=== PATIENT | male | born 1930 | race Caucasian/White ===

== ENCOUNTER → 2017-05-11 | Day surgery (SDC) | payer MEDICARE, OTHER ==
[~2017-05-11] MED LIST: AMLO2.5T PO; AZAT50TA PO; CHOL20002 PO; ESOM40CA PO; FISH1CAP PO; FLEC50TA PO; HYDR12.58 PO; HYDROmorphone 2 MG/ML VIAL IV PRN; INSU100I13 SQ; IV RINGERS,LACTATED 1000ML 1,000 ML IV SCH; LIDOCAINE 1% 1 ML SYRINGE. ID PRN; LIDOCAINE 2% PF Vial for OR 5 ML VIAL. ONE; LISI-334 PO; MORPHINE SULFATE 2 MG/ML DISP.SYRIN. IV PRN; PROCHLORPERAZINE 10 MG/2 ML VIAL. IV PRN; PROPOFOL 40 ML IV ONE; PYRI60TA PO; SIMV20TA3 PO; WARF5TAB7 PO; fentaNYL PF VIAL 100 MCG/2 ML VIAL IV PRN
[2017-05-11 14:45] VITALS: BP 170/56
--- NOTE | 2017-05-12 12:46 | PATHOLOGY ---
PATHOLOGY REPORT * * * * * * * * FINAL DIAGNOSIS: A. Squamous mucosa "distal esophagus rule out Medina's rule out esophagitis": - Acute esophageal ulcer with necrotic acute inflammatory exudate. - There is no evidence of goblet cell metaplasia, dysplasia or malignancy. B. Colonic mucosa "sigmoid polyp", biopsy: - Tubular adenoma. - There is no evidence of high-grade dysplasia or malignancy. ([facility]; d/t: 05/12/2017) COMMENT: A. GMS stain for fungus will be done and an additional report will follow. REPORT ELECTRONICALLY SIGNED BY: Rashid Salas M.D. DATE/TIME: 05/12/2017 12:45 * * * * * * * * GROSS PATHOLOGY: A. Received in formalin labeled "Van Mckeon, distal esophagus," are three segments of roca soft tissue measuring from 0.1 up to 0.3 cm in maximum dimension. The specimen is submitted entirely in cassette A1. B. Received in formalin labeled "sigmoid polyp" is a segment of roca soft tissue measuring 0.4 cm in maximum dimension. The specimen is submitted entirely in cassette B1. ([facility]; 05/11/17) INITIAL CPT CODE(S): A; 59810, 30224 B; 33925 Professional services performed [place] [facility] [place] [address] Technical services performed by [facility] at [address] [place] [address], [facility] [address] [address]. SPECIMEN(S) RECEIVED: A.Distal esophagus, r/o Medina's, r/o esophagitis B.Sigmoid polyp CLINICAL HISTORY: Anemia, screening PATIENT: VAN MCKEON /AGE: 10 1930 (Age: 86) PATIENT #: [id number] ALT CASE #: SPECIMEN COLLECTION DATE: 05/11/2017 SPECIMEN RECEIVED DATE: 05/11/2017 [facility] - [address] [place] [address] - PHONE: [phone] * * * END OF REPORT * * *
== END | disposition home or self-care (01) ==
LOC: ENDOS 12:15
PROVIDERS: ATTEND Internal Medicine Gastroenterology
DX: D50.9 Iron deficiency anemia, unspecified (principal); D12.5 Benign neoplasm of sigmoid colon; K57.30 Diverticulosis of large intestine without perforation or abscess without bleeding; K64.0 First degree hemorrhoids; K29.50 Unspecified chronic gastritis without bleeding; K21.0 Gastro-esophageal reflux disease with esophagitis; I10 Essential (primary) hypertension; E11.9 Type 2 diabetes mellitus without complications; Z86.39 Personal history of other endocrine, nutritional and metabolic disease
CPT/HCPCS: 43239; 45385; 88305; 88312; J2704

== ENCOUNTER → 2017-10-17 | Outpatient (CLI) | payer MEDICARE, OTHER ==
[2017-05-11 14:45] VITALS: BP 170/56
[~2017-10-17] MED LIST changes: -HYDROmorphone 2 MG/ML VIAL IV PRN; -IV RINGERS,LACTATED 1000ML 1,000 ML IV SCH; -LIDOCAINE 1% 1 ML SYRINGE. ID PRN; -LIDOCAINE 2% PF Vial for OR 5 ML VIAL. ONE; -MORPHINE SULFATE 2 MG/ML DISP.SYRIN. IV PRN; -PROCHLORPERAZINE 10 MG/2 ML VIAL. IV PRN; -PROPOFOL 40 ML IV ONE; -fentaNYL PF VIAL 100 MCG/2 ML VIAL IV PRN
== END | disposition home or self-care (01) ==
LOC: PMGWOUND 11:27
PROVIDERS: ATTEND Emergency Medicine Undersea and Hyperbaric Medicine
DX: I87.311 Chronic venous hypertension (idiopathic) with ulcer of right lower extremity (principal); E11.622 Type 2 diabetes mellitus with other skin ulcer; L97.212 Non-pressure chronic ulcer of right calf with fat layer exposed; E78.5 Hyperlipidemia, unspecified; I48.91 Unspecified atrial fibrillation; Z87.891 Personal history of nicotine dependence
CPT/HCPCS: 97597; 97598

== ENCOUNTER → 2017-10-24 | Outpatient (CLI) | payer MEDICARE, OTHER ==
[2017-05-11 14:45] VITALS: BP 170/56
== END | disposition home or self-care (01) ==
LOC: PMGWOUND 11:38
PROVIDERS: ATTEND Emergency Medicine Undersea and Hyperbaric Medicine
DX: I87.311 Chronic venous hypertension (idiopathic) with ulcer of right lower extremity (principal); E11.622 Type 2 diabetes mellitus with other skin ulcer; L97.212 Non-pressure chronic ulcer of right calf with fat layer exposed; I48.91 Unspecified atrial fibrillation; E78.5 Hyperlipidemia, unspecified; Z87.891 Personal history of nicotine dependence
CPT/HCPCS: 82962; 97597; 97598

== ENCOUNTER → 2017-10-31 | Outpatient (CLI) | payer MEDICARE, OTHER ==
[2017-05-11 14:45] VITALS: BP 170/56
== END | disposition home or self-care (01) ==
LOC: PMGWOUND 11:45
PROVIDERS: ATTEND Emergency Medicine Undersea and Hyperbaric Medicine
DX: I87.311 Chronic venous hypertension (idiopathic) with ulcer of right lower extremity (principal); E11.622 Type 2 diabetes mellitus with other skin ulcer; L97.212 Non-pressure chronic ulcer of right calf with fat layer exposed; I48.91 Unspecified atrial fibrillation; E78.5 Hyperlipidemia, unspecified; Z87.891 Personal history of nicotine dependence
CPT/HCPCS: 97597; 97598

== ENCOUNTER → 2017-11-02 | Outpatient (CLI) | payer MEDICARE, OTHER ==
[2017-05-11 14:45] VITALS: BP 170/56
--- NOTE | 2017-11-02 15:48 | RAD ---
Indication: Nonhealing wound in right leg. Technique: Right lower extremity arterial duplex ultrasound including grayscale, color-flow, and spectral waveform analysis. ABIs were calculated. Findings: Waveforms are biphasic or triphasic throughout the right lower extremity. No elevated velocity or turbulence flow is apparent. No stenosis on grayscale or color imaging is apparent. Common femoral artery peak systolic velocity is 108 cm/s and profundus 49 cm/s. Superficial femoral artery peak systolic velocities range from 69-77 cm/s. Popliteal artery peak systolic velocity is 59 cm/s. Right JESUS is 1.18 and left 1.22. Impression: 1. No evidence of a hemodynamically significant stenosis in the right lower extremity on arterial duplex ultrasound. 2. Normal ABIs.
== END | disposition home or self-care (01) ==
LOC: US 11:33
PROVIDERS: ATTEND Emergency Medicine Undersea and Hyperbaric Medicine
DX: S81.801A Unspecified open wound, right lower leg, initial encounter (principal); X58.XXXA Exposure to other specified factors, initial encounter; Y93.89 Activity, other specified; Y92.89 Other specified places as the place of occurrence of the external cause; Y99.8 Other external cause status
CPT/HCPCS: 93922; 93926

== ENCOUNTER 2017-11-07 12:13 | Emergency (ER) | payer MEDICARE, OTHER ==
[~2017-11-07] VITALS: Ht 167.6 cm; Wt 81.6 kg
--- NOTE | 2017-11-07 12:35 | PHYS DOC ---
Past Medical History Past Medical History: A-Fib, Diabetes-Type II, Heart Disease, Other Additional Past Medical Histor: MYASTHENIA GRAVIS Past Surgical History: Cholecystectomy, Other Additional Past Surgical Histo: PROSTATE Alcohol Use: None Drug Use: None Adult General Chief Complaint Chief Complaint: ABNORMAL LABS [facility] Patient is a 87 year old male who presents with elevated INR. He states he had his INR checked today and it was 8. He can't remember why he is on Coumadin but reviewing his chart it shows he has a history of A. fib. His primary care physician informed him he needed to get a shot in the emergency department to come in the hospital. He states he feels fine. The last time he got it checked was a month ago. Denies any blood in his stool or urine. He denies cough fevers chills nausea or vomiting. She takes 15 mg on Monday's and 10 mg on the other days of the week. Review of Systems Review of Systems Constitutional: Denies fever or chills [] Eyes: Denies change in visual acuity, redness, or eye pain [] HENT: Denies nasal congestion or sore throat [] Respiratory: Denies cough or shortness of breath [] Cardiovascular: No additional information not addressed in HPI [] GI: Denies abdominal pain, nausea, vomiting, bloody stools or diarrhea [] : Denies dysuria or hematuria [] Musculoskeletal: Denies back pain or joint pain [] Integument: Denies rash or skin lesions [] Neurologic: Denies headache, focal weakness or sensory changes [] Endocrine: Denies polyuria or polydipsia [] All other systems were reviewed and found to be within normal limits, except as documented in this note. Allergies Allergies Allergies Coded Allergies Type Severity Reaction Last Updated Verified No Known Drug Allergies 05/11/17 No Physical Exam Physical Exam Constitutional: Well developed, well nourished, no acute distress, non-toxic appearance. [] HENT: Normocephalic, atraumatic, bilateral external ears normal, oropharynx moist, no oral exudates, nose normal. [] Eyes: PERRLA, EOMI, conjunctiva normal, no discharge. [] Neck: Normal range of motion, no tenderness, supple, no stridor. [] Cardiovascular:Heart rate regular rhythm, no murmur [] Lungs & Thorax: Bilateral breath sounds clear to auscultation [] Abdomen: Bowel sounds normal, soft, no tenderness, no masses, no pulsatile masses. [] Skin: Warm, dry, no erythema, no rash. [] Back: No tenderness, no CVA tenderness. [] Extremities: No tenderness, no cyanosis, no clubbing, ROM intact, no edema. [] Neurologic: Alert and oriented X 3, normal motor function, normal sensory function, no focal deficits noted. [] Psychologic: Affect normal, judgement normal, mood normal. [] Current Patient Data Vital Signs Vital Signs Date Time Temp Pulse Resp B/P (MAP) Pulse Ox O2 Delivery O2 Flow Rate FiO2 11/07/17 12:31 97.7 63 18 170/79 (109) 98 Room Air 97.7 Lab Values Laboratory Tests Test 11/07/17 13:15 White Blood Count 5.3 x10^3/uL (4.0-11.0) Red Blood Count 4.11 x10^6/uL (4.30-5.70) L Hemoglobin 11.2 g/dL (13.0-17.5) L Hematocrit 35.0 % (39.0-53.0) L Mean Corpuscular Volume 85 fL (79-100) Mean Corpuscular Hemoglobin 27 pg (25-35) Mean Corpuscular Hemoglobin Concent 32 g/dL (31-37) Red Cell Distribution Width 15.5 % (11.5-14.5) H Platelet Count 220 x10^3/uL (140-400) Neutrophils (%) (Auto) 60 % (31-73) Lymphocytes (%) (Auto) 23 % (24-48) L Monocytes (%) (Auto) 10 % (0-9) H Eosinophils (%) (Auto) 6 % (0-3) H Basophils (%) (Auto) 1 % (0-3) Neutrophils # (Auto) 3.2 x10^3uL (1.8-7.7) Lymphocytes # (Auto) 1.2 x10^3/uL (1.0-4.8) Monocytes # (Auto) 0.5 x10^3/uL (0.0-1.1) Eosinophils # (Auto) 0.3 x10^3/uL (0.0-0.7) Basophils # (Auto) 0.1 x10^3/uL (0.0-0.2) Prothrombin Time 68.2 SEC (11.7-14.0) H Prothrombin Time INR 9.0 (0.8-1.1) *H Sodium Level 142 mmol/L (136-145) Potassium Level 4.4 mmol/L (3.5-5.1) Chloride Level 105 mmol/L (98-107) Carbon Dioxide Level 29 mmol/L (21-32) Anion Gap 8 (6-14) Blood Urea Nitrogen 22 mg/dL (8-26) Creatinine 1.1 mg/dL (0.7-1.3) Estimated GFR (Cockcroft-Gault) 63.6 BUN/Creatinine Ratio 20 (6-20) Glucose Level 79 mg/dL (70-99) Calcium Level 8.7 mg/dL (8.5-10.1) Total Bilirubin 0.2 mg/dL (0.2-1.0) Aspartate Amino Transferase (AST) 14 U/L (15-37) L Alanine Aminotransferase (ALT) 18 U/L (16-63) Alkaline Phosphatase 59 U/L (46-116) Total Protein 6.6 g/dL (6.4-8.2) Albumin 3.1 g/dL (3.4-5.0) L Albumin/Globulin Ratio 0.9 (1.0-1.7) L Laboratory Tests 11/07/17 13:15 Laboratory Tests 11/07/17 13:15 EKG EKG [] Radiology/Procedures Radiology/Procedures [] Impressions: supratherapeutic INR without bleeding Course & Med Decision Making Course & Med Decision Making Pertinent Labs and Imaging studies reviewed. (See chart for details) Vitals, labs other than his INR do not show any acute abnormality's. INR is 9. He has no signs of bleeding. We'll give 5 by mouth vitamin K needs to repeat his INR tomorrow in his primary care office. He is agreeable to the plan and being discharged in stable condition at this time. Dragon Disclaimer Dragon Disclaimer This electronic medical record was generated, in whole or in part, using a voice recognition dictation system. Departure Departure Impression: Primary Impression: Supratherapeutic INR Disposition: 01 HOME, SELF-CARE Condition: STABLE Referrals: KONSTANTIN LEES Jr, MD (PCP) Patient Instructions: Anticoagulation, Generic Additional Instructions: Your INR was 9 when we repeated it. He received 5 mg of oral vitamin K this should help bring it down into a more appropriate range. You will need follow- up to primary care physician tomorrow and have your INR checked again. Please eat and drink normally. Return the ER if you have any blood in your urine blood in your stools or any other concerns. GIANCARLO FISHER MD Nov 07, 2017 12:35
[2017-11-07 13:28] LABS: BASO # 0.1 x10^3/uL (0.0-0.2); BASO % 1 % (0-3); EOS % 6 % (0-3); HEMOGLOBIN 11.2 g/dL (13.0-17.5); LYMPH # 1.2 x10^3/uL (1.0-4.8); LYMPH % 23 % (24-48); MEAN CORPUSCULAR HEMOGLOBIN 27 pg (25-35); MEAN CORPUSCULAR HGB CONC 32 g/dL (31-37); MEAN CORPUSCULAR VOLUME 85 fL (79-100); MONO % 10 % (0-9); NEUT % 60 % (31-73); PLATELET COUNT 220 x10^3/uL (140-400); RED BLOOD COUNT 4.11 x10^6/uL (4.30-5.70); RED CELL DISTRIBUTION WIDTH 15.5 % (11.5-14.5); WHITE BLOOD COUNT 5.3 x10^3/uL (4.0-11.0)
[2017-11-07 13:41] LABS: PROTHROMBIN TIME PATIENT 68.2 SEC (11.7-14.0)
[2017-11-07 13:42] LABS: CALCIUM 8.7 mg/dL (8.5-10.1); CREATININE 1.1 mg/dL (0.7-1.3); GFR 63.6; POTASSIUM 4.4 mmol/L (3.5-5.1)
[2017-11-07 13:48] LABS: ALBUMIN 3.1 g/dL (3.4-5.0); ALBUMIN/GLOBULIN RATIO 0.9 (1.0-1.7); TOTAL BILIRUBIN 0.2 mg/dL (0.2-1.0); TOTAL PROTEIN 6.6 g/dL (6.4-8.2)
[2017-11-07] MEDS ORDERED: PHYTONADIONE 10 MG/ML ORAL SOLUTION. PO ONE (14:00)
[2017-11-07 14:15] VITALS: BP 133/65
== END 2017-11-07 14:28 | disposition home or self-care (01) ==
LOC: ER 12:13
DX: R79.1 Abnormal coagulation profile (principal); E11.9 Type 2 diabetes mellitus without complications; I48.91 Unspecified atrial fibrillation; Z79.01 Long term (current) use of anticoagulants
CPT/HCPCS: 36415; 80053; 85025; 85610; 99284

== ENCOUNTER → 2017-11-07 | Outpatient (CLI) | payer MEDICARE, OTHER ==
[2017-05-11 14:45] VITALS: BP 170/56
== END | disposition home or self-care (01) ==
LOC: PMGWOUND 10:37
PROVIDERS: ATTEND Emergency Medicine Undersea and Hyperbaric Medicine
DX: I87.311 Chronic venous hypertension (idiopathic) with ulcer of right lower extremity (principal); E11.622 Type 2 diabetes mellitus with other skin ulcer; L97.212 Non-pressure chronic ulcer of right calf with fat layer exposed; E78.5 Hyperlipidemia, unspecified; I48.91 Unspecified atrial fibrillation; Z87.891 Personal history of nicotine dependence
CPT/HCPCS: 97597; 97598

== ENCOUNTER → 2017-11-14 | Outpatient (CLI) | payer MEDICARE, OTHER ==
[2017-05-11 14:45] VITALS: BP 170/56
== END | disposition home or self-care (01) ==
LOC: PMGWOUND 10:04
PROVIDERS: ATTEND Emergency Medicine Undersea and Hyperbaric Medicine
DX: I87.311 Chronic venous hypertension (idiopathic) with ulcer of right lower extremity (principal); L97.212 Non-pressure chronic ulcer of right calf with fat layer exposed; E11.622 Type 2 diabetes mellitus with other skin ulcer; E78.5 Hyperlipidemia, unspecified; I48.91 Unspecified atrial fibrillation; Z87.891 Personal history of nicotine dependence; Z79.01 Long term (current) use of anticoagulants
CPT/HCPCS: 97597; 97598

== ENCOUNTER → 2017-11-21 | Outpatient (CLI) | payer MEDICARE, OTHER | END | disposition home or self-care (01) | LOC: PMGWOUND 10:21 | DX: I87.311 Chronic venous hypertension (idiopathic) with ulcer of right lower extremity (principal); L97.212 Non-pressure chronic ulcer of right calf with fat layer exposed; E78.5 Hyperlipidemia, unspecified; I48.91 Unspecified atrial fibrillation; I10 Essential (primary) hypertension; Z87.891 Personal history of nicotine dependence | CPT/HCPCS: 97597; 97598 ==

== ENCOUNTER → 2017-11-28 | Outpatient (CLI) | payer MEDICARE, OTHER | END | disposition home or self-care (01) | LOC: PMGWOUND 11:00 | DX: I87.311 Chronic venous hypertension (idiopathic) with ulcer of right lower extremity (principal); E11.622 Type 2 diabetes mellitus with other skin ulcer; L97.212 Non-pressure chronic ulcer of right calf with fat layer exposed; E78.5 Hyperlipidemia, unspecified; I48.91 Unspecified atrial fibrillation; Z87.891 Personal history of nicotine dependence | CPT/HCPCS: 97597; 97598 ==

== ENCOUNTER → 2017-12-05 | Outpatient (CLI) | payer MEDICARE, OTHER | END | disposition home or self-care (01) | LOC: PMGWOUND 10:04 | DX: I87.311 Chronic venous hypertension (idiopathic) with ulcer of right lower extremity (principal); E11.622 Type 2 diabetes mellitus with other skin ulcer; L97.212 Non-pressure chronic ulcer of right calf with fat layer exposed; E78.5 Hyperlipidemia, unspecified; I48.91 Unspecified atrial fibrillation; I10 Essential (primary) hypertension; Z87.891 Personal history of nicotine dependence; Z79.01 Long term (current) use of anticoagulants | CPT/HCPCS: 97597; 97598 ==

== ENCOUNTER → 2017-12-12 | Outpatient (CLI) | payer MEDICARE, OTHER | END | disposition home or self-care (01) | LOC: PMGWOUND 10:28 | DX: I87.311 Chronic venous hypertension (idiopathic) with ulcer of right lower extremity (principal); E11.622 Type 2 diabetes mellitus with other skin ulcer; L97.212 Non-pressure chronic ulcer of right calf with fat layer exposed; E78.5 Hyperlipidemia, unspecified; I48.91 Unspecified atrial fibrillation; I10 Essential (primary) hypertension; Z87.891 Personal history of nicotine dependence; Z79.01 Long term (current) use of anticoagulants | CPT/HCPCS: 97597; 97598 ==

== ENCOUNTER → 2017-12-19 | Outpatient (CLI) | payer MEDICARE, OTHER | END | disposition home or self-care (01) | LOC: PMGWOUND 10:50 | DX: I87.311 Chronic venous hypertension (idiopathic) with ulcer of right lower extremity (principal); E11.622 Type 2 diabetes mellitus with other skin ulcer; L97.212 Non-pressure chronic ulcer of right calf with fat layer exposed; E78.5 Hyperlipidemia, unspecified; I48.91 Unspecified atrial fibrillation; I10 Essential (primary) hypertension; Z87.891 Personal history of nicotine dependence; Z79.01 Long term (current) use of anticoagulants | CPT/HCPCS: 97597; 97598 ==

== ENCOUNTER → 2017-12-26 | Outpatient (CLI) | payer MEDICARE, OTHER | END | disposition home or self-care (01) | LOC: PMGWOUND 10:07 | DX: I87.311 Chronic venous hypertension (idiopathic) with ulcer of right lower extremity (principal); E11.622 Type 2 diabetes mellitus with other skin ulcer; L97.212 Non-pressure chronic ulcer of right calf with fat layer exposed; E78.5 Hyperlipidemia, unspecified; I48.91 Unspecified atrial fibrillation; Z87.891 Personal history of nicotine dependence; Z79.01 Long term (current) use of anticoagulants | CPT/HCPCS: 97597; 97598 ==

== ENCOUNTER → 2018-01-16 | Outpatient (CLI) | payer MEDICARE, OTHER | END | disposition home or self-care (01) | LOC: PMGWOUND 10:35 | DX: I87.311 Chronic venous hypertension (idiopathic) with ulcer of right lower extremity (principal); E11.622 Type 2 diabetes mellitus with other skin ulcer; L97.212 Non-pressure chronic ulcer of right calf with fat layer exposed; E78.5 Hyperlipidemia, unspecified; I48.91 Unspecified atrial fibrillation; Z87.891 Personal history of nicotine dependence; Z79.01 Long term (current) use of anticoagulants | CPT/HCPCS: 17250; 29581 ==

== ENCOUNTER → 2018-01-23 | Outpatient (CLI) | payer MEDICARE, OTHER | END | disposition home or self-care (01) | LOC: PMGWOUND 10:22 | DX: I87.311 Chronic venous hypertension (idiopathic) with ulcer of right lower extremity (principal); L97.212 Non-pressure chronic ulcer of right calf with fat layer exposed; E78.5 Hyperlipidemia, unspecified; I48.91 Unspecified atrial fibrillation; I10 Essential (primary) hypertension; Z79.01 Long term (current) use of anticoagulants; Z87.891 Personal history of nicotine dependence | CPT/HCPCS: 29581 ==

== ENCOUNTER → 2018-01-30 | Outpatient (CLI) | payer MEDICARE, OTHER | END | disposition home or self-care (01) | LOC: PMGWOUND 10:35 | DX: I87.311 Chronic venous hypertension (idiopathic) with ulcer of right lower extremity (principal); L97.212 Non-pressure chronic ulcer of right calf with fat layer exposed; E78.5 Hyperlipidemia, unspecified; I48.91 Unspecified atrial fibrillation; I10 Essential (primary) hypertension; Z79.01 Long term (current) use of anticoagulants; Z87.891 Personal history of nicotine dependence | CPT/HCPCS: 29581 ==

== ENCOUNTER → 2018-02-06 | Outpatient (CLI) | payer MEDICARE, OTHER | END | disposition home or self-care (01) | LOC: PMGWOUND 09:44 | DX: I87.311 Chronic venous hypertension (idiopathic) with ulcer of right lower extremity (principal); L97.212 Non-pressure chronic ulcer of right calf with fat layer exposed; E78.5 Hyperlipidemia, unspecified; I48.91 Unspecified atrial fibrillation; I10 Essential (primary) hypertension; Z79.01 Long term (current) use of anticoagulants; Z87.891 Personal history of nicotine dependence | CPT/HCPCS: 29581 ==

== ENCOUNTER → 2018-02-13 | Outpatient (CLI) | payer MEDICARE, OTHER | END | disposition home or self-care (01) | LOC: PMGWOUND 10:36 | DX: I87.311 Chronic venous hypertension (idiopathic) with ulcer of right lower extremity (principal); L97.212 Non-pressure chronic ulcer of right calf with fat layer exposed; E78.5 Hyperlipidemia, unspecified; I48.91 Unspecified atrial fibrillation; I10 Essential (primary) hypertension; Z79.01 Long term (current) use of anticoagulants; Z87.891 Personal history of nicotine dependence | CPT/HCPCS: 99204 ==

== ENCOUNTER → 2018-03-07 | Outpatient (CLI) | payer MEDICARE, OTHER | END | disposition home or self-care (01) | LOC: PMGWOUND 11:00 | DX: I87.311 Chronic venous hypertension (idiopathic) with ulcer of right lower extremity (principal); L97.811 Non-pressure chronic ulcer of other part of right lower leg limited to breakdown of skin; E78.5 Hyperlipidemia, unspecified; I87.2 Venous insufficiency (chronic) (peripheral); I48.91 Unspecified atrial fibrillation; I10 Essential (primary) hypertension; Z79.01 Long term (current) use of anticoagulants; Z87.891 Personal history of nicotine dependence | CPT/HCPCS: 97597 ==

== ENCOUNTER → 2018-03-21 | Outpatient (CLI) | payer MEDICARE, OTHER | END | disposition home or self-care (01) | LOC: PMGWOUND 10:57 | DX: I87.313 Chronic venous hypertension (idiopathic) with ulcer of bilateral lower extremity (principal); E11.622 Type 2 diabetes mellitus with other skin ulcer; L97.811 Non-pressure chronic ulcer of other part of right lower leg limited to breakdown of skin; L97.221 Non-pressure chronic ulcer of left calf limited to breakdown of skin; E78.5 Hyperlipidemia, unspecified; I87.2 Venous insufficiency (chronic) (peripheral); I48.91 Unspecified atrial fibrillation; I10 Essential (primary) hypertension; Z79.01 Long term (current) use of anticoagulants; Z87.891 Personal history of nicotine dependence | CPT/HCPCS: 29581; 97597 ==

== ENCOUNTER → 2018-03-23 | Outpatient (CLI) | payer MEDICARE, OTHER | END | disposition home or self-care (01) | LOC: PMGWOUND 12:01 | DX: I87.331 Chronic venous hypertension (idiopathic) with ulcer and inflammation of right lower extremity (principal); L97.811 Non-pressure chronic ulcer of other part of right lower leg limited to breakdown of skin; L97.221 Non-pressure chronic ulcer of left calf limited to breakdown of skin; I48.91 Unspecified atrial fibrillation; I10 Essential (primary) hypertension; E78.5 Hyperlipidemia, unspecified; Z87.891 Personal history of nicotine dependence; Z79.01 Long term (current) use of anticoagulants | CPT/HCPCS: 29581 ==

== ENCOUNTER → 2018-03-28 | Outpatient (CLI) | payer MEDICARE, OTHER | END | disposition home or self-care (01) | LOC: PMGWOUND 11:30 | DX: I87.313 Chronic venous hypertension (idiopathic) with ulcer of bilateral lower extremity (principal); E11.622 Type 2 diabetes mellitus with other skin ulcer; L97.811 Non-pressure chronic ulcer of other part of right lower leg limited to breakdown of skin; L97.221 Non-pressure chronic ulcer of left calf limited to breakdown of skin; E78.5 Hyperlipidemia, unspecified; I48.91 Unspecified atrial fibrillation; I10 Essential (primary) hypertension; Z79.01 Long term (current) use of anticoagulants; Z87.891 Personal history of nicotine dependence | CPT/HCPCS: 29581; 87205 ==

== ENCOUNTER → 2018-03-30 | Outpatient (CLI) | payer MEDICARE, OTHER ==
[2018-03-30 12:11] LABS: POC GLUCOSE 121 mg/dL (70-99)
== END | disposition home or self-care (01) ==
LOC: PMGWOUND 11:28
DX: I87.311 Chronic venous hypertension (idiopathic) with ulcer of right lower extremity (principal); L97.811 Non-pressure chronic ulcer of other part of right lower leg limited to breakdown of skin; E78.5 Hyperlipidemia, unspecified; I48.91 Unspecified atrial fibrillation; Z79.01 Long term (current) use of anticoagulants; Z87.891 Personal history of nicotine dependence
CPT/HCPCS: 29581; 82962

== ENCOUNTER → 2018-04-04 | Outpatient (CLI) | payer MEDICARE, OTHER ==
[2018-04-04 07:52] LABS: POC GLUCOSE 98 mg/dL (70-99)
== END | disposition home or self-care (01) ==
LOC: PMGWOUND 07:37
DX: I87.311 Chronic venous hypertension (idiopathic) with ulcer of right lower extremity (principal); E11.622 Type 2 diabetes mellitus with other skin ulcer; L97.212 Non-pressure chronic ulcer of right calf with fat layer exposed; E78.5 Hyperlipidemia, unspecified; I48.91 Unspecified atrial fibrillation; Z87.891 Personal history of nicotine dependence; Z79.01 Long term (current) use of anticoagulants
CPT/HCPCS: 82962; 97597

== ENCOUNTER → 2018-04-18 | Outpatient (CLI) | payer MEDICARE, OTHER | END | disposition home or self-care (01) | LOC: PMGWOUND 10:59 | DX: I87.311 Chronic venous hypertension (idiopathic) with ulcer of right lower extremity (principal); E11.622 Type 2 diabetes mellitus with other skin ulcer; L97.211 Non-pressure chronic ulcer of right calf limited to breakdown of skin; E78.5 Hyperlipidemia, unspecified; I48.91 Unspecified atrial fibrillation; Z87.891 Personal history of nicotine dependence; Z79.01 Long term (current) use of anticoagulants | CPT/HCPCS: 99213 ==

== ENCOUNTER → 2018-08-29 | Outpatient (CLI) | payer MEDICARE, OTHER ==
[2017-05-11 14:45] VITALS: BP 170/56
[~2018-08-29] MED LIST changes: -AMLO2.5T PO; +AMLO2.5T3 PO; -CHOL20002 PO; +WARF-31 PO; -WARF5TAB7 PO; +[UNRECOGNIZED DRUG - CODE] PO
--- NOTE | 2018-08-29 15:12 | RAD ---
Ultrasound of the scrotum HISTORY: Hydrocele COMPARISON: None RIGHT: Right testicle * Size: 4.3 cm by 4.3 x 2.4. * Blood supply: Intact blood flow. * Appearance: Homogeneous echotexture without focal lesion Right epididymis: Unremarkable Miscellaneous findings: Large right hydrocele LEFT: Left testicle * Size: 2.9 cm by 1.2 cm x 2.1 cm.. * Blood supply: Intact blood flow. * Appearance: Homogeneous echotexture without focal lesion Left epididymis: Unremarkable Miscellaneous findings: Small hydrocele IMPRESSION: Large right hydrocele Electronically signed by: Lit Fernandez MD (08/29/2018 3:09 PM) [facility]
== END | disposition home or self-care (01) ==
LOC: US 13:42
PROVIDERS: ATTEND Urology
DX: N43.2 Other hydrocele (principal); I10 Essential (primary) hypertension; K21.9 Gastro-esophageal reflux disease without esophagitis; E11.9 Type 2 diabetes mellitus without complications; Z79.01 Long term (current) use of anticoagulants; Z79.899 Other long term (current) drug therapy
CPT/HCPCS: 76870

== ENCOUNTER 2020-04-23 04:04 | Inpatient (IN) | payer MEDICARE, OTHER ==
[~2020-04-23] VITALS: Ht 177.8 cm; Wt 81.4 kg
[2020-04-23] VITALS (24 sets, daily range): BP systolic 73–158; BP diastolic 54–84
[~2020-04-23 04:04] MED LIST changes: -AMLO2.5T3 PO; +AMLO2.5T5 PO; +CHOL20002 PO; +SIMV20TA18 PO; -SIMV20TA3 PO; -[UNRECOGNIZED DRUG - CODE] PO
[2020-04-23] MEDS ORDERED: VECURONIUM BOLUS 10 MG VIAL. IV ONE ×2 (04:26→05:00)
[2020-04-23] MEDS ORDERED: ETOMIDATE 20 MG/10 ML VIAL. IV ONE ×2 (04:26→05:00)
[2020-04-23] MEDS ORDERED: PROPOFOL 50 ML IV ONE ×2 (04:36→05:15)
[2020-04-23] MEDS ORDERED: VANCOMYCIN 1GM IVPB FOR OMNI 250 ML ONE (04:37)
[2020-04-23 04:42] LABS: BASO % 1 % (0-3); EOS # 0.1 x10^3/uL (0.0-0.7); EOS % 2 % (0-3); HEMATOCRIT 35.3 % (39.0-53.0); HEMOGLOBIN 11.2 g/dL (13.0-17.5); LYMPH # 0.6 x10^3/uL (1.0-4.8); LYMPH % 9 % (24-48); MEAN CORPUSCULAR HEMOGLOBIN 24 pg (25-35); MEAN CORPUSCULAR HGB CONC 32 g/dL (31-37); MEAN CORPUSCULAR VOLUME 75 fL (79-100); MONO # 0.2 x10^3/uL (0.0-1.1); MONO % 3 % (0-9); NEUT # 5.8 x10^3/uL (1.8-7.7); NEUT % 87 % (31-73); PLATELET COUNT 143 x10^3/uL (140-400); RED BLOOD COUNT 4.71 x10^6/uL (4.30-5.70); RED CELL DISTRIBUTION WIDTH 17.9 % (11.5-14.5); WHITE BLOOD COUNT 6.7 x10^3/uL (4.0-11.0)
--- NOTE | 2020-04-23 04:44 | RAD ---
EXAM: AP View of the chest DATE: 04/23/2020 4:13 AM INDICATION: Shortness of breath COMPARISON: No Prior FINDINGS: The heart is not enlarged. Mediastinal and hilar contours are normal. Diffuse right-sided parenchymal airspace opacities are seen. Emphysematous changes are seen. No pleural effusion or pneumothorax. Bilateral shoulder joint degenerative changes are partially profiled. IMPRESSION: Diffuse right-sided parenchymal airspace opacities are seen. Imaging follow-up to resolution is recommended to exclude underlying mass. Electronically signed by: Jb Romero MD (04/23/2020 4:41 AM) [facility]
[2020-04-23] MEDS ORDERED: VANCOMYCIN 1GM IVPB FOR OMNI 250 ML IV ONE (04:45)
[2020-04-23] MEDS ORDERED: MIDAZOLAM HCL/PF 2 MG/2 ML VIAL. IV PRN (04:45)
[2020-04-23] MEDS ORDERED: PROPOFOL 100 ML IV PRN ×2 (04:45→04:49)
[2020-04-23 04:57] LABS: CALCIUM 8.3 mg/dL (8.5-10.1); CREATININE 1.5 mg/dL (0.7-1.3); GFR 44.3; POTASSIUM 4.2 mmol/L (3.5-5.1)
[2020-04-23] MEDS ORDERED: PIPERACILLIN/TAZOBACTAM 3.375 GM in IV NORMAL SALINE 50ML 50 ML IV ONE (05:00)
[2020-04-23] MEDS ORDERED: FUROSEMIDE 40 MG/4 ML VIAL. IVP ONE (05:00)
[2020-04-23 05:03] LABS: ALBUMIN/GLOBULIN RATIO 0.9 (1.0-1.7); TOTAL BILIRUBIN 0.4 mg/dL (0.2-1.0); TOTAL PROTEIN 6.5 g/dL (6.4-8.2)
--- NOTE | 2020-04-23 05:05 | PHYS DOC ---
Past Medical History Past Medical History: A-Fib, Diabetes-Type II, Heart Disease, Other Additional Past Medical Histor: MYASTHENIA GRAVIS Past Surgical History: Cholecystectomy, Other Additional Past Surgical Histo: PROSTATE Smoking Status: Never Smoker Alcohol Use: None Drug Use: None General Adult EDM: Chief Complaint: DYSPNEA/RESPIRATOY DISTRESS HPI: HPI: Patient is a 89 year old male who presents via EMS with report of respiratory distress. EMS reports that upon their arrival patient's oxygen saturation was noted to be in the 60s. They were able to get patient's oxygen level up to 88% on nonrebreather mask. Upon arrival, patient does indicate that he is short of breath and has had a cough. He denies any chest pain however. Additional history is limited due to severity of patient's symptoms. [] Review of Systems: Review of Systems: Constitutional: Positive fever. [] Respiratory: Positive cough and shortness of breath. [] Cardiovascular: Denies chest pain. [] GI: Denies abdominal pain, nausea, vomiting or diarrhea. [] Integument: Denies rash. [] Neurologic: Denies headache, focal weakness or sensory changes. [] A full 10 point review of systems has been reviewed and is otherwise negative. Heart Score: Risk Factors: Risk Factors: DM, Current or recent (<one month) smoker, HTN, HLP, family history of CAD, obesity. Risk Scores: Score 0 - 3: 2.5% MACE over next 6 weeks - Discharge Home Score 4 - 6: 20.3% MACE over next 6 weeks - Admit for Clinical Observation Score 7 - 10: 72.7% MACE over next 6 weeks - Early Invasive Strategies Current Medications: Current Medications Medications (Trade) Dose Ordered Sig/Vin Start Time Stop Time Status Last Admin Dose Admin Etomidate (Amidate) 20 mg STK-MED ONCE 04/23/20 04:26 04/23/20 04:26 DC Furosemide (Lasix) 60 mg 1X ONCE 04/23/20 05:00 04/23/20 05:01 04/23/20 04:42 60 MG Midazolam HCl (Versed) 2 mg PRN Q30MIN PRN 04/23/20 04:45 Piperacillin Sod/ Tazobactam Sod 3.375 gm/Sodium Chloride 50 ml @ 100 mls/hr 1X ONCE 04/23/20 05:00 04/23/20 05:29 Propofol 100 ml @ 0 mls/hr CONT PRN 04/23/20 04:49 Vancomycin HCl 250 ml @ 250 mls/hr 1X ONCE 04/23/20 04:45 04/23/20 05:44 04/23/20 04:44 250 MLS/HR Vecuronium [place] (Norcuron Bolus) 10 mg STK-MED ONCE 04/23/20 04:26 04/23/20 04:26 DC Allergies: Allergies: Allergies Coded Allergies Type Severity Reaction Last Updated Verified I S O L A T I O N *CONTACT* Allergy Unknown 04/03/18 Yes No Known Medication Allergies Allergy Unknown 04/03/18 Yes Physical Exam: PE: Constitutional: Well developed, well nourished, in moderate respiratory distress. [] HENT: Normocephalic, atraumatic, bilateral external ears normal, oropharynx moist, no oral exudates, nose normal. [] Eyes: PERRLA, EOMI, conjunctiva normal, no discharge. [] Neck: Normal range of motion, no tenderness, supple, no stridor. [] Cardiovascular: Tachycardic rate with regular rhythm [] Lungs & Thorax: Coarse rhonchi are noted bilaterally to auscultation [] Abdomen: Bowel sounds normal, soft, no tenderness. [] Skin: Warm, dry, no erythema, no rash. [] Extremities: No tenderness, no cyanosis, no clubbing, ROM intact, with bilateral 2+ pitting edema. [] Neurologic: Alert and oriented X 3, no focal deficits noted. [] Current Patient Data: Labs: Laboratory Tests Test 04/23/20 04:28 White Blood Count 6.7 x10^3/uL (4.0-11.0) Red Blood Count 4.71 x10^6/uL (4.30-5.70) Hemoglobin 11.2 g/dL (13.0-17.5) L Hematocrit 35.3 % (39.0-53.0) L Mean Corpuscular Volume 75 fL (79-100) L Mean Corpuscular Hemoglobin 24 pg (25-35) L Mean Corpuscular Hemoglobin Concent 32 g/dL (31-37) Red Cell Distribution Width 17.9 % (11.5-14.5) H Platelet Count 143 x10^3/uL (140-400) Neutrophils (%) (Auto) 87 % (31-73) H Lymphocytes (%) (Auto) 9 % (24-48) L Monocytes (%) (Auto) 3 % (0-9) Eosinophils (%) (Auto) 2 % (0-3) Basophils (%) (Auto) 1 % (0-3) Neutrophils # (Auto) 5.8 x10^3/uL (1.8-7.7) Lymphocytes # (Auto) 0.6 x10^3/uL (1.0-4.8) L Monocytes # (Auto) 0.2 x10^3/uL (0.0-1.1) Eosinophils # (Auto) 0.1 x10^3/uL (0.0-0.7) Basophils # (Auto) 0.0 x10^3/uL (0.0-0.2) Platelet Estimate Pending Laboratory Tests 04/23/20 04:28 Vital Signs: Vital Signs Date Time Temp Pulse Resp B/P (MAP) Pulse Ox O2 Delivery O2 Flow Rate FiO2 04/23/20 04:35 94 Ventilator 04/23/20 04:05 112 36 170/92 (118) 15.0 EKG: EKG: [] Radiology/Procedures: Radiology/Procedures: [] Impression: PROCEDURE: PORTABLE CHEST 1V EXAM: AP View of the chest DATE: 04/23/2020 4:13 AM INDICATION: Shortness of breath COMPARISON: No Prior FINDINGS: The heart is not enlarged. Mediastinal and hilar contours are normal. Diffuse right-sided parenchymal airspace opacities are seen. Emphysematous changes are seen. No pleural effusion or pneumothorax. Bilateral shoulder joint degenerative changes are partially profiled. IMPRESSION: Diffuse right-sided parenchymal airspace opacities are seen. Imaging follow-up to resolution is recommended to exclude underlying mass. Electronically signed by: Jb Romero MD (04/23/2020 4:41 AM) [facility] Course & Med Decision Making: Course & Med Decision Making Pertinent Labs and Imaging studies reviewed. (See chart for details) [] Dragon Disclaimer: Dragon Disclaimer: This electronic medical record was generated, in whole or in part, using a voice recognition dictation system. Departure Departure Impression: Primary Impression: Pneumonia Qualified Codes: J18.9 - Pneumonia, unspecified organism Additional Impressions: Person under investigation for COVID-19 Acute respiratory failure with hypoxemia Disposition: ADMITTED INPATIENT Admitting Physician: KG Condition: IMPROVED Referrals: KONSTANTIN LEES Jr, MD (PCP) PEYTON CLEMENS Jr. DO Apr 23, 2020 05:05
[2020-04-23] MEDS ORDERED: ONDANSETRON PF 4 MG/2 ML VIAL. IV PRN (05:15)
[2020-04-23 05:21] LABS: BASE EXCESS ABG -3 mmol/L (-3-3); CORRECTED PCO2 ABG 56 mmHg; CORRECTED PH ABG 7.27; CORRECTED PO2 ABG 146 mmHg; HCO3 ABG 24 mmol/L (21-28); SAT O2 ABG 98 % (92-99)
[2020-04-23] MEDS: IV NORMAL SALINE 1000ML BAG 1,000 ML IV SCH ×2 (05:25→20:38)
[2020-04-23 05:26] LABS: FIO2 ABG 100; PCO2 ABG 52 mmHg (35-46); PO2 ABG 135 mmHg (65-108)
[2020-04-23] MEDS ORDERED: ACETAMINOPHEN 650 MG SUPP.RECT. PR ONE (05:30)
[2020-04-23] MEDS ORDERED: METOPROLOL TARTRATE 5 MG/5 ML VIAL. IVP ONE (06:00)
[2020-04-23] MEDS ORDERED: NOREPINEPHRINE VIAL 8 MG in IV DEXTROSE 5% 250 ML IV ONE (06:00)
[2020-04-23] MEDS ORDERED: MIDAZOLAM HCL/PF 5 MG/5 ML VIAL. NS ONE (06:00)
--- NOTE | 2020-04-23 06:07 | EKG ---
[facility] [address] [place] [address] Test Date: 2020-04-23 Test Time: 04:13:22 Pat Name: STEPHANIE CLEMENS Department: Room: 116 1 Gender: M General Administrator: : 1930 Requested By: PEYTON CLEMENS Order Number: [id number] Reading MD: Srinivas Lopez MD Measurements Intervals [place] Rate: 110 P: -146 TN: 126 QRS: 48 QRSD: 144 T: -114 QT: 336 QTc: 460 Interpretive Statements PROBABLE PACED RHYTHM CANNOT RULE OUT SINUS RHYTHM WITH LBBB CONSIDER REPEAT EKG Electronically Signed On 04-30-2020 10:00:31 CDT by Srinivas Lopez MD
--- NOTE | 2020-04-23 06:10 | RAD ---
EXAM: AP View of the chest DATE: 04/23/2020 4:55 AM INDICATION: Reason: post intubation / Spl. Instructions: / History: COMPARISON: 04/23/2020 FINDINGS: ET tube tip terminates approximately 4 cm above the haven. Enteric tube tip terminates within the body of the stomach. Cardiac mediastinal silhouette is stable. Right lung airspace opacities are again seen, mildly progressed. No pleural effusion or pneumothorax. IMPRESSION: Electronically signed by: Jb Romero MD (04/23/2020 6:08 AM) [facility]
[2020-04-23] MEDS ORDERED: MIDAZOLAM HCL/PF 5 MG/5 ML VIAL. IV ONE (06:15)
[2020-04-23 06:39] LABS: % BANDS 3 % (0-9); % EOS 3 % (0-5); % LYMPHS 18 % (24-48); % SEGS 76 % (35-66); PLT ESTIMATE ADEQUATE (ADEQUATE)
[2020-04-23 06:40] LABS: ANISOCYTOSIS SLIGHT; HYPOCHROMIA PRESENT
--- NOTE | 2020-04-23 07:30 | RAD ---
AP chest x-ray HISTORY: Status post central line placement. COMPARISON: Chest x-ray April 23, 2020. FINDINGS: Endotracheal tube 5 cm above the haven. Nasogastric tube extends the left upper quadrant abdomen. Right jugular central venous catheter is in place tip right paratracheal mediastinum radiographic region SVC. Heart size stable. No pneumothorax. Left lung clear. Persistent opacity at the right mid to inferior lung zone. Small right pleural effusion along lateral diaphragm is not excluded. IMPRESSION: Lines and tubes as described above. No pneumothorax. Persistent consolidated infiltrate of the right lung base. There could be a small right pleural effusion along the diaphragm. Electronically signed by: Bear Alexandre MD (04/23/2020 7:26 AM) [id number]
[2020-04-23] MEDS ORDERED: MIDAZOLAM HCL 50 MG in IV NORMAL SALINE 50ML 50 ML IV PRN (07:45)
[2020-04-23] MEDS: VASOPRESSIN 20 UNIT in IV DEXTROSE 5% 100ML 100 ML IV PRN ×2 (08:00→14:32)
[2020-04-23] MEDS: MIDAZOLAM 100mg/100ml NS BAG 100 ML IV PRN (08:00)
[2020-04-23] MEDS: NOREPINEPHRINE VIAL 8 MG in IV DEXTROSE 5% 250 ML IV PRN ×2 (08:12→14:32)
[2020-04-23 09:05] LABS: BASE EXCESS ABG -4 mmol/L (-3-3); HCO3 ABG 20 mmol/L (21-28); PCO2 ABG 33 mmHg (35-46); PO2 ABG 166 mmHg (65-108); SAT O2 ABG 99 % (92-99)
[2020-04-23 09:16] LABS: FIO2 ABG 80
[2020-04-23 09:47] LABS: BILIRUBIN,URINE NEGATIVE (NEG); CLARITY,URINE CLEAR; COLOR,URINE YELLOW; NITRITE,URINE NEGATIVE (NEG); PROTEIN,URINE NEGATIVE (NEG-TRACE); UROBILINOGEN,URINE 0.2 mg/dL (0.2 mg/dL)
[2020-04-23] MEDS ORDERED: IV NORMAL SALINE 1000ML BAG 1,000 ML IV ONE (10:00)
[2020-04-23] MEDS ORDERED: PIP/TAZO PER PHARMACY MC PRN ×2 (10:00)
[2020-04-23] MEDS ORDERED: VANCOMYCIN PER PHARMACY MC PRN ×2 (10:00)
[2020-04-23 10:14] LABS: BACTERIA,URINE 0 /HPF (0-FEW); RBC,URINE 0 /HPF (0-2)
[2020-04-23 10:17] LABS: HYALINE CASTS, URINE OCCASIONAL /HPF; SQUAMOUS EPITHELIAL CELL,UR OCC /LPF
--- NOTE | 2020-04-23 10:20 | CONS ---
DATE OF CONSULTATION: PULMONARY CONSULTATION ATTENDING PHYSICIAN: Yaniv Barron MD. REASON FOR CONSULTATION: Respiratory failure, shock. HISTORY OF PRESENT ILLNESS: The patient is an 89-year-old male who has history of atrial fibrillation, history of diabetes and heart disease along with myasthenia gravis. He was brought into the hospital via EMS with respiratory distress. His saturations were in the 60s on arrival and went up to 88% on nonrebreather mask. However, he could not last long on the nonrebreather mask and had to be intubated. The patient is currently on mechanical ventilation, requiring about 30 mcg of Levophed. He received about a liter of fluids. His ABG showed a pH of 7.29, pCO2 of 52 and a pO2 of 135. His latest ABG showed a pH of 7.41, pCO2 of 37 and a pO2 of 166. Chest x-ray showed extensive right-sided infiltrates. I have been asked to see him for further evaluation. He is also on vasopressin. PAST MEDICAL HISTORY: Significant for history of AFib; history of diabetes; history of heart disease, details not available; history of myasthenia gravis. PAST SURGICAL HISTORY: Cholecystectomy and prostate surgery. ALLERGIES: None. MEDICATIONS: Reviewed as listed in the MRAD including vasopressin. He received Zosyn. REVIEW OF SYSTEMS: Unable to obtain from the patient. SOCIAL HISTORY: History of tobacco use, details unknown. FAMILY HISTORY: Unavailable. PHYSICAL EXAMINATION: GENERAL: Intubated and sedated. VITAL SIGNS: Blood pressure 110 systolic on 2 pressors. He is afebrile. Pulse ox is 99%. HEENT: Visual exam done due to COVID pandemia. EXTREMITIES: With no obvious JVD. SKIN: With no rash. LABORATORY DATA: Reviewed. ABGs as discussed in my history of present illness. BUN 21, creatinine 1.5. Troponin 0.063. White cell count 6.7, hemoglobin 11.2 and platelets of 143. IMPRESSION: 1. Acute hypoxic and hypercapnic respiratory failure secondary to multifactorial etiologies including combination of septic shock and right-sided pneumonia/ ? Myesthenic crisis. Clinically, less likely COVID-19, but cannot be ruled out. 2. Likely underlying chronic obstructive pulmonary disease with exacerbation. 3. Acute kidney injury. 4. Mildly increased troponin level. 5. Abnormal chest x-ray with right-sided infiltrates, likely secondary to pneumonia. Endotracheal tube in satisfactory position. 6. Myesthenia gravis., details not available RECOMMENDATIONS: 1. Continue with present assist control mode and make necessary adjustment based on ABGs. 2. Broad-spectrum antibiotics. 3. Follow chest x-rays. 4. Follow all cultures. 5. COVID-19 test is pending, we will rule him out. Clinically less suspicion. 6. We will also give additional fluid bolus. 7. Once COVID is negative, we will obtain echo. 8. DVT and stress ulcer prophylaxis. 9. Discussed with RN and RT. 10. Obtain medication list for MG and resume them Critical care time 40 minutes including decision making. ROSALBA GRANADOS MD DR: CHANNING/armani JOB#: [id number] / [id number] DANIEL
[2020-04-23] MEDS ORDERED: VANCOMYCIN 500 MG in IV NORMAL SALINE 100ML 100 ML IV ONE (10:30)
[2020-04-23] MEDS ORDERED: ENOXAPARIN 40 MG/0.4 ML SYRINGE. SQ SCH (10:30)
--- NOTE | 2020-04-23 10:40 | EKG ---
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
--- NOTE | 2020-04-23 11:39 | HP ---
ADMIT DATE: 04/23/2020 CHIEF COMPLAINT: Respiratory failure. HISTORY OF PRESENT ILLNESS: The patient is a pleasant 89-year-old male who has myasthenia gravis and other comorbidities. Please see below. Basically presented to the ER last night with respiratory failure. He was intubated. He has now been sent to the ICU where he is being examined in room 116. He is currently on the vent. He is on Versed IV, vasopressin and Levophed, appears critically ill. PAST MEDICAL HISTORY: Atrial fibrillation, diabetes, heart disease, myasthenia gravis, cholecystectomy, prostate surgery. ALLERGIES: None. FAMILY HISTORY: Diabetes. SOCIAL HISTORY: He does not drink, smoke or take drugs. MEDICATIONS: Reviewed, please refer to the MRAD. REVIEW OF SYSTEMS: Unable to obtain. The patient is on the vent. PHYSICAL EXAMINATION: VITALS: Temperature is afebrile, pulse 94, respirations 20, blood pressure is 136/76 but that is while he is on Levophed and vasopressin, O2 sat 99%, but he is on 60% oxygen on the vent. GENERAL: No apparent distress. Alert and oriented. HEENT: He has an ET tube in place and an OG tube in place. EYES: Extraocular muscles are intact, pupils are equally round and reactive to light and accommodation MUSCULOSKELETAL: Well developed, well nourished, good range of motion ENDOCRINE: No thyromegaly was palpated LYMPHATICS: No cervical chain or axillary nodes were noted HEMATOPOIETIC: No bruising NECK: Supple, no JVD, no thyromegaly was noted. LUNGS: Clear to auscultation in all lung jones without rhonchi or wheezing. HEART: RRR, S1, S2 present. Peripheral pulses intact, no obvious murmurs were noted. ABDOMEN: Soft, nontender. Positive bowel sounds no organomegaly, normal bowel sounds. EXTREMITIES: Without any cyanosis, clubbing, or edema. Pedal pulses intact, Homans sign is negative. NEUROLOGIC: He is sedated. PSYCHIATRIC: Normal affect, normal mood. Stable. SKIN: No ulcerations or rashes, good skin turgor, no jaundice. VASCULAR: Good capillary refill, neurovascular bundle appears to be intact. LABORATORY DATA: White count 6.7, hemoglobin 11.2, platelets 143. Electrolytes are normal. Troponin slightly high at 0.06. Creatinine was 1.5. ASSESSMENT AND PLAN: Multifactorial respiratory failure with severe hypotension, pneumonia, sepsis, chronic obstructive pulmonary disease, acute kidney injury, elevated troponin and abnormal chest x-ray. The patient has been admitted to the ICU. He is on the vent. We consulted Dr. Singer for vent management. Consult Dr. Jordy Carpenter, Infectious Disease. Consult Dr. Kennedy, Cardiology. Home meds, DVT prophylaxis. Full code. ICU monitoring, trend labs. Prognosis is extremely guarded. He is critically ill. TOTAL TIME: 31 minutes. TRAE SERNA DO DR: KARINA/armani JOB#: [id number] / [id number]
--- NOTE | 2020-04-23 11:46 | PDOC ---
Infectious Disease Note Vital Sign Vital Signs Vital Signs Date Time Temp Pulse Resp B/P (MAP) Pulse Ox O2 Delivery O2 Flow Rate FiO2 04/23/20 11:17 96 Ventilator 04/23/20 11:00 95 20 142/74 (96) 04/23/20 07:00 98.8 98.8 04/23/20 04:35 15.0 Labs Lab Laboratory Tests Test 04/23/20 04:28 04/23/20 05:20 04/23/20 08:00 04/23/20 08:25 White Blood Count 6.7 x10^3/uL (4.0-11.0) Red Blood Count 4.71 x10^6/uL (4.30-5.70) Hemoglobin 11.2 g/dL (13.0-17.5) Hematocrit 35.3 % (39.0-53.0) Mean Corpuscular Volume 75 fL (79-100) Mean Corpuscular Hemoglobin 24 pg (25-35) Mean Corpuscular Hemoglobin Concent 32 g/dL (31-37) Red Cell Distribution Width 17.9 % (11.5-14.5) Platelet Count 143 x10^3/uL (140-400) Neutrophils (%) (Auto) 87 % (31-73) Lymphocytes (%) (Auto) 9 % (24-48) Monocytes (%) (Auto) 3 % (0-9) Eosinophils (%) (Auto) 2 % (0-3) Basophils (%) (Auto) 1 % (0-3) Neutrophils # (Auto) 5.8 x10^3/uL (1.8-7.7) Lymphocytes # (Auto) 0.6 x10^3/uL (1.0-4.8) Monocytes # (Auto) 0.2 x10^3/uL (0.0-1.1) Eosinophils # (Auto) 0.1 x10^3/uL (0.0-0.7) Basophils # (Auto) 0.0 x10^3/uL (0.0-0.2) Segmented Neutrophils % 76 % (35-66) Band Neutrophils % 3 % (0-9) Lymphocytes % 18 % (24-48) Eosinophils % 3 % (0-5) Platelet Estimate Adequate (ADEQUATE) Hypochromasia Present Anisocytosis Slight Sodium Level 140 mmol/L (136-145) Potassium Level 4.2 mmol/L (3.5-5.1) Chloride Level 104 mmol/L (98-107) Carbon Dioxide Level 28 mmol/L (21-32) Anion Gap 8 (6-14) Blood Urea Nitrogen 21 mg/dL (8-26) Creatinine 1.5 mg/dL (0.7-1.3) Estimated GFR (Cockcroft-Gault) 44.3 BUN/Creatinine Ratio 14 (6-20) Glucose Level 176 mg/dL (70-99) Lactic Acid Level 1.7 mmol/L (0.4-2.0) Calcium Level 8.3 mg/dL (8.5-10.1) Total Bilirubin 0.4 mg/dL (0.2-1.0) Aspartate Amino Transf (AST/SGOT) 17 U/L (15-37) Alanine Aminotransferase (ALT/SGPT) 23 U/L (16-63) Alkaline Phosphatase 54 U/L (46-116) Troponin I Quantitative 0.063 ng/mL (0.000-0.055) ZM-Bjy-Z-Type Natriuretic Peptide 308 pg/mL (0-449) Total Protein 6.5 g/dL (6.4-8.2) Albumin 3.0 g/dL (3.4-5.0) Albumin/Globulin Ratio 0.9 (1.0-1.7) O2 Saturation 98 % (92-99) 99 % (92-99) Arterial Blood pH 7.29 (7.35-7.45) 7.41 (7.35-7.45) Arterial Blood pH (Temp corrected) 7.27 Arterial Blood pCO2 at Patient Temp 52 mmHg (35-46) 33 mmHg (35-46) Arterial Blood pCO2 (Temp correct) 56 mmHg Arterial Blood pO2 at Patient Temp 135 mmHg (65-108) 166 mmHg (65-108) Arterial Blood pO2 (Temp corrected) 146 mmHg Arterial Blood HCO3 24 mmol/L (21-28) 20 mmol/L (21-28) Arterial Blood Base Excess -3 mmol/L (-3-3) -4 mmol/L (-3-3) FiO2 100 80 Urine Collection Type Unknown Urine Color Yellow Urine Clarity Clear Urine pH 5.0 (<5.0-8.0) Urine Specific [place] 1.010 (1.000-1.030) Urine Protein Negative mg/dL (NEG-TRACE) Urine Glucose (UA) Negative mg/dL (NEG) Urine Ketones (Stick) Negative mg/dL (NEG) Urine Blood Negative (NEG) Urine Nitrite Negative (NEG) Urine Bilirubin Negative (NEG) Urine Urobilinogen Dipstick 0.2 mg/dL (0.2 mg/dL) Urine Leukocyte Esterase Negative (NEG) Urine RBC 0 /HPF (0-2) Urine WBC 1-4 /HPF (0-4) Urine Squamous Epithelial Cells Occ /LPF Urine Bacteria 0 /HPF (0-FEW) Urine Hyaline Casts Occasional /HPF Urine Mucus Slight /LPF Objective Assessment pt seen, consult dictated Plan Plan of Care / MIRTA MENDOZA MD Apr 23, 2020 11:46
[2020-04-23] MEDS: PIPERACILLIN/TAZOBACTAM 3.375 GM in IV NORMAL SALINE 50ML 50 ML IV SCH ×2 (12:03→18:46)
--- NOTE | 2020-04-23 12:33 | CONS ---
DATE OF CONSULTATION: 04/23/2020 REQUESTING PHYSICIAN: Yaniv Barron MD REASON FOR CONSULTATION: Sepsis and pneumonia. HISTORY OF PRESENT ILLNESS: This is an 89-year-old gentleman who came in, with unable to breathe, through the EMS. The patient was hypoxic, required intubation, also hypotensive. The patient received according to RN, 1 liter of fluid in the ER and 1 liter of fluid in the ICU. The patient's vasopressor need is improving. The patient is orally intubated and receiving vancomycin and Zosyn, found to have pneumonia. COVID-19 is pending. No nausea, vomiting, diarrhea or fever noted. PAST MEDICAL HISTORY: Positive for diabetes mellitus, hypertension, atrial fibrillation, myasthenia gravis, has had cholecystectomy and prostate surgery. SOCIAL HISTORY: Unable to obtain. ALLERGIES: No known drug allergies listed. CURRENT MEDICATIONS: Reviewed. The patient is on vancomycin and Zosyn. REVIEW OF SYSTEMS: As per HPI, through the patient's RN. The patient is not able to provide. PHYSICAL EXAMINATION: GENERAL: Vitals are stable. The patient is sedated, orally intubated. VITAL SIGNS: Temperature 98.8, pulse 114, respirations 20, blood pressure 158/78. HEENT: Both pupils are round and reacting. No conjunctival lesion. Mouth cannot be visualized as orally intubated. NECK: Supple, no JVP, no lymphadenopathy. LUNGS: Decreased breath sounds bilaterally. HEART: S1, S2 regular. No gallop or murmur. ABDOMEN: Soft, nontender. No organomegaly. EXTREMITIES: No edema, cyanosis. SKIN: Unremarkable other than some minor skin breakdowns present. NEUROLOGIC: The patient apparently was moving all the extremities before sedation and intubation. LABORATORY DATA: White count is normal, hemoglobin 11.2, platelets are 143,000. The patient does have lymphopenia. BUN and creatinine is 21 and 1.5. Lactic acid 1.7. Troponin 0.063. Urinalysis unremarkable. Cultures are pending. His chest x-ray showed right lung consolidation. IMPRESSION: 1. Community-acquired pneumonia. 2. Respiratory failure. 3. Hypotension. 4. Acute kidney injury. 5. History of atrial fibrillation. 6. Diabetes. 7. Myasthenia gravis. RECOMMENDATIONS: I would continue Zosyn, change vancomycin to Zyvox. Supportive care. We will follow the cultures and continue to follow. Thank you very much, Dr. Barron, for giving me the opportunity to participate in this patient's care. MIRTA MENDOZA MD DR: CHRISTY/armani JOB#: [id number] / [id number]
--- NOTE | 2020-04-23 14:00 | PDOC2 ---
NISA BOWMAN FISCAL SPECIALIST 04/23/20 1400: CARDIAC CONSULT DATE OF CONSULT Date of Consult DATE: 04/23/20 TIME: 13:53 REASON FOR CONSULT Reason for Consult: Elevated troponin REFERRING PHYSICIAN Referring Physician: Dr. Verdugo SOURCE Source: Chart review, Patient HISTORY OF PRESENT ILLNESS HISTORY OF PRESENT ILLNESS This is an 89 yo male who presented secondary to respiratory distress, requiring intubation. Was noted with elevated troponin level, which prompted this consult. Oxygen saturation with in 60's upon EMS arrival. CXR with evidence of right sided PNA. PAST MEDICAL HISTORY Cardiovascular: AFIB, HTN CENTRAL NERVOUS SYSTEM: Other (myasthenia gravis.) GI: GERD Heme/Onc: Anemia NOS Endocrine: Diabetes PAST SURGICAL HISTORY Past Surgical History: No pertinent history FAMILY HISTORY Family History: Family History Unknown SOCIAL HISTORY ALCOHOL: none Drugs: None CURRENT MEDICATIONS CURRENT MEDICATIONS Current Medications Medications (Trade) Dose Ordered Sig/Vin Route PRN Reason Start Time Stop Time Status Last Admin Dose Admin Furosemide (Lasix) 60 mg 1X ONCE IVP 04/23/20 05:00 04/23/20 05:01 DC 04/23/20 04:42 Etomidate (Amidate) 20 mg 1X ONCE IV 04/23/20 05:00 04/23/20 05:01 DC 04/23/20 04:39 Vecuronium [place] (Norcuron Bolus) 10 mg 1X ONCE IV 04/23/20 05:00 04/23/20 05:01 DC 04/23/20 04:39 Vancomycin HCl 250 ml @ 250 mls/hr 1X ONCE IV 04/23/20 04:45 04/23/20 05:44 DC 04/23/20 04:44 Piperacillin Sod/ Tazobactam Sod 3.375 gm/Sodium Chloride 50 ml @ 100 mls/hr 1X ONCE IV 04/23/20 05:00 04/23/20 05:29 DC 04/23/20 05:08 Propofol 100 ml @ 0 mls/hr CONT PRN IV SEE PROTOCOL 04/23/20 04:45 04/23/20 04:49 DC 04/23/20 04:46 Acetaminophen (Tylenol Supp) 650 mg 1X ONCE OR 04/23/20 05:30 04/23/20 05:31 DC 04/23/20 05:00 Sodium Chloride 1,000 ml @ 75 mls/hr [id number] IV 04/23/20 05:30 6/5/20 05:29 04/23/20 05:25 Midazolam HCl (Versed) 5 mg 1X ONCE NS 04/23/20 06:00 04/23/20 06:01 DC 04/23/20 05:26 Norepinephrine Bitartrate 8 mg/ Dextrose 258 ml @ 14.513 mls/ hr 1X ONCE IV 04/23/20 06:00 04/23/20 23:46 04/23/20 05:52 Midazolam HCl (Versed) 5 mg 1X ONCE IV 04/23/20 06:15 04/23/20 06:16 DC 04/23/20 06:09 Midazolam HCl 100 ml @ 0 mls/hr CONT PRN IV SEE PROTOCOL 04/23/20 07:45 04/23/20 08:00 Vasopressin 20 unit/Dextrose 101 ml @ 12 mls/hr CONT PRN IV SEE I/O RECORD 04/23/20 08:00 04/23/20 08:00 Norepinephrine Bitartrate 8 mg/ Dextrose 258 ml @ 14.513 mls/ hr CONT PRN IV PER PROTOCOL 04/23/20 08:15 04/23/20 08:12 Sodium Chloride 1,000 ml @ 1,000 mls/hr 1X ONCE IV 04/23/20 10:00 04/23/20 10:59 DC 04/23/20 10:11 Piperacillin Sod/ Tazobactam Sod 3.375 gm/Sodium Chloride 50 ml @ 100 mls/hr Q6HRS IV 04/23/20 11:00 04/23/20 12:03 Enoxaparin Sodium (Lovenox 40mg Syringe) 40 mg BID SQ 04/23/20 10:30 04/23/20 10:46 Vancomycin HCl 500 mg/Sodium Chloride 100 ml @ 100 mls/hr 1X ONCE IV 04/23/20 10:30 04/23/20 11:29 DC 04/23/20 10:46 ALLERGIES ALLERGIES: Coded Allergies: I S O L A T I O N *CONTACT* (Verified Allergy, Unknown, 04/03/18) mrsa No Known Medication Allergies (Verified Allergy, Unknown, 04/03/18) ROS Review of System unobtainable PHYSICAL EXAM General: Other (sedated) Lungs: Other (mechanical ventilation ) Heart: Other (IRRR; AFIB with controlled rate. distant heart tones ) Abdomen: Soft Extremities: Other (1+ bilateral LE edema) Skin: No significant lesion Psych/Mental Status: Other (sedated) VITALS/I&O VITALS/I&O: Vital Signs Date Time Temp Pulse Resp B/P (MAP) Pulse Ox O2 Delivery O2 Flow Rate FiO2 04/23/20 13:00 87 20 132/80 (97) 99 Ventilator 04/23/20 12:00 98.5 98.5 04/23/20 04:35 15.0 I & O 04/22/20 04/22/20 04/23/20 15:00 23:00 07:00 Intake Total 300 ml Balance 300 ml LABS Lab: Laboratory Tests Test 04/23/20 04:28 04/23/20 05:20 04/23/20 08:00 04/23/20 08:25 White Blood Count 6.7 x10^3/uL (4.0-11.0) Red Blood Count 4.71 x10^6/uL (4.30-5.70) Hemoglobin 11.2 g/dL (13.0-17.5) L Hematocrit 35.3 % (39.0-53.0) L Mean Corpuscular Volume 75 fL (79-100) L Mean Corpuscular Hemoglobin 24 pg (25-35) L Mean Corpuscular Hemoglobin Concent 32 g/dL (31-37) Red Cell Distribution Width 17.9 % (11.5-14.5) H Platelet Count 143 x10^3/uL (140-400) Neutrophils (%) (Auto) 87 % (31-73) H Lymphocytes (%) (Auto) 9 % (24-48) L Monocytes (%) (Auto) 3 % (0-9) Eosinophils (%) (Auto) 2 % (0-3) Basophils (%) (Auto) 1 % (0-3) Neutrophils # (Auto) 5.8 x10^3/uL (1.8-7.7) Lymphocytes # (Auto) 0.6 x10^3/uL (1.0-4.8) L Monocytes # (Auto) 0.2 x10^3/uL (0.0-1.1) Eosinophils # (Auto) 0.1 x10^3/uL (0.0-0.7) Basophils # (Auto) 0.0 x10^3/uL (0.0-0.2) Segmented Neutrophils % 76 % (35-66) H Band Neutrophils % 3 % (0-9) Lymphocytes % 18 % (24-48) L Eosinophils % 3 % (0-5) Platelet Estimate Adequate (ADEQUATE) Hypochromasia Present Anisocytosis Slight Sodium Level 140 mmol/L (136-145) Potassium Level 4.2 mmol/L (3.5-5.1) Chloride Level 104 mmol/L (98-107) Carbon Dioxide Level 28 mmol/L (21-32) Anion Gap 8 (6-14) Blood Urea Nitrogen 21 mg/dL (8-26) Creatinine 1.5 mg/dL (0.7-1.3) H Estimated GFR (Cockcroft-Gault) 44.3 BUN/Creatinine Ratio 14 (6-20) Glucose Level 176 mg/dL (70-99) H Lactic Acid Level 1.7 mmol/L (0.4-2.0) Calcium Level 8.3 mg/dL (8.5-10.1) L Total Bilirubin 0.4 mg/dL (0.2-1.0) Aspartate Amino Transferase (AST) 17 U/L (15-37) Alanine Aminotransferase (ALT) 23 U/L (16-63) Alkaline Phosphatase 54 U/L (46-116) Troponin I Quantitative 0.063 ng/mL (0.000-0.055) RH-Via-A-Type Natriuretic Peptide 308 pg/mL (0-449) Total Protein 6.5 g/dL (6.4-8.2) Albumin 3.0 g/dL (3.4-5.0) L Albumin/Globulin Ratio 0.9 (1.0-1.7) L O2 Saturation 98 % (92-99) 99 % (92-99) Arterial Blood pH 7.29 (7.35-7.45) L 7.41 (7.35-7.45) Arterial Blood pH (Temp corrected) 7.27 Arterial Blood pCO2 at Patient Temp 52 mmHg (35-46) H 33 mmHg (35-46) L Arterial Blood pCO2 (Temp correct) 56 mmHg Arterial Blood pO2 at Patient Temp 135 mmHg (65-108) H 166 mmHg (65-108) H Arterial Blood pO2 (Temp corrected) 146 mmHg Arterial Blood HCO3 24 mmol/L (21-28) 20 mmol/L (21-28) L Arterial Blood Base Excess -3 mmol/L (-3-3) -4 mmol/L (-3-3) L FiO2 100 80 Urine Collection Type Unknown Urine Color Yellow Urine Clarity Clear Urine pH 5.0 (<5.0-8.0) Urine Specific [place] 1.010 (1.000-1.030) Urine Protein Negative mg/dL (NEG-TRACE) Urine Glucose (UA) Negative mg/dL (NEG) Urine Ketones (Stick) Negative mg/dL (NEG) Urine Blood Negative (NEG) Urine Nitrite Negative (NEG) Urine Bilirubin Negative (NEG) Urine Urobilinogen Dipstick 0.2 mg/dL (0.2 mg/dL) Urine Leukocyte Esterase Negative (NEG) Urine RBC 0 /HPF (0-2) Urine WBC 1-4 /HPF (0-4) Urine Squamous Epithelial Cells Occ /LPF Urine Bacteria 0 /HPF (0-FEW) Urine Hyaline Casts Occasional /HPF Urine Mucus Slight /LPF Laboratory Tests 04/23/20 04:28 Laboratory Tests 04/23/20 04:28 ASSESSMENT/PLAN ASSESSMENT/PLAN 1. Acute respiratory failure with probable PNA 2. WALE vs CKD 3. Mild troponin elevation; most probable type II, demand ischemia 4. Hypertension; presently hypotensive requiring pressor support 5. PAFIB; presently AFIB with controlled rate. Med list shows flecainide for rhythm maintenance and warfarin for stroke prophylaxis. 6. Diabetes, II 7. Hyperlipidemia; statin 8. Myasthenia gravis. Recommendations Lipids, TSH Trend trop Echo when COVID ruled out. Hold coreg, lisinoprol, HCTZ for now PT/INR Resume statin therapy Warfarin for stroke prophylaxis Lung optimization as per pulm Supportive care Obtain cardiac records MAGDALENO SCHREIBER MD 04/24/20 1626: CARDIAC CONSULT ASSESSMENT/PLAN ASSESSMENT/PLAN Patient seen and examined 04/23/20 (late entry). Agree with PRESSURIZER's assessment and plan. AF rate cor trolled - continue warfarin for stroke prophylaxis Slight trop elevation prob demand ischemia COVID test pending Pulm team following ARF with possiblr PNA Thank you for your consultation NISA BOWMAN APRN Apr 23, 2020 14:00 MAGDALENO SCHREIBER MD Apr 24, 2020 16:26
--- NOTE | 2020-04-23 14:08 | NUR ---
Attempted to call patient's , [place], to complete admission questions and reconcile medications, was unable to contact. Later, [place]'s daughter Lizette ([phone]) called the unit for an update, didn't know a lot of health history but knew a good way to contact [place]. Received the call later from Ena Sung ([phone]), [place]'s neighbor, who goes over to check on [place] and was able to communicate with her. [place] said that the patient sees his doctor at [facility] and they should have a list of his updated medications. Called over to [facility] and left the ICU fax number and medication list request, still awaiting return phone call or fax. Will continue to monitor.
[2020-04-23 14:36] LABS: CHOLESTEROL/HDL RATIO 4.1
--- NOTE | 2020-04-23 15:21 | NUR ---
SS following for discharge planning. SS reviewed pt chart and discussed with pt RN. Pt is from home and is currently on the vent. Pt is on IV Zyvox and Zosyn. Pt is COVID19 pending. SS will continue to follow for discharge planning.
--- NOTE | 2020-04-23 15:50 | NUR ---
Patient's son, J Carlos Mckeon, called for an update. J Carlos said he has Power of Supervisor [employer] for patient as of about 5 years ago, but that might've changed to patient's , [place]. Family seems to have good communication with each other and will talk about decisions regarding patient care together. J Carlos's number is [phone].
[2020-04-23] MEDS ORDERED: CARV6.2511 PO (16:34)
[2020-04-23 18:04] LABS: PROTHROMBIN TIME PATIENT 25.8 SEC (11.7-14.0)
[2020-04-23] MEDS: SIMVASTATIN 20 MG TABLET PO SCH (20:41)
[2020-04-23] MEDS: FAMOTIDINE 20 MG/2 ML VIAL IVP SCH (20:41)
[2020-04-23] MEDS: FLECAINIDE ACETATE 50 MG TABLET. PO SCH (20:41)
[2020-04-23] MEDS ORDERED: WARFARIN 5 MG TABLET. PO ONE (21:00)
[2020-04-24] VITALS (35 sets, daily range): BP systolic 71–188; BP diastolic 30–74
[2020-04-24] MEDS: PIPERACILLIN/TAZOBACTAM 3.375 GM in IV NORMAL SALINE 50ML 50 ML IV SCH ×4 (00:16→18:00)
[2020-04-24] MEDS: MIDAZOLAM 100mg/100ml NS BAG 100 ML IV PRN (01:35)
[2020-04-24 06:38] LABS: PROTHROMBIN TIME PATIENT 50.3 SEC (11.7-14.0)
--- NOTE | 2020-04-24 08:00 | PDOC ---
Infectious Disease Note Subjective Subjective She is sedated on ventilator ROS ROS No nausea vomiting diarrhea chest pain Vital Sign Vital Signs Vital Signs Date Time Temp Pulse Resp B/P (MAP) Pulse Ox O2 Delivery O2 Flow Rate FiO2 04/24/20 07:39 99 Ventilator 04/24/20 06:25 72 20 119/58 (78) 04/24/20 04:00 99.0 99.0 Physical Exam PHYSICAL EXAM GENERAL: Vitals are stable. The patient is sedated, orally intubated. VITAL SIGNS: Temperature 98.8, pulse 114, respirations 20, blood pressure 158/78. HEENT: Both pupils are round and reacting. No conjunctival lesion. Mouth cannot be visualized as orally intubated. NECK: Supple, no JVP, no lymphadenopathy. LUNGS: Decreased breath sounds bilaterally. HEART: S1, S2 regular. No gallop or murmur. ABDOMEN: Soft, nontender. No organomegaly. EXTREMITIES: No edema, cyanosis. SKIN: Unremarkable other than some minor skin breakdowns present. NEUROLOGIC: The patient apparently was moving all the extremities before sedation and intubation. Labs Lab Laboratory Tests Test 04/23/20 08:00 04/23/20 08:25 04/23/20 14:40 04/24/20 06:15 O2 Saturation 99 % (92-99) Arterial Blood pH 7.41 (7.35-7.45) Arterial Blood pCO2 at Patient Temp 33 mmHg (35-46) Arterial Blood pO2 at Patient Temp 166 mmHg (65-108) Arterial Blood HCO3 20 mmol/L (21-28) Arterial Blood Base Excess -4 mmol/L (-3-3) FiO2 80 Urine Collection Type Unknown Urine Color Yellow Urine Clarity Clear Urine pH 5.0 (<5.0-8.0) Urine Specific [place] 1.010 (1.000-1.030) Urine Protein Negative mg/dL (NEG-TRACE) Urine Glucose (UA) Negative mg/dL (NEG) Urine Ketones (Stick) Negative mg/dL (NEG) Urine Blood Negative (NEG) Urine Nitrite Negative (NEG) Urine Bilirubin Negative (NEG) Urine Urobilinogen Dipstick 0.2 mg/dL (0.2 mg/dL) Urine Leukocyte Esterase Negative (NEG) Urine RBC 0 /HPF (0-2) Urine WBC 1-4 /HPF (0-4) Urine Squamous Epithelial Cells Occ /LPF Urine Bacteria 0 /HPF (0-FEW) Urine Hyaline Casts Occasional /HPF Urine Mucus Slight /LPF Troponin I Quantitative 1.299 ng/mL (0.000-0.055) Prothrombin Time 50.3 SEC (11.7-14.0) Prothromb Time International Ratio 5.4 (0.8-1.1) Micro Microbiology 04/23/20 Blood Culture - Preliminary, Resulted NO GROWTH AFTER 1 DAY Objective Assessment IMPRESSION: 1. Community-acquired pneumonia. 2. Respiratory failure. 3. Hypotension. 4. Acute kidney injury. 5. History of atrial fibrillation. 6. Diabetes. 7. Myasthenia gravis. Plan Plan of Care Continue antibiotics Continue supportive care MIRTA MENDOZA MD Apr 24, 2020 08:00
[2020-04-24 08:06] LABS: BASE EXCESS ABG -1 mmol/L (-3-3); HCO3 ABG 22 mmol/L (21-28); PCO2 ABG 29 mmHg (35-46); PO2 ABG 111 mmHg (65-108); SAT O2 ABG 98 % (92-99)
[2020-04-24] MEDS: FLECAINIDE ACETATE 50 MG TABLET. PO SCH ×2 (08:10→17:19)
[2020-04-24 08:12] LABS: HEMATOCRIT 29.5 % (39.0-53.0); HEMOGLOBIN 9.5 g/dL (13.0-17.5); RED BLOOD COUNT 4.04 x10^6/uL (4.30-5.70); RED CELL DISTRIBUTION WIDTH 18.1 % (11.5-14.5); WHITE BLOOD COUNT 12.9 x10^3/uL (4.0-11.0)
[2020-04-24 08:15] LABS: CALCIUM 7.3 mg/dL (8.5-10.1); CREATININE 1.7 mg/dL (0.7-1.3); GFR 38.3
[2020-04-24] MEDS ORDERED: ELECTROLYTE (ICU) PROTOCOL. MC PRN (08:45)
[2020-04-24] MEDS: POTASSIUM CHLORIDE 20MEQ 100 ML IV SCH ×2 (08:56→10:18)
--- NOTE | 2020-04-24 09:54 | PDOC ---
PULMONARY PROGRESS NOTES Subjective intubated, no overnight concerns from nursing Remains on low dose levophed Vitals Vital Signs Date Time Temp Pulse Resp B/P (MAP) Pulse Ox O2 Delivery O2 Flow Rate FiO2 04/24/20 09:28 100 Ventilator 04/24/20 09:05 72 144/50 (81) 04/24/20 08:00 98.7 20 98.7 Lungs: Clear Cardiovascular: S1, S2 Abdomen: Soft Extremities: No Edema Skin: Warm, Dry Labs Laboratory Tests Test 04/23/20 04:28 04/23/20 04:30 04/23/20 05:10 04/23/20 05:20 White Blood Count 6.7 x10^3/uL (4.0-11.0) Red Blood Count 4.71 x10^6/uL (4.30-5.70) Hemoglobin 11.2 g/dL (13.0-17.5) Hematocrit 35.3 % (39.0-53.0) Mean Corpuscular Volume 75 fL (79-100) Mean Corpuscular Hemoglobin 24 pg (25-35) Mean Corpuscular Hemoglobin Concent 32 g/dL (31-37) Red Cell Distribution Width 17.9 % (11.5-14.5) Platelet Count 143 x10^3/uL (140-400) Neutrophils (%) (Auto) 87 % (31-73) Lymphocytes (%) (Auto) 9 % (24-48) Monocytes (%) (Auto) 3 % (0-9) Eosinophils (%) (Auto) 2 % (0-3) Basophils (%) (Auto) 1 % (0-3) Neutrophils # (Auto) 5.8 x10^3/uL (1.8-7.7) Lymphocytes # (Auto) 0.6 x10^3/uL (1.0-4.8) Monocytes # (Auto) 0.2 x10^3/uL (0.0-1.1) Eosinophils # (Auto) 0.1 x10^3/uL (0.0-0.7) Basophils # (Auto) 0.0 x10^3/uL (0.0-0.2) Segmented Neutrophils % 76 % (35-66) Band Neutrophils % 3 % (0-9) Lymphocytes % 18 % (24-48) Eosinophils % 3 % (0-5) Platelet Estimate Adequate (ADEQUATE) Hypochromasia Present Anisocytosis Slight Sodium Level 140 mmol/L (136-145) Potassium Level 4.2 mmol/L (3.5-5.1) Chloride Level 104 mmol/L (98-107) Carbon Dioxide Level 28 mmol/L (21-32) Anion Gap 8 (6-14) Blood Urea Nitrogen 21 mg/dL (8-26) Creatinine 1.5 mg/dL (0.7-1.3) Estimated GFR (Cockcroft-Gault) 44.3 BUN/Creatinine Ratio 14 (6-20) Glucose Level 176 mg/dL (70-99) Lactic Acid Level 1.7 mmol/L (0.4-2.0) Calcium Level 8.3 mg/dL (8.5-10.1) Total Bilirubin 0.4 mg/dL (0.2-1.0) Aspartate Amino Transf (AST/SGOT) 17 U/L (15-37) Alanine Aminotransferase (ALT/SGPT) 23 U/L (16-63) Alkaline Phosphatase 54 U/L (46-116) Troponin I Quantitative 0.063 ng/mL (0.000-0.055) XX-Vxj-Y-Type Natriuretic Peptide 308 pg/mL (0-449) Total Protein 6.5 g/dL (6.4-8.2) Albumin 3.0 g/dL (3.4-5.0) Albumin/Globulin Ratio 0.9 (1.0-1.7) Triglycerides Level 162 mg/dL (0-150) Cholesterol Level 135 mg/dL (0-200) LDL Cholesterol, Calculated 70 mg/dL (0-100) VLDL Cholesterol, Calculated 32 mg/dL (0-40) Non-HDL Cholesterol Calculated 102 mg/dL (0-129) HDL Cholesterol 33 mg/dL (40-60) Cholesterol/HDL Ratio 4.1 Thyroid Stimulating Hormone (TSH) 2.208 uIU/mL (0.358-3.74) Prothrombin Time 25.8 SEC (11.7-14.0) Prothromb Time International Ratio 2.4 (0.8-1.1) Coronavirus (COVID-19)(PCR) Not detected (NOT DETECT.) O2 Saturation 98 % (92-99) Arterial Blood pH 7.29 (7.35-7.45) Arterial Blood pH (Temp corrected) 7.27 Arterial Blood pCO2 at Patient Temp 52 mmHg (35-46) Arterial Blood pCO2 (Temp correct) 56 mmHg Arterial Blood pO2 at Patient Temp 135 mmHg (65-108) Arterial Blood pO2 (Temp corrected) 146 mmHg Arterial Blood HCO3 24 mmol/L (21-28) Arterial Blood Base Excess -3 mmol/L (-3-3) FiO2 100 Test 04/23/20 08:00 04/23/20 08:25 04/23/20 14:40 04/24/20 06:15 O2 Saturation 99 % (92-99) Arterial Blood pH 7.41 (7.35-7.45) Arterial Blood pCO2 at Patient Temp 33 mmHg (35-46) Arterial Blood pO2 at Patient Temp 166 mmHg (65-108) Arterial Blood HCO3 20 mmol/L (21-28) Arterial Blood Base Excess -4 mmol/L (-3-3) FiO2 80 Urine Collection Type Unknown Urine Color Yellow Urine Clarity Clear Urine pH 5.0 (<5.0-8.0) Urine Specific [place] 1.010 (1.000-1.030) Urine Protein Negative mg/dL (NEG-TRACE) Urine Glucose (UA) Negative mg/dL (NEG) Urine Ketones (Stick) Negative mg/dL (NEG) Urine Blood Negative (NEG) Urine Nitrite Negative (NEG) Urine Bilirubin Negative (NEG) Urine Urobilinogen Dipstick 0.2 mg/dL (0.2 mg/dL) Urine Leukocyte Esterase Negative (NEG) Urine RBC 0 /HPF (0-2) Urine WBC 1-4 /HPF (0-4) Urine Squamous Epithelial Cells Occ /LPF Urine Bacteria 0 /HPF (0-FEW) Urine Hyaline Casts Occasional /HPF Urine Mucus Slight /LPF Troponin I Quantitative 1.299 ng/mL (0.000-0.055) White Blood Count 12.9 x10^3/uL (4.0-11.0) Red Blood Count 4.04 x10^6/uL (4.30-5.70) Hemoglobin 9.5 g/dL (13.0-17.5) Hematocrit 29.5 % (39.0-53.0) Mean Corpuscular Volume 73 fL (79-100) Mean Corpuscular Hemoglobin 24 pg (25-35) Mean Corpuscular Hemoglobin Concent 32 g/dL (31-37) Red Cell Distribution Width 18.1 % (11.5-14.5) Platelet Count 164 x10^3/uL (140-400) Prothrombin Time 50.3 SEC (11.7-14.0) Prothromb Time International Ratio 5.4 (0.8-1.1) Sodium Level 140 mmol/L (136-145) Potassium Level 3.0 mmol/L (3.5-5.1) Chloride Level 105 mmol/L (98-107) Carbon Dioxide Level 23 mmol/L (21-32) Anion Gap 12 (6-14) Blood Urea Nitrogen 24 mg/dL (8-26) Creatinine 1.7 mg/dL (0.7-1.3) Estimated GFR (Cockcroft-Gault) 38.3 Glucose Level 124 mg/dL (70-99) Calcium Level 7.3 mg/dL (8.5-10.1) Laboratory Tests Test 04/23/20 14:40 04/24/20 06:15 Troponin I Quantitative 1.299 ng/mL (0.000-0.055) White Blood Count 12.9 x10^3/uL (4.0-11.0) Red Blood Count 4.04 x10^6/uL (4.30-5.70) Hemoglobin 9.5 g/dL (13.0-17.5) Hematocrit 29.5 % (39.0-53.0) Mean Corpuscular Volume 73 fL (79-100) Mean Corpuscular Hemoglobin 24 pg (25-35) Mean Corpuscular Hemoglobin Concent 32 g/dL (31-37) Red Cell Distribution Width 18.1 % (11.5-14.5) Platelet Count 164 x10^3/uL (140-400) Prothrombin Time 50.3 SEC (11.7-14.0) Prothromb Time International Ratio 5.4 (0.8-1.1) Sodium Level 140 mmol/L (136-145) Potassium Level 3.0 mmol/L (3.5-5.1) Chloride Level 105 mmol/L (98-107) Carbon Dioxide Level 23 mmol/L (21-32) Anion Gap 12 (6-14) Blood Urea Nitrogen 24 mg/dL (8-26) Creatinine 1.7 mg/dL (0.7-1.3) Estimated GFR (Cockcroft-Gault) 38.3 Glucose Level 124 mg/dL (70-99) Calcium Level 7.3 mg/dL (8.5-10.1) Medications Active Scripts Medications Dose Route/Sig Max Daily Dose Days Date Category Carvedilol (Carvedilol) 6.25 Mg Tablet 6.25 Mg PO BIDWMEALS 04/23/20 Reported Fish Oil 1,200 Mg Fish Oil (Fish Oil/Dha/Epa) 1 Each Capsule 1 Each PO DAILY 07/17/16 Reported Hydrochlorothiazide Tablet (Hydrochlorothiazide) 12.5 Mg Tablet 12.5 Mg PO DAILY 07/17/16 Reported Pyridostigmine [place] 60 Mg Tablet 60 Mg PO BID 07/17/16 Reported Flecainide Acetate 50 Mg Tablet 25 Mg PO BID 07/17/16 Reported Lantus Solostar (Insulin Glargine,Hum.rec.anlog) 100 Unit/1 Ml Insuln.pen 20 Unit SQ QHS 07/17/16 Reported Simvastatin 20 Mg Tablet 20 Mg PO HS 07/17/16 Reported Lisinopril 20 Mg Tablet 1 Tab PO BID 07/17/16 Reported Warfarin Sodium 5 Mg Tablet 2 Tab PO DAILY 07/17/16 Reported Nexium Capsule (Esomeprazole Magnesium) 40 Mg Capsule. 1 Cap PO DAILY 07/17/16 Reported Vitamin D (Cholecalciferol (Vitamin D3)) 2,000 Unit Tablet 1,000 Unit PO DAILY 07/17/16 Reported Impression . IMPRESSION: 1. Acute hypoxic and hypercapnic respiratory failure secondary to multifactorial etiologies including combination of septic shock and right-sided pneumonia/ ? Myesthenic crisis. 2. Likely underlying chronic obstructive pulmonary disease with exacerbation. 3. Acute kidney injury. 4. Mildly increased troponin level. 5. Abnormal chest x-ray with right-sided infiltrates, likely secondary to pneumonia. Endotracheal tube in satisfactory position. 6. Myesthenia gravis., details not available Plan . RECOMMENDATIONS: 1. Continue with present assist control mode and make necessary adjustment based on ABGs, reduce PEEP to 5 today, plan for PS trial today once off sedation and awake 2. Broad-spectrum antibiotics. 3. Follow chest x-rays. 4. Follow all cultures. 5. COVID-19 test (-) 6. cont. vasopressor to keep MAP above 65 7.restart MG medications DVT/GI PPX; coumadin/pepcid D/W RN and RT Critical care time 30 minutes including decision making. ROSALBA GRANADOS MD Apr 24, 2020 09:54
[2020-04-24 10:23] LABS: FIO2 ABG 40% VENT
--- NOTE | 2020-04-24 11:24 | PDOC ---
[facility] [facility] PROGRESS NOTE Chief Complaint Chief Complaint Multifactorial respiratory failure with severe hypotension, pneumonia, sepsis, chronic obstructive pulmonary disease, acute kidney injury, elevated troponin and abnormal chest x-ray. Atrial fibrillation, diabetes, heart disease, myasthenia gravis, cholecystectomy, prostate surgery. History of Present Illness History of Present Illness 04/24/2020 Patient seen and examined in the ICU Chart reviewed Discussed with RN His INR is high today at 5.1 (he is on Coumadin) I am going to order low-dose vitamin K 5 mg Vitals/I&O Vitals/I&O: Vital Signs Date Time Temp Pulse Resp B/P (MAP) Pulse Ox O2 Delivery O2 Flow Rate FiO2 04/24/20 11:00 84 20 131/52 (78) 100 Ventilator 04/24/20 08:00 98.7 98.7 I & O 04/23/20 04/23/20 04/24/20 15:00 23:00 07:00 Intake Total 50 ml 864.09 ml 1100.9 ml Output Total 1185 ml 625 ml 390 ml Balance -1135 ml 239.09 ml 710.9 ml Physical Exam Physical Exam: GENERAL: Vitals are stable. The patient is sedated, orally intubated. VITAL SIGNS: Temperature 98.8, pulse 114, respirations 20, blood pressure 158/78. HEENT: Both pupils are round and reacting. No conjunctival lesion. Mouth cannot be visualized as orally intubated. NECK: Supple, no JVP, no lymphadenopathy. LUNGS: Decreased breath sounds bilaterally. HEART: S1, S2 regular. No gallop or murmur. ABDOMEN: Soft, nontender. No organomegaly. EXTREMITIES: No edema, cyanosis. SKIN: Unremarkable other than some minor skin breakdowns present. NEUROLOGIC: The patient apparently was moving all the extremities before sedation and intubation. General: Other (sedated) Heart: Other (IRRR; AFIB with controlled rate. distant heart tones ) Abdomen: Soft Extremities: Other (1+ bilateral LE edema) Skin: No significant lesion Labs Labs: Laboratory Tests Test 04/23/20 14:40 04/24/20 06:15 04/24/20 08:00 Troponin I Quantitative 1.299 ng/mL (0.000-0.055) White Blood Count 12.9 x10^3/uL (4.0-11.0) Red Blood Count 4.04 x10^6/uL (4.30-5.70) Hemoglobin 9.5 g/dL (13.0-17.5) Hematocrit 29.5 % (39.0-53.0) Mean Corpuscular Volume 73 fL (79-100) Mean Corpuscular Hemoglobin 24 pg (25-35) Mean Corpuscular Hemoglobin Concent 32 g/dL (31-37) Red Cell Distribution Width 18.1 % (11.5-14.5) Platelet Count 164 x10^3/uL (140-400) Prothrombin Time 50.3 SEC (11.7-14.0) Prothromb Time International Ratio 5.4 (0.8-1.1) Sodium Level 140 mmol/L (136-145) Potassium Level 3.0 mmol/L (3.5-5.1) Chloride Level 105 mmol/L (98-107) Carbon Dioxide Level 23 mmol/L (21-32) Anion Gap 12 (6-14) Blood Urea Nitrogen 24 mg/dL (8-26) Creatinine 1.7 mg/dL (0.7-1.3) Estimated GFR (Cockcroft-Gault) 38.3 Glucose Level 124 mg/dL (70-99) Calcium Level 7.3 mg/dL (8.5-10.1) O2 Saturation 98 % (92-99) Arterial Blood pH 7.49 (7.35-7.45) Arterial Blood pCO2 at Patient Temp 29 mmHg (35-46) Arterial Blood pO2 at Patient Temp 111 mmHg (65-108) Arterial Blood HCO3 22 mmol/L (21-28) Arterial Blood Base Excess -1 mmol/L (-3-3) FiO2 40% vent Review of Systems Review of Systems: Unable to obtain Assessment and Plan Assessmemt and Plan Problems Medical Problems: (1) Acute respiratory failure with hypoxemia Status: Acute (2) Person under investigation for COVID-19 Status: Acute (3) Pneumonia Status: Acute Multifactorial respiratory failure with severe hypotension, pneumonia, sepsis, chronic obstructive pulmonary disease, acute kidney injury, elevated troponin and abnormal chest x-ray. Over anticoagulation Atrial fibrillation, diabetes, heart disease, myasthenia gravis, cholecystectomy, prostate surgery. Plan ICU monitoring Vent weaning We will give 5 mg of vitamin K Coumadin per pharmacy and will hold it for today perhaps tomorrow as well Home meds DVT prophylaxis Full code Trend labs Appreciate subspecialist input Per pulmonary see the followin. Continue with present assist control mode and make necessary adjustment based on ABGs, reduce PEEP to 5 today, plan for PS trial today 2. Broad-spectrum antibiotics. 3. Follow chest x-rays. 4. Follow all cultures. 5. COVID-19 test (-) 6. cont. vasopressor to keep MAP above 65 7.restart MG medications DVT/GI PPX; coumadin/pepcid Long-term prognosis guarded Comment Review of Relevant I have reviewed the following items richard (where applicable) has been applied. Medications: Current Medications Medications (Trade) Dose Ordered Sig/Vin Route PRN Reason Start Time Stop Time Status Last Admin Dose Admin Famotidine (Pepcid Vial) 20 mg QHS IVP 04/23/20 21:00 04/23/20 20:41 Linezolid/Dextrose 300 ml @ 300 mls/hr Q12HR IV 04/23/20 21:00 04/24/20 08:11 Flecainide Acetate (Tambocor) 25 mg BID PO 04/23/20 21:00 04/24/20 08:10 Simvastatin (Zocor) 20 mg HS PO 04/23/20 21:00 04/23/20 20:41 Warfarin Sodium (Coumadin) 5 mg 1X ONCE PO 04/23/20 21:00 04/23/20 21:01 DC 04/23/20 20:41 Potassium Chloride/Water 100 ml @ 100 mls/hr Q1H IV 04/24/20 08:45 04/24/20 10:44 DC 04/24/20 10:18 Justicifation of Admission Dx: Justifications for Admission: Justification of Admission Dx: Yes Respiratory Failure: Severe Vent Deficit TRAE SERNA III DO Apr 24, 2020 11:24
--- NOTE | 2020-04-24 11:33 | NUR ---
Pharmacy Warfarin Dosing Note S:Pharmacy consulted to assist with anticoagulation therapy with target INR: 2 -3 O:STEPHANIE CLEMENS is a 89 year old M with Atrial Fibrillation LABS: Last INR: 5.4 Last HGB: 9.5 Last HCT: 29.5 Last PLT: 164 Last dose of 5 mg given on 04/23/20 at 2041 Previous Regimen: 5mg daily Vitamin K given: Y 5MG SQ 04/24 A:INR of 5.4 is above desired range. Target range for this patient is: 2 -3 P: Warfarin dose: Hold dose today Bridge Therapy: None Next INR due tomorrow Pharmacy anticoagulation service will continue to follow. Prema Dow RPH, 04/24/20 0580
[2020-04-24 11:36] LABS: ALBUMIN 2.4 g/dL (3.4-5.0); DIRECT BILIRUBIN 0.2 mg/dL (0.0-0.2); TOTAL BILIRUBIN 0.7 mg/dL (0.2-1.0); TOTAL PROTEIN 4.8 g/dL (6.4-8.2)
[2020-04-24] MEDS ORDERED: PHYTONADIONE 10 MG/ML AMPUL. SQ ONE (11:45)
[2020-04-24] MEDS: IV NORMAL SALINE 1000ML BAG 1,000 ML IV SCH ×2 (12:32→21:50)
--- NOTE | 2020-04-24 12:58 | PDOC ---
LEESA DOW CUSTOMER SERVICE ADMINISTRATOR 04/24/20 1258: CARDIO Progress Notes Date and Time Date of Service 04/24/2020 Time of Evaluation 1230 Subjective Subjective: Other (off sedation , waking up) Vitals Vitals Vital Signs Date Time Temp Pulse Resp B/P (MAP) Pulse Ox O2 Delivery O2 Flow Rate FiO2 04/24/20 12:30 79 20 125/50 (75) 100 Ventilator 04/24/20 08:00 98.7 98.7 Weight Weight [ ] Input and Output Intake and Output Intake and Output 04/24/20 07:00 Intake Total 2014.99 ml Output Total 2200 ml Balance -185.01 ml IV Total 2014.99 ml Output Urine Total 2200 ml # Bowel Movements 1 Laboratory Labs Laboratory Tests Test 04/23/20 14:40 04/24/20 06:15 04/24/20 08:00 Troponin I Quantitative 1.299 ng/mL (0.000-0.055) White Blood Count 12.9 x10^3/uL (4.0-11.0) Red Blood Count 4.04 x10^6/uL (4.30-5.70) Hemoglobin 9.5 g/dL (13.0-17.5) Hematocrit 29.5 % (39.0-53.0) Mean Corpuscular Volume 73 fL (79-100) Mean Corpuscular Hemoglobin 24 pg (25-35) Mean Corpuscular Hemoglobin Concent 32 g/dL (31-37) Red Cell Distribution Width 18.1 % (11.5-14.5) Platelet Count 164 x10^3/uL (140-400) Prothrombin Time 50.3 SEC (11.7-14.0) Prothromb Time International Ratio 5.4 (0.8-1.1) Sodium Level 140 mmol/L (136-145) Potassium Level 3.0 mmol/L (3.5-5.1) Chloride Level 105 mmol/L (98-107) Carbon Dioxide Level 23 mmol/L (21-32) Anion Gap 12 (6-14) Blood Urea Nitrogen 24 mg/dL (8-26) Creatinine 1.7 mg/dL (0.7-1.3) Estimated GFR (Cockcroft-Gault) 38.3 Glucose Level 124 mg/dL (70-99) Calcium Level 7.3 mg/dL (8.5-10.1) Total Bilirubin 0.7 mg/dL (0.2-1.0) Direct Bilirubin 0.2 mg/dL (0.0-0.2) Aspartate Amino Transf (AST/SGOT) 21 U/L (15-37) Alanine Aminotransferase (ALT/SGPT) 21 U/L (16-63) Alkaline Phosphatase 39 U/L (46-116) Total Protein 4.8 g/dL (6.4-8.2) Albumin 2.4 g/dL (3.4-5.0) O2 Saturation 98 % (92-99) Arterial Blood pH 7.49 (7.35-7.45) Arterial Blood pCO2 at Patient Temp 29 mmHg (35-46) Arterial Blood pO2 at Patient Temp 111 mmHg (65-108) Arterial Blood HCO3 22 mmol/L (21-28) Arterial Blood Base Excess -1 mmol/L (-3-3) FiO2 40% vent Microbiology Micro Microbiology 04/23/20 Blood Culture - Preliminary, Resulted NO GROWTH AFTER 1 DAY Physical Exam HEENT: Neck Supple W Full Motion Chest: Symmetric LUNGS: Other (intubated with vent) Heart: RRR (SR) Abdomen: Other (soft) Extremities: No Edema Neurology: alert, other (restless) Assessment Assessment 1. Acute respiratory failure with probable PNA; intubated 2. WALE vs CKD: Cr 1.7 3. NSTEMI: multifactorial, unclear for any CAD hx but notable for calcifications per review. 4. Hypertension; controlled 5. PAFIB; Burst yesterday none today. Back in SR. Med list shows 25 mg bid flecainide for rhythm maintenance and warfarin for stroke prophylaxis. 6. Diabetes, II 7. Hyperlipidemia; close on goal, on statin 8. Myasthenia gravis: on mestinon 9. HLP; on goal 10. Coagulopathy with coumadin therapy: INR at 5.4 Recommendations 1. TTE today 2. Secondary prevention measures as tolerated. Off pressors. Will place on low dose metoprolol. Replace K, hold ACEi for now. 3. Hold coumadin today 4. [facility] records review and no noted PCIs on record. 5. Consider for outpt MPI Justicifation of Admission Dx: Justifications for Admission: Justification of Admission Dx: Yes Respiratory Failure: Severe Vent Deficit MAGDALENO SCHREIBER MD 04/24/20 1630: CARDIO Progress Notes Assessment Assessment Patient seen and examined. Agree with FINANCIAL SERVICES COUNSELOR's assessment and plan. PAF had RVR episode overnight, presently controlled - continue warfarin for stroke prophylaxis Slight trop elevation prob demand ischemia - plan outpatient ischemic evaluation COVID test and 2D echo pending Pulm team following ARF with possiblr PNA LEESA DOW APRN Apr 24, 2020 12:58 MAGDALENO SCHREIBER MD Apr 24, 2020 16:30
--- NOTE | 2020-04-24 13:12 | PDOC2 ---
CONSULT Date of Consult Date of Consult DATE: 04/24/20 TIME: 12:59 Reason for Consult Reason for Consult: WALE Identification/Chief Complaint Chief Complaint Pt intubated on MV Source Source: Chart review History of Present Illness Reason for Visit: Hx from Chart Review- Pt Intubated/ MV Pt is a 89-year-old male who came in, with unable to breathe, through the EMS. The patient was hypoxic, required intubation, and hypotensive. He was on Vasopressor , is intubated and was receiving vancomycin and Zosyn for Dx of Pneumonia No nausea, vomiting, diarrhea or fever noted. UOP good Past Medical History Cardiovascular: AFIB, HTN CENTRAL NERVOUS SYSTEM: Other (myasthenia gravis.) GI: GERD Heme/Onc: Anemia NOS Musculoskeletal: Other Endocrine: Diabetes Past Surgical History Past Surgical History: No pertinent history Family History Family History: Family History Unknown Social History ALCOHOL: none Drugs: None Current Problem List Problem List Problems Medical Problems: (1) Acute respiratory failure with hypoxemia Status: Acute (2) Person under investigation for COVID-19 Status: Acute (3) Pneumonia Status: Acute Current Medications Current Medications Current Medications Furosemide (Lasix) 60 mg 1X ONCE IVP Last administered on 04/23/20at 04:42; Start 04/23/20 at 05:00; Stop 04/23/20 at 05:01; Status DC Etomidate (Amidate) 20 mg 1X ONCE IV Last administered on 04/23/20at 04:39; Start 04/23/20 at 05:00; Stop 04/23/20 at 05:01; Status DC Vecuronium Melrude (Norcuron Bolus) 10 mg 1X ONCE IV Last administered on 04/23/20at 04:39; Start 04/23/20 at 05:00; Stop 04/23/20 at 05:01; Status DC Etomidate (Amidate) 20 mg STK-MED ONCE IV ; Start 04/23/20 at 04:26; Stop 04/23/20 at 04:26; Status DC Vecuronium Melrude (Norcuron Bolus) 10 mg STK-MED ONCE IV ; Start 04/23/20 at 04:26; Stop 04/23/20 at 04:26; Status DC Propofol 50 ml @ As Directed STK-MED ONCE IV ; Start 04/23/20 at 04:36; Stop 04/23/20 at 04:37; Status DC Vancomycin HCl 250 ml @ As Directed STK-MED ONCE .ROUTE ; Start 04/23/20 at 04:37; Stop 04/23/20 at 04:37; Status DC Vancomycin HCl 250 ml @ 250 mls/hr 1X ONCE IV Last administered on 04/23/20at 04:44; Start 04/23/20 at 04:45; Stop 04/23/20 at 05:44; Status DC Piperacillin Sod/ Tazobactam Sod 3.375 gm/Sodium Chloride 50 ml @ 100 mls/hr 1X ONCE IV Last administered on 04/23/20at 05:08; Start 04/23/20 at 05:00; Stop 04/23/20 at 05:29; Status DC Propofol 100 ml @ 0 mls/hr CONT PRN IV SEE PROTOCOL Last administered on 04/23/20at 04:46; Start 04/23/20 at 04:45; Stop 04/23/20 at 04:49; Status DC Midazolam HCl (Versed) 2 mg PRN Q30MIN PRN IV SEE COMMENTS.; Start 04/23/20 at 04:45 Propofol 100 ml @ 0 mls/hr CONT PRN IV SEE PROTOCOL; Start 04/23/20 at 04:49 Acetaminophen (Tylenol Supp) 650 mg 1X ONCE WI Last administered on 04/23/20at 05:00; Start 04/23/20 at 05:30; Stop 04/23/20 at 05:31; Status DC Propofol 50 ml @ 1.125 mls/ hr 1X ONCE IV ; Start 04/23/20 at 05:15; Stop 04/23/20 at 05:16; Status DC Ondansetron HCl (Zofran) 4 mg PRN Q8HRS PRN IV NAUSEA/VOMITING 1ST CHOICE; Start 04/23/20 at 05:15; Stop 04/24/20 at 05:14; Status DC Sodium Chloride 1,000 ml @ 75 mls/hr [id number] IV Last administered on 04/23/20at 20:38; Start 04/23/20 at 05:30; Stop 04/24/20 at 05:29; Status DC Metoprolol Tartrate (Lopressor Vial) 5 mg 1X ONCE IVP ; Start 04/23/20 at 06:00; Stop 04/23/20 at 06:01; Status DC Midazolam HCl (Versed) 5 mg 1X ONCE NS Last administered on 04/23/20at 05:26; Start 04/23/20 at 06:00; Stop 04/23/20 at 06:01; Status DC Norepinephrine Bitartrate 8 mg/ Dextrose 258 ml @ 14.513 mls/ hr 1X ONCE IV Last administered on 04/23/20at 05:52; Start 04/23/20 at 06:00; Stop 04/23/20 at 23:46; Status DC Midazolam HCl (Versed) 5 mg 1X ONCE IV Last administered on 04/23/20at 06:09; Start 04/23/20 at 06:15; Stop 04/23/20 at 06:16; Status DC Midazolam HCl 50 mg/Sodium Chloride 50 ml @ 1 mls/hr CONT PRN IV SEE I/O RECORD; Start 04/23/20 at 07:45; Status Cancel Midazolam HCl 100 ml @ 0 mls/hr CONT PRN IV SEE PROTOCOL Last administered on 04/24/20at 01:35; Start 04/23/20 at 07:45 Vasopressin 20 unit/Dextrose 101 ml @ 12 mls/hr CONT PRN IV SEE I/O RECORD Last administered on 04/23/20at 14:32; Start 04/23/20 at 08:00 Norepinephrine Bitartrate 8 mg/ Dextrose 258 ml @ 14.513 mls/ hr CONT PRN IV PER PROTOCOL Last administered on 04/23/20at 14:32; Start 04/23/20 at 08:15 Piperacillin Sod/ Tazobactam Sod (Zosyn Per Pharmacy) 1 each PRN DAILY PRN MC SEE COMMENTS; Start 04/23/20 at 10:00; Status UNV Vancomycin HCl (Vanco Per Pharmacy) 1 each PRN DAILY PRN MC SEE COMMENTS; Start 04/23/20 at 10:00; Status UNV Famotidine (Pepcid Vial) 20 mg QHS IVP Last administered on 04/23/20at 20:41; Start 04/23/20 at 21:00 Enoxaparin Sodium (Lovenox Per Pharmacy Prophylaxis Dosing) 1 each PRN DAILY PRN MC SEE COMMENTS; Start 04/23/20 at 10:00; Stop 04/23/20 at 18:23; Status DC Vancomycin HCl (Vanco Per Pharmacy) 1 each PRN DAILY PRN MC SEE COMMENTS; Start 04/23/20 at 10:00; Stop 04/23/20 at 11:51; Status DC Piperacillin Sod/ Tazobactam Sod (Zosyn Per Pharmacy) 1 each PRN DAILY PRN MC SEE COMMENTS; Start 04/23/20 at 10:00 Sodium Chloride 1,000 ml @ 1,000 mls/hr 1X ONCE IV Last administered on 04/23/20at 10:11; Start 04/23/20 at 10:00; Stop 04/23/20 at 10:59; Status DC Piperacillin Sod/ Tazobactam Sod 3.375 gm/Sodium Chloride 50 ml @ 100 mls/hr Q6HRS IV Last administered on 04/24/20at 11:58; Start 04/23/20 at 11:00 Enoxaparin Sodium (Lovenox 40mg Syringe) 40 mg BID SQ Last administered on 04/23/20at 10:46; Start 04/23/20 at 10:30; Stop 04/23/20 at 18:23; Status DC Vancomycin HCl 500 mg/Sodium Chloride 100 ml @ 100 mls/hr 1X ONCE IV Last administered on 04/23/20at 10:46; Start 04/23/20 at 10:30; Stop 04/23/20 at 11:29; Status DC Linezolid/Dextrose 300 ml @ 300 mls/hr Q12HR IV Last administered on 04/24/20at 08:11; Start 04/23/20 at 21:00 Flecainide Acetate (Tambocor) 25 mg BID PO Last administered on 04/24/20at 08:10; Start 04/23/20 at 21:00 Simvastatin (Zocor) 20 mg HS PO Last administered on 04/23/20at 20:41; Start 04/23/20 at 21:00 Warfarin Sodium (Coumadin Per Pharmacy) 1 each PRN DAILY PRN MC SEE COMMENTS Last administered on 04/24/20at 11:32; Start 04/23/20 at 17:00 Warfarin Sodium (Coumadin) 5 mg 1X ONCE PO Last administered on 04/23/20at 20:41; Start 04/23/20 at 21:00; Stop 04/23/20 at 21:01; Status DC Info (Icu Electrolyte Protocol) 1 ea CONT PRN PRN MC PER PROTOCOL; Start 04/24/20 at 08:45 Potassium Chloride/Water 100 ml @ 100 mls/hr Q1H IV Last administered on 04/24/20at 10:18; Start 04/24/20 at 08:45; Stop 04/24/20 at 10:44; Status DC Pyridostigmine Melrude (Mestinon) 60 mg BID PO ; Start 04/24/20 at 21:00 Warfarin Sodium (Coumadin Per Pharmacy) 1 each PRN DAILY PRN MC SEE COMMENTS; Start 04/24/20 at 11:30; Stop 04/24/20 at 11:31; Status DC Phytonadione (Vitamin K Ampule) 5 mg 1X ONCE SQ Last administered on 04/24/20at 12:02; Start 04/24/20 at 11:45; Stop 04/24/20 at 11:46; Status DC Warfarin Sodium (Coumadin - No Dose Today) 1 each 1X WARF ONCE MC ; Start 04/24/20 at 16:00; Stop 04/24/20 at 16:01 Sodium Chloride 1,000 ml @ 100 mls/hr Q10H IV Last administered on 04/24/20at 12:32; Start 04/24/20 at 12:15 Active Scripts Active Reported Carvedilol (Carvedilol) 6.25 Mg Tablet 6.25 Mg PO BIDWMEALS Fish Oil 1,200 Mg Fish Oil (Fish Oil/Dha/Epa) 1 Each Capsule 1 Each PO DAILY Hydrochlorothiazide Tablet (Hydrochlorothiazide) 12.5 Mg Tablet 12.5 Mg PO DAILY Pyridostigmine Melrude 60 Mg Tablet 60 Mg PO BID Flecainide Acetate 50 Mg Tablet 25 Mg PO BID Lantus Solostar (Insulin Glargine,Hum.rec.anlog) 100 Unit/1 Ml Insuln.pen 20 Unit SQ QHS Simvastatin 20 Mg Tablet 20 Mg PO HS Lisinopril 20 Mg Tablet 1 Tab PO BID Warfarin Sodium 5 Mg Tablet 2 Tab PO DAILY Nexium Capsule (Esomeprazole Magnesium) 40 Mg Capsule. 1 Cap PO DAILY Vitamin D (Cholecalciferol (Vitamin D3)) 2,000 Unit Tablet 1,000 Unit PO DAILY Allergies Allergies: Coded Allergies: I S O L A T I O N *CONTACT* (Verified Allergy, Unknown, 04/03/18) mrsa No Known Medication Allergies (Verified Allergy, Unknown, 04/03/18) ROS Review of System Unable to obtain 2./2 to MV Physical Exam Physical Exam GENERAL: sedated, orally intubated. HEENT: Both pupils are round and reacting. orally intubated. NECK: Supple LUNGS: Decreased breath sounds bilaterally. HEART: S1, S2 regular. No gallop or murmur. ABDOMEN: Soft, nontender. No organomegaly. EXTREMITIES: No edema, cyanosis. SKIN: Unremarkable NEUROLOGIC: sedated and intubated Nieto + . Vital Signs Vital Signs Date Time Temp Pulse Resp B/P (MAP) Pulse Ox O2 Delivery O2 Flow Rate FiO2 04/24/20 12:30 79 20 125/50 (75) 100 Ventilator 04/24/20 08:00 98.7 98.7 Assessment & Plan WALE - vasomotor / Sepsis/Hyptoensive Non Oliguric, E-Lytes stable, UA unremarkable, uop decreased some , Continue IVF Supportive care, Avoid nephrotoxins, Monitor HYpoKalemia- Mild, Replace Acute hypoxic and hypercapnic respiratory failure - septic shock and right- sided pneumonia/ Hx of Myesthenia gravis. 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 DM Labs Labs Laboratory Tests Test 04/23/20 04:28 04/23/20 04:30 04/23/20 05:10 04/23/20 05:20 White Blood Count 6.7 x10^3/uL (4.0-11.0) Red Blood Count 4.71 x10^6/uL (4.30-5.70) Hemoglobin 11.2 g/dL (13.0-17.5) Hematocrit 35.3 % (39.0-53.0) Mean Corpuscular Volume 75 fL (79-100) Mean Corpuscular Hemoglobin 24 pg (25-35) Mean Corpuscular Hemoglobin Concent 32 g/dL (31-37) Red Cell Distribution Width 17.9 % (11.5-14.5) Platelet Count 143 x10^3/uL (140-400) Neutrophils (%) (Auto) 87 % (31-73) Lymphocytes (%) (Auto) 9 % (24-48) Monocytes (%) (Auto) 3 % (0-9) Eosinophils (%) (Auto) 2 % (0-3) Basophils (%) (Auto) 1 % (0-3) Neutrophils # (Auto) 5.8 x10^3/uL (1.8-7.7) Lymphocytes # (Auto) 0.6 x10^3/uL (1.0-4.8) Monocytes # (Auto) 0.2 x10^3/uL (0.0-1.1) Eosinophils # (Auto) 0.1 x10^3/uL (0.0-0.7) Basophils # (Auto) 0.0 x10^3/uL (0.0-0.2) Segmented Neutrophils % 76 % (35-66) Band Neutrophils % 3 % (0-9) Lymphocytes % 18 % (24-48) Eosinophils % 3 % (0-5) Platelet Estimate Adequate (ADEQUATE) Hypochromasia Present Anisocytosis Slight Sodium Level 140 mmol/L (136-145) Potassium Level 4.2 mmol/L (3.5-5.1) Chloride Level 104 mmol/L (98-107) Carbon Dioxide Level 28 mmol/L (21-32) Anion Gap 8 (6-14) Blood Urea Nitrogen 21 mg/dL (8-26) Creatinine 1.5 mg/dL (0.7-1.3) Estimated GFR (Cockcroft-Gault) 44.3 BUN/Creatinine Ratio 14 (6-20) Glucose Level 176 mg/dL (70-99) Lactic Acid Level 1.7 mmol/L (0.4-2.0) Calcium Level 8.3 mg/dL (8.5-10.1) Total Bilirubin 0.4 mg/dL (0.2-1.0) Aspartate Amino Transf (AST/SGOT) 17 U/L (15-37) Alanine Aminotransferase (ALT/SGPT) 23 U/L (16-63) Alkaline Phosphatase 54 U/L (46-116) Troponin I Quantitative 0.063 ng/mL (0.000-0.055) DL-Imj-H-Type Natriuretic Peptide 308 pg/mL (0-449) Total Protein 6.5 g/dL (6.4-8.2) Albumin 3.0 g/dL (3.4-5.0) Albumin/Globulin Ratio 0.9 (1.0-1.7) Triglycerides Level 162 mg/dL (0-150) Cholesterol Level 135 mg/dL (0-200) LDL Cholesterol, Calculated 70 mg/dL (0-100) VLDL Cholesterol, Calculated 32 mg/dL (0-40) Non-HDL Cholesterol Calculated 102 mg/dL (0-129) HDL Cholesterol 33 mg/dL (40-60) Cholesterol/HDL Ratio 4.1 Thyroid Stimulating Hormone (TSH) 2.208 uIU/mL (0.358-3.74) Prothrombin Time 25.8 SEC (11.7-14.0) Prothromb Time International Ratio 2.4 (0.8-1.1) Coronavirus (COVID-19)(PCR) Not detected (NOT DETECT.) O2 Saturation 98 % (92-99) Arterial Blood pH 7.29 (7.35-7.45) Arterial Blood pH (Temp corrected) 7.27 Arterial Blood pCO2 at Patient Temp 52 mmHg (35-46) Arterial Blood pCO2 (Temp correct) 56 mmHg Arterial Blood pO2 at Patient Temp 135 mmHg (65-108) Arterial Blood pO2 (Temp corrected) 146 mmHg Arterial Blood HCO3 24 mmol/L (21-28) Arterial Blood Base Excess -3 mmol/L (-3-3) FiO2 100 Test 04/23/20 08:00 04/23/20 08:25 04/23/20 14:40 04/24/20 06:15 O2 Saturation 99 % (92-99) Arterial Blood pH 7.41 (7.35-7.45) Arterial Blood pCO2 at Patient Temp 33 mmHg (35-46) Arterial Blood pO2 at Patient Temp 166 mmHg (65-108) Arterial Blood HCO3 20 mmol/L (21-28) Arterial Blood Base Excess -4 mmol/L (-3-3) FiO2 80 Urine Collection Type Unknown Urine Color Yellow Urine Clarity Clear Urine pH 5.0 (<5.0-8.0) Urine Specific [place] 1.010 (1.000-1.030) Urine Protein Negative mg/dL (NEG-TRACE) Urine Glucose (UA) Negative mg/dL (NEG) Urine Ketones (Stick) Negative mg/dL (NEG) Urine Blood Negative (NEG) Urine Nitrite Negative (NEG) Urine Bilirubin Negative (NEG) Urine Urobilinogen Dipstick 0.2 mg/dL (0.2 mg/dL) Urine Leukocyte Esterase Negative (NEG) Urine RBC 0 /HPF (0-2) Urine WBC 1-4 /HPF (0-4) Urine Squamous Epithelial Cells Occ /LPF Urine Bacteria 0 /HPF (0-FEW) Urine Hyaline Casts Occasional /HPF Urine Mucus Slight /LPF Troponin I Quantitative 1.299 ng/mL (0.000-0.055) White Blood Count 12.9 x10^3/uL (4.0-11.0) Red Blood Count 4.04 x10^6/uL (4.30-5.70) Hemoglobin 9.5 g/dL (13.0-17.5) Hematocrit 29.5 % (39.0-53.0) Mean Corpuscular Volume 73 fL (79-100) Mean Corpuscular Hemoglobin 24 pg (25-35) Mean Corpuscular Hemoglobin Concent 32 g/dL (31-37) Red Cell Distribution Width 18.1 % (11.5-14.5) Platelet Count 164 x10^3/uL (140-400) Prothrombin Time 50.3 SEC (11.7-14.0) Prothromb Time International Ratio 5.4 (0.8-1.1) Sodium Level 140 mmol/L (136-145) Potassium Level 3.0 mmol/L (3.5-5.1) Chloride Level 105 mmol/L (98-107) Carbon Dioxide Level 23 mmol/L (21-32) Anion Gap 12 (6-14) Blood Urea Nitrogen 24 mg/dL (8-26) Creatinine 1.7 mg/dL (0.7-1.3) Estimated GFR (Cockcroft-Gault) 38.3 Glucose Level 124 mg/dL (70-99) Calcium Level 7.3 mg/dL (8.5-10.1) Total Bilirubin 0.7 mg/dL (0.2-1.0) Direct Bilirubin 0.2 mg/dL (0.0-0.2) Aspartate Amino Transf (AST/SGOT) 21 U/L (15-37) Alanine Aminotransferase (ALT/SGPT) 21 U/L (16-63) Alkaline Phosphatase 39 U/L (46-116) Total Protein 4.8 g/dL (6.4-8.2) Albumin 2.4 g/dL (3.4-5.0) Test 04/24/20 08:00 O2 Saturation 98 % (92-99) Arterial Blood pH 7.49 (7.35-7.45) Arterial Blood pCO2 at Patient Temp 29 mmHg (35-46) Arterial Blood pO2 at Patient Temp 111 mmHg (65-108) Arterial Blood HCO3 22 mmol/L (21-28) Arterial Blood Base Excess -1 mmol/L (-3-3) FiO2 40% vent Laboratory Tests Test 04/23/20 14:40 04/24/20 06:15 04/24/20 08:00 Troponin I Quantitative 1.299 ng/mL (0.000-0.055) White Blood Count 12.9 x10^3/uL (4.0-11.0) Red Blood Count 4.04 x10^6/uL (4.30-5.70) Hemoglobin 9.5 g/dL (13.0-17.5) Hematocrit 29.5 % (39.0-53.0) Mean Corpuscular Volume 73 fL (79-100) Mean Corpuscular Hemoglobin 24 pg (25-35) Mean Corpuscular Hemoglobin Concent 32 g/dL (31-37) Red Cell Distribution Width 18.1 % (11.5-14.5) Platelet Count 164 x10^3/uL (140-400) Prothrombin Time 50.3 SEC (11.7-14.0) Prothromb Time International Ratio 5.4 (0.8-1.1) Sodium Level 140 mmol/L (136-145) Potassium Level 3.0 mmol/L (3.5-5.1) Chloride Level 105 mmol/L (98-107) Carbon Dioxide Level 23 mmol/L (21-32) Anion Gap 12 (6-14) Blood Urea Nitrogen 24 mg/dL (8-26) Creatinine 1.7 mg/dL (0.7-1.3) Estimated GFR (Cockcroft-Gault) 38.3 Glucose Level 124 mg/dL (70-99) Calcium Level 7.3 mg/dL (8.5-10.1) Total Bilirubin 0.7 mg/dL (0.2-1.0) Direct Bilirubin 0.2 mg/dL (0.0-0.2) Aspartate Amino Transf (AST/SGOT) 21 U/L (15-37) Alanine Aminotransferase (ALT/SGPT) 21 U/L (16-63) Alkaline Phosphatase 39 U/L (46-116) Total Protein 4.8 g/dL (6.4-8.2) Albumin 2.4 g/dL (3.4-5.0) O2 Saturation 98 % (92-99) Arterial Blood pH 7.49 (7.35-7.45) Arterial Blood pCO2 at Patient Temp 29 mmHg (35-46) Arterial Blood pO2 at Patient Temp 111 mmHg (65-108) Arterial Blood HCO3 22 mmol/L (21-28) Arterial Blood Base Excess -1 mmol/L (-3-3) FiO2 40% vent Review All relevant outside records, renal labs, imaging studies, telemetry/EKG's were reviewed. Images Images CXR IMPRESSION: Lines and tubes as described above. No pneumothorax. Persistent consolidated infiltrate of the right lung base. There could be a small right pleural effusion along the diaphragm. TAYLOR DANIELS MD Apr 24, 2020 13:12
--- NOTE | 2020-04-24 15:56 | NUR ---
SS following up with discharge planning. SS reviewed pt chart and discussed with pt RN. Pt remains on the vent at this time. Pt is COVID19 negative. Pt remains on IV Zyvox and IV Zosyn. SS will continue to follow for discharge planning.
[2020-04-24 16:48] LABS: BASE EXCESS ABG 0 mmol/L (-3-3); HCO3 ABG 25 mmol/L (21-28); PCO2 ABG 38 mmHg (35-46); PO2 ABG 85 mmHg (65-108); SAT O2 ABG 95 % (92-99)
[2020-04-24 16:52] LABS: FIO2 ABG 40
[2020-04-24] MEDS: PYRIDOSTIGMINE BROMIDE 60 MG TABLET PO SCH (17:18)
[2020-04-24] MEDS: METOPROLOL TART IMMED RELEASE 25 MG TABLET. PO SCH (17:19)
[2020-04-24] MEDS: SIMVASTATIN 20 MG TABLET PO SCH (17:19)
[2020-04-24] MEDS ORDERED: PYRIDOSTIGMINE BROMIDE 60 MG TABLET PO SCH (21:00)
[2020-04-24] MEDS ORDERED: METOPROLOL TART IMMED RELEASE 25 MG TABLET. PO SCH (21:00)
[2020-04-24] MEDS: FAMOTIDINE 20 MG/2 ML VIAL IVP SCH (21:49)
[2020-04-24] MEDS ORDERED: DIGOXIN IV 500 MCG/2 ML AMPUL. IV ONE (22:30)
--- NOTE | 2020-04-24 23:58 | NUR ---
Nursing Note: Pt wore Bipap for about 1 1/2 hours. Then became more restless, more tachycardic. Placed back on 2L. Notified Dr. Son over Afib RVR, will give 2 doses of digoxin tonight and reassess in the AM per
[2020-04-25] VITALS (23 sets, daily range): BP systolic 111–184; BP diastolic 52–95
[2020-04-25] MEDS: PIPERACILLIN/TAZOBACTAM 3.375 GM in IV NORMAL SALINE 50ML 50 ML IV SCH ×4 (00:27→17:42)
[2020-04-25] MEDS ORDERED: DIGOXIN IV 500 MCG/2 ML AMPUL. IV ONE (01:30)
[2020-04-25 06:21] LABS: ALBUMIN 2.2 g/dL (3.4-5.0); CALCIUM 7.5 mg/dL (8.5-10.1); CREATININE 1.3 mg/dL (0.7-1.3); GFR 52.2; PHOSPHORUS 1.9 mg/dL (2.6-4.7); POTASSIUM 3.4 mmol/L (3.5-5.1)
[2020-04-25 06:22] LABS: PROTHROMBIN TIME PATIENT 45.4 SEC (11.7-14.0)
[2020-04-25] MEDS: IV NORMAL SALINE 1000ML BAG 1,000 ML IV SCH ×2 (08:20→17:42)
[2020-04-25] MEDS: METOPROLOL TART IMMED RELEASE 25 MG TABLET. PO SCH ×3 (09:00→22:42)
[2020-04-25] MEDS: PYRIDOSTIGMINE BROMIDE 60 MG TABLET PO SCH ×2 (09:00→21:15)
[2020-04-25] MEDS: FLECAINIDE ACETATE 50 MG TABLET. PO SCH ×2 (09:00→21:16)
--- NOTE | 2020-04-25 09:01 | PDOC ---
Infectious Disease Note Subjective Subjective Now on 2L O2 Fever Tmax 100.0 ROS ROS unobtainable Vital Sign Vital Signs Vital Signs Date Time Temp Pulse Resp B/P (MAP) Pulse Ox O2 Delivery O2 Flow Rate FiO2 04/25/20 07:00 107 20 128/53 (78) 95 Nasal Cannula 04/25/20 04:05 2.0 04/25/20 04:00 100.0 100.0 Physical Exam PHYSICAL EXAM GENERAL: Propped up in bed, weak appearing HEENT: Pupils equal, Oral cavity dry NECK: Supple LUNGS: Upper airway rattling, decreased breath sounds bilaterally, no accessory muscle use . HEART: S1, S2 regular. ABDOMEN: Nondistended, bowel sounds present, soft, nontender. : Nieto in place EXTREMITIES: No edema, cyanosis. SCDs bilaterally. SKIN: Unremarkable other than some minor skin breakdowns present. NEUROLOGIC: Arouses to name, tries to speak RIJ and right art-line without signs of complications Also has a PIV that looks ok Labs Lab Laboratory Tests Test 04/24/20 16:45 04/25/20 05:45 O2 Saturation 95 % (92-99) Arterial Blood pH 7.43 (7.35-7.45) Arterial Blood pCO2 at Patient Temp 38 mmHg (35-46) Arterial Blood pO2 at Patient Temp 85 mmHg (65-108) Arterial Blood HCO3 25 mmol/L (21-28) Arterial Blood Base Excess 0 mmol/L (-3-3) FiO2 40 Prothrombin Time 45.4 SEC (11.7-14.0) Prothromb Time International Ratio 4.8 (0.8-1.1) Sodium Level 141 mmol/L (136-145) Potassium Level 3.4 mmol/L (3.5-5.1) Chloride Level 107 mmol/L (98-107) Carbon Dioxide Level 24 mmol/L (21-32) Anion Gap 10 (6-14) Blood Urea Nitrogen 17 mg/dL (8-26) Creatinine 1.3 mg/dL (0.7-1.3) Estimated GFR (Cockcroft-Gault) 52.2 Glucose Level 89 mg/dL (70-99) Calcium Level 7.5 mg/dL (8.5-10.1) Phosphorus Level 1.9 mg/dL (2.6-4.7) Magnesium Level 1.4 mg/dL (1.8-2.4) Albumin 2.2 g/dL (3.4-5.0) Micro Microbiology 04/23/20 Blood Culture - Preliminary, Resulted NO GROWTH AFTER 1 DAY Objective Assessment Community-acquired pneumonia. COVID neg Fever Leukocytosis Respiratory failure. Hypotension. Acute kidney injury/CKD History of atrial fibrillation, on flecainide/warfarin Diabetes. Myasthenia gravis. Plan Plan of Care Zyvox/Zosyn, 04/23 Repeat CBC in am f/u BC, neg so far Maintain aspiration precautions Supportive care D/w nursing Patient seen. Chart reviewed in detail. Case discussed with TRAUMA NURSE. I agree with above plan.cor-formulated with TRAUMA NURSE. KHANG YOUSSEF APRN Apr 25, 2020 09:01 SREEDHAR WARD MD Apr 25, 2020 22:47
--- NOTE | 2020-04-25 09:12 | PDOC ---
PULMONARY PROGRESS NOTES Subjective Extubated 04/24/2020, now on 2 liters N/C, wore BIPAP overnight difficulty clearing his own secretions Vitals Vital Signs Date Time Temp Pulse Resp B/P (MAP) Pulse Ox O2 Delivery O2 Flow Rate FiO2 04/25/20 07:00 107 20 128/53 (78) 95 Nasal Cannula 04/25/20 04:05 2.0 04/25/20 04:00 100.0 100.0 ROS: No Nausea, No Chest Pain, No Increase Cough General: Alert, Oriented X4 Lungs: Clear Cardiovascular: S1, S2 Abdomen: Soft Extremities: No Edema Skin: Warm, Dry Labs Laboratory Tests Test 04/23/20 14:40 04/24/20 06:15 04/24/20 08:00 04/24/20 16:45 Troponin I Quantitative 1.299 ng/mL (0.000-0.055) 0.747 ng/mL (0.000-0.055) White Blood Count 12.9 x10^3/uL (4.0-11.0) Red Blood Count 4.04 x10^6/uL (4.30-5.70) Hemoglobin 9.5 g/dL (13.0-17.5) Hematocrit 29.5 % (39.0-53.0) Mean Corpuscular Volume 73 fL (79-100) Mean Corpuscular Hemoglobin 24 pg (25-35) Mean Corpuscular Hemoglobin Concent 32 g/dL (31-37) Red Cell Distribution Width 18.1 % (11.5-14.5) Platelet Count 164 x10^3/uL (140-400) Prothrombin Time 50.3 SEC (11.7-14.0) Prothromb Time International Ratio 5.4 (0.8-1.1) Sodium Level 140 mmol/L (136-145) Potassium Level 3.0 mmol/L (3.5-5.1) Chloride Level 105 mmol/L (98-107) Carbon Dioxide Level 23 mmol/L (21-32) Anion Gap 12 (6-14) Blood Urea Nitrogen 24 mg/dL (8-26) Creatinine 1.7 mg/dL (0.7-1.3) Estimated GFR (Cockcroft-Gault) 38.3 Glucose Level 124 mg/dL (70-99) Calcium Level 7.3 mg/dL (8.5-10.1) Total Bilirubin 0.7 mg/dL (0.2-1.0) Direct Bilirubin 0.2 mg/dL (0.0-0.2) Aspartate Amino Transf (AST/SGOT) 21 U/L (15-37) Alanine Aminotransferase (ALT/SGPT) 21 U/L (16-63) Alkaline Phosphatase 39 U/L (46-116) Total Protein 4.8 g/dL (6.4-8.2) Albumin 2.4 g/dL (3.4-5.0) O2 Saturation 98 % (92-99) 95 % (92-99) Arterial Blood pH 7.49 (7.35-7.45) 7.43 (7.35-7.45) Arterial Blood pCO2 at Patient Temp 29 mmHg (35-46) 38 mmHg (35-46) Arterial Blood pO2 at Patient Temp 111 mmHg (65-108) 85 mmHg (65-108) Arterial Blood HCO3 22 mmol/L (21-28) 25 mmol/L (21-28) Arterial Blood Base Excess -1 mmol/L (-3-3) 0 mmol/L (-3-3) FiO2 40% vent 40 Test 04/25/20 05:45 Prothrombin Time 45.4 SEC (11.7-14.0) Prothromb Time International Ratio 4.8 (0.8-1.1) Sodium Level 141 mmol/L (136-145) Potassium Level 3.4 mmol/L (3.5-5.1) Chloride Level 107 mmol/L (98-107) Carbon Dioxide Level 24 mmol/L (21-32) Anion Gap 10 (6-14) Blood Urea Nitrogen 17 mg/dL (8-26) Creatinine 1.3 mg/dL (0.7-1.3) Estimated GFR (Cockcroft-Gault) 52.2 Glucose Level 89 mg/dL (70-99) Calcium Level 7.5 mg/dL (8.5-10.1) Phosphorus Level 1.9 mg/dL (2.6-4.7) Magnesium Level 1.4 mg/dL (1.8-2.4) Albumin 2.2 g/dL (3.4-5.0) Laboratory Tests Test 04/24/20 16:45 04/25/20 05:45 O2 Saturation 95 % (92-99) Arterial Blood pH 7.43 (7.35-7.45) Arterial Blood pCO2 at Patient Temp 38 mmHg (35-46) Arterial Blood pO2 at Patient Temp 85 mmHg (65-108) Arterial Blood HCO3 25 mmol/L (21-28) Arterial Blood Base Excess 0 mmol/L (-3-3) FiO2 40 Prothrombin Time 45.4 SEC (11.7-14.0) Prothromb Time International Ratio 4.8 (0.8-1.1) Sodium Level 141 mmol/L (136-145) Potassium Level 3.4 mmol/L (3.5-5.1) Chloride Level 107 mmol/L (98-107) Carbon Dioxide Level 24 mmol/L (21-32) Anion Gap 10 (6-14) Blood Urea Nitrogen 17 mg/dL (8-26) Creatinine 1.3 mg/dL (0.7-1.3) Estimated GFR (Cockcroft-Gault) 52.2 Glucose Level 89 mg/dL (70-99) Calcium Level 7.5 mg/dL (8.5-10.1) Phosphorus Level 1.9 mg/dL (2.6-4.7) Magnesium Level 1.4 mg/dL (1.8-2.4) Albumin 2.2 g/dL (3.4-5.0) Medications Active Scripts Medications Dose Route/Sig Max Daily Dose Days Date Category Carvedilol (Carvedilol) 6.25 Mg Tablet 6.25 Mg PO BIDWMEALS 04/23/20 Reported Fish Oil 1,200 Mg Fish Oil (Fish Oil/Dha/Epa) 1 Each Capsule 1 Each PO DAILY 07/17/16 Reported Hydrochlorothiazide Tablet (Hydrochlorothiazide) 12.5 Mg Tablet 12.5 Mg PO DAILY 07/17/16 Reported Pyridostigmine Monroe 60 Mg Tablet 60 Mg PO BID 07/17/16 Reported Flecainide Acetate 50 Mg Tablet 25 Mg PO BID 07/17/16 Reported Lantus Solostar (Insulin Glargine,Hum.rec.anlog) 100 Unit/1 Ml Insuln.pen 20 Unit SQ QHS 07/17/16 Reported Simvastatin 20 Mg Tablet 20 Mg PO HS 07/17/16 Reported Lisinopril 20 Mg Tablet 1 Tab PO BID 07/17/16 Reported Warfarin Sodium 5 Mg Tablet 2 Tab PO DAILY 07/17/16 Reported Nexium Capsule (Esomeprazole Magnesium) 40 Mg Capsule. 1 Cap PO DAILY 07/17/16 Reported Vitamin D (Cholecalciferol (Vitamin D3)) 2,000 Unit Tablet 1,000 Unit PO DAILY 07/17/16 Reported Impression . IMPRESSION: 1. Acute hypoxic and hypercapnic respiratory failure secondary to multifactorial etiologies including combination of septic shock and right-sided pneumonia/ ? Myesthenic crisis. 2. Likely underlying chronic obstructive pulmonary disease with exacerbation. 3. Acute kidney injury. 4. Mildly increased troponin level. 5. Abnormal chest x-ray with right-sided infiltrates, likely secondary to pneumonia. 6. Myesthenia gravis., details not available Plan . RECOMMENDATIONS: 1. Supplemental oxygen o keep sats above 92 %, BIPAP PRN, NTS PRN, nebs add mucomyst 2. Broad-spectrum antibiotics per ID 3. Follow chest x-rays. 4. Follow all cultures,NGTD 5. COVID-19 test (-) 6. cont. vasopressor to keep MAP above 65-- off levophed 7.Cot. MG medications 8. PT/OT 9. hold Coumadin today as INR is elevated, plan to D/C art-line once INR less than 3.5 DVT/GI PPX; coumadin/pepcid-- hold coumadin as INR is elevated D/W RN and RT Critical care time 30 minutes including decision making. ROSALBA GRANADOS MD Apr 25, 2020 09:12
[2020-04-25] MEDS ORDERED: MAGNESIUM SULFATE 2GM 50 ML IV ONE ×2 (09:15→11:30)
[2020-04-25] MEDS: AMINO AC 3%/ELECTROLYTE/GLYCER 1,000 ML IV SCH ×2 (09:50→22:43)
[2020-04-25] MEDS: POTASSIUM PHOS,M-BASIC-D-BASIC 10 MMOL in IV NORMAL SALINE 100ML 100 ML IV SCH ×2 (09:51→11:59)
[2020-04-25] MEDS: ACETYLCYSTEINE 20% for RESP TX 600 MG/3 ML. NEB SCH ×2 (10:00→19:58)
--- NOTE | 2020-04-25 10:03 | RAD ---
PORTABLE CHEST 1V Clinical Indication: Reason: post vent / Spl. Instructions: / History: Comparison: AP chest, 2 days ago. Findings: Endotracheal and enteric tubes have been removed. Right IJ central line is stable, tip in mid to distal SVC. The cardiomediastinal silhouette is normal. Right mid and lower lung airspace opacities are mildly improved.. There is no pneumothorax. No pleural effusion is appreciated. The bones appear stable. IMPRESSION: 1. Life support devices as above. 2. Right mid and lower lung airspace opacities are mildly improved. Electronically signed by: Rocael Max MD (04/25/2020 10:00 AM) [facility]
--- NOTE | 2020-04-25 11:26 | PDOC ---
Renal-Progress Notes Subjective Notes Notes NONE History of Present Illness Hx of present illness STABLE Vitals Vitals Vital Signs Date Time Temp Pulse Resp B/P (MAP) Pulse Ox O2 Delivery O2 Flow Rate FiO2 04/25/20 08:00 Nasal Cannula 2.0 04/25/20 08:00 128 04/25/20 08:00 100.1 20 95 100.1 Weight Weight [ ] I.O. Intake and Output Intake and Output 04/25/20 07:00 Intake Total 2857.8 ml Output Total 1457 ml Balance 1400.8 ml Intake Oral 40 ml IV Total 2817.8 ml Output Urine Total 1457 ml Labs Labs Laboratory Tests Test 04/24/20 16:45 04/25/20 05:45 O2 Saturation 95 % (92-99) Arterial Blood pH 7.43 (7.35-7.45) Arterial Blood pCO2 at Patient Temp 38 mmHg (35-46) Arterial Blood pO2 at Patient Temp 85 mmHg (65-108) Arterial Blood HCO3 25 mmol/L (21-28) Arterial Blood Base Excess 0 mmol/L (-3-3) FiO2 40 Prothrombin Time 45.4 SEC (11.7-14.0) Prothromb Time International Ratio 4.8 (0.8-1.1) Sodium Level 141 mmol/L (136-145) Potassium Level 3.4 mmol/L (3.5-5.1) Chloride Level 107 mmol/L (98-107) Carbon Dioxide Level 24 mmol/L (21-32) Anion Gap 10 (6-14) Blood Urea Nitrogen 17 mg/dL (8-26) Creatinine 1.3 mg/dL (0.7-1.3) Estimated GFR (Cockcroft-Gault) 52.2 Glucose Level 89 mg/dL (70-99) Calcium Level 7.5 mg/dL (8.5-10.1) Phosphorus Level 1.9 mg/dL (2.6-4.7) Magnesium Level 1.4 mg/dL (1.8-2.4) Albumin 2.2 g/dL (3.4-5.0) Micro Micro Microbiology 04/23/20 Blood Culture - Preliminary, Resulted NO GROWTH AFTER 2 DAYS Review of Systems Constitutional: yes: other (CONFUSED) Physical Exam General Appearance: no apparent distress Skin: warm Respiratory: bilateral CTA Heart: S1S2 Abdomen: soft, bowel sounds present Genitourinary: bladder flat Neurology: alert, confused, other (restless) Musculoskeletal: Other Assessment Assessment IMP [id number] OF 1.5 SEPSIS ACUTE RESP FAILURE HYPOTENSION PNEUMONIA LOW MAG AND PO4 HX OF MYASTHENIA G PLAN PPN PRESSORS REPLACE MG AND PO4 ANTIBIOTCS HOLLY FORTE MD Apr 25, 2020 11:26
[2020-04-25] MEDS ORDERED: POTASSIUM PHOS,M-BASIC-D-BASIC 13.6 MMOL in IV NORMAL SALINE 250ML 250 ML IV SCH (11:30)
--- NOTE | 2020-04-25 11:46 | PDOC ---
Nutrition Consultation Dietary Evaluation: Recommendations by RD: Dietary education by RD, Increase Calorie Intake Comments: REC intiation of TFs within 24 - 48 hrs of intubation REC TFs per following: VitalAF@goal rate 50 ml/hr w/125 ml water flushes q4 hrs or flushes per MD Expected Outcomes/Goals: Intiation of TFs within 24 - 48 hrs of intubation Malnutrition Findings: Body Fat Depletion (Non Severe: Mild Depletion Weight Status: Appropriate GENERAL General: Patient examined chart reviewed seen earlier today in the intensive care unit he was admitted yesterday with acute hypoxic respiratory failure needed to be intubated for several hours. Patient has ruled out for COVID-19. Bacterial blood cultures are negative to date and sputum cultures are pending. He may have had a myasthenic crisis as well complicating his course. He successfully extubated and used as needed short-term BiPAP overnight. He is breathing comfortably with supplemental oxygen this morning though is tachypneic. He is without complaint today. Patient tells me he lives independently in his own home with his . He does have myasthenia gravis but that has been stable. He is not sure about his baseline kidney function though his creatinine is up today. He also had a troponin bump to .74 which may be secondary to the el evated creatinine or his hypoxic respiratory failure. We will continue to follow closely in the intensive care unit. He has a right middle and lower lobe pneumonia for which he is on broad-spectrum antibiotics. I appreciate pulmonary critical care support. Total time today is 30 minutes with greater than 50% in counseling and coordination of care most of which in discussion with patient and nursing. Problems: (1) Myasthenia gravis (2) Pneumonia (3) Acute respiratory failure with hypoxemia VITAL SIGNS Vital Signs/I&O: Vital Signs Date Time Temp Pulse Resp B/P (MAP) Pulse Ox O2 Delivery O2 Flow Rate FiO2 04/25/20 08:00 Nasal Cannula 2.0 04/25/20 08:00 128 04/25/20 08:00 100.1 20 95 100.1 I & O 04/24/20 04/24/20 04/25/20 15:00 23:00 07:00 Intake Total 490 ml 1371.8 ml 996 ml Output Total 332 ml 780 ml 345 ml Balance 158 ml 591.8 ml 651 ml In general the patient is a pleasant appropriately interactive appears to be at baseline orientation dyspneic on evaluation but in no acute distress otherwise HEENT exam is unremarkable Chest notable for tachypnea bilateral equal air entry though diminished throughout inspiratory and expiratory crackles at the bilateral bases Heart S1-S2 normal tachycardic no murmurs or gallops are noted Abdomen soft nontender nondistended no masses organomegaly noted Extremity exam is unremarkable for acute abnormality ALLERGIES Allergies: Allergies Coded Allergies Type Severity Reaction Last Updated Verified I S O L A T I O N *CONTACT* Allergy Unknown 04/03/18 Yes No Known Medication Allergies Allergy Unknown 04/03/18 Yes MEDS Medications: Current Medications Medications (Trade) Dose Ordered Sig/Vin Start Time Stop Time Status Last Admin Dose Admin Acetaminophen (Tylenol Supp) 650 mg 1X ONCE 04/23/20 05:30 04/23/20 05:31 DC 04/23/20 05:00 Acetylcysteine (Mucomyst 20% Resp Treatment) 600 mg BID 04/25/20 10:00 Amino Acids/ Glycerin/ Electrolytes 1,000 ml @ 80 mls/hr [id number] 04/25/20 09:45 04/25/20 09:50 Digoxin (Lanoxin) 250 mcg 1X ONCE 04/25/20 01:30 04/25/20 01:31 DC 04/25/20 01:20 Enoxaparin Sodium (Lovenox 40mg Syringe) 40 mg BID 04/23/20 10:30 04/23/20 18:23 DC 04/23/20 10:46 Enoxaparin Sodium (Lovenox Per Pharmacy Prophylaxis Dosing) 1 each PRN DAILY PRN 04/23/20 10:00 04/23/20 18:23 DC Etomidate (Amidate) 20 mg STK-MED ONCE 04/23/20 04:26 04/23/20 04:26 DC Famotidine (Pepcid Vial) 20 mg QHS 04/23/20 21:00 04/24/20 21:49 Flecainide Acetate (Tambocor) 25 mg BID 04/23/20 21:00 04/24/20 17:19 Furosemide (Lasix) 60 mg 1X ONCE 04/23/20 05:00 04/23/20 05:01 DC 04/23/20 04:42 Info (Icu Electrolyte Protocol) 1 ea CONT PRN PRN 04/24/20 08:45 Linezolid/Dextrose 300 ml @ 300 mls/hr Q12HR 04/23/20 21:00 04/25/20 09:50 Magnesium Sulfate 50 ml @ 25 mls/hr 1X ONCE 04/25/20 11:30 04/25/20 13:29 UNV Metoprolol Tartrate (Lopressor Vial) 5 mg 1X ONCE 04/23/20 06:00 04/23/20 06:01 DC Metoprolol Tartrate (Lopressor) 12.5 mg BID 04/24/20 17:15 04/24/20 17:19 Midazolam HCl 100 ml @ 0 mls/hr CONT PRN 04/23/20 07:45 04/25/20 04:37 DC 04/24/20 01:35 Midazolam HCl (Versed) 5 mg 1X ONCE 04/23/20 06:15 04/23/20 06:16 DC 04/23/20 06:09 Midazolam HCl 50 mg/Sodium Chloride 50 ml @ 1 mls/hr CONT PRN 04/23/20 07:45 Cancel Norepinephrine Bitartrate 8 mg/ Dextrose 258 ml @ 14.513 mls/ hr CONT PRN 04/23/20 08:15 04/25/20 09:09 DC 04/23/20 14:32 Ondansetron HCl (Zofran) 4 mg PRN Q8HRS PRN 04/23/20 05:15 04/24/20 05:14 DC Phytonadione (Vitamin K Ampule) 5 mg 1X ONCE 04/24/20 11:45 04/24/20 11:46 DC 04/24/20 12:02 Piperacillin Sod/ Tazobactam Sod (Zosyn Per Pharmacy) 1 each PRN DAILY PRN 04/23/20 10:00 Piperacillin Sod/ Tazobactam Sod 3.375 gm/Sodium Chloride 50 ml @ 100 mls/hr Q6HRS 04/23/20 11:00 04/25/20 05:45 Potassium Chloride/Water 100 ml @ 100 mls/hr Q1H 04/24/20 08:45 04/24/20 10:44 DC 04/24/20 10:18 Potassium Phosphate 10 mmol/ Sodium Chloride 103.3333 ml @ 51.667 m... Q2H 04/25/20 09:30 04/25/20 13:29 04/25/20 09:51 Potassium Phosphate 13.6 mmol/Sodium Chloride 254.5333 ml @ 127.... Q2H 04/25/20 11:30 04/25/20 15:29 UNV Propofol 50 ml @ 1.125 mls/ hr 1X ONCE 04/23/20 05:15 04/23/20 05:16 DC Pyridostigmine Dunn (Mestinon) 60 mg BID 04/24/20 17:15 04/24/20 17:18 Simvastatin (Zocor) 20 mg HS 04/23/20 21:00 04/24/20 17:19 Sodium Chloride 1,000 ml @ 100 mls/hr Q10H 04/24/20 12:15 04/24/20 21:50 Vancomycin HCl (Vanco Per Pharmacy) 1 each PRN DAILY PRN 04/23/20 10:00 04/23/20 11:51 DC Vancomycin HCl 500 mg/Sodium Chloride 100 ml @ 100 mls/hr 1X ONCE 04/23/20 10:30 04/23/20 11:29 DC 04/23/20 10:46 Vasopressin 20 unit/Dextrose 101 ml @ 12 mls/hr CONT PRN 04/23/20 08:00 04/25/20 09:39 DC 04/23/20 14:32 Vecuronium Dunn (Norcuron Bolus) 10 mg STK-MED ONCE 04/23/20 04:26 04/23/20 04:26 DC Warfarin Sodium (Coumadin - No Dose Today) 1 each 1X WARF ONCE 04/25/20 16:00 04/25/20 16:01 Warfarin Sodium (Coumadin Per Pharmacy) 1 each PRN DAILY PRN 04/24/20 11:30 04/24/20 11:31 DC Warfarin Sodium (Coumadin) 5 mg 1X ONCE 04/23/20 21:00 04/23/20 21:01 DC 04/23/20 20:41 Current Medications Medications (Trade) Dose Ordered Sig/Vin Route PRN Reason Start Time Stop Time Status Last Admin Dose Admin Phytonadione (Vitamin K Ampule) 5 mg 1X ONCE SQ 04/24/20 11:45 04/24/20 11:46 DC 04/24/20 12:02 Warfarin Sodium (Coumadin - No Dose Today) 1 each 1X WARF ONCE MC 04/24/20 16:00 04/24/20 16:01 DC 04/24/20 16:00 Sodium Chloride 1,000 ml @ 100 mls/hr Q10H IV 04/24/20 12:15 04/24/20 21:50 Metoprolol Tartrate (Lopressor) 12.5 mg BID PO 04/24/20 17:15 04/24/20 17:19 Pyridostigmine Dunn (Mestinon) 60 mg BID PO 04/24/20 17:15 04/24/20 17:18 Digoxin (Lanoxin) 250 mcg 1X ONCE IV 04/24/20 22:30 04/24/20 22:31 DC 04/24/20 22:41 Digoxin (Lanoxin) 250 mcg 1X ONCE IV 04/25/20 01:30 04/25/20 01:31 DC 04/25/20 01:20 Magnesium Sulfate 50 ml @ 25 mls/hr 1X ONCE IV 04/25/20 09:15 04/25/20 11:14 DC 04/25/20 09:51 Potassium Phosphate 10 mmol/ Sodium Chloride 103.3333 ml @ 51.667 m... Q2H IV 04/25/20 09:30 04/25/20 13:29 04/25/20 09:51 Amino Acids/ Glycerin/ Electrolytes 1,000 ml @ 80 mls/hr [id number] IV 04/25/20 09:45 04/25/20 09:50 LAB Lab: Laboratory Tests Test 04/24/20 16:45 04/25/20 05:45 O2 Saturation 95 % (92-99) Arterial Blood pH 7.43 (7.35-7.45) Arterial Blood pCO2 at Patient Temp 38 mmHg (35-46) Arterial Blood pO2 at Patient Temp 85 mmHg (65-108) Arterial Blood HCO3 25 mmol/L (21-28) Arterial Blood Base Excess 0 mmol/L (-3-3) FiO2 40 Prothrombin Time 45.4 SEC (11.7-14.0) H Prothrombin Time INR 4.8 (0.8-1.1) *H Sodium Level 141 mmol/L (136-145) Potassium Level 3.4 mmol/L (3.5-5.1) L Chloride Level 107 mmol/L (98-107) Carbon Dioxide Level 24 mmol/L (21-32) Anion Gap 10 (6-14) Blood Urea Nitrogen 17 mg/dL (8-26) Creatinine 1.3 mg/dL (0.7-1.3) Estimated GFR (Cockcroft-Gault) 52.2 Glucose Level 89 mg/dL (70-99) Calcium Level 7.5 mg/dL (8.5-10.1) L Phosphorus Level 1.9 mg/dL (2.6-4.7) L Magnesium Level 1.4 mg/dL (1.8-2.4) L Albumin 2.2 g/dL (3.4-5.0) L Laboratory Tests 04/25/20 05:45 IMAGING Imaging: PATIENT: STEPHANIE CLEMENS ACCOUNT: [id number] : 1930 LOCATION: [facility] ICU AGE: 89 SEX: M EXAM STATUS: ADM IN ORD. PHYSICIAN: ROSALBA GRANADOS MD REASON: post vent PROCEDURE: PORTABLE CHEST 1V PORTABLE CHEST 1V Clinical Indication: Reason: post vent / Spl. Instructions: / History: Comparison: AP chest, 2 days ago. Findings: Endotracheal and enteric tubes have been removed. Right IJ central line is stable, tip in mid to distal SVC. The cardiomediastinal silhouette is normal. Right mid and lower lung airspace opacities are mildly improved.. There is no pneumothorax. No pleural effusion is appreciated. The bones appear stable. IMPRESSION: 1. Life support devices as above. 2. Right mid and lower lung airspace opacities are mildly improved. Electronically signed by: Rocael Max MD (04/25/2020 10:00 AM) [facility] ASSESSMENT & PLAN A&P Plan as noted above Dictation created using [employer] and may have inconsistencies and er rors due to the nature of real-time dictation. Problem Qualifiers (1) Pneumonia: Pneumonia type: due to unspecified organism Laterality: right Lung location: unspecified part of lung Qualified Codes: J18.9 - Pneumonia, unspecified organism HERIBERTO PERSAUD MD Apr 25, 2020 11:45
--- NOTE | 2020-04-25 13:04 | PDOC ---
PROGRESS NOTES Subjective Subjective Patient seen and examined Objective Objective Vital Signs Date Time Temp Pulse Resp B/P (MAP) Pulse Ox O2 Delivery O2 Flow Rate FiO2 04/25/20 12:26 98 Nasal Cannula 2.0 04/25/20 11:00 90 20 134/53 (80) 04/25/20 08:00 100.1 100.1 Intake and Output 04/25/20 06:59 Intake Total 2857.8 ml Output Total 1457 ml Balance 1400.8 ml Intake Oral 40 ml IV Total 2817.8 ml Output Urine Total 1457 ml Physical Exam Abdomen: Normal bowel sounds Heart: Other (Irregularly irregular) General: mild distress Lungs: Other (Decreased breath sounds) Assessment Assessment Problems Medical Problems: (1) Acute respiratory failure with hypoxemia Status: Acute (2) Person under investigation for COVID-19 Status: Acute (3) Pneumonia Status: Acute 1. Acute respiratory failure with probable PNA; patient improving. Continue treatment as per the pulmonary service. Echo pending. 2. WALE vs CKD: Creatinine improving. 3. NSTEMI: multifactorial, unclear for any CAD hx. 4. Hypertension; controlled 5. PAFIB; continued episodes of atrial fibrillation. Continue present treatments with monitoring. Warfarin on hold secondary to elevated INR. 6. Diabetes, II 7. Hyperlipidemia; close on goal, on statin 8. Myasthenia gravis: Comment Review of Relevant I have reviewed the following items richard (where applicable) has been applied. Labs Laboratory Tests Test 04/23/20 14:40 04/24/20 06:15 04/24/20 08:00 04/24/20 16:45 Troponin I Quantitative 1.299 ng/mL (0.000-0.055) 0.747 ng/mL (0.000-0.055) White Blood Count 12.9 x10^3/uL (4.0-11.0) Red Blood Count 4.04 x10^6/uL (4.30-5.70) Hemoglobin 9.5 g/dL (13.0-17.5) Hematocrit 29.5 % (39.0-53.0) Mean Corpuscular Volume 73 fL (79-100) Mean Corpuscular Hemoglobin 24 pg (25-35) Mean Corpuscular Hemoglobin Concent 32 g/dL (31-37) Red Cell Distribution Width 18.1 % (11.5-14.5) Platelet Count 164 x10^3/uL (140-400) Prothrombin Time 50.3 SEC (11.7-14.0) Prothromb Time International Ratio 5.4 (0.8-1.1) Sodium Level 140 mmol/L (136-145) Potassium Level 3.0 mmol/L (3.5-5.1) Chloride Level 105 mmol/L (98-107) Carbon Dioxide Level 23 mmol/L (21-32) Anion Gap 12 (6-14) Blood Urea Nitrogen 24 mg/dL (8-26) Creatinine 1.7 mg/dL (0.7-1.3) Estimated GFR (Cockcroft-Gault) 38.3 Glucose Level 124 mg/dL (70-99) Calcium Level 7.3 mg/dL (8.5-10.1) Total Bilirubin 0.7 mg/dL (0.2-1.0) Direct Bilirubin 0.2 mg/dL (0.0-0.2) Aspartate Amino Transf (AST/SGOT) 21 U/L (15-37) Alanine Aminotransferase (ALT/SGPT) 21 U/L (16-63) Alkaline Phosphatase 39 U/L (46-116) Total Protein 4.8 g/dL (6.4-8.2) Albumin 2.4 g/dL (3.4-5.0) O2 Saturation 98 % (92-99) 95 % (92-99) Arterial Blood pH 7.49 (7.35-7.45) 7.43 (7.35-7.45) Arterial Blood pCO2 at Patient Temp 29 mmHg (35-46) 38 mmHg (35-46) Arterial Blood pO2 at Patient Temp 111 mmHg (65-108) 85 mmHg (65-108) Arterial Blood HCO3 22 mmol/L (21-28) 25 mmol/L (21-28) Arterial Blood Base Excess -1 mmol/L (-3-3) 0 mmol/L (-3-3) FiO2 40% vent 40 Test 04/25/20 05:45 Prothrombin Time 45.4 SEC (11.7-14.0) Prothromb Time International Ratio 4.8 (0.8-1.1) Sodium Level 141 mmol/L (136-145) Potassium Level 3.4 mmol/L (3.5-5.1) Chloride Level 107 mmol/L (98-107) Carbon Dioxide Level 24 mmol/L (21-32) Anion Gap 10 (6-14) Blood Urea Nitrogen 17 mg/dL (8-26) Creatinine 1.3 mg/dL (0.7-1.3) Estimated GFR (Cockcroft-Gault) 52.2 Glucose Level 89 mg/dL (70-99) Calcium Level 7.5 mg/dL (8.5-10.1) Phosphorus Level 1.9 mg/dL (2.6-4.7) Magnesium Level 1.4 mg/dL (1.8-2.4) Albumin 2.2 g/dL (3.4-5.0) Laboratory Tests Test 04/24/20 16:45 04/25/20 05:45 O2 Saturation 95 % (92-99) Arterial Blood pH 7.43 (7.35-7.45) Arterial Blood pCO2 at Patient Temp 38 mmHg (35-46) Arterial Blood pO2 at Patient Temp 85 mmHg (65-108) Arterial Blood HCO3 25 mmol/L (21-28) Arterial Blood Base Excess 0 mmol/L (-3-3) FiO2 40 Prothrombin Time 45.4 SEC (11.7-14.0) Prothromb Time International Ratio 4.8 (0.8-1.1) Sodium Level 141 mmol/L (136-145) Potassium Level 3.4 mmol/L (3.5-5.1) Chloride Level 107 mmol/L (98-107) Carbon Dioxide Level 24 mmol/L (21-32) Anion Gap 10 (6-14) Blood Urea Nitrogen 17 mg/dL (8-26) Creatinine 1.3 mg/dL (0.7-1.3) Estimated GFR (Cockcroft-Gault) 52.2 Glucose Level 89 mg/dL (70-99) Calcium Level 7.5 mg/dL (8.5-10.1) Phosphorus Level 1.9 mg/dL (2.6-4.7) Magnesium Level 1.4 mg/dL (1.8-2.4) Albumin 2.2 g/dL (3.4-5.0) Microbiology 04/23/20 Blood Culture - Preliminary, Resulted NO GROWTH AFTER 2 DAYS Medications Current Medications Furosemide (Lasix) 60 mg 1X ONCE IVP Last administered on 04/23/20at 04:42; Start 04/23/20 at 05:00; Stop 04/23/20 at 05:01; Status DC Etomidate (Amidate) 20 mg 1X ONCE IV Last administered on 04/23/20at 04:39; Start 04/23/20 at 05:00; Stop 04/23/20 at 05:01; Status DC Vecuronium [place] (Norcuron Bolus) 10 mg 1X ONCE IV Last administered on 04/23/20at 04:39; Start 04/23/20 at 05:00; Stop 04/23/20 at 05:01; Status DC Etomidate (Amidate) 20 mg STK-MED ONCE IV ; Start 04/23/20 at 04:26; Stop 04/23/20 at 04:26; Status DC Vecuronium [place] (Norcuron Bolus) 10 mg STK-MED ONCE IV ; Start 04/23/20 at 04:26; Stop 04/23/20 at 04:26; Status DC Propofol 50 ml @ As Directed STK-MED ONCE IV ; Start 04/23/20 at 04:36; Stop 04/23/20 at 04:37; Status DC Vancomycin HCl 250 ml @ As Directed STK-MED ONCE .ROUTE ; Start 04/23/20 at 04:37; Stop 04/23/20 at 04:37; Status DC Vancomycin HCl 250 ml @ 250 mls/hr 1X ONCE IV Last administered on 04/23/20at 04:44; Start 04/23/20 at 04:45; Stop 04/23/20 at 05:44; Status DC Piperacillin Sod/ Tazobactam Sod 3.375 gm/Sodium Chloride 50 ml @ 100 mls/hr 1X ONCE IV Last administered on 04/23/20at 05:08; Start 04/23/20 at 05:00; Stop 04/23/20 at 05:29; Status DC Propofol 100 ml @ 0 mls/hr CONT PRN IV SEE PROTOCOL Last administered on 04/23/20at 04:46; Start 04/23/20 at 04:45; Stop 04/23/20 at 04:49; Status DC Midazolam HCl (Versed) 2 mg PRN Q30MIN PRN IV SEE COMMENTS.; Start 04/23/20 at 04:45; Stop 04/25/20 at 04:37; Status DC Propofol 100 ml @ 0 mls/hr CONT PRN IV SEE PROTOCOL; Start 04/23/20 at 04:49; Stop 04/25/20 at 04:37; Status DC Acetaminophen (Tylenol Supp) [address] Last administered on 04/23/20at 05:00; Start 04/23/20 at 05:30; Stop 04/23/20 at 05:31; Status DC Propofol 50 ml @ 1.125 mls/ hr 1X ONCE IV ; Start 04/23/20 at 05:15; Stop 04/23/20 at 05:16; Status DC Ondansetron HCl (Zofran) 4 mg PRN Q8HRS PRN IV NAUSEA/VOMITING 1ST CHOICE; Start 04/23/20 at 05:15; Stop 04/24/20 at 05:14; Status DC Sodium Chloride 1,000 ml @ 75 mls/hr [id number] IV Last administered on 04/23/20at 20:38; Start 04/23/20 at 05:30; Stop 04/24/20 at 05:29; Status DC Metoprolol Tartrate (Lopressor Vial) 5 mg 1X ONCE IVP ; Start 04/23/20 at 06:00; Stop 04/23/20 at 06:01; Status DC Midazolam HCl (Versed) 5 mg 1X ONCE NS Last administered on 04/23/20at 05:26; Start 04/23/20 at 06:00; Stop 04/23/20 at 06:01; Status DC Norepinephrine Bitartrate 8 mg/ Dextrose 258 ml @ 14.513 mls/ hr 1X ONCE IV Last administered on 04/23/20at 05:52; Start 04/23/20 at 06:00; Stop 04/23/20 at 23:46; Status DC Midazolam HCl (Versed) 5 mg 1X ONCE IV Last administered on 04/23/20at 06:09; Start 04/23/20 at 06:15; Stop 04/23/20 at 06:16; Status DC Midazolam HCl 50 mg/Sodium Chloride 50 ml @ 1 mls/hr CONT PRN IV SEE I/O RECORD; Start 04/23/20 at 07:45; Status Cancel Midazolam HCl 100 ml @ 0 mls/hr CONT PRN IV SEE PROTOCOL Last administered on 04/24/20at 01:35; Start 04/23/20 at 07:45; Stop 04/25/20 at 04:37; Status DC Vasopressin 20 unit/Dextrose 101 ml @ 12 mls/hr CONT PRN IV SEE I/O RECORD Last administered on 04/23/20at 14:32; Start 04/23/20 at 08:00; Stop 04/25/20 at 09:39; Status DC Norepinephrine Bitartrate 8 mg/ Dextrose 258 ml @ 14.513 mls/ hr CONT PRN IV PER PROTOCOL Last administered on 04/23/20at 14:32; Start 04/23/20 at 08:15; Stop 04/25/20 at 09:09; Status DC Piperacillin Sod/ Tazobactam Sod (Zosyn Per Pharmacy) 1 each PRN DAILY PRN MC SEE COMMENTS; Start 04/23/20 at 10:00; Status UNV Vancomycin HCl (Vanco Per Pharmacy) 1 each PRN DAILY PRN MC SEE COMMENTS; Start 04/23/20 at 10:00; Status UNV Famotidine (Pepcid Vial) 20 mg QHS IVP Last administered on 04/24/20at 21:49; Start 04/23/20 at 21:00 Enoxaparin Sodium (Lovenox Per Pharmacy Prophylaxis Dosing) 1 each PRN DAILY PRN MC SEE COMMENTS; Start 04/23/20 at 10:00; Stop 04/23/20 at 18:23; Status DC Vancomycin HCl (Vanco Per Pharmacy) 1 each PRN DAILY PRN MC SEE COMMENTS; Start 04/23/20 at 10:00; Stop 04/23/20 at 11:51; Status DC Piperacillin Sod/ Tazobactam Sod (Zosyn Per Pharmacy) 1 each PRN DAILY PRN MC SEE COMMENTS; Start 04/23/20 at 10:00 Sodium Chloride 1,000 ml @ 1,000 mls/hr 1X ONCE IV Last administered on 04/23/20at 10:11; Start 04/23/20 at 10:00; Stop 04/23/20 at 10:59; Status DC Piperacillin Sod/ Tazobactam Sod 3.375 gm/Sodium Chloride 50 ml @ 100 mls/hr Q6HRS IV Last administered on 04/25/20at 05:45; Start 04/23/20 at 11:00 Enoxaparin Sodium (Lovenox 40mg Syringe) 40 mg BID SQ Last administered on 04/23/20at 10:46; Start 04/23/20 at 10:30; Stop 04/23/20 at 18:23; Status DC Vancomycin HCl 500 mg/Sodium Chloride 100 ml @ 100 mls/hr 1X ONCE IV Last administered on 04/23/20at 10:46; Start 04/23/20 at 10:30; Stop 04/23/20 at 11:29; Status DC Linezolid/Dextrose 300 ml @ 300 mls/hr Q12HR IV Last administered on 04/25/20at 09:50; Start 04/23/20 at 21:00 Flecainide Acetate (Tambocor) 25 mg BID PO Last administered on 04/24/20 17:19; Start 04/23/20 at 21:00 Simvastatin (Zocor) 20 mg HS PO Last administered on 04/24/20at 17:19; Start 04/23/20 at 21:00 Warfarin Sodium (Coumadin Per Pharmacy) 1 each PRN DAILY PRN MC SEE COMMENTS Last administered on 04/24/20at 11:32; Start 04/23/20 at 17:00 Warfarin Sodium (Coumadin) 5 mg 1X ONCE PO Last administered on 04/23/20at 20:41; Start 04/23/20 at 21:00; Stop 04/23/20 at 21:01; Status DC Info (Icu Electrolyte Protocol) 1 ea CONT PRN PRN MC PER PROTOCOL; Start 04/24/20 at 08:45 Potassium Chloride/Water 100 ml @ 100 mls/hr Q1H IV Last administered on 04/24/20at 10:18; Start 04/24/20 at 08:45; Stop 04/24/20 at 10:44; Status DC Pyridostigmine [place] (Mestinon) 60 mg BID PO ; Start 04/24/20 at 21:00; Stop 04/24/20 at 17:13; Status DC Warfarin Sodium (Coumadin Per Pharmacy) 1 each PRN DAILY PRN MC SEE COMMENTS; Start 04/24/20 at 11:30; Stop 04/24/20 at 11:31; Status DC Phytonadione (Vitamin K Ampule) 5 mg 1X ONCE SQ Last administered on 04/24/20at 12:02; Start 04/24/20 at 11:45; Stop 04/24/20 at 11:46; Status DC Warfarin Sodium (Coumadin - No Dose Today) 1 each 1X WARF ONCE MC Last administered on 04/24/20at 16:00; Start 04/24/20 at 16:00; Stop 04/24/20 at 16:01; Status DC Sodium Chloride 1,000 ml @ 100 mls/hr Q10H IV Last administered on 04/24/20at 21:50; Start 04/24/20 at 12:15 Metoprolol Tartrate (Lopressor) 12.5 mg BID PO ; Start 04/24/20 at 21:00; Stop 04/24/20 at 17:13; Status DC Metoprolol Tartrate (Lopressor) 12.5 mg BID PO Last administered on 04/24/20at 17:19; Start 04/24/20 at 17:15 Pyridostigmine [place] (Mestinon) 60 mg BID PO Last administered on 04/24/20at 17:18; Start 04/24/20 at 17:15 Digoxin (Lanoxin) 250 mcg 1X ONCE IV Last administered on 04/24/20at 22:41; Start 04/24/20 at 22:30; Stop 04/24/20 at 22:31; Status DC Digoxin (Lanoxin) 250 mcg 1X ONCE IV Last administered on 04/25/20at 01:20; Start 04/25/20 at 01:30; Stop 04/25/20 at 01:31; Status DC Warfarin Sodium (Coumadin - No Dose Today) 1 each 1X WARF ONCE MC ; Start 04/25/20 at 16:00; Stop 04/25/20 at 16:01 Magnesium Sulfate 50 ml @ 25 mls/hr 1X ONCE IV Last administered on 04/25/20at 09:51; Start 04/25/20 at 09:15; Stop 04/25/20 at 11:14; Status DC Potassium Phosphate 10 mmol/ Sodium Chloride 103.3333 ml @ 51.667 m... Q2H IV Last administered on 04/25/20at 11:59; Start 04/25/20 at 09:30; Stop 04/25/20 at 13:29 Amino Acids/ Glycerin/ Electrolytes 1,000 ml @ 80 mls/hr [id number] IV Last administered on 04/25/20at 09:50; Start 04/25/20 at 09:45 Acetylcysteine (Mucomyst 20% Resp Treatment) 600 mg BID NEB Last administered on 04/25/20at 10:00; Start 04/25/20 at 10:00 Potassium Phosphate 13.6 mmol/Sodium Chloride 254.5333 ml @ 127.... Q2H IV ; Start 04/25/20 at 11:30; Stop 04/25/20 at 15:29; Status UNV Magnesium Sulfate 50 ml @ 25 mls/hr 1X ONCE IV ; Start 04/25/20 at 11:30; Stop 04/25/20 at 13:29; Status UNV Active Scripts Active Reported Carvedilol (Carvedilol) 6.25 Mg Tablet 6.25 Mg PO BIDWMEALS Fish Oil 1,200 Mg Fish Oil (Fish Oil/Dha/Epa) 1 Each Capsule 1 Each PO DAILY Hydrochlorothiazide Tablet (Hydrochlorothiazide) 12.5 Mg Tablet 12.5 Mg PO DAILY Pyridostigmine [place] 60 Mg Tablet 60 Mg PO BID Flecainide Acetate 50 Mg Tablet 25 Mg PO BID Lantus Solostar (Insulin Glargine,Hum.rec.anlog) 100 Unit/1 Ml Insuln.pen 20 Unit SQ QHS Simvastatin 20 Mg Tablet 20 Mg PO HS Lisinopril 20 Mg Tablet 1 Tab PO BID Warfarin Sodium 5 Mg Tablet 2 Tab PO DAILY Nexium Capsule (Esomeprazole Magnesium) 40 Mg Capsule.dr 1 Cap PO DAILY Vitamin D (Cholecalciferol (Vitamin D3)) 2,000 Unit Tablet 1,000 Unit PO DAILY Vitals/I & O Vital Sign - Last 24 Hours 04/24/20 04/24/20 04/24/20 04/24/20 14:00 15:00 15:12 16:00 Pulse 88 94 74 Resp 20 20 20 B/P (MAP) 126/51 (76) 146/66 (92) 128/50 (76) Pulse Ox 100 98 99 99 O2 Delivery Ventilator Ventilator Ventilator Ventilator 04/24/20 04/24/20 04/24/20 04/24/20 16:00 16:00 16:46 17:19 Pulse 140 B/P (MAP) Pulse Ox 99 O2 Delivery Mechanical Ventilator Ventilator 04/24/20 04/24/20 04/24/20 04/24/20 17:19 17:56 18:01 19:00 Temp 99.7 99.7 Pulse 148 118 130 118 Resp 22 22 16 B/P (MAP) 125/60 114/56 (75) 133/66 (88) 110/56 (74) Pulse Ox 98 99 96 O2 Delivery Nasal Cannula Nasal Cannula Nasal Cannula O2 Flow Rate 2.0 2.0 2.0 20 620 6/20 620 20:00 20:00 20:00 21:00 Temp 98.6 98.6 Pulse 128 120 124 Resp 16 16 B/P (MAP) 126/64 (84) 122/53 (76) Pulse Ox 95 95 O2 Delivery Nasal Cannula Nasal Cannula Nasal Cannula O2 Flow Rate 2.0 2.0 2.0 04/24/20 04/24/20 04/24/20 04/24/20 22:00 22:41 23:00 23:57 Pulse 136 136 133 Resp 16 20 B/P (MAP) 128/62 (84) 171/76 128/62 (84) Pulse Ox 95 98 O2 Delivery Nasal Cannula BiPAP/CPAP Nasal Cannula O2 Flow Rate 2.0 2.0 04/24/20 04/25/20 04/25/20 04/25/20 23:57 00:00 01:00 01:20 Temp 99.1 99.1 Pulse 139 140 130 138 Resp 20 18 B/P (MAP) 156/76 (102) 144/70 (94) 144/62 Pulse Ox 96 97 O2 Delivery Nasal Cannula Nasal Cannula O2 Flow Rate 2.0 04/25/20 04/25/20 04/25/20 04/25/20 02:00 03:00 04:00 04:05 Temp 100.0 100.0 Pulse 118 132 116 139 Resp 18 18 18 B/P (MAP) 111/83 (92) 115/95 (102) 154/65 (94) Pulse Ox 97 98 98 O2 Delivery Nasal Cannula Nasal Cannula Nasal Cannula 04/25/20 04/25/20 04/25/20 04/25/20 04:05 05:00 06:00 07:00 Pulse 132 110 107 Resp 18 20 20 B/P (MAP) 164/62 (96) 150/57 (88) 128/53 (78) Pulse Ox 95 95 95 O2 Delivery Nasal Cannula Nasal Cannula Nasal Cannula Nasal Cannula O2 Flow Rate 2.0 04/25/20 04/25/20 04/25/20 04/25/20 08:00 08:00 08:00 09:00 Temp 100.1 100.1 Pulse 98 128 107 Resp 20 16 B/P (MAP) 158/62 (94) 164/53 (90) Pulse Ox 95 95 O2 Delivery Nasal Cannula Nasal Cannula Nasal Cannula O2 Flow Rate 2.0 04/25/20 04/25/20 04/25/20 10:00 11:00 12:26 Pulse 108 90 Resp 16 20 B/P (MAP) 168/53 (91) 134/53 (80) Pulse Ox 95 95 98 O2 Delivery Nasal Cannula Nasal Cannula Nasal Cannula O2 Flow Rate 2.0 Intake and Output 04/24/20 04/24/20 04/25/20 14:59 22:59 06:59 Intake Total 490 ml 1371.8 ml 996 ml Output Total 277 ml 835 ml 345 ml Balance 213 ml 536.8 ml 651 ml Nutrition Consultation Dietary Evaluation: Recommendations by RD: Dietary education by RD, Increase Calorie Intake Comments: REC intiation of TFs within 24 - 48 hrs of intubation REC TFs per following: VitalAF@goal rate 50 ml/hr w/125 ml water flushes q4 hrs or flushes per MD Expected Outcomes/Goals: Intiation of TFs within 24 - 48 hrs of intubation Malnutrition Findings: Body Fat Depletion (Non Severe: Mild Depletion Weight Status: Appropriate AHSAN IVAN MD Apr 25, 2020 13:04
--- NOTE | 2020-04-25 13:26 | NUR ---
Pharmacy Warfarin Dosing Note S: Pharmacy consulted to assist with anticoagulation therapy O: CLEMENSSTEPHANIE is a 89 year old M with Atrial Fibrillation LABS: Last INR: 4.8 Last HGB: 9.5 Last HCT: 29.5 Last PLT: 164 Last dose of 5 mg given on 04/23/20 at 2041 Vitamin K given: 5MG SQ 04/24 Ongoing Drug Interactions: Zosyn A:INR of 4.8 is above desired range. Target range for this patient is: 2 - 3 P: HOLD warfarin dose today Bridge Therapy: None Next INR due 04/26/20 Pharmacy anticoagulation service will continue to follow. [facility], 04/25/20 2054
--- NOTE | 2020-04-25 17:07 | RAD ---
KUB Clinical Indication: Reason: Dobhoff placement / Spl. Instructions: / History: Comparison: AP chest, earlier same day. Findings: There is Dobbhoff, tip is just beyond the gastroesophageal junction. There is interstitial opacity in the right lung base. There is scattered air in the visualized colon. No dilated small bowel. The bowel gas pattern is nonobstructive. Mild right convexity thoracolumbar scoliosis. There is degenerative endplate spurring. IMPRESSION: Tip of Dobbhoff is just beyond the gastroesophageal junction. Electronically signed by: Rocael Max MD (04/25/2020 5:04 PM) [facility]
--- NOTE | 2020-04-25 19:54 | RAD ---
Exam: Chest one view INDICATION: Central line placement TECHNIQUE: Frontal view of the chest Comparisons: 04/25/2020 FINDINGS: Right IJ catheter with tip likely in the SVC. There is a enteric tube with metallic tip the distal esophagus. The cardiomediastinal silhouette and pulmonary vessels are within normal limits. Patchy airspace disease in the right mid and lower lung. No pleural effusion. IMPRESSION: Lines and tubes described above. Enteric tube with metallic tip projecting over the distal esophagus. Recommend advancement. Electronically signed by: Daron Cabrera MD (04/25/2020 7:52 PM) [id number]
[2020-04-25] MEDS: SIMVASTATIN 20 MG TABLET PO SCH (21:16)
[2020-04-25] MEDS: FAMOTIDINE 20 MG/2 ML VIAL IVP SCH (21:16)
--- NOTE | 2020-04-25 22:45 | RAD ---
Exam: Abdomen one view INDICATION: Dobbhoff placement TECHNIQUE: Frontal view of the abdomen Comparisons: Chest x-ray same day FINDINGS: There is interval advancement of the enteric tube with tip in the right upper quadrant likely at either the distal stomach or proximal duodenum. Patchy airspace disease at the right lung base again noted. Visualized bowel gas pattern is nonobstructive. IMPRESSION: Advancement of the enteric tube in appropriate position as described above. Electronically signed by: Daron Cabrera MD (04/25/2020 10:43 PM) [id number]
[2020-04-26] VITALS (13 sets, daily range): BP systolic 128–180; BP diastolic 44–79
[2020-04-26] MEDS: PIPERACILLIN/TAZOBACTAM 3.375 GM in IV NORMAL SALINE 50ML 50 ML IV SCH ×4 (00:07→16:36)
[2020-04-26 05:39] LABS: PROTHROMBIN TIME PATIENT 22.7 SEC (11.7-14.0)
[2020-04-26 05:42] LABS: BASO % 0 % (0-3); EOS # 0.2 x10^3/uL (0.0-0.7); EOS % 2 % (0-3); HEMATOCRIT 25.5 % (39.0-53.0); LYMPH # 0.9 x10^3/uL (1.0-4.8); LYMPH % 15 % (24-48); MEAN CORPUSCULAR HEMOGLOBIN 24 pg (25-35); MEAN CORPUSCULAR HGB CONC 32 g/dL (31-37); MEAN CORPUSCULAR VOLUME 75 fL (79-100); MONO # 0.5 x10^3/uL (0.0-1.1); MONO % 8 % (0-9); NEUT # 4.6 x10^3/uL (1.8-7.7); NEUT % 74 % (31-73); PLATELET COUNT 115 x10^3/uL (140-400); RED BLOOD COUNT 3.42 x10^6/uL (4.30-5.70); RED CELL DISTRIBUTION WIDTH 17.3 % (11.5-14.5); WHITE BLOOD COUNT 6.2 x10^3/uL (4.0-11.0)
[2020-04-26 06:01] LABS: CALCIUM 7.8 mg/dL (8.5-10.1); CREATININE 1.2 mg/dL (0.7-1.3); GFR 57.3; PHOSPHORUS 2.3 mg/dL (2.6-4.7); POTASSIUM 3.7 mmol/L (3.5-5.1)
--- NOTE | 2020-04-26 07:05 | RAD ---
INDICATION: Reason: post vent 103 / Spl. Instructions: / History: COMPARISON: One day prior FINDINGS: Single view of chest obtained. Right-sided vascular catheter projecting over the right neck base. Enteric tube coursing below the diaphragm. Calcific atherosclerosis. Patchy opacity throughout the right greater than left lung is again seen IMPRESSION: * Redemonstration of patchy opacity within the right greater than left lung could be secondary to multifocal infiltrate with other possible causes including asymmetric edema. Electronically signed by: Jose Sheehan MD (04/26/2020 7:02 AM) [id number]
--- NOTE | 2020-04-26 08:50 | PDOC ---
PULMONARY PROGRESS NOTES Subjective Extubated 04/24/2020, now on room air, stronger cough today also managing secretions better no overnight concerns from nursing Vitals Vital Signs Date Time Temp Pulse Resp B/P (MAP) Pulse Ox O2 Delivery O2 Flow Rate FiO2 04/26/20 08:00 69 04/26/20 07:00 23 100 Nasal Cannula 2.0 04/26/20 04:00 98.9 98.9 ROS: No Nausea, No Chest Pain, No Abdominal Pain, No Increase Cough General: Alert, Oriented X4 Lungs: Clear Cardiovascular: S1, S2 Abdomen: Soft Neuro Exam: Alert Extremities: No Edema Skin: Warm, Dry Labs Laboratory Tests Test 04/24/20 16:45 04/25/20 05:45 04/26/20 05:00 O2 Saturation 95 % (92-99) Arterial Blood pH 7.43 (7.35-7.45) Arterial Blood pCO2 at Patient Temp 38 mmHg (35-46) Arterial Blood pO2 at Patient Temp 85 mmHg (65-108) Arterial Blood HCO3 25 mmol/L (21-28) Arterial Blood Base Excess 0 mmol/L (-3-3) FiO2 40 Prothrombin Time 45.4 SEC (11.7-14.0) 22.7 SEC (11.7-14.0) Prothromb Time International Ratio 4.8 (0.8-1.1) 2.0 (0.8-1.1) Sodium Level 141 mmol/L (136-145) 138 mmol/L (136-145) Potassium Level 3.4 mmol/L (3.5-5.1) 3.7 mmol/L (3.5-5.1) Chloride Level 107 mmol/L (98-107) 105 mmol/L (98-107) Carbon Dioxide Level 24 mmol/L (21-32) 26 mmol/L (21-32) Anion Gap 10 (6-14) 7 (6-14) Blood Urea Nitrogen 17 mg/dL (8-26) 18 mg/dL (8-26) Creatinine 1.3 mg/dL (0.7-1.3) 1.2 mg/dL (0.7-1.3) Estimated GFR (Cockcroft-Gault) 52.2 57.3 Glucose Level 89 mg/dL (70-99) 95 mg/dL (70-99) Calcium Level 7.5 mg/dL (8.5-10.1) 7.8 mg/dL (8.5-10.1) Phosphorus Level 1.9 mg/dL (2.6-4.7) 2.3 mg/dL (2.6-4.7) Magnesium Level 1.4 mg/dL (1.8-2.4) 1.8 mg/dL (1.8-2.4) Albumin 2.2 g/dL (3.4-5.0) 2.0 g/dL (3.4-5.0) White Blood Count 6.2 x10^3/uL (4.0-11.0) Red Blood Count 3.42 x10^6/uL (4.30-5.70) Hemoglobin 8.0 g/dL (13.0-17.5) Hematocrit 25.5 % (39.0-53.0) Mean Corpuscular Volume 75 fL (79-100) Mean Corpuscular Hemoglobin 24 pg (25-35) Mean Corpuscular Hemoglobin Concent 32 g/dL (31-37) Red Cell Distribution Width 17.3 % (11.5-14.5) Platelet Count 115 x10^3/uL (140-400) Neutrophils (%) (Auto) 74 % (31-73) Lymphocytes (%) (Auto) 15 % (24-48) Monocytes (%) (Auto) 8 % (0-9) Eosinophils (%) (Auto) 2 % (0-3) Basophils (%) (Auto) 0 % (0-3) Neutrophils # (Auto) 4.6 x10^3/uL (1.8-7.7) Lymphocytes # (Auto) 0.9 x10^3/uL (1.0-4.8) Monocytes # (Auto) 0.5 x10^3/uL (0.0-1.1) Eosinophils # (Auto) 0.2 x10^3/uL (0.0-0.7) Basophils # (Auto) 0.0 x10^3/uL (0.0-0.2) Laboratory Tests Test 04/26/20 05:00 White Blood Count 6.2 x10^3/uL (4.0-11.0) Red Blood Count 3.42 x10^6/uL (4.30-5.70) Hemoglobin 8.0 g/dL (13.0-17.5) Hematocrit 25.5 % (39.0-53.0) Mean Corpuscular Volume 75 fL (79-100) Mean Corpuscular Hemoglobin 24 pg (25-35) Mean Corpuscular Hemoglobin Concent 32 g/dL (31-37) Red Cell Distribution Width 17.3 % (11.5-14.5) Platelet Count 115 x10^3/uL (140-400) Neutrophils (%) (Auto) 74 % (31-73) Lymphocytes (%) (Auto) 15 % (24-48) Monocytes (%) (Auto) 8 % (0-9) Eosinophils (%) (Auto) 2 % (0-3) Basophils (%) (Auto) 0 % (0-3) Neutrophils # (Auto) 4.6 x10^3/uL (1.8-7.7) Lymphocytes # (Auto) 0.9 x10^3/uL (1.0-4.8) Monocytes # (Auto) 0.5 x10^3/uL (0.0-1.1) Eosinophils # (Auto) 0.2 x10^3/uL (0.0-0.7) Basophils # (Auto) 0.0 x10^3/uL (0.0-0.2) Prothrombin Time 22.7 SEC (11.7-14.0) Prothromb Time International Ratio 2.0 (0.8-1.1) Sodium Level 138 mmol/L (136-145) Potassium Level 3.7 mmol/L (3.5-5.1) Chloride Level 105 mmol/L (98-107) Carbon Dioxide Level 26 mmol/L (21-32) Anion Gap 7 (6-14) Blood Urea Nitrogen 18 mg/dL (8-26) Creatinine 1.2 mg/dL (0.7-1.3) Estimated GFR (Cockcroft-Gault) 57.3 Glucose Level 95 mg/dL (70-99) Calcium Level 7.8 mg/dL (8.5-10.1) Phosphorus Level 2.3 mg/dL (2.6-4.7) Magnesium Level 1.8 mg/dL (1.8-2.4) Albumin 2.0 g/dL (3.4-5.0) Medications Active Scripts Medications Dose Route/Sig Max Daily Dose Days Date Category Carvedilol (Carvedilol) 6.25 Mg Tablet 6.25 Mg PO BIDWMEALS 04/23/20 Reported Fish Oil 1,200 Mg Fish Oil (Fish Oil/Dha/Epa) 1 Each Capsule 1 Each PO DAILY 07/17/16 Reported Hydrochlorothiazide Tablet (Hydrochlorothiazide) 12.5 Mg Tablet 12.5 Mg PO DAILY 07/17/16 Reported Pyridostigmine [place] 60 Mg Tablet 60 Mg PO BID 07/17/16 Reported Flecainide Acetate 50 Mg Tablet 25 Mg PO BID 07/17/16 Reported Lantus Solostar (Insulin Glargine,Hum.rec.anlog) 100 Unit/1 Ml Insuln.pen 20 Unit SQ QHS 07/17/16 Reported Simvastatin 20 Mg Tablet 20 Mg PO HS 07/17/16 Reported Lisinopril 20 Mg Tablet 1 Tab PO BID 07/17/16 Reported Warfarin Sodium 5 Mg Tablet 2 Tab PO DAILY 07/17/16 Reported Nexium Capsule (Esomeprazole Magnesium) 40 Mg Capsule.dr 1 Cap PO DAILY 07/17/16 Reported Vitamin D (Cholecalciferol (Vitamin D3)) 2,000 Unit Tablet 1,000 Unit PO DAILY 07/17/16 Reported Comments CXR 04/26/2020 IMPRESSION: * Redemonstration of patchy opacity within the right greater than left lung could be secondary to multifocal infiltrate with other possible causes including asymmetric edema. Impression . IMPRESSION: 1. Acute hypoxic and hypercapnic respiratory failure secondary to multifactorial etiologies including combination of septic shock and right-sided pneumonia/ doubt Myesthenic crisis. extubated 2. Likely underlying chronic obstructive pulmonary disease with exacerbation. 3. Acute kidney injury. 4. Mildly increased troponin level. 5. Abnormal chest x-ray with right-sided infiltrates, likely secondary to pneumonia. 6. Myesthenia gravis Plan . RECOMMENDATIONS: Supplemental oxygen o keep sats above 92 %, BIPAP PRN, NTS PRN, nebs, and mucomyst Broad-spectrum antibiotics per ID Follow chest x-rays-- today film reviewed Follow all cultures,NGTD COVID-19 test (-) Cot. MG medications PT/OT-- add speech for swallow evaluation restart coumadin and D/C art-line today DVT/GI PPX; coumadin/pepcid D/W RN and RT Critical care time 30 minutes including decision making. Ok to transfer out of ICU today, from our standpoint ROSALBA GRANADOS MD Apr 26, 2020 08:50
[2020-04-26] MEDS: ACETYLCYSTEINE 20% for RESP TX 600 MG/3 ML. NEB SCH ×2 (08:57→19:50)
[2020-04-26] MEDS: PYRIDOSTIGMINE BROMIDE 60 MG TABLET PO SCH ×2 (10:30→21:37)
[2020-04-26] MEDS: METOPROLOL TART IMMED RELEASE 25 MG TABLET. PO SCH ×2 (10:30→21:37)
[2020-04-26] MEDS: FLECAINIDE ACETATE 50 MG TABLET. PO SCH ×2 (10:31→21:37)
[2020-04-26] MEDS: AMINO AC 3%/ELECTROLYTE/GLYCER 1,000 ML IV SCH ×2 (10:45→23:15)
--- NOTE | 2020-04-26 11:17 | NUR ---
Bedside Swallow Evaluation completed. Please refer to full report in intervention section for additional information. Impressions: Mild pharyngeal dysphagia following 2 day intubation. Pt demonstrated delayed s/s aspiration w/ uncontrolled drinking of thin liquids, but no s/s aspiration were noted w/ puree and honey thick liquids. Dentures currently unavailable and pt edentulous. Pt appears at low risk of aspiration w/ modified diet of dysphagia I and honey thick liquids. Recommendations: Initiated dysphagia I diet w/ honey thick liquids/no straws, swallow precautions. Pt will need assist d/t current weakness. ST f/u for dysphagia and diet advancement as appropriate. Nutrition consult. D/w pt and RN. Precautions d/w pt and posted in room.
--- NOTE | 2020-04-26 11:32 | PDOC ---
Infectious Disease Note Subjective Subjective Feeling better today c/o some neck and leg pain Off O2. Satting 95% on room air Fevers Tmax 100.6 PPN s/p bedside swalloweval:Mild pharyngeal dysphagia. Now on modified diet ROS ROS as mentioned above Vital Sign Vital Signs Vital Signs Date Time Temp Pulse Resp B/P (MAP) Pulse Ox O2 Delivery O2 Flow Rate FiO2 04/26/20 10:31 80 134/66 04/26/20 08:58 97 Room Air 04/26/20 07:00 23 2.0 04/26/20 04:00 98.9 98.9 Physical Exam PHYSICAL EXAM GENERAL: Up in the chair reclining, appears comfortable HEENT: Oral cavity dry, no thrush NECK: Supple LUNGS: Improved aeration, nonlabored. HEART: S1, S2 regular. ABDOMEN: Nondistended, bowel sounds present, soft, nontender. : Nieto in place EXTREMITIES: No edema, cyanosis. SKIN: warm to touch. NEUROLOGIC: Generalized weakness, but more alert and verbal, answering questions appropriately. RIJ without signs of complications. art-line is out. Also has a PIV that looks ok Labs Lab Laboratory Tests Test 04/26/20 05:00 White Blood Count 6.2 x10^3/uL (4.0-11.0) Red Blood Count 3.42 x10^6/uL (4.30-5.70) Hemoglobin 8.0 g/dL (13.0-17.5) Hematocrit 25.5 % (39.0-53.0) Mean Corpuscular Volume 75 fL (79-100) Mean Corpuscular Hemoglobin 24 pg (25-35) Mean Corpuscular Hemoglobin Concent 32 g/dL (31-37) Red Cell Distribution Width 17.3 % (11.5-14.5) Platelet Count 115 x10^3/uL (140-400) Neutrophils (%) (Auto) 74 % (31-73) Lymphocytes (%) (Auto) 15 % (24-48) Monocytes (%) (Auto) 8 % (0-9) Eosinophils (%) (Auto) 2 % (0-3) Basophils (%) (Auto) 0 % (0-3) Neutrophils # (Auto) 4.6 x10^3/uL (1.8-7.7) Lymphocytes # (Auto) 0.9 x10^3/uL (1.0-4.8) Monocytes # (Auto) 0.5 x10^3/uL (0.0-1.1) Eosinophils # (Auto) 0.2 x10^3/uL (0.0-0.7) Basophils # (Auto) 0.0 x10^3/uL (0.0-0.2) Prothrombin Time 22.7 SEC (11.7-14.0) Prothromb Time International Ratio 2.0 (0.8-1.1) Sodium Level 138 mmol/L (136-145) Potassium Level 3.7 mmol/L (3.5-5.1) Chloride Level 105 mmol/L (98-107) Carbon Dioxide Level 26 mmol/L (21-32) Anion Gap 7 (6-14) Blood Urea Nitrogen 18 mg/dL (8-26) Creatinine 1.2 mg/dL (0.7-1.3) Estimated GFR (Cockcroft-Gault) 57.3 Glucose Level 95 mg/dL (70-99) Calcium Level 7.8 mg/dL (8.5-10.1) Phosphorus Level 2.3 mg/dL (2.6-4.7) Magnesium Level 1.8 mg/dL (1.8-2.4) Albumin 2.0 g/dL (3.4-5.0) Micro Microbiology 04/23/20 Blood Culture - Preliminary, Resulted NO GROWTH AFTER 3 DAY Objective Assessment Community-acquired pneumonia. COVID neg Fever Leukocytosis - better Respiratory failure. Hypotension. Acute kidney injury/CKD History of atrial fibrillation, on flecainide/warfarin Diabetes. Myasthenia gravis. Thrombocytopenia Dysphagia, now on modified diet Plan Plan of Care Zyvox/Zosyn, 04/23 CBC in am f/u BC, neg so far Maintain aspiration precautions Supportive care Patient seen. Chart reviewed. Case discussed with COMPLIANCE ADVISOR. Agree with above plan/. KHANG YOUSSEF APRN Apr 26, 2020 11:32 SREEDHAR WARD MD Apr 26, 2020 20:42
--- NOTE | 2020-04-26 12:11 | PDOC ---
Renal-Progress Notes Subjective Notes Notes SITTING UP, CONFUSED History of Present Illness Hx of present illness IMPROVING Vitals Vitals Vital Signs Date Time Temp Pulse Resp B/P (MAP) Pulse Ox O2 Delivery O2 Flow Rate FiO2 04/26/20 10:31 80 134/66 04/26/20 08:58 97 Room Air 04/26/20 07:00 23 2.0 04/26/20 04:00 98.9 98.9 Weight Weight [ ] I.O. Intake and Output Intake and Output 04/26/20 07:00 Intake Total 1270 ml Output Total 1570 ml Balance -300 ml IV Total 1270 ml Output Urine Total 1570 ml Labs Labs Laboratory Tests Test 04/26/20 05:00 White Blood Count 6.2 x10^3/uL (4.0-11.0) Red Blood Count 3.42 x10^6/uL (4.30-5.70) Hemoglobin 8.0 g/dL (13.0-17.5) Hematocrit 25.5 % (39.0-53.0) Mean Corpuscular Volume 75 fL (79-100) Mean Corpuscular Hemoglobin 24 pg (25-35) Mean Corpuscular Hemoglobin Concent 32 g/dL (31-37) Red Cell Distribution Width 17.3 % (11.5-14.5) Platelet Count 115 x10^3/uL (140-400) Neutrophils (%) (Auto) 74 % (31-73) Lymphocytes (%) (Auto) 15 % (24-48) Monocytes (%) (Auto) 8 % (0-9) Eosinophils (%) (Auto) 2 % (0-3) Basophils (%) (Auto) 0 % (0-3) Neutrophils # (Auto) 4.6 x10^3/uL (1.8-7.7) Lymphocytes # (Auto) 0.9 x10^3/uL (1.0-4.8) Monocytes # (Auto) 0.5 x10^3/uL (0.0-1.1) Eosinophils # (Auto) 0.2 x10^3/uL (0.0-0.7) Basophils # (Auto) 0.0 x10^3/uL (0.0-0.2) Prothrombin Time 22.7 SEC (11.7-14.0) Prothromb Time International Ratio 2.0 (0.8-1.1) Sodium Level 138 mmol/L (136-145) Potassium Level 3.7 mmol/L (3.5-5.1) Chloride Level 105 mmol/L (98-107) Carbon Dioxide Level 26 mmol/L (21-32) Anion Gap 7 (6-14) Blood Urea Nitrogen 18 mg/dL (8-26) Creatinine 1.2 mg/dL (0.7-1.3) Estimated GFR (Cockcroft-Gault) 57.3 Glucose Level 95 mg/dL (70-99) Calcium Level 7.8 mg/dL (8.5-10.1) Phosphorus Level 2.3 mg/dL (2.6-4.7) Magnesium Level 1.8 mg/dL (1.8-2.4) Albumin 2.0 g/dL (3.4-5.0) Micro Micro Microbiology 04/23/20 Blood Culture - Preliminary, Resulted NO GROWTH AFTER 3 DAYS Review of Systems Constitutional: yes: other (CONFUSED) Physical Exam General Appearance: no apparent distress Skin: warm Respiratory: bilateral CTA Heart: S1S2 Abdomen: soft, bowel sounds present Genitourinary: bladder flat Neurology: alert, confused, other (restless) Musculoskeletal: Other Assessment Assessment IMP WALE-RESOLVING HYPOMAGNESEMIA SEPSIS ACUTE RESP FAILURE HYPOTENSION PNEUMONIA LOW MAG AND PO4 HX OF MYASTHENIA G PLAN PPN TO CONTINUE PRESSORS NEEDED REPLACE PO4 ANTIBIOTCS HOLLY FORTE MD Apr 26, 2020 12:11
--- NOTE | 2020-04-26 12:23 | PDOC ---
Nutrition Consultation Dietary Evaluation: Recommendations by RD: Dietary education by RD, Increase Calorie Intake Comments: REC intiation of TFs within 24 - 48 hrs of intubation REC TFs per following: VitalAF@goal rate 50 ml/hr w/125 ml water flushes q4 hrs or flushes per MD Expected Outcomes/Goals: Intiation of TFs within 24 - 48 hrs of intubation Malnutrition Findings: Body Fat Depletion (Non Severe: Mild Depletion Weight Status: Appropriate GENERAL General: Patient examined chart reviewed discussed with nursing. He is getting stronger and improving nicely clinically. He is resting in his recliner chair this afternoon has no new complaints. Nurse tells me that he passed his bedside swallow test and the plan is to get him restarted on a dysphagia 1 diet. We will continue the PPN until we can establish that his caloric intake is appropriate. Hemoglobin is lower today at 8.0 may be hemodilution with all of the extra intravenous fluids he has had in the last 48 hours. We will OB his stools and reassess in the morning. He will transfuse hemoglobin to keep level over 7. Appreciate subspecialty support. I agree that he could transfer him to telemetry. Continue current management otherwise. Problems: (1) Myasthenia gravis (2) Pneumonia (3) Acute respiratory failure with hypoxemia VITAL SIGNS Vital Signs/I&O: Vital Signs Date Time Temp Pulse Resp B/P (MAP) Pulse Ox O2 Delivery O2 Flow Rate FiO2 04/26/20 10:31 80 134/66 04/26/20 08:58 97 Room Air 04/26/20 07:00 23 2.0 04/26/20 04:00 98.9 98.9 I & O 04/25/20 04/25/20 04/26/20 15:00 23:00 07:00 Intake Total 1270 ml Output Total 735 ml 500 ml 335 ml Balance -735 ml -500 ml 935 ml In general the patient is pleasant laying recumbent in his recliner chair at baseline orientation in no acute distress HEENT exam is unremarkable for acute abnormality Chest is clear to auscultation though diminished throughout Heart S1-S2 normal regular rate and rhythm no murmurs or gallops are noted abdomen soft nontender nondistended no masses organomegaly noted Extremity exam is unremarkable for acute abnormality. ALLERGIES Allergies: Allergies Coded Allergies Type Severity Reaction Last Updated Verified I S O L A T I O N *CONTACT* Allergy Unknown 04/03/18 Yes No Known Medication Allergies Allergy Unknown 04/03/18 Yes MEDS Medications: Current Medications Medications (Trade) Dose Ordered Sig/Vin Start Time Stop Time Status Last Admin Dose Admin Acetaminophen (Tylenol Supp) 650 mg 1X ONCE 04/23/20 05:30 04/23/20 05:31 DC 04/23/20 05:00 Acetylcysteine (Mucomyst 20% Resp Treatment) 600 mg BID 04/25/20 10:00 04/26/20 08:57 Amino Acids/ Glycerin/ Electrolytes 1,000 ml @ 80 mls/hr [id number] 04/25/20 09:45 04/25/20 22:43 Digoxin (Lanoxin) 250 mcg 1X ONCE 04/25/20 01:30 04/25/20 01:31 DC 04/25/20 01:20 Enoxaparin Sodium (Lovenox 40mg Syringe) 40 mg BID 04/23/20 10:30 04/23/20 18:23 DC 04/23/20 10:46 Enoxaparin Sodium (Lovenox Per Pharmacy Prophylaxis Dosing) 1 each PRN DAILY PRN 04/23/20 10:00 04/23/20 18:23 DC Etomidate (Amidate) 20 mg STK-MED ONCE 04/23/20 04:26 04/23/20 04:26 DC Famotidine (Pepcid Vial) 20 mg QHS 04/23/20 21:00 04/25/20 21:16 Flecainide Acetate (Tambocor) 25 mg BID 04/23/20 21:00 04/26/20 10:31 Furosemide (Lasix) 60 mg 1X ONCE 04/23/20 05:00 04/23/20 05:01 DC 04/23/20 04:42 Info (Icu Electrolyte Protocol) 1 ea CONT PRN PRN 04/24/20 08:45 Linezolid/Dextrose 300 ml @ 300 mls/hr Q12HR 04/23/20 21:00 04/26/20 10:45 Magnesium Sulfate 50 ml @ 25 mls/hr 1X ONCE 04/25/20 11:30 04/25/20 13:29 UNV Metoprolol Tartrate (Lopressor Vial) 5 mg 1X ONCE 04/23/20 06:00 04/23/20 06:01 DC Metoprolol Tartrate (Lopressor) 12.5 mg BID 04/24/20 17:15 04/26/20 10:30 Midazolam HCl 100 ml @ 0 mls/hr CONT PRN 04/23/20 07:45 04/25/20 04:37 DC 04/24/20 01:35 Midazolam HCl (Versed) 5 mg 1X ONCE 04/23/20 06:15 04/23/20 06:16 DC 04/23/20 06:09 Midazolam HCl 50 mg/Sodium Chloride 50 ml @ 1 mls/hr CONT PRN 04/23/20 07:45 Cancel Norepinephrine Bitartrate 8 mg/ Dextrose 258 ml @ 14.513 mls/ hr CONT PRN 04/23/20 08:15 04/25/20 09:09 DC 04/23/20 14:32 Ondansetron HCl (Zofran) 4 mg PRN Q8HRS PRN 04/23/20 05:15 04/24/20 05:14 DC Phytonadione (Vitamin K Ampule) 5 mg 1X ONCE 04/24/20 11:45 04/24/20 11:46 DC 04/24/20 12:02 Piperacillin Sod/ Tazobactam Sod (Zosyn Per Pharmacy) 1 each PRN DAILY PRN 04/23/20 10:00 Piperacillin Sod/ Tazobactam Sod 3.375 gm/Sodium Chloride 50 ml @ 100 mls/hr Q6HRS 04/23/20 11:00 04/26/20 06:55 Potassium Chloride/Water 100 ml @ 100 mls/hr Q1H 04/24/20 08:45 04/24/20 10:44 DC 04/24/20 10:18 Potassium Phosphate 10 mmol/ Sodium Chloride 103.3333 ml @ 51.667 m... Q2H 04/26/20 13:00 04/26/20 16:59 Potassium Phosphate 13.6 mmol/Sodium Chloride 254.5333 ml @ 127.... Q2H 04/25/20 11:30 04/25/20 15:29 UNV Propofol 50 ml @ 1.125 mls/ hr 1X ONCE 04/23/20 05:15 04/23/20 05:16 DC Pyridostigmine [place] (Mestinon) 60 mg BID 04/24/20 17:15 04/26/20 10:30 Simvastatin (Zocor) 20 mg HS 04/23/20 21:00 04/25/20 21:16 Sodium Chloride 1,000 ml @ 100 mls/hr Q10H 04/24/20 12:15 04/25/20 18:50 DC 04/24/20 21:50 Vancomycin HCl (Vanco Per Pharmacy) 1 each PRN DAILY PRN 04/23/20 10:00 04/23/20 11:51 DC Vancomycin HCl 500 mg/Sodium Chloride 100 ml @ 100 mls/hr 1X ONCE 04/23/20 10:30 04/23/20 11:29 DC 04/23/20 10:46 Vasopressin 20 unit/Dextrose 101 ml @ 12 mls/hr CONT PRN 04/23/20 08:00 04/25/20 09:39 DC 04/23/20 14:32 Vecuronium [place] (Norcuron Bolus) 10 mg STK-MED ONCE 04/23/20 04:26 04/23/20 04:26 DC Warfarin Sodium (Coumadin - No Dose Today) 1 each 1X WARF ONCE 04/25/20 16:00 04/25/20 16:01 DC Warfarin Sodium (Coumadin Per Pharmacy) 1 each PRN DAILY PRN 04/24/20 11:30 04/24/20 11:31 DC Warfarin Sodium (Coumadin) 3 mg 1X WARF ONCE 04/26/20 16:00 04/26/20 16:01 LAB Lab: Laboratory Tests Test 04/26/20 05:00 White Blood Count 6.2 x10^3/uL (4.0-11.0) Red Blood Count 3.42 x10^6/uL (4.30-5.70) L Hemoglobin 8.0 g/dL (13.0-17.5) L Hematocrit 25.5 % (39.0-53.0) L Mean Corpuscular Volume 75 fL (79-100) L Mean Corpuscular Hemoglobin 24 pg (25-35) L Mean Corpuscular Hemoglobin Concent 32 g/dL (31-37) Red Cell Distribution Width 17.3 % (11.5-14.5) H Platelet Count 115 x10^3/uL (140-400) L Neutrophils (%) (Auto) 74 % (31-73) H Lymphocytes (%) (Auto) 15 % (24-48) L Monocytes (%) (Auto) 8 % (0-9) Eosinophils (%) (Auto) 2 % (0-3) Basophils (%) (Auto) 0 % (0-3) Neutrophils # (Auto) 4.6 x10^3/uL (1.8-7.7) Lymphocytes # (Auto) 0.9 x10^3/uL (1.0-4.8) L Monocytes # (Auto) 0.5 x10^3/uL (0.0-1.1) Eosinophils # (Auto) 0.2 x10^3/uL (0.0-0.7) Basophils # (Auto) 0.0 x10^3/uL (0.0-0.2) Prothrombin Time 22.7 SEC (11.7-14.0) H Prothrombin Time INR 2.0 (0.8-1.1) H Sodium Level 138 mmol/L (136-145) Potassium Level 3.7 mmol/L (3.5-5.1) Chloride Level 105 mmol/L (98-107) Carbon Dioxide Level 26 mmol/L (21-32) Anion Gap 7 (6-14) Blood Urea Nitrogen 18 mg/dL (8-26) Creatinine 1.2 mg/dL (0.7-1.3) Estimated GFR (Cockcroft-Gault) 57.3 Glucose Level 95 mg/dL (70-99) Calcium Level 7.8 mg/dL (8.5-10.1) L Phosphorus Level 2.3 mg/dL (2.6-4.7) L Magnesium Level 1.8 mg/dL (1.8-2.4) Albumin 2.0 g/dL (3.4-5.0) L Laboratory Tests 04/26/20 05:00 Laboratory Tests 04/26/20 05:00 IMAGING Imaging: PATIENT: STEPHANIE CLEMENS ACCOUNT: [id number] : 1930 LOCATION: [address] [place] [address] AGE: 89 SEX: M EXAM STATUS: ADM IN ORD. PHYSICIAN: ROSALBA GRANADOS MD REASON: post vent 103 PROCEDURE: PORTABLE CHEST 1V INDICATION: Reason: post vent 103 / Spl. Instructions: / History: COMPARISON: One day prior FINDINGS: Single view of chest obtained. Right-sided vascular catheter projecting over the right neck base. Enteric tube coursing below the diaphragm. Calcific atherosclerosis. Patchy opacity throughout the right greater than left lung is again seen IMPRESSION: * Redemonstration of patchy opacity within the right greater than left lung could be secondary to multifocal infiltrate with other possible causes including asymmetric edema. Electronically signed by: Jose Sheehan MD (04/26/2020 7:02 AM) [id number] ASSESSMENT & PLAN A&P Plan as noted above This note was created using [employer] and may have omissions and/or errors due to the nature of real-time voice product marketing manager. Problem Qualifiers (1) Pneumonia: Pneumonia type: due to unspecified organism Laterality: right Lung location: unspecified part of lung Qualified Codes: J18.9 - Pneumonia, unspecified organism HERIBERTO PERSAUD MD Apr 26, 2020 12:23
--- NOTE | 2020-04-26 13:12 | PDOC ---
PROGRESS NOTES Subjective Subjective Patient seen and examined Objective Objective Vital Signs Date Time Temp Pulse Resp B/P (MAP) Pulse Ox O2 Delivery O2 Flow Rate FiO2 04/26/20 10:31 80 134/66 04/26/20 08:58 97 Room Air 04/26/20 07:00 23 2.0 04/26/20 04:00 98.9 98.9 Intake and Output 04/26/20 07:00 Intake Total 1270 ml Output Total 1570 ml Balance -300 ml IV Total 1270 ml Output Urine Total 1570 ml Physical Exam Abdomen: Normal bowel sounds Heart: Other (Irregular rhythm) General: mild distress Lungs: Other (Mildly decreased breath sounds) Assessment Assessment Problems Medical Problems: (1) Acute respiratory failure with hypoxemia Status: Acute (2) Person under investigation for COVID-19 Status: Acute (3) Pneumonia Status: Acute 1. Acute respiratory failure with probable PNA; patient continues to improve. Continue treatment as per the pulmonary service. Echo pending. 2. WALE vs CKD: Creatinine improving. 3. NSTEMI: multifactorial, unclear for any CAD hx. 4. Hypertension; controlled 5. PAFIB; continued episodes of atrial fibrillation. Continue present treatments with monitoring. Warfarin on hold secondary to elevated INR. 6. Diabetes, II 7. Hyperlipidemia; close on goal, on statin 8. Myasthenia gravis: Comment Review of Relevant I have reviewed the following items richard (where applicable) has been applied. Labs Laboratory Tests Test 04/24/20 16:45 04/25/20 05:45 04/26/20 05:00 O2 Saturation 95 % (92-99) Arterial Blood pH 7.43 (7.35-7.45) Arterial Blood pCO2 at Patient Temp 38 mmHg (35-46) Arterial Blood pO2 at Patient Temp 85 mmHg (65-108) Arterial Blood HCO3 25 mmol/L (21-28) Arterial Blood Base Excess 0 mmol/L (-3-3) FiO2 40 Prothrombin Time 45.4 SEC (11.7-14.0) 22.7 SEC (11.7-14.0) Prothromb Time International Ratio 4.8 (0.8-1.1) 2.0 (0.8-1.1) Sodium Level 141 mmol/L (136-145) 138 mmol/L (136-145) Potassium Level 3.4 mmol/L (3.5-5.1) 3.7 mmol/L (3.5-5.1) Chloride Level 107 mmol/L (98-107) 105 mmol/L (98-107) Carbon Dioxide Level 24 mmol/L (21-32) 26 mmol/L (21-32) Anion Gap 10 (6-14) 7 (6-14) Blood Urea Nitrogen 17 mg/dL (8-26) 18 mg/dL (8-26) Creatinine 1.3 mg/dL (0.7-1.3) 1.2 mg/dL (0.7-1.3) Estimated GFR (Cockcroft-Gault) 52.2 57.3 Glucose Level 89 mg/dL (70-99) 95 mg/dL (70-99) Calcium Level 7.5 mg/dL (8.5-10.1) 7.8 mg/dL (8.5-10.1) Phosphorus Level 1.9 mg/dL (2.6-4.7) 2.3 mg/dL (2.6-4.7) Magnesium Level 1.4 mg/dL (1.8-2.4) 1.8 mg/dL (1.8-2.4) Albumin 2.2 g/dL (3.4-5.0) 2.0 g/dL (3.4-5.0) White Blood Count 6.2 x10^3/uL (4.0-11.0) Red Blood Count 3.42 x10^6/uL (4.30-5.70) Hemoglobin 8.0 g/dL (13.0-17.5) Hematocrit 25.5 % (39.0-53.0) Mean Corpuscular Volume 75 fL (79-100) Mean Corpuscular Hemoglobin 24 pg (25-35) Mean Corpuscular Hemoglobin Concent 32 g/dL (31-37) Red Cell Distribution Width 17.3 % (11.5-14.5) Platelet Count 115 x10^3/uL (140-400) Neutrophils (%) (Auto) 74 % (31-73) Lymphocytes (%) (Auto) 15 % (24-48) Monocytes (%) (Auto) 8 % (0-9) Eosinophils (%) (Auto) 2 % (0-3) Basophils (%) (Auto) 0 % (0-3) Neutrophils # (Auto) 4.6 x10^3/uL (1.8-7.7) Lymphocytes # (Auto) 0.9 x10^3/uL (1.0-4.8) Monocytes # (Auto) 0.5 x10^3/uL (0.0-1.1) Eosinophils # (Auto) 0.2 x10^3/uL (0.0-0.7) Basophils # (Auto) 0.0 x10^3/uL (0.0-0.2) Laboratory Tests Test 04/26/20 05:00 White Blood Count 6.2 x10^3/uL (4.0-11.0) Red Blood Count 3.42 x10^6/uL (4.30-5.70) Hemoglobin 8.0 g/dL (13.0-17.5) Hematocrit 25.5 % (39.0-53.0) Mean Corpuscular Volume 75 fL (79-100) Mean Corpuscular Hemoglobin 24 pg (25-35) Mean Corpuscular Hemoglobin Concent 32 g/dL (31-37) Red Cell Distribution Width 17.3 % (11.5-14.5) Platelet Count 115 x10^3/uL (140-400) Neutrophils (%) (Auto) 74 % (31-73) Lymphocytes (%) (Auto) 15 % (24-48) Monocytes (%) (Auto) 8 % (0-9) Eosinophils (%) (Auto) 2 % (0-3) Basophils (%) (Auto) 0 % (0-3) Neutrophils # (Auto) 4.6 x10^3/uL (1.8-7.7) Lymphocytes # (Auto) 0.9 x10^3/uL (1.0-4.8) Monocytes # (Auto) 0.5 x10^3/uL (0.0-1.1) Eosinophils # (Auto) 0.2 x10^3/uL (0.0-0.7) Basophils # (Auto) 0.0 x10^3/uL (0.0-0.2) Prothrombin Time 22.7 SEC (11.7-14.0) Prothromb Time International Ratio 2.0 (0.8-1.1) Sodium Level 138 mmol/L (136-145) Potassium Level 3.7 mmol/L (3.5-5.1) Chloride Level 105 mmol/L (98-107) Carbon Dioxide Level 26 mmol/L (21-32) Anion Gap 7 (6-14) Blood Urea Nitrogen 18 mg/dL (8-26) Creatinine 1.2 mg/dL (0.7-1.3) Estimated GFR (Cockcroft-Gault) 57.3 Glucose Level 95 mg/dL (70-99) Calcium Level 7.8 mg/dL (8.5-10.1) Phosphorus Level 2.3 mg/dL (2.6-4.7) Magnesium Level 1.8 mg/dL (1.8-2.4) Albumin 2.0 g/dL (3.4-5.0) Microbiology 04/23/20 Blood Culture - Preliminary, Resulted NO GROWTH AFTER 3 DAYS Medications Current Medications Furosemide (Lasix) 60 mg 1X ONCE IVP Last administered on 04/23/20at 04:42; Start 04/23/20 at 05:00; Stop 04/23/20 at 05:01; Status DC Etomidate (Amidate) 20 mg 1X ONCE IV Last administered on 04/23/20at 04:39; Start 04/23/20 at 05:00; Stop 04/23/20 at 05:01; Status DC Vecuronium [place] (Norcuron Bolus) 10 mg 1X ONCE IV Last administered on 04/23/20at 04:39; Start 04/23/20 at 05:00; Stop 04/23/20 at 05:01; Status DC Etomidate (Amidate) 20 mg STK-MED ONCE IV ; Start 04/23/20 at 04:26; Stop 04/23/20 at 04:26; Status DC Vecuronium [place] (Norcuron Bolus) 10 mg STK-MED ONCE IV ; Start 04/23/20 at 04:26; Stop 04/23/20 at 04:26; Status DC Propofol 50 ml @ As Directed STK-MED ONCE IV ; Start 04/23/20 at 04:36; Stop 04/23/20 at 04:37; Status DC Vancomycin HCl 250 ml @ As Directed STK-MED ONCE .ROUTE ; Start 04/23/20 at 04:37; Stop 04/23/20 at 04:37; Status DC Vancomycin HCl 250 ml @ 250 mls/hr 1X ONCE IV Last administered on 04/23/20at 04:44; Start 04/23/20 at 04:45; Stop 04/23/20 at 05:44; Status DC Piperacillin Sod/ Tazobactam Sod 3.375 gm/Sodium Chloride 50 ml @ 100 mls/hr 1X ONCE IV Last administered on 04/23/20at 05:08; Start 04/23/20 at 05:00; Stop 04/23/20 at 05:29; Status DC Propofol 100 ml @ 0 mls/hr CONT PRN IV SEE PROTOCOL Last administered on 04/23/20at 04:46; Start 04/23/20 at 04:45; Stop 04/23/20 at 04:49; Status DC Midazolam HCl (Versed) 2 mg PRN Q30MIN PRN IV SEE COMMENTS.; Start 04/23/20 at 04:45; Stop 04/25/20 at 04:37; Status DC Propofol 100 ml @ 0 mls/hr CONT PRN IV SEE PROTOCOL; Start 04/23/20 at 04:49; Stop 04/25/20 at 04:37; Status DC Acetaminophen (Tylenol Supp) 650 mg 1X ONCE NC Last administered on 04/23/20at 05:00; Start 04/23/20 at 05:30; Stop 04/23/20 at 05:31; Status DC Propofol 50 ml @ 1.125 mls/ hr 1X ONCE IV ; Start 04/23/20 at 05:15; Stop 04/23/20 at 05:16; Status DC Ondansetron HCl (Zofran) 4 mg PRN Q8HRS PRN IV NAUSEA/VOMITING 1ST CHOICE; Start 04/23/20 at 05:15; Stop 04/24/20 at 05:14; Status DC Sodium Chloride 1,000 ml @ 75 mls/hr [id number] IV Last administered on 04/23/20at 20:38; Start 04/23/20 at 05:30; Stop 04/24/20 at 05:29; Status DC Metoprolol Tartrate (Lopressor Vial) 5 mg 1X ONCE IVP ; Start 04/23/20 at 06:00; Stop 04/23/20 at 06:01; Status DC Midazolam HCl (Versed) 5 mg 1X ONCE NS Last administered on 04/23/20at 05:26; Start 04/23/20 at 06:00; Stop 04/23/20 at 06:01; Status DC Norepinephrine Bitartrate 8 mg/ Dextrose 258 ml @ 14.513 mls/ hr 1X ONCE IV Last administered on 04/23/20at 05:52; Start 04/23/20 at 06:00; Stop 04/23/20 at 23:46; Status DC Midazolam HCl (Versed) 5 mg 1X ONCE IV Last administered on 04/23/20at 06:09; Start 04/23/20 at 06:15; Stop 04/23/20 at 06:16; Status DC Midazolam HCl 50 mg/Sodium Chloride 50 ml @ 1 mls/hr CONT PRN IV SEE I/O RECORD; Start 04/23/20 at 07:45; Status Cancel Midazolam HCl 100 ml @ 0 mls/hr CONT PRN IV SEE PROTOCOL Last administered on 04/24/20at 01:35; Start 04/23/20 at 07:45; Stop 04/25/20 at 04:37; Status DC Vasopressin 20 unit/Dextrose 101 ml @ 12 mls/hr CONT PRN IV SEE I/O RECORD Last administered on 04/23/20at 14:32; Start 04/23/20 at 08:00; Stop 04/25/20 at 09:39; Status DC Norepinephrine Bitartrate 8 mg/ Dextrose 258 ml @ 14.513 mls/ hr CONT PRN IV PER PROTOCOL Last administered on 04/23/20at 14:32; Start 04/23/20 at 08:15; Stop 04/25/20 at 09:09; Status DC Piperacillin Sod/ Tazobactam Sod (Zosyn Per Pharmacy) 1 each PRN DAILY PRN MC SEE COMMENTS; Start 04/23/20 at 10:00; Status UNV Vancomycin HCl (Vanco Per Pharmacy) 1 each PRN DAILY PRN MC SEE COMMENTS; Start 04/23/20 at 10:00; Status UNV Famotidine (Pepcid Vial) 20 mg QHS IVP Last administered on 04/25/20at 21:16; Start 04/23/20 at 21:00 Enoxaparin Sodium (Lovenox Per Pharmacy Prophylaxis Dosing) 1 each PRN DAILY PRN MC SEE COMMENTS; Start 04/23/20 at 10:00; Stop 04/23/20 at 18:23; Status DC Vancomycin HCl (Vanco Per Pharmacy) 1 each PRN DAILY PRN MC SEE COMMENTS; Start 04/23/20 at 10:00; Stop 04/23/20 at 11:51; Status DC Piperacillin Sod/ Tazobactam Sod (Zosyn Per Pharmacy) 1 each PRN DAILY PRN MC SEE COMMENTS; Start 04/23/20 at 10:00 Sodium Chloride 1,000 ml @ 1,000 mls/hr 1X ONCE IV Last administered on 04/23/20at 10:11; Start 04/23/20 at 10:00; Stop 04/23/20 at 10:59; Status DC Piperacillin Sod/ Tazobactam Sod 3.375 gm/Sodium Chloride 50 ml @ 100 mls/hr Q6HRS IV Last administered on 04/26/20at 06:55; Start 04/23/20 at 11:00 Enoxaparin Sodium (Lovenox 40mg Syringe) 40 mg BID SQ Last administered on 04/23/20at 10:46; Start 04/23/20 at 10:30; Stop 04/23/20 at 18:23; Status DC Vancomycin HCl 500 mg/Sodium Chloride 100 ml @ 100 mls/hr 1X ONCE IV Last administered on 04/23/20at 10:46; Start 04/23/20 at 10:30; Stop 04/23/20 at 11:29; Status DC Linezolid/Dextrose 300 ml @ 300 mls/hr Q12HR IV Last administered on 04/26/20at 10:45; Start 04/23/20 at 21:00 Flecainide Acetate (Tambocor) 25 mg BID PO Last administered on 04/26/20at 10:31; Start 04/23/20 at 21:00 Simvastatin (Zocor) 20 mg HS PO Last administered on 04/25/20at 21:16; Start 04/23 at 21:00 Warfarin Sodium (Coumadin Per Pharmacy) 1 each PRN DAILY PRN MC SEE COMMENTS Last administered on 04/26/20at 07:57; Start 04/23/20 at 17:00 Warfarin Sodium (Coumadin) 5 mg 1X ONCE PO Last administered on 04/23/20at 20:41; Start 04/23/20 at 21:00; Stop 04/23/20 at 21:01; Status DC Info (Icu Electrolyte Protocol) 1 ea CONT PRN PRN MC PER PROTOCOL; Start 04/24/20 at 08:45 Potassium Chloride/Water 100 ml @ 100 mls/hr Q1H IV Last administered on 04/24/20at 10:18; Start 04/24/20 at 08:45; Stop 04/24/20 at 10:44; Status DC Pyridostigmine [place] (Mestinon) 60 mg BID PO ; Start 04/24/20 at 21:00; Stop 04/24/20 at 17:13; Status DC Warfarin Sodium (Coumadin Per Pharmacy) 1 each PRN DAILY PRN MC SEE COMMENTS; Start 04/24/20 at 11:30; Stop 04/24/20 at 11:31; Status DC Phytonadione (Vitamin K Ampule) 5 mg 1X ONCE SQ Last administered on 04/24/20at 12:02; Start 04/24/20 at 11:45; Stop 04/24/20 at 11:46; Status DC Warfarin Sodium (Coumadin - No Dose Today) 1 each 1X WARF ONCE MC Last administered on 04/24/20at 16:00; Start 04/24/20 at 16:00; Stop 04/24/20 at 16:01; Status DC Sodium Chloride 1,000 ml @ 100 mls/hr Q10H IV Last administered on 04/24/20at 21:50; Start 04/24/20 at 12:15; Stop 04/25/20 at 18:50; Status DC Metoprolol Tartrate (Lopressor) 12.5 mg BID PO ; Start 04/24/20 at 21:00; Stop 04/24/20 at 17:13; Status DC Metoprolol Tartrate (Lopressor) 12.5 mg BID PO Last administered on 04/26/20at 10:30; Start 04/24/20 at 17:15 Pyridostigmine [place] (Mestinon) 60 mg BID PO Last administered on 04/26/20at 10:30; Start 04/24/20 at 17:15 Digoxin (Lanoxin) 250 mcg 1X ONCE IV Last administered on 04/24/20at 22:41; Start 04/24/20 at 22:30; Stop 04/24/20 at 22:31; Status DC Digoxin (Lanoxin) 250 mcg 1X ONCE IV Last administered on 04/25/20at 01:20; Start 04/25/20 at 01:30; Stop 04/25/20 at 01:31; Status DC Warfarin Sodium (Coumadin - No Dose Today) 1 each 1X WARF ONCE MC ; Start 04/25/20 at 16:00; Stop 04/25/20 at 16:01; Status DC Magnesium Sulfate 50 ml @ 25 mls/hr 1X ONCE IV Last administered on 04/25/20at 09:51; Start 04/25/20 at 09:15; Stop 04/25/20 at 11:14; Status DC Potassium Phosphate 10 mmol/ Sodium Chloride 103.3333 ml @ 51.667 m... Q2H IV Last administered on 04/25/20at 11:59; Start 04/25/20 at 09:30; Stop 04/25/20 at 13:29; Status DC Amino Acids/ Glycerin/ Electrolytes 1,000 ml @ 80 mls/hr [id number] IV Last administered on 04/25/20at 22:43; Start 04/25/20 at 09:45 Acetylcysteine (Mucomyst 20% Resp Treatment) 600 mg BID NEB Last administered on 04/26/20at 08:57; Start 04/25/20 at 10:00 Potassium Phosphate 13.6 mmol/Sodium Chloride 254.5333 ml @ 127.... Q2H IV ; Start 04/25/20 at 11:30; Stop 04/25/20 at 15:29; Status UNV Magnesium Sulfate 50 ml @ 25 mls/hr 1X ONCE IV ; Start 04/25/20 at 11:30; Stop 04/25/20 at 13:29; Status UNV Warfarin Sodium (Coumadin) 3 mg 1X WARF ONCE PO ; Start 04/26/20 at 16:00; Stop 04/26/20 at 16:01 Potassium Phosphate 10 mmol/ Sodium Chloride 103.3333 ml @ 51.667 m... Q2H IV ; Start 04/26/20 at 13:00; Stop 04/26/20 at 16:59 Active Scripts Active Reported Carvedilol (Carvedilol) 6.25 Mg Tablet 6.25 Mg PO BIDWMEALS Fish Oil 1,200 Mg Fish Oil (Fish Oil/Dha/Epa) 1 Each Capsule 1 Each PO DAILY Hydrochlorothiazide Tablet (Hydrochlorothiazide) 12.5 Mg Tablet 12.5 Mg PO DAILY Pyridostigmine [place] 60 Mg Tablet 60 Mg PO BID Flecainide Acetate 50 Mg Tablet 25 Mg PO BID Lantus Solostar (Insulin Glargine,Hum.rec.anlog) 100 Unit/1 Ml Insuln.pen 20 Unit SQ QHS Simvastatin 20 Mg Tablet 20 Mg PO HS Lisinopril 20 Mg Tablet 1 Tab PO BID Warfarin Sodium 5 Mg Tablet 2 Tab PO DAILY Nexium Capsule (Esomeprazole Magnesium) 40 Mg Capsule.dr 1 Cap PO DAILY Vitamin D (Cholecalciferol (Vitamin D3)) 2,000 Unit Tablet 1,000 Unit PO DAILY Vitals/I & O Vital Sign - Last 24 Hours 04/25/20 04/25/20 04/25/20 04/25/20 14:00 15:00 16:00 16:00 Pulse 100 90 89 Resp B/P (MAP) 182/72 (108) 184/66 (105) Pulse Ox 98 98 O2 Delivery Nasal Cannula Nasal Cannula Nasal Cannula O2 Flow Rate 2.0 2.0 2.0 04/25/20 04/25/20 04/25/20 04/25/20 16:00 17:00 17:42 19:00 Temp 99.4 99.4 Pulse 100 80 88 75 Resp 20 21 B/P (MAP) 182/72 (108) 184/55 (98) 182/57 159/53 (88) Pulse Ox 98 98 99 O2 Delivery Nasal Cannula Nasal Cannula Nasal Cannula O2 Flow Rate 2.0 2.0 2.0 04/25/20 04/25/20 04/25/20 04/25/20 19:58 20:00 20:00 20:00 Temp 100.2 100.2 Pulse 78 84 Resp 22 B/P (MAP) 158/58 (91) 163/64 (97) Pulse Ox 100 99 O2 Delivery Nasal Cannula Nasal Cannula Nasal Cannula O2 Flow Rate 2.0 2.0 2.0 04/25/20 04/25/20 04/25/20 04/25/20 21:00 21:16 22:00 22:42 Pulse 82 75 74 76 Resp B/P (MAP) 166/58 (94) 169/55 178/56 (96) 166/62 Pulse Ox 100 99 O2 Delivery Nasal Cannula Nasal Cannula O2 Flow Rate 2.0 2.0 04/25/20 04/25/20 04/26/20 04/26/20 23:00 23:59 00:00 00:00 Temp 100.6 100.6 Pulse 57 60 64 Resp 20 B/P (MAP) 146/52 (83) 133/50 (77) 128/52 (77) Pulse Ox 99 99 O2 Delivery Nasal Cannula Nasal Cannula Nasal Cannula O2 Flow Rate 2.0 2.0 2.0 04/26/20 04/26/20 04/26/20 04/26/20 01:00 02:00 03:00 04:00 Temp 100.2 98.9 100.2 98.9 Pulse 66 66 61 64 Resp 23 20 22 21 B/P (MAP) 140/50 (80) 149/52 (84) 142/46 (78) 158/58 (91) Pulse Ox 100 99 98 99 O2 Delivery Nasal Cannula Nasal Cannula Nasal Cannula Nasal Cannula O2 Flow Rate 2.0 2.0 2.0 2.0 04/26/20 04/26/20 04/26/20 04/26/20 04:00 04:00 05:00 06:00 Pulse 68 75 64 Resp 20 23 B/P (MAP) 166/54 (91) 159/54 (89) 157/44 (81) Pulse Ox 99 100 O2 Delivery Nasal Cannula Nasal Cannula Nasal Cannula O2 Flow Rate 2.0 2.0 2.0 04/26/20 04/26/20 04/26/20 04/26/20 07:00 08:00 08:00 08:58 Pulse 59 69 Resp 23 B/P (MAP) 172/52 (92) Pulse Ox 100 97 O2 Delivery Nasal Cannula Room Air Room Air O2 Flow Rate 2.0 04/26/20 04/26/20 10:30 10:31 Pulse 80 80 B/P (MAP) 134/66 134/66 Intake and Output 04/25/20 04/25/20 04/26/20 15:00 23:00 07:00 Intake Total 1270 ml Output Total 735 ml 500 ml 335 ml Balance -735 ml -500 ml 935 ml Nutrition Consultation Dietary Evaluation: Recommendations by RD: Dietary education by RD, Increase Calorie Intake Comments: REC intiation of TFs within 24 - 48 hrs of intubation REC TFs per following: VitalAF@goal rate 50 ml/hr w/125 ml water flushes q4 hrs or flushes per MD Expected Outcomes/Goals: Intiation of TFs within 24 - 48 hrs of intubation Malnutrition Findings: Body Fat Depletion (Non Severe: Mild Depletion Weight Status: Appropriate AHSAN IVAN MD Apr 26, 2020 13:12
[2020-04-26] MEDS: POTASSIUM PHOS,M-BASIC-D-BASIC 10 MMOL in IV NORMAL SALINE 100ML 100 ML IV SCH ×2 (13:54→16:36)
[2020-04-26] MEDS ORDERED: WARFARIN 3 MG TABLET. PO ONE (16:00)
[2020-04-26] MEDS: SIMVASTATIN 20 MG TABLET PO SCH (21:00)
[2020-04-26] MEDS: FAMOTIDINE 20 MG/2 ML VIAL IVP SCH (21:00)
[2020-04-27 03:00] VITALS: BP 142/70
[2020-04-27] MEDS: PIPERACILLIN/TAZOBACTAM 3.375 GM in IV NORMAL SALINE 50ML 50 ML IV SCH ×5 (06:00→17:00)
[2020-04-27] MEDS: ACETYLCYSTEINE 20% for RESP TX 600 MG/3 ML. NEB SCH ×2 (06:59→20:08)
[2020-04-27 07:40] LABS: ALBUMIN 2.1 g/dL (3.4-5.0); ALBUMIN/GLOBULIN RATIO 0.6 (1.0-1.7); CREATININE 1.1 mg/dL (0.7-1.3); GFR 63.3; POTASSIUM 3.7 mmol/L (3.5-5.1); TOTAL BILIRUBIN 0.5 mg/dL (0.2-1.0); TOTAL PROTEIN 5.4 g/dL (6.4-8.2)
[2020-04-27 07:50] LABS: BASO % 1 % (0-3); EOS # 0.2 x10^3/uL (0.0-0.7); EOS % 4 % (0-3); HEMATOCRIT 25.7 % (39.0-53.0); HEMOGLOBIN 8.3 g/dL (13.0-17.5); LYMPH # 0.7 x10^3/uL (1.0-4.8); LYMPH % 15 % (24-48); MEAN CORPUSCULAR HEMOGLOBIN 24 pg (25-35); MEAN CORPUSCULAR HGB CONC 33 g/dL (31-37); MEAN CORPUSCULAR VOLUME 73 fL (79-100); MONO # 0.4 x10^3/uL (0.0-1.1); MONO % 9 % (0-9); NEUT # 3.5 x10^3/uL (1.8-7.7); NEUT % 71 % (31-73); PLATELET COUNT 127 x10^3/uL (140-400); RED CELL DISTRIBUTION WIDTH 17.4 % (11.5-14.5)
[2020-04-27 07:54] LABS: PHOSPHORUS 2.8 mg/dL (2.6-4.7)
[2020-04-27 07:56] LABS: PROTHROMBIN TIME PATIENT 23.7 SEC (11.7-14.0)
--- NOTE | 2020-04-27 08:08 | NUR ---
0600 Zosyn not administered by previous shift.
[2020-04-27 08:38] VITALS: BP 158/68
--- NOTE | 2020-04-27 09:07 | PDOC ---
Infectious Disease Note Subjective: Subjective Feeling better today Less shortness of breath and cough Fever pattern improving Denies nausea, vomiting, diarrhea Vital Signs: Vital Signs Vital Signs Date Time Temp Pulse Resp B/P (MAP) Pulse Ox O2 Delivery O2 Flow Rate FiO2 04/27/20 08:38 98.4 83 18 158/68 (98) 92 Room Air 98.4 04/26/20 07:00 2.0 Physical Exam: PHYSICAL EXAM GENERAL: Patient lying in bed comfortably acute distress alert HEENT: Oral cavity dry, no thrush NECK: Supple LUNGS: Improved aeration, nonlabored. HEART: S1, S2 regular. ABDOMEN: Nondistended, bowel sounds present, soft, nontender. : Nieto in place EXTREMITIES: No edema, cyanosis. SKIN: warm to touch. NEUROLOGIC: Generalized weakness, but more alert and verbal, answering questions appropriately. RIJ and art-line is out. PIV looks ok Medications: Inpatient Meds: Current Medications Medications (Trade) Dose Ordered Sig/Vin Start Time Stop Time Status Last Admin Dose Admin Acetaminophen (Tylenol Supp) 650 mg 1X ONCE 04/23/20 05:30 04/23/20 05:31 DC 04/23/20 05:00 650 MG Acetylcysteine (Mucomyst 20% Resp Treatment) 600 mg BID 04/25/20 10:00 04/27/20 06:59 600 MG Amino Acids/ Glycerin/ Electrolytes 1,000 ml @ 80 mls/hr [id number] 04/25/20 09:45 04/25/20 22:43 80 MLS/HR Digoxin (Lanoxin) 250 mcg 1X ONCE 04/25/20 01:30 04/25/20 01:31 DC 04/25/20 01:20 250 MCG Enoxaparin Sodium (Lovenox 40mg Syringe) 40 mg BID 04/23/20 10:30 04/23/20 18:23 DC 04/23/20 10:46 40 MG Enoxaparin Sodium (Lovenox Per Pharmacy Prophylaxis Dosing) 1 each PRN DAILY PRN 04/23/20 10:00 04/23/20 18:23 DC Etomidate (Amidate) 20 mg STK-MED ONCE 04/23/20 04:26 04/23/20 04:26 DC Famotidine (Pepcid Vial) 20 mg QHS 04/23/20 21:00 04/26/20 21:00 20 MG Flecainide Acetate (Tambocor) 25 mg BID 04/23/20 21:00 04/26/20 21:37 25 MG Furosemide (Lasix) 60 mg 1X ONCE 04/23/20 05:00 04/23/20 05:01 DC 04/23/20 04:42 60 MG Info (Icu Electrolyte Protocol) 1 ea CONT PRN PRN 04/24/20 08:45 Linezolid/Dextrose 300 ml @ 300 mls/hr Q12HR 04/23/20 21:00 04/26/20 21:38 300 MLS/HR Magnesium Sulfate 50 ml @ 25 mls/hr 1X ONCE 04/25/20 11:30 04/25/20 13:29 UNV Metoprolol Tartrate (Lopressor Vial) 5 mg 1X ONCE 04/23/20 06:00 04/23/20 06:01 DC Metoprolol Tartrate (Lopressor) 12.5 mg BID 04/24/20 17:15 04/26/20 21:37 12.5 MG Midazolam HCl 100 ml @ 0 mls/hr CONT PRN 04/23/20 07:45 04/25/20 04:37 DC 04/24/20 01:35 5 MLS/HR Midazolam HCl (Versed) 5 mg 1X ONCE 04/23/20 06:15 04/23/20 06:16 DC 04/23/20 06:09 5 MG Midazolam HCl 50 mg/Sodium Chloride 50 ml @ 1 mls/hr CONT PRN 04/23/20 07:45 Cancel Norepinephrine Bitartrate 8 mg/ Dextrose 258 ml @ 14.513 mls/ hr CONT PRN 04/23/20 08:15 04/25/20 09:09 DC 04/23/20 14:32 21.769 MLS/HR Ondansetron HCl (Zofran) 4 mg PRN Q8HRS PRN 04/23/20 05:15 04/24/20 05:14 DC Phytonadione (Vitamin K Ampule) 5 mg 1X ONCE 04/24/20 11:45 04/24/20 11:46 DC 04/24/20 12:02 5 MG Piperacillin Sod/ Tazobactam Sod (Zosyn Per Pharmacy) 1 each PRN DAILY PRN 04/23/20 10:00 Piperacillin Sod/ Tazobactam Sod 3.375 gm/Sodium Chloride 50 ml @ 100 mls/hr Q6HRS 04/23/20 11:00 04/27/20 00:00 100 MLS/HR Potassium Chloride/Water 100 ml @ 100 mls/hr Q1H 04/24/20 08:45 04/24/20 10:44 DC 04/24/20 10:18 100 MLS/HR Potassium Phosphate 10 mmol/ Sodium Chloride 103.3333 ml @ 51.667 m... Q2H 04/26/20 13:00 04/26/20 16:59 DC 04/26/20 16:36 51.667 MLS/HR Potassium Phosphate 13.6 mmol/Sodium Chloride 254.5333 ml @ 127.... Q2H 04/25/20 11:30 04/25/20 15:29 UNV Propofol 50 ml @ 1.125 mls/ hr 1X ONCE 04/23/20 05:15 04/23/20 05:16 DC Pyridostigmine [place] (Mestinon) 60 mg BID 04/24/20 17:15 04/26/20 21:37 60 MG Simvastatin (Zocor) 20 mg HS 04/23/20 21:00 04/26/20 21:00 20 MG Sodium Chloride 1,000 ml @ 100 mls/hr Q10H 04/24/20 12:15 04/25/20 18:50 DC 04/24/20 21:50 100 MLS/HR Vancomycin HCl (Vanco Per Pharmacy) 1 each PRN DAILY PRN 04/23/20 10:00 04/23/20 11:51 DC Vancomycin HCl 500 mg/Sodium Chloride 100 ml @ 100 mls/hr 1X ONCE 04/23/20 10:30 04/23/20 11:29 DC 04/23/20 10:46 100 MLS/HR Vasopressin 20 unit/Dextrose 101 ml @ 12 mls/hr CONT PRN 04/23/20 08:00 04/25/20 09:39 DC 04/23/20 14:32 12 MLS/HR Vecuronium [place] (Norcuron Bolus) 10 mg STK-MED ONCE 04/23/20 04:26 04/23/20 04:26 DC Warfarin Sodium (Coumadin - No Dose Today) 1 each 1X WARF ONCE 04/25/20 16:00 04/25/20 16:01 DC Warfarin Sodium (Coumadin Per Pharmacy) 1 each PRN DAILY PRN 04/24/20 11:30 04/24/20 11:31 DC Warfarin Sodium (Coumadin) 3 mg 1X WARF ONCE 04/26/20 16:00 04/26/20 16:01 DC 04/26/20 16:36 3 MG Labs: Lab Laboratory Tests Test 04/27/20 05:30 White Blood Count 5.0 x10^3/uL (4.0-11.0) Red Blood Count 3.50 x10^6/uL (4.30-5.70) Hemoglobin 8.3 g/dL (13.0-17.5) Hematocrit 25.7 % (39.0-53.0) Mean Corpuscular Volume 73 fL (79-100) Mean Corpuscular Hemoglobin 24 pg (25-35) Mean Corpuscular Hemoglobin Concent 33 g/dL (31-37) Red Cell Distribution Width 17.4 % (11.5-14.5) Platelet Count 127 x10^3/uL (140-400) Neutrophils (%) (Auto) 71 % (31-73) Lymphocytes (%) (Auto) 15 % (24-48) Monocytes (%) (Auto) 9 % (0-9) Eosinophils (%) (Auto) 4 % (0-3) Basophils (%) (Auto) 1 % (0-3) Neutrophils # (Auto) 3.5 x10^3/uL (1.8-7.7) Lymphocytes # (Auto) 0.7 x10^3/uL (1.0-4.8) Monocytes # (Auto) 0.4 x10^3/uL (0.0-1.1) Eosinophils # (Auto) 0.2 x10^3/uL (0.0-0.7) Basophils # (Auto) 0.0 x10^3/uL (0.0-0.2) Prothrombin Time 23.7 SEC (11.7-14.0) Prothromb Time International Ratio 2.1 (0.8-1.1) Sodium Level 142 mmol/L (136-145) Potassium Level 3.7 mmol/L (3.5-5.1) Chloride Level 108 mmol/L (98-107) Carbon Dioxide Level 27 mmol/L (21-32) Anion Gap 7 (6-14) Blood Urea Nitrogen 17 mg/dL (8-26) Creatinine 1.1 mg/dL (0.7-1.3) Estimated GFR (Cockcroft-Gault) 63.3 BUN/Creatinine Ratio 15 (6-20) Glucose Level 88 mg/dL (70-99) Calcium Level 8.0 mg/dL (8.5-10.1) Phosphorus Level 2.8 mg/dL (2.6-4.7) Magnesium Level 1.7 mg/dL (1.8-2.4) Total Bilirubin 0.5 mg/dL (0.2-1.0) Aspartate Amino Transf (AST/SGOT) 18 U/L (15-37) Alanine Aminotransferase (ALT/SGPT) 18 U/L (16-63) Alkaline Phosphatase 33 U/L (46-116) Total Protein 5.4 g/dL (6.4-8.2) Albumin 2.1 g/dL (3.4-5.0) Albumin/Globulin Ratio 0.6 (1.0-1.7) Micro Blood cultures negative so far Objective: Assessment: Community-acquired pneumonia. COVID neg Fever improving Leukocytosis - better Respiratory failure. Hypotension. Acute kidney injury/CKD History of atrial fibrillation, on flecainide/warfarin Diabetes. Myasthenia gravis. anemia Thrombocytopenia Dysphagia, now on modified diet Plan: Plan of Care cont Zosyn, 6/4 DC Zyvox, low plt,anemia Start Doxy April 27 Monitor labs and cultures f/u BC, neg so far Maintain aspiration precautions Supportive care discussed with nursing staff JANETH MENDOZA MD Apr 27, 2020 09:07
--- NOTE | 2020-04-27 09:24 | RAD ---
PORTABLE CHEST 1V History: Reason: post vent / Spl. Instructions: / History: Comparison: April 26, 2020 Findings: Right mid and lower lung opacities, unchanged. No pleural effusion. Unchanged heart size. Interval level of enteric tube and right IJ central line. No pneumothorax. Impression: 1. Right lung patchy opacities, unchanged. Electronically signed by: Pietro Rios DO (04/27/2020 9:21 AM) [id number]
[2020-04-27] MEDS: PYRIDOSTIGMINE BROMIDE 60 MG TABLET PO SCH ×2 (10:07→21:35)
[2020-04-27] MEDS: METOPROLOL TART IMMED RELEASE 25 MG TABLET. PO SCH ×2 (10:07→21:34)
[2020-04-27] MEDS: FLECAINIDE ACETATE 50 MG TABLET. PO SCH ×2 (10:08→21:34)
--- NOTE | 2020-04-27 11:25 | NUR ---
Pharmacy Warfarin Dosing Note S: Pharmacy consulted to assist with anticoagulation therapy O: STEPHANIE CLEMENS is a 89 year old M with Atrial Fibrillation LABS: Last INR: 2.1 Last HGB: 8.3 Last HCT: 25.7 Last PLT: 127 Last dose of 3 mg given on 04/26/20 at 2041 Vitamin K given: 5MG SQ 04/24 Ongoing Drug Interactions: Zosyn A:INR of 2.1 is within desired range of 2 - 3. Warfarin resumed yesterday after being held for supra-therapeutic INR values. P: Warfarin dose: 3 mg today at 1600 Bridge Therapy: None Next INR due 04/28/20 Pharmacy anticoagulation service will continue to follow. [facility], 04/27/20 1124
--- NOTE | 2020-04-27 11:25 | PDOC ---
PROGRESS NOTES Chief Complaint Chief Complaint Multifactorial respiratory failure with severe hypotension secondary to community-acquired pneumonia Sepsis present on admission now improved Leukocytosis improving Acute kidney injury with history of chronic kidney disease stage III improved History of atrial fibrillation Elevated troponin secondary to demand ischemia most likely secondary to sepsis currently asymptomatic Diabetes mellitus type 2 insulin requiring History of myasthenia gravis Normocytic anemia of chronic disease Thrombocytopenia Dysphagia secondary to myasthenia now on a modified diet, Plan continue Zosyn Zyvox has been discontinued by our fitness sales consultant Doxy will be started today Follow recommendations from pulmonology and cardiology as well Aspiration precaution Supportive measures Disposition SNF History of Present Illness History of Present Illness 04/24/2020 Patient seen and examined in the ICU Chart reviewed Discussed with RN His INR is high today at 5.1 (he is on Coumadin) I am going to order low-dose vitamin K 5 mg 04/27 2020 No acute events reported overnight, case discussed with nursing staff patient in no acute distress no complaints during my visit Vitals Vitals Vital Signs Date Time Temp Pulse Resp B/P (MAP) Pulse Ox O2 Delivery O2 Flow Rate FiO2 04/27/20 10:08 83 158/68 04/27/20 08:38 98.4 18 92 Room Air 98.4 04/26/20 07:00 2.0 Physical Exam Physical Exam GENERAL: Patient lying in bed comfortably acute distress alert HEENT: Oral cavity dry, no thrush NECK: Supple LUNGS: Improved aeration, nonlabored. HEART: S1, S2 regular. ABDOMEN: Nondistended, bowel sounds present, soft, nontender. : Nieto in place EXTREMITIES: No edema, cyanosis. SKIN: warm to touch. NEUROLOGIC: Generalized weakness, but more alert and verbal, answering questions appropriately. RIJ and art-line is out. PIV looks ok General: mild distress Heart: Other (Irregular rhythm) Lungs: Clear Abdomen: Normal bowel sounds Extremities: Other (1+ bilateral LE edema) Skin: No significant lesion Labs LABS Laboratory Tests Test 04/27/20 05:30 White Blood Count 5.0 x10^3/uL (4.0-11.0) Red Blood Count 3.50 x10^6/uL (4.30-5.70) Hemoglobin 8.3 g/dL (13.0-17.5) Hematocrit 25.7 % (39.0-53.0) Mean Corpuscular Volume 73 fL (79-100) Mean Corpuscular Hemoglobin 24 pg (25-35) Mean Corpuscular Hemoglobin Concent 33 g/dL (31-37) Red Cell Distribution Width 17.4 % (11.5-14.5) Platelet Count 127 x10^3/uL (140-400) Neutrophils (%) (Auto) 71 % (31-73) Lymphocytes (%) (Auto) 15 % (24-48) Monocytes (%) (Auto) 9 % (0-9) Eosinophils (%) (Auto) 4 % (0-3) Basophils (%) (Auto) 1 % (0-3) Neutrophils # (Auto) 3.5 x10^3/uL (1.8-7.7) Lymphocytes # (Auto) 0.7 x10^3/uL (1.0-4.8) Monocytes # (Auto) 0.4 x10^3/uL (0.0-1.1) Eosinophils # (Auto) 0.2 x10^3/uL (0.0-0.7) Basophils # (Auto) 0.0 x10^3/uL (0.0-0.2) Prothrombin Time 23.7 SEC (11.7-14.0) Prothromb Time International Ratio 2.1 (0.8-1.1) Sodium Level 142 mmol/L (136-145) Potassium Level 3.7 mmol/L (3.5-5.1) Chloride Level 108 mmol/L (98-107) Carbon Dioxide Level 27 mmol/L (21-32) Anion Gap 7 (6-14) Blood Urea Nitrogen 17 mg/dL (8-26) Creatinine 1.1 mg/dL (0.7-1.3) Estimated GFR (Cockcroft-Gault) 63.3 BUN/Creatinine Ratio 15 (6-20) Glucose Level 88 mg/dL (70-99) Calcium Level 8.0 mg/dL (8.5-10.1) Phosphorus Level 2.8 mg/dL (2.6-4.7) Magnesium Level 1.7 mg/dL (1.8-2.4) Total Bilirubin 0.5 mg/dL (0.2-1.0) Aspartate Amino Transf (AST/SGOT) 18 U/L (15-37) Alanine Aminotransferase (ALT/SGPT) 18 U/L (16-63) Alkaline Phosphatase 33 U/L (46-116) Total Protein 5.4 g/dL (6.4-8.2) Albumin 2.1 g/dL (3.4-5.0) Albumin/Globulin Ratio 0.6 (1.0-1.7) Assessment and Plan Assessmemt and Plan Problems Medical Problems: (1) Acute respiratory failure with hypoxemia Status: Acute (2) Person under investigation for COVID-19 Status: Acute (3) Pneumonia Status: Acute Comment Review of Relevant I have reviewed the following items richard (where applicable) has been applied. Labs Laboratory Tests Test 04/26/20 05:00 04/27/20 05:30 White Blood Count 6.2 x10^3/uL (4.0-11.0) 5.0 x10^3/uL (4.0-11.0) Red Blood Count 3.42 x10^6/uL (4.30-5.70) 3.50 x10^6/uL (4.30-5.70) Hemoglobin 8.0 g/dL (13.0-17.5) 8.3 g/dL (13.0-17.5) Hematocrit 25.5 % (39.0-53.0) 25.7 % (39.0-53.0) Mean Corpuscular Volume 75 fL (79-100) 73 fL (79-100) Mean Corpuscular Hemoglobin 24 pg (25-35) 24 pg (25-35) Mean Corpuscular Hemoglobin Concent 32 g/dL (31-37) 33 g/dL (31-37) Red Cell Distribution Width 17.3 % (11.5-14.5) 17.4 % (11.5-14.5) Platelet Count 115 x10^3/uL (140-400) 127 x10^3/uL (140-400) Neutrophils (%) (Auto) 74 % (31-73) 71 % (31-73) Lymphocytes (%) (Auto) 15 % (24-48) 15 % (24-48) Monocytes (%) (Auto) 8 % (0-9) 9 % (0-9) Eosinophils (%) (Auto) 2 % (0-3) 4 % (0-3) Basophils (%) (Auto) 0 % (0-3) 1 % (0-3) Neutrophils # (Auto) 4.6 x10^3/uL (1.8-7.7) 3.5 x10^3/uL (1.8-7.7) Lymphocytes # (Auto) 0.9 x10^3/uL (1.0-4.8) 0.7 x10^3/uL (1.0-4.8) Monocytes # (Auto) 0.5 x10^3/uL (0.0-1.1) 0.4 x10^3/uL (0.0-1.1) Eosinophils # (Auto) 0.2 x10^3/uL (0.0-0.7) 0.2 x10^3/uL (0.0-0.7) Basophils # (Auto) 0.0 x10^3/uL (0.0-0.2) 0.0 x10^3/uL (0.0-0.2) Prothrombin Time 22.7 SEC (11.7-14.0) 23.7 SEC (11.7-14.0) Prothromb Time International Ratio 2.0 (0.8-1.1) 2.1 (0.8-1.1) Sodium Level 138 mmol/L (136-145) 142 mmol/L (136-145) Potassium Level 3.7 mmol/L (3.5-5.1) 3.7 mmol/L (3.5-5.1) Chloride Level 105 mmol/L (98-107) 108 mmol/L (98-107) Carbon Dioxide Level 26 mmol/L (21-32) 27 mmol/L (21-32) Anion Gap 7 (6-14) 7 (6-14) Blood Urea Nitrogen 18 mg/dL (8-26) 17 mg/dL (8-26) Creatinine 1.2 mg/dL (0.7-1.3) 1.1 mg/dL (0.7-1.3) Estimated GFR (Cockcroft-Gault) 57.3 63.3 Glucose Level 95 mg/dL (70-99) 88 mg/dL (70-99) Calcium Level 7.8 mg/dL (8.5-10.1) 8.0 mg/dL (8.5-10.1) Phosphorus Level 2.3 mg/dL (2.6-4.7) 2.8 mg/dL (2.6-4.7) Magnesium Level 1.8 mg/dL (1.8-2.4) 1.7 mg/dL (1.8-2.4) Albumin 2.0 g/dL (3.4-5.0) 2.1 g/dL (3.4-5.0) BUN/Creatinine Ratio 15 (6-20) Total Bilirubin 0.5 mg/dL (0.2-1.0) Aspartate Amino Transf (AST/SGOT) 18 U/L (15-37) Alanine Aminotransferase (ALT/SGPT) 18 U/L (16-63) Alkaline Phosphatase 33 U/L (46-116) Total Protein 5.4 g/dL (6.4-8.2) Albumin/Globulin Ratio 0.6 (1.0-1.7) Laboratory Tests Test 04/27/20 05:30 White Blood Count 5.0 x10^3/uL (4.0-11.0) Red Blood Count 3.50 x10^6/uL (4.30-5.70) Hemoglobin 8.3 g/dL (13.0-17.5) Hematocrit 25.7 % (39.0-53.0) Mean Corpuscular Volume 73 fL (79-100) Mean Corpuscular Hemoglobin 24 pg (25-35) Mean Corpuscular Hemoglobin Concent 33 g/dL (31-37) Red Cell Distribution Width 17.4 % (11.5-14.5) Platelet Count 127 x10^3/uL (140-400) Neutrophils (%) (Auto) 71 % (31-73) Lymphocytes (%) (Auto) 15 % (24-48) Monocytes (%) (Auto) 9 % (0-9) Eosinophils (%) (Auto) 4 % (0-3) Basophils (%) (Auto) 1 % (0-3) Neutrophils # (Auto) 3.5 x10^3/uL (1.8-7.7) Lymphocytes # (Auto) 0.7 x10^3/uL (1.0-4.8) Monocytes # (Auto) 0.4 x10^3/uL (0.0-1.1) Eosinophils # (Auto) 0.2 x10^3/uL (0.0-0.7) Basophils # (Auto) 0.0 x10^3/uL (0.0-0.2) Prothrombin Time 23.7 SEC (11.7-14.0) Prothromb Time International Ratio 2.1 (0.8-1.1) Sodium Level 142 mmol/L (136-145) Potassium Level 3.7 mmol/L (3.5-5.1) Chloride Level 108 mmol/L (98-107) Carbon Dioxide Level 27 mmol/L (21-32) Anion Gap 7 (6-14) Blood Urea Nitrogen 17 mg/dL (8-26) Creatinine 1.1 mg/dL (0.7-1.3) Estimated GFR (Cockcroft-Gault) 63.3 BUN/Creatinine Ratio 15 (-20) Glucose Level 88 mg/dL (70-99) Calcium Level 8.0 mg/dL (8.5-10.1) Phosphorus Level 2.8 mg/dL (2.6-4.7) Magnesium Level 1.7 mg/dL (1.8-2.4) Total Bilirubin 0.5 mg/dL (0.2-1.0) Aspartate Amino Transf (AST/SGOT) 18 U/L (15-37) Alanine Aminotransferase (ALT/SGPT) 18 U/L (16-63) Alkaline Phosphatase 33 U/L (46-116) Total Protein 5.4 g/dL (6.4-8.2) Albumin 2.1 g/dL (3.4-5.0) Albumin/Globulin Ratio 0.6 (1.0-1.7) Microbiology 04/23/20 Blood Culture - Preliminary, Resulted NO GROWTH AFTER 4 DAYS Medications Current Medications Furosemide (Lasix) 60 mg 1X ONCE IVP Last administered on 04/23/20at 04:42; Start 04/23/20 at 05:00; Stop 04/23/20 at 05:01; Status DC Etomidate (Amidate) 20 mg 1X ONCE IV Last administered on 04/23/20at 04:39; Start 04/23/20 at 05:00; Stop 04/23/20 at 05:01; Status DC Vecuronium Shannock (Norcuron Bolus) 10 mg 1X ONCE IV Last administered on 04/23/20at 04:39; Start 04/23/20 at 05:00; Stop 04/23/20 at 05:01; Status DC Etomidate (Amidate) 20 mg STK-MED ONCE IV ; Start 04/23/20 at 04:26; Stop 04/23/20 at 04:26; Status DC Vecuronium Shannock (Norcuron Bolus) 10 mg STK-MED ONCE IV ; Start 04/23/20 at 04:26; Stop 04/23/20 at 04:26; Status DC Propofol 50 ml @ As Directed STK-MED ONCE IV ; Start 04/23/20 at 04:36; Stop 04/23/20 at 04:37; Status DC Vancomycin HCl 250 ml @ As Directed STK-MED ONCE .ROUTE ; Start 04/23/20 at 04:3 7; Stop 04/23/20 at 04:37; Status DC Vancomycin HCl 250 ml @ 250 mls/hr 1X ONCE IV Last administered on 04/23/20at 04:44; Start 04/23/20 at 04:45; Stop 04/23/20 at 05:44; Status DC Piperacillin Sod/ Tazobactam Sod 3.375 gm/Sodium Chloride 50 ml @ 100 mls/hr 1X ONCE IV Last administered on 04/23/20at 05:08; Start 04/23/20 at 05:00; Stop 04/23/20 at 05:29; Status DC Propofol 100 ml @ 0 mls/hr CONT PRN IV SEE PROTOCOL Last administered on 04/23/20at 04:46; Start 04/23/20 at 04:45; Stop 04/23/20 at 04:49; Status DC Midazolam HCl (Versed) 2 mg PRN Q30MIN PRN IV SEE COMMENTS.; Start 04/23/20 at 04:45; Stop 04/25/20 at 04:37; Status DC Propofol 100 ml @ 0 mls/hr CONT PRN IV SEE PROTOCOL; Start 04/23/20 at 04:49; Stop 04/25/20 at 04:37; Status DC Acetaminophen (Tylenol Supp) [address] Last administered on 04/23/20at 05:00; Start 04/23/20 at 05:30; Stop 04/23/20 at 05:31; Status DC Propofol 50 ml @ 1.125 mls/ hr 1X ONCE IV ; Start 04/23/20 at 05:15; Stop 04/23/20 at 05:16; Status DC Ondansetron HCl (Zofran) 4 mg PRN Q8HRS PRN IV NAUSEA/VOMITING 1ST CHOICE; Start 04/23/20 at 05:15; Stop 04/24/20 at 05:14; Status DC Sodium Chloride 1,000 ml @ 75 mls/hr [id number] IV Last administered on 04/23/20at 20:38; Start 04/23/20 at 05:30; Stop 04/24/20 at 05:29; Status DC Metoprolol Tartrate (Lopressor Vial) 5 mg 1X ONCE IVP ; Start 04/23/20 at 06:00; Stop 04/23/20 at 06:01; Status DC Midazolam HCl (Versed) 5 mg 1X ONCE NS Last administered on 04/23/20at 05:26; Start 04/23/20 at 06:00; Stop 04/23/20 at 06:01; Status DC Norepinephrine Bitartrate 8 mg/ Dextrose 258 ml @ 14.513 mls/ hr 1X ONCE IV Last administered on 04/23/20at 05:52; Start 04/23/20 at 06:00; Stop 04/23/20 at 23:46; Status DC Midazolam HCl (Versed) 5 mg 1X ONCE IV Last administered on 04/23/20at 06:09; Start 04/23/20 at 06:15; Stop 04/23/20 at 06:16; Status DC Midazolam HCl 50 mg/Sodium Chloride 50 ml @ 1 mls/hr CONT PRN IV SEE I/O RECORD; Start 04/23/20 at 07:45; Status Cancel Midazolam HCl 100 ml @ 0 mls/hr CONT PRN IV SEE PROTOCOL Last administered on 04/24/20at 01:35; Start 04/23/20 at 07:45; Stop 04/25/20 at 04:37; Status DC Vasopressin 20 unit/Dextrose 101 ml @ 12 mls/hr CONT PRN IV SEE I/O RECORD Last administered on 04/23/20at 14:32; Start 04/23/20 at 08:00; Stop 04/25/20 at 09:39; Status DC Norepinephrine Bitartrate 8 mg/ Dextrose 258 ml @ 14.513 mls/ hr CONT PRN IV PER PROTOCOL Last administered on 04/23/20at 14:32; Start 04/23/20 at 08:15; Stop 04/25/20 at 09:09; Status DC Piperacillin Sod/ Tazobactam Sod (Zosyn Per Pharmacy) 1 each PRN DAILY PRN MC SEE COMMENTS; Start 04/23/20 at 10:00; Status UNV Vancomycin HCl (Vanco Per Pharmacy) 1 each PRN DAILY PRN MC SEE COMMENTS; Start 04/23/20 at 10:00; Status UNV Famotidine (Pepcid Vial) 20 mg QHS IVP Last administered on 04/26/20at 21:00; Start 04/23/20 at 21:00 Enoxaparin Sodium (Lovenox Per Pharmacy Prophylaxis Dosing) 1 each PRN DAILY PRN MC SEE COMMENTS; Start 04/23/20 at 10:00; Stop 04/23/20 at 18:23; Status DC Vancomycin HCl (Vanco Per Pharmacy) 1 each PRN DAILY PRN MC SEE COMMENTS; Start 04/23/20 at 10:00; Stop 04/23/20 at 11:51; Status DC Piperacillin Sod/ Tazobactam Sod (Zosyn Per Pharmacy) 1 each PRN DAILY PRN MC SEE COMMENTS; Start 04/23/20 at 10:00 Sodium Chloride 1,000 ml @ 1,000 mls/hr 1X ONCE IV Last administered on 04/23/20at 10:11; Start 04/23/20 at 10:00; Stop 04/23/20 at 10:59; Status DC Piperacillin Sod/ Tazobactam Sod 3.375 gm/Sodium Chloride 50 ml @ 100 mls/hr Q6HRS IV Last administered on 04/27/20at 00:00; Start 04/23/20 at 11:00 Enoxaparin Sodium (Lovenox 40mg Syringe) 40 mg BID SQ Last administered on 04/23/20at 10:46; Start 04/23/20 at 10:30; Stop 04/23/20 at 18:23; Status DC Vancomycin HCl 500 mg/Sodium Chloride 100 ml @ 100 mls/hr 1X ONCE IV Last administered on 04/23/20at 10:46; Start 04/23/20 at 10:30; Stop 04/23/20 at 11:29; Status DC Linezolid/Dextrose 300 ml @ 300 mls/hr Q12HR IV Last administered on 04/26/20at 21:38; Start 04/23/20 at 21:00; Stop 04/27/20 at 09:05; Status DC Flecainide Acetate (Tambocor) 25 mg BID PO Last administered on 04/27/20at 10:08; Start 04/23/20 at 21:00 Simvastatin (Zocor) 20 mg HS PO Last administered on 04/26/20at 21:00; Start 04/23/20 at 21:00 Warfarin Sodium (Coumadin Per Pharmacy) 1 each PRN DAILY PRN MC SEE COMMENTS Last administered on 04/26/20at 07:57; Start 04/23/20 at 17:00 Warfarin Sodium (Coumadin) 5 mg 1X ONCE PO Last administered on 04/23/20at 20:41; Start 04/23/20 at 21:00; Stop 04/23/20 at 21:01; Status DC Info (Icu Electrolyte Protocol) 1 ea CONT PRN PRN MC PER PROTOCOL; Start 04/24/20 at 08:45 Potassium Chloride/Water 100 ml @ 100 mls/hr Q1H IV Last administered on 04/24/20at 10:18; Start 04/24/20 at 08:45; Stop 04/24/20 at 10:44; Status DC Pyridostigmine Shannock (Mestinon) 60 mg BID PO ; Start 04/24/20 at 21:00; Stop 04/24/20 at 17:13; Status DC Warfarin Sodium (Coumadin Per Pharmacy) 1 each PRN DAILY PRN MC SEE COMMENTS; Start 04/24/20 at 11:30; Stop 04/24/20 at 11:31; Status DC Phytonadione (Vitamin K Ampule) 5 mg 1X ONCE SQ Last administered on 04/24/20at 12:02; Start 04/24/20 at 11:45; Stop 04/24/20 at 11:46; Status DC Warfarin Sodium (Coumadin - No Dose Today) 1 each 1X WARF ONCE MC Last administered on 04/24/20at 16:00; Start 04/24/20 at 16:00; Stop 04/24/20 at 16:01; Status DC Sodium Chloride 1,000 ml @ 100 mls/hr Q10H IV Last administered on 04/24/20at 21:50; Start 04/24/20 at 12:15; Stop 04/25/20 at 18:50; Status DC Metoprolol Tartrate (Lopressor) 12.5 mg BID PO ; Start 04/24/20 at 21:00; Stop 04/24/20 at 17:13; Status DC Metoprolol Tartrate (Lopressor) 12.5 mg BID PO Last administered on 04/27/20at 10:07; Start 04/24/20 at 17:15 Pyridostigmine Shannock (Mestinon) 60 mg BID PO Last administered on 04/27/20at 10:07; Start 04/24/20 at 17:15 Digoxin (Lanoxin) 250 mcg 1X ONCE IV Last administered on 04/24/20at 22:41; Start 04/24/20 at 22:30; Stop 04/24/20 at 22:31; Status DC Digoxin (Lanoxin) 250 mcg 1X ONCE IV Last administered on 04/25/20at 01:20; Start 04/25/20 at 01:30; Stop 04/25/20 at 01:31; Status DC Warfarin Sodium (Coumadin - No Dose Today) 1 each 1X WARF ONCE MC ; Start 04/25/20 at 16:00; Stop 04/25/20 at 16:01; Status DC Magnesium Sulfate 50 ml @ 25 mls/hr 1X ONCE IV Last administered on 04/25/20at 09:51; Start 04/25/20 at 09:15; Stop 04/25/20 at 11:14; Status DC Potassium Phosphate 10 mmol/ Sodium Chloride 103.3333 ml @ 51.667 m... Q2H IV Last administered on 04/25/20at 11:59; Start 04/25/20 at 09:30; Stop 04/25/20 at 13:29; Status DC Amino Acids/ Glycerin/ Electrolytes 1,000 ml @ 80 mls/hr [id number] IV Last administered on 04/25/20at 22:43; Start 04/25/20 at 09:45 Acetylcysteine (Mucomyst 20% Resp Treatment) 600 mg BID NEB Last administered on 04/27/20at 06:59; Start 04/25/20 at 10:00 Potassium Phosphate 13.6 mmol/Sodium Chloride 254.5333 ml @ 127.... Q2H IV ; Start 04/25/20 at 11:30; Stop 04/25/20 at 15:29; Status UNV Magnesium Sulfate 50 ml @ 25 mls/hr 1X ONCE IV ; Start 04/25/20 at 11:30; Stop 04/25/20 at 13:29; Status UNV Warfarin Sodium (Coumadin) 3 mg 1X WARF ONCE PO Last administered on 04/26/20at 16:36; Start 04/26/20 at 16:00; Stop 04/26/20 at 16:01; Status DC Potassium Phosphate 10 mmol/ Sodium Chloride 103.3333 ml @ 51.667 m... Q2H IV Last administered on 04/26/20at 16:36; Start 04/26/20 at 13:00; Stop 04/26/20 at 16:59; Status DC Doxycycline Hyclate (Vibra-Tab) 100 mg BID PO ; Start 04/27/20 at 21:00 Active Scripts Active Reported Carvedilol (Carvedilol) 6.25 Mg Tablet 6.25 Mg PO BIDWMEALS Fish Oil 1,200 Mg Fish Oil (Fish Oil/Dha/Epa) 1 Each Capsule 1 Each PO DAILY Hydrochlorothiazide Tablet (Hydrochlorothiazide) 12.5 Mg Tablet 12.5 Mg PO DAILY Pyridostigmine Shannock 60 Mg Tablet 60 Mg PO BID Flecainide Acetate 50 Mg Tablet 25 Mg PO BID Lantus Solostar (Insulin Glargine,Hum.rec.anlog) 100 Unit/1 Ml Insuln.pen 20 Unit SQ QHS Simvastatin 20 Mg Tablet 20 Mg PO HS Lisinopril 20 Mg Tablet 1 Tab PO BID Warfarin Sodium 5 Mg Tablet 2 Tab PO DAILY Nexium Capsule (Esomeprazole Magnesium) 40 Mg Capsule. 1 Cap PO DAILY Vitamin D (Cholecalciferol (Vitamin D3)) 2,000 Unit Tablet 1,000 Unit PO DAILY Vitals/I & O Vital Sign - Last 24 Hours 04/26/20 04/26/20 04/26/20 04/26/20 12:00 16:00 17:47 19:00 Temp 98.6 98.1 98.0 98.8 98.6 98.1 98.0 98.8 Pulse 75 90 83 81 Resp 20 20 19 20 B/P (MAP) 161/69 (99) 163/66 (98) 180/73 (108) 163/79 (107) Pulse Ox 100 100 94 90 O2 Delivery Room Air Room Air Room Air 04/26/20 04/26/20 04/26/20 04/26/20 19:55 20:00 21:37 21:37 Pulse 81 81 B/P (MAP) 163/79 163/79 Pulse Ox 92 O2 Delivery Room Air Room Air 04/26/20 04/27/20 04/27/20 04/27/20 23:00 03:00 07:00 08:38 Temp 98.3 98.0 98.4 98.3 98.0 98.4 Pulse 85 79 83 Resp 22 16 18 B/P (MAP) 165/69 (101) 142/70 (94) 158/68 (98) Pulse Ox 91 90 94 92 O2 Delivery Room Air Room Air 04/27/20 04/27/20 10:07 10:08 Pulse 83 83 B/P (MAP) 158/68 158/68 Intake and Output 04/26/20 04/26/20 04/27/20 15:00 23:00 07:00 Output Total 250 ml Balance -250 ml Nutrition Consultation Dietary Evaluation: Recommendations by RD: Dietary education by RD, Increase Calorie Intake Comments: REC intiation of TFs within 24 - 48 hrs of intubation REC TFs per following: VitalAF@goal rate 50 ml/hr w/125 ml water flushes q4 hrs or flushes per MD Expected Outcomes/Goals: Intiation of TFs within 24 - 48 hrs of intubation Malnutrition Findings: Body Fat Depletion (Non Severe: Mild Depletion Weight Status: Appropriate DENYS BLANKENSHIP MD Apr 27, 2020 11:25
--- NOTE | 2020-04-27 11:26 | NUR ---
AYAZ following for discharge planning. Reviewed pt's record. Met with pt. Pt a/o and able to make needs known. pt stated he lives with his and would like to return home when stronger. pt agreeable to referral for SNU. AYAZ completed Patient Choice of Vendor form. AYAZ phoned and faxed referral to [facility], , (fax) per approval from patient. Pt on room air. pt remains on IV antibiotics. AYAZ to continue following. Addendum: 04/27/20 at 1231 by JAN JACOME Spoke with Patricia from [facility]. Pt accepted at [facility] SNU when ready for discharge. AYAZ notified Dr. Barron. Addendum: 04/27/20 at 1633 by JAN JACOME Discharge orders faxed to [facility]. SW LVM to coordinate transfer. SW to continue following.
--- NOTE | 2020-04-27 11:29 | PDOC ---
Renal-Progress Notes Subjective Notes Notes NO NEW COMPLAINTS History of Present Illness Hx of present illness IMPROVED Vitals Vitals Vital Signs Date Time Temp Pulse Resp B/P (MAP) Pulse Ox O2 Delivery O2 Flow Rate FiO2 04/27/20 10:08 83 158/68 04/27/20 08:38 98.4 18 92 Room Air 98.4 04/26/20 07:00 2.0 Weight Weight [ ] I.O. Intake and Output Intake and Output 04/27/20 07:00 Output Total 250 ml Balance -250 ml Output Urine Total 250 ml # Bowel Movements 1 Labs Labs Laboratory Tests Test 04/27/20 05:30 White Blood Count 5.0 x10^3/uL (4.0-11.0) Red Blood Count 3.50 x10^6/uL (4.30-5.70) Hemoglobin 8.3 g/dL (13.0-17.5) Hematocrit 25.7 % (39.0-53.0) Mean Corpuscular Volume 73 fL (79-100) Mean Corpuscular Hemoglobin 24 pg (25-35) Mean Corpuscular Hemoglobin Concent 33 g/dL (31-37) Red Cell Distribution Width 17.4 % (11.5-14.5) Platelet Count 127 x10^3/uL (140-400) Neutrophils (%) (Auto) 71 % (31-73) Lymphocytes (%) (Auto) 15 % (24-48) Monocytes (%) (Auto) 9 % (0-9) Eosinophils (%) (Auto) 4 % (0-3) Basophils (%) (Auto) 1 % (0-3) Neutrophils # (Auto) 3.5 x10^3/uL (1.8-7.7) Lymphocytes # (Auto) 0.7 x10^3/uL (1.0-4.8) Monocytes # (Auto) 0.4 x10^3/uL (0.0-1.1) Eosinophils # (Auto) 0.2 x10^3/uL (0.0-0.7) Basophils # (Auto) 0.0 x10^3/uL (0.0-0.2) Prothrombin Time 23.7 SEC (11.7-14.0) Prothromb Time International Ratio 2.1 (0.8-1.1) Sodium Level 142 mmol/L (136-145) Potassium Level 3.7 mmol/L (3.5-5.1) Chloride Level 108 mmol/L (98-107) Carbon Dioxide Level 27 mmol/L (21-32) Anion Gap 7 (6-14) Blood Urea Nitrogen 17 mg/dL (8-26) Creatinine 1.1 mg/dL (0.7-1.3) Estimated GFR (Cockcroft-Gault) 63.3 BUN/Creatinine Ratio 15 (6-20) Glucose Level 88 mg/dL (70-99) Calcium Level 8.0 mg/dL (8.5-10.1) Phosphorus Level 2.8 mg/dL (2.6-4.7) Magnesium Level 1.7 mg/dL (1.8-2.4) Total Bilirubin 0.5 mg/dL (0.2-1.0) Aspartate Amino Transf (AST/SGOT) 18 U/L (15-37) Alanine Aminotransferase (ALT/SGPT) 18 U/L (16-63) Alkaline Phosphatase 33 U/L (46-116) Total Protein 5.4 g/dL (6.4-8.2) Albumin 2.1 g/dL (3.4-5.0) Albumin/Globulin Ratio 0.6 (1.0-1.7) Micro Micro Microbiology 04/23/20 Blood Culture - Preliminary, Resulted NO GROWTH AFTER 4 DAYS Review of Systems Constitutional: yes: other (CONFUSED) Physical Exam General Appearance: no apparent distress Skin: warm Respiratory: bilateral CTA Heart: S1S2 Abdomen: soft, bowel sounds present Genitourinary: bladder flat Neurology: alert, confused, other (restless) Musculoskeletal: Other Assessment Assessment IMP WALE-NEARLY RESOLVED-CR OF 1.1 HYPOMAGNESEMIA SEPSIS ACUTE RESP FAILURE HYPOTENSION-RESOVED PNEUMONIA HX OF MYASTHENIA G PLAN PPN TO CONTINUE PRESSORS NEEDED REPLACE MAG ANTIBIOTCS HOLLY FORTE MD Apr 27, 2020 11:29
[2020-04-27] MEDS: AMINO AC 3%/ELECTROLYTE/GLYCER 1,000 ML IV SCH (11:45)
[2020-04-27] MEDS ORDERED: MAGNESIUM SULFATE 1GM 100 ML IV ONE (12:00)
[2020-04-27 12:05] VITALS: BP 172/86
[2020-04-27] MEDS ORDERED: amLODIPine BESYLATE 5 MG TABLET PO ONE ×2 (12:15→15:45)
--- NOTE | 2020-04-27 12:27 | PDOC ---
PULMONARY PROGRESS NOTES Subjective Extubated 04/24/2020,, stronger cough today also managing secretions better no overnight concerns from nursing Vitals Vital Signs Date Time Temp Pulse Resp B/P (MAP) Pulse Ox O2 Delivery O2 Flow Rate FiO2 04/27/20 12:05 98.6 80 18 172/86 (114) 91 Room Air 98.6 04/26/20 07:00 2.0 ROS: No Nausea, No Chest Pain, No Abdominal Pain, No Increase Cough General: Alert, Oriented X4 Lungs: Clear Cardiovascular: S1, S2 Abdomen: Soft Neuro Exam: Alert Extremities: No Edema Skin: Warm, Dry Labs Laboratory Tests Test 04/26/20 05:00 04/27/20 05:30 White Blood Count 6.2 x10^3/uL (4.0-11.0) 5.0 x10^3/uL (4.0-11.0) Red Blood Count 3.42 x10^6/uL (4.30-5.70) 3.50 x10^6/uL (4.30-5.70) Hemoglobin 8.0 g/dL (13.0-17.5) 8.3 g/dL (13.0-17.5) Hematocrit 25.5 % (39.0-53.0) 25.7 % (39.0-53.0) Mean Corpuscular Volume 75 fL (79-100) 73 fL (79-100) Mean Corpuscular Hemoglobin 24 pg (25-35) 24 pg (25-35) Mean Corpuscular Hemoglobin Concent 32 g/dL (31-37) 33 g/dL (31-37) Red Cell Distribution Width 17.3 % (11.5-14.5) 17.4 % (11.5-14.5) Platelet Count 115 x10^3/uL (140-400) 127 x10^3/uL (140-400) Neutrophils (%) (Auto) 74 % (31-73) 71 % (31-73) Lymphocytes (%) (Auto) 15 % (24-48) 15 % (24-48) Monocytes (%) (Auto) 8 % (0-9) 9 % (0-9) Eosinophils (%) (Auto) 2 % (0-3) 4 % (0-3) Basophils (%) (Auto) 0 % (0-3) 1 % (0-3) Neutrophils # (Auto) 4.6 x10^3/uL (1.8-7.7) 3.5 x10^3/uL (1.8-7.7) Lymphocytes # (Auto) 0.9 x10^3/uL (1.0-4.8) 0.7 x10^3/uL (1.0-4.8) Monocytes # (Auto) 0.5 x10^3/uL (0.0-1.1) 0.4 x10^3/uL (0.0-1.1) Eosinophils # (Auto) 0.2 x10^3/uL (0.0-0.7) 0.2 x10^3/uL (0.0-0.7) Basophils # (Auto) 0.0 x10^3/uL (0.0-0.2) 0.0 x10^3/uL (0.0-0.2) Prothrombin Time 22.7 SEC (11.7-14.0) 23.7 SEC (11.7-14.0) Prothromb Time International Ratio 2.0 (0.8-1.1) 2.1 (0.8-1.1) Sodium Level 138 mmol/L (136-145) 142 mmol/L (136-145) Potassium Level 3.7 mmol/L (3.5-5.1) 3.7 mmol/L (3.5-5.1) Chloride Level 105 mmol/L (98-107) 108 mmol/L (98-107) Carbon Dioxide Level 26 mmol/L (21-32) 27 mmol/L (21-32) Anion Gap 7 (6-14) 7 (6-14) Blood Urea Nitrogen 18 mg/dL (8-26) 17 mg/dL (8-26) Creatinine 1.2 mg/dL (0.7-1.3) 1.1 mg/dL (0.7-1.3) Estimated GFR (Cockcroft-Gault) 57.3 63.3 Glucose Level 95 mg/dL (70-99) 88 mg/dL (70-99) Calcium Level 7.8 mg/dL (8.5-10.1) 8.0 mg/dL (8.5-10.1) Phosphorus Level 2.3 mg/dL (2.6-4.7) 2.8 mg/dL (2.6-4.7) Magnesium Level 1.8 mg/dL (1.8-2.4) 1.7 mg/dL (1.8-2.4) Albumin 2.0 g/dL (3.4-5.0) 2.1 g/dL (3.4-5.0) BUN/Creatinine Ratio 15 (6-20) Total Bilirubin 0.5 mg/dL (0.2-1.0) Aspartate Amino Transf (AST/SGOT) 18 U/L (15-37) Alanine Aminotransferase (ALT/SGPT) 18 U/L (16-63) Alkaline Phosphatase 33 U/L (46-116) Total Protein 5.4 g/dL (6.4-8.2) Albumin/Globulin Ratio 0.6 (1.0-1.7) Laboratory Tests Test 04/27/20 05:30 White Blood Count 5.0 x10^3/uL (4.0-11.0) Red Blood Count 3.50 x10^6/uL (4.30-5.70) Hemoglobin 8.3 g/dL (13.0-17.5) Hematocrit 25.7 % (39.0-53.0) Mean Corpuscular Volume 73 fL (79-100) Mean Corpuscular Hemoglobin 24 pg (25-35) Mean Corpuscular Hemoglobin Concent 33 g/dL (31-37) Red Cell Distribution Width 17.4 % (11.5-14.5) Platelet Count 127 x10^3/uL (140-400) Neutrophils (%) (Auto) 71 % (31-73) Lymphocytes (%) (Auto) 15 % (24-48) Monocytes (%) (Auto) 9 % (0-9) Eosinophils (%) (Auto) 4 % (0-3) Basophils (%) (Auto) 1 % (0-3) Neutrophils # (Auto) 3.5 x10^3/uL (1.8-7.7) Lymphocytes # (Auto) 0.7 x10^3/uL (1.0-4.8) Monocytes # (Auto) 0.4 x10^3/uL (0.0-1.1) Eosinophils # (Auto) 0.2 x10^3/uL (0.0-0.7) Basophils # (Auto) 0.0 x10^3/uL (0.0-0.2) Prothrombin Time 23.7 SEC (11.7-14.0) Prothromb Time International Ratio 2.1 (0.8-1.1) Sodium Level 142 mmol/L (136-145) Potassium Level 3.7 mmol/L (3.5-5.1) Chloride Level 108 mmol/L (98-107) Carbon Dioxide Level 27 mmol/L (21-32) Anion Gap 7 (6-14) Blood Urea Nitrogen 17 mg/dL (8-26) Creatinine 1.1 mg/dL (0.7-1.3) Estimated GFR (Cockcroft-Gault) 63.3 BUN/Creatinine Ratio 15 (6-20) Glucose Level 88 mg/dL (70-99) Calcium Level 8.0 mg/dL (8.5-10.1) Phosphorus Level 2.8 mg/dL (2.6-4.7) Magnesium Level 1.7 mg/dL (1.8-2.4) Total Bilirubin 0.5 mg/dL (0.2-1.0) Aspartate Amino Transf (AST/SGOT) 18 U/L (15-37) Alanine Aminotransferase (ALT/SGPT) 18 U/L (16-63) Alkaline Phosphatase 33 U/L (46-116) Total Protein 5.4 g/dL (6.4-8.2) Albumin 2.1 g/dL (3.4-5.0) Albumin/Globulin Ratio 0.6 (1.0-1.7) Medications Active Scripts Medications Dose Route/Sig Max Daily Dose Days Date Category Carvedilol (Carvedilol) 6.25 Mg Tablet 6.25 Mg PO BIDWMEALS 04/23/20 Reported Fish Oil 1,200 Mg Fish Oil (Fish Oil/Dha/Epa) 1 Each Capsule 1 Each PO DAILY 07/17/16 Reported Hydrochlorothiazide Tablet (Hydrochlorothiazide) 12.5 Mg Tablet 12.5 Mg PO DAILY 07/17/16 Reported Pyridostigmine [place] 60 Mg Tablet 60 Mg PO BID 07/17/16 Reported Flecainide Acetate 50 Mg Tablet 25 Mg PO BID 07/17/16 Reported Lantus Solostar (Insulin Glargine,Hum.rec.anlog) 100 Unit/1 Ml Insuln.pen 20 Unit SQ QHS 07/17/16 Reported Simvastatin 20 Mg Tablet 20 Mg PO HS 07/17/16 Reported Lisinopril 20 Mg Tablet 1 Tab PO BID 07/17/16 Reported Warfarin Sodium 5 Mg Tablet 2 Tab PO DAILY 07/17/16 Reported Nexium Capsule (Esomeprazole Magnesium) 40 Mg Capsule.dr 1 Cap PO DAILY 07/17/16 Reported Vitamin D (Cholecalciferol (Vitamin D3)) 2,000 Unit Tablet 1,000 Unit PO DAILY 07/17/16 Reported Comments CXR 04/26/2020 IMPRESSION: * Redemonstration of patchy opacity within the right greater than left lung could be secondary to multifocal infiltrate with other possible causes including asymmetric edema. Impression . IMPRESSION: 1. Acute hypoxic and hypercapnic respiratory failure secondary to multifactorial etiologies including combination of septic shock and right-sided pneumonia/ doubt Myesthenic crisis. extubated. doing better 2. Likely underlying chronic obstructive pulmonary disease with exacerbation. 3. Acute kidney injury. 4. Mildly increased troponin level. 5. Abnormal chest x-ray with right-sided infiltrates, likely secondary to pneumonia. 6. Myesthenia gravis Plan . RECOMMENDATIONS: Supplemental oxygen o keep sats above 92 %, nebs, and mucomyst Broad-spectrum antibiotics per ID , can de escalate Follow chest x-rays-- prn Follow all cultures,NGTD COVID-19 test (-) Cot. MG medications PT/OT-- speech for swallow evaluation restarted coumadin DVT/GI PPX; coumadin/pepcid D/W ROSALBA BEAL MD Apr 27, 2020 12:27
[2020-04-27] MEDS ORDERED: AMLO5TAB10 PO (13:08)
--- NOTE | 2020-04-27 13:14 | PDOC3 ---
Discharge Summary Visit Information Date of Admission: Apr 23, 2020 Date of Discharge: Apr 27, 2020 Admitting Diagnosis Comment: Multifactorial respiratory failure with severe hypotension, pneumonia, sepsis, chronic obstructive pulmonary disease, acute kidney injury, elevated troponin and abnormal chest x-ray. Final Diagnosis Problems Medical Problems: (1) Acute respiratory failure with hypoxemia Status: Acute (2) Person under investigation for COVID-19 Status: Acute (3) Pneumonia Status: Acute Multifactorial respiratory failure with severe hypotension secondary to community-acquired pneumonia Sepsis present on admission now improved Leukocytosis improving Acute kidney injury with history of chronic kidney disease stage III improved History of atrial fibrillation Elevated troponin secondary to demand ischemia most likely secondary to sepsis currently asymptomatic Diabetes mellitus type 2 insulin requiring History of myasthenia gravis Normocytic anemia of chronic disease Thrombocytopenia Dysphagia secondary to myasthenia now on a modified diet, Brief Hospital Course Allergies Allergies Coded Allergies Type Severity Reaction Last Updated Verified I S O L A T I O N *CONTACT* Allergy Unknown 04/03/18 Yes No Known Medication Allergies Allergy Unknown 04/03/18 Yes Vital Signs Vital Signs Date Time Temp Pulse Resp B/P (MAP) Pulse Ox O2 Delivery O2 Flow Rate FiO2 04/27/20 12:53 80 172/86 04/27/20 12:05 98.6 18 91 Room Air 98.6 04/26/20 07:00 2.0 Lab Results Laboratory Tests Test 04/26/20 05:00 04/27/20 05:30 White Blood Count 6.2 x10^3/uL (4.0-11.0) 5.0 x10^3/uL (4.0-11.0) Red Blood Count 3.42 x10^6/uL (4.30-5.70) 3.50 x10^6/uL (4.30-5.70) Hemoglobin 8.0 g/dL (13.0-17.5) 8.3 g/dL (13.0-17.5) Hematocrit 25.5 % (39.0-53.0) 25.7 % (39.0-53.0) Mean Corpuscular Volume 75 fL (79-100) 73 fL (79-100) Mean Corpuscular Hemoglobin 24 pg (25-35) 24 pg (25-35) Mean Corpuscular Hemoglobin Concent 32 g/dL (31-37) 33 g/dL (31-37) Red Cell Distribution Width 17.3 % (11.5-14.5) 17.4 % (11.5-14.5) Platelet Count 115 x10^3/uL (140-400) 127 x10^3/uL (140-400) Neutrophils (%) (Auto) 74 % (31-73) 71 % (31-73) Lymphocytes (%) (Auto) 15 % (24-48) 15 % (24-48) Monocytes (%) (Auto) 8 % (0-9) 9 % (0-9) Eosinophils (%) (Auto) 2 % (0-3) 4 % (0-3) Basophils (%) (Auto) 0 % (0-3) 1 % (0-3) Neutrophils # (Auto) 4.6 x10^3/uL (1.8-7.7) 3.5 x10^3/uL (1.8-7.7) Lymphocytes # (Auto) 0.9 x10^3/uL (1.0-4.8) 0.7 x10^3/uL (1.0-4.8) Monocytes # (Auto) 0.5 x10^3/uL (0.0-1.1) 0.4 x10^3/uL (0.0-1.1) Eosinophils # (Auto) 0.2 x10^3/uL (0.0-0.7) 0.2 x10^3/uL (0.0-0.7) Basophils # (Auto) 0.0 x10^3/uL (0.0-0.2) 0.0 x10^3/uL (0.0-0.2) Prothrombin Time 22.7 SEC (11.7-14.0) 23.7 SEC (11.7-14.0) Prothromb Time International Ratio 2.0 (0.8-1.1) 2.1 (0.8-1.1) Sodium Level 138 mmol/L (136-145) 142 mmol/L (136-145) Potassium Level 3.7 mmol/L (3.5-5.1) 3.7 mmol/L (3.5-5.1) Chloride Level 105 mmol/L (98-107) 108 mmol/L (98-107) Carbon Dioxide Level 26 mmol/L (21-32) 27 mmol/L (21-32) Anion Gap 7 (6-14) 7 (6-14) Blood Urea Nitrogen 18 mg/dL (8-26) 17 mg/dL (8-26) Creatinine 1.2 mg/dL (0.7-1.3) 1.1 mg/dL (0.7-1.3) Estimated GFR (Cockcroft-Gault) 57.3 63.3 Glucose Level 95 mg/dL (70-99) 88 mg/dL (70-99) Calcium Level 7.8 mg/dL (8.5-10.1) 8.0 mg/dL (8.5-10.1) Phosphorus Level 2.3 mg/dL (2.6-4.7) 2.8 mg/dL (2.6-4.7) Magnesium Level 1.8 mg/dL (1.8-2.4) 1.7 mg/dL (1.8-2.4) Albumin 2.0 g/dL (3.4-5.0) 2.1 g/dL (3.4-5.0) BUN/Creatinine Ratio 15 (6-20) Total Bilirubin 0.5 mg/dL (0.2-1.0) Aspartate Amino Transf (AST/SGOT) 18 U/L (15-37) Alanine Aminotransferase (ALT/SGPT) 18 U/L (16-63) Alkaline Phosphatase 33 U/L (46-116) Total Protein 5.4 g/dL (6.4-8.2) Albumin/Globulin Ratio 0.6 (1.0-1.7) Laboratory Tests Test 04/27/20 05:30 White Blood Count 5.0 x10^3/uL (4.0-11.0) Red Blood Count 3.50 x10^6/uL (4.30-5.70) Hemoglobin 8.3 g/dL (13.0-17.5) Hematocrit 25.7 % (39.0-53.0) Mean Corpuscular Volume 73 fL (79-100) Mean Corpuscular Hemoglobin 24 pg (25-35) Mean Corpuscular Hemoglobin Concent 33 g/dL (31-37) Red Cell Distribution Width 17.4 % (11.5-14.5) Platelet Count 127 x10^3/uL (140-400) Neutrophils (%) (Auto) 71 % (31-73) Lymphocytes (%) (Auto) 15 % (24-48) Monocytes (%) (Auto) 9 % (0-9) Eosinophils (%) (Auto) 4 % (0-3) Basophils (%) (Auto) 1 % (0-3) Neutrophils # (Auto) 3.5 x10^3/uL (1.8-7.7) Lymphocytes # (Auto) 0.7 x10^3/uL (1.0-4.8) Monocytes # (Auto) 0.4 x10^3/uL (0.0-1.1) Eosinophils # (Auto) 0.2 x10^3/uL (0.0-0.7) Basophils # (Auto) 0.0 x10^3/uL (0.0-0.2) Prothrombin Time 23.7 SEC (11.7-14.0) Prothromb Time International Ratio 2.1 (0.8-1.1) Sodium Level 142 mmol/L (136-145) Potassium Level 3.7 mmol/L (3.5-5.1) Chloride Level 108 mmol/L (98-107) Carbon Dioxide Level 27 mmol/L (21-32) Anion Gap 7 (6-14) Blood Urea Nitrogen 17 mg/dL (8-26) Creatinine 1.1 mg/dL (0.7-1.3) Estimated GFR (Cockcroft-Gault) 63.3 BUN/Creatinine Ratio 15 (6-20) Glucose Level 88 mg/dL (70-99) Calcium Level 8.0 mg/dL (8.5-10.1) Phosphorus Level 2.8 mg/dL (2.6-4.7) Magnesium Level 1.7 mg/dL (1.8-2.4) Total Bilirubin 0.5 mg/dL (0.2-1.0) Aspartate Amino Transf (AST/SGOT) 18 U/L (15-37) Alanine Aminotransferase (ALT/SGPT) 18 U/L (16-63) Alkaline Phosphatase 33 U/L (46-116) Total Protein 5.4 g/dL (6.4-8.2) Albumin 2.1 g/dL (3.4-5.0) Albumin/Globulin Ratio 0.6 (1.0-1.7) Brief Hospital Course [facility] [address] [place] [address] HISTORY AND PHYSICAL PATIENT: STEPHANIE CLEMENS ACCOUNT: [id number] : 1930 LOC: 1 [facility] AGE: 89 SEX: M STATUS: ADM IN LOCATION: [address] [place] [address] ADMIT DATE: 04/23/2020 CHIEF COMPLAINT: Respiratory failure. HISTORY OF PRESENT ILLNESS: The patient is a pleasant 89-year-old male who has myasthenia gravis and other comorbidities. Please see below. Basically presented to the ER last night with respiratory failure. He was intubated. He has now been sent to the ICU where he is being examined in room 116. He is currently on the vent. He is on Versed IV, vasopressin and Levophed, appears critically ill. 04/24/2020 Patient seen and examined in the ICU Chart reviewed Discussed with RN His INR is high today at 5.1 (he is on Coumadin) I am going to order low-dose vitamin K 5 mg 04/25/2020 Patient examined chart reviewed seen earlier today in the intensive care unit he was admitted yesterday with acute hypoxic respiratory failure needed to be intubated for several hours. Patient has ruled out for COVID-19. Bacterial blood cultures are negative to date and sputum cultures are pending. He may have had a myasthenic crisis as well complicating his course. He successfully extubated and used as needed short-term BiPAP overnight. He is breathing comfortably with supplemental oxygen this morning though is tachypneic. He is without complaint today. Patient tells me he lives independently in his own home with his . He does have myasthenia gravis but that has been stable. He is not sure about his baseline kidney function though his creatinine is up today. He also had a troponin bump to .74 which may be secondary to the elevated creatinine or his hypoxic respiratory failure. We will continue to follow closely in the intensive care unit. He has a right middle and lower lobe pneumonia for which he is on broad-spectrum antibiotics. I appreciate pulmonary critical care support. Total time today is 30 minutes with greater than 50% in counseling and coordination of care most of which in discussion with patient and nursing. 04/26/2020 Patient examined chart reviewed discussed with nursing. He is getting stronger and improving nicely clinically. He is resting in his recliner chair this afternoon has no new complaints. Nurse tells me that he passed his bedside swallow test and the plan is to get him restarted on a dysphagia 1 diet. We will continue the PPN until we can establish that his caloric intake is ap propriate. Hemoglobin is lower today at 8.0 may be hemodilution with all of the extra intravenous fluids he has had in the last 48 hours. We will OB his stools and reassess in the morning. He will transfuse hemoglobin to keep level over 7. Appreciate subspecialty support. I agree that he could transfer him to telemetry. Continue current management otherwise. 04/27 2020 No acute events reported overnight, case discussed with nursing staff patient in no acute distress no complaints during my visit Awaiting for final recommendations from infectious disease store sales consultant regarding antibiotic therapy moving forward. At the time of this dictation details were being worked up greater than 35 minutes have been spent in the discharge process with the patient in counseling coordination of care and arrangement for a safe discharge. Due to his advanced age and prolonged hospital stay the patient will be transitioning to a [facility] facility Assessment Assessment HEENT exam is unremarkable for acute abnormality Chest is clear to auscultation though diminished throughout Heart S1-S2 normal regular rate and rhythm no murmurs or gallops are noted abdomen soft nontender nondistended no masses organomegaly noted Extremity exam is unremarkable for acute abnormality. IMAGING REPORT Signed PATIENT: STEPHANIE CLEMENS ACCOUNT: [id number] : 1930 LOCATION: [address] [place] [address] AGE: 89 SEX: M EXAM STATUS: ADM IN ORD. PHYSICIAN: ROSALBA GRANADOS MD REASON: post vent PROCEDURE: PORTABLE CHEST 1V PORTABLE CHEST 1V History: Reason: post vent / Spl. Instructions: / History: Comparison: April 26, 2020 Findings: Right mid and lower lung opacities, unchanged. No pleural effusion. Unchanged heart size. Interval level of enteric tube and right IJ central line. No pneumothorax. Impression: 1. Right lung patchy opacities, unchanged. Electronically signed by: Pietro Rios DO (04/27/2020 9:21 AM) [id number] Discharge Information Condition at Discharge: Improved Follow Up: Weeks Disposition/Orders: D/C to Another Facility Scheduled Amlodipine Besylate (Amlodipine Besylate) 5 Mg Tablet, 5 MG PO DAILY for htn for 30 Days, #30 Prescribed by: DENYS BLANKENSHIP MD on 04/27/20 1308 Carvedilol (Carvedilol ) 6.25 Mg Tablet, 6.25 MG PO BIDWMEALS for CARDIAC, (Reported) Entered as Reported by: JUNIOR SMITH on 04/23/201633 Last Action: New Order on 04/23/201633 by JUNIOR SMITH Cholecalciferol (Vitamin D3) (Vitamin D) 2,000 Unit Tablet, 1,000 UNIT PO DAILY, (Reported) Entered as Reported by: Colt Locke on 07/17/16613 Last Action: Reviewed on 04/23/201633 by JUNIOR SMITH Esomeprazole Magnesium (Nexium Capsule) 40 Mg Capsule.dr, 1 CAP PO DAILY, #30 Ref 5 (Reported) Entered as Reported by: Colt Locke on 07/17/16613 Last Action: Reviewed on 04/23/201633 by JUNIOR SMITH Fish Oil/Dha/Epa (Fish Oil 1,200 Mg Fish Oil) 1 Each Capsule, 1 EACH PO DAILY, (Reported) Entered as Reported by: Colt Locke on 07/17/16613 Last Action: Reviewed on 04/23/201633 by JUNIOR SMITH Flecainide Acetate (Flecainide Acetate) 50 Mg Tablet, 25 MG PO BID, (Reported) Entered as Reported by: Colt Locke on 07/17/16613 Last Action: Continued on 04/23/201653 by NISA BOWMAN APRN Hydrochlorothiazide (Hydrochlorothiazide Tablet) 12.5 Mg Tablet, 12.5 MG PO DAILY for DIURETIC, Ref 0 (Reported) Entered as Reported by: Colt Locke on 07/17/16613 Last Action: Reviewed on 04/23/201633 by JUNIOR SMITH Insulin Glargine,Hum.rec.anlog (Lantus Solostar) 100 Unit/1 Ml Insuln.pen, 20 UNIT SQ QHS, #15 Ref 5 (Reported) Entered as Reported by: Colt Locke on 07/17/16613 Last Action: Reviewed on 04/23/201633 by JUNIOR SMITH Lisinopril (Lisinopril) 20 Mg Tablet, 1 TAB PO BID for HTN, #30 Ref 5 (Reported) Entered as Reported by: Colt Locke on 07/17/16613 Last Action: Edited on 04/23/201633 by JUNIOR SMITH Pyridostigmine [place] (Pyridostigmine [place]) 60 Mg Tablet, 60 MG PO BID for Myasthenia Gravis, (Reported) Entered as Reported by: Colt Locke on 07/17/16613 Last Action: Continued on 04/24/2050 by ROSALBA GRANADOS Simvastatin (Simvastatin) 20 Mg Tablet, 20 MG PO HS for HLD, #30 Ref 0 (Reported) Entered as Reported by: Colt Locke on 07/17/16613 Last Action: Continued on 04/23/201653 by NISA BOWMAN APRN Warfarin Sodium (Warfarin Sodium) 5 Mg Tablet, 2 TAB PO DAILY, #90 Ref 1 (Reported) Entered as Reported by: Colt Locke on 07/17/16613 Last Action: Reviewed on 04/23/201633 by JUNIOR SMITH Justicifation of Admission Dx: Justifications for Admission: Justification of Admission Dx: Yes Respiratory Failure: Severe Vent Deficit DENYS BLANKENSHIP MD Apr 27, 2020 13:13
[2020-04-27] MEDS ORDERED: hydrALAZINE 20 MG/ML VIAL. IVP PRN (15:45)
[2020-04-27] MEDS ORDERED: WARFARIN 3 MG TABLET. PO ONE (16:00)
--- NOTE | 2020-04-27 16:02 | SNU/HH DC ---
DISCHARGE ORDERS DISCHARGE INFORMATION: DISCHARGE DATE: Apr 27, 2020 FINAL DIAGNOSIS Problems Medical Problems: (1) Acute respiratory failure with hypoxemia Status: Acute (2) Person under investigation for COVID-19 Status: Acute (3) Pneumonia Status: Acute CONDITION ON DISCHARGE: Stable CODE STATUS: Code Status: DNR/DNI MCFP: SNF STAY <30 DAYS: Yes POST DISCHARGE ORDERS: ACTIVITY ORDERS: Activity as tolerated WEIGHT BEARING STATUS: As tolerated TREATMENT/EQUIPMENT ORDERS: ADAPTIVE EQUIPMENT NEEDED: None DISCHARGE MEDICATIONS: Home Meds Active Scripts Amlodipine Besylate (AMLODIPINE BESYLATE) 5 Mg Tablet, 5 MG PO DAILY for htn for 30 Days, #30 TAB Prov:DENYS BLANKENSHIP MD 04/27/20 Reported Medications Carvedilol (CARVEDILOL ) 6.25 Mg Tablet, 6.25 MG PO BIDWMEALS for CARDIAC, TAB 04/23/20 Fish Oil/Dha/Epa (FISH OIL 1,200 MG FISH OIL) 1 Each Capsule, 1 EACH PO DAILY 07/17/16 Hydrochlorothiazide (HYDROCHLOROTHIAZIDE TABLET) 12.5 Mg Tablet, 12.5 MG PO DAILY for DIURETIC, TAB 0 Refills 07/17/16 Pyridostigmine [place] (PYRIDOSTIGMINE BROMIDE) 60 Mg Tablet, 60 MG PO BID for Myasthenia Gravis 07/17/16 Flecainide Acetate (FLECAINIDE ACETATE) 50 Mg Tablet, 25 MG PO BID 07/17/16 Insulin Glargine,Hum.rec.anlog (LANTUS SOLOSTAR) 100 Unit/1 Ml Insuln.pen, 20 UNIT SQ QHS, #15 ML 5 Refills 07/17/16 Simvastatin (SIMVASTATIN) 20 Mg Tablet, 20 MG PO HS for HLD, #30 TAB 0 Refills 07/17/16 Lisinopril (LISINOPRIL) 20 Mg Tablet, 1 TAB PO BID for HTN, #30 TAB 5 Refills 07/17/16 Warfarin Sodium (WARFARIN SODIUM) 5 Mg Tablet, 2 TAB PO DAILY, #90 TAB 1 Refill 07/17/16 Esomeprazole Magnesium (NEXIUM CAPSULE) 40 Mg Capsule.dr, 1 CAP PO DAILY, #30 CAP 5 Refills 07/17/16 Cholecalciferol (Vitamin D3) (VITAMIN D) 2,000 Unit Tablet, 1000 UNIT PO DAILY 07/17/16 DENYS BLANKENSHIP MD Apr 27, 2020 16:02
--- NOTE | 2020-04-27 16:13 | CARD ---
MR#: [id number] Date of Study: 04/27/2020 Ordering Physician: NISA BOWMAN, Referring Physician: NISA BOWMAN, Tech: Shea Henriquez AN APPROVED REPORT EXAM: Two-dimensional and M-mode echocardiogram with Doppler and color Doppler. Other Information Quality : Technically Limited Technically limited study due to sitting upright/labored breathing INDICATION Elevated Troponin RISK FACTORS Hypertension Diabetes 2D DIMENSIONS Left Atrium(2D)3.4 (1.6-4.0cm)IVSd1.1 (0.7-1.1cm) Aortic Root(2D)3.0 (2.0-3.7cm)LVDd4.3 (3.9-5.9cm) LVOT Diameter2.5 (1.8-2.4cm)PWd1.1 (0.7-1.1cm) LVDs3.4 (2.5-4.0cm)FS (%) 20.8 % SV36.3 ml Aortic Valve AoV Peak Blayne.117.3cm/sAoV VTI23.7cm AO Peak GR.5.5mmHgLVOT VTI 20.53cm AO Mean GR.3mmHgAVA (VTI)4.20cm2 Mitral Valve MV E Dnbywjxo07.6cm/sMV DECEL [id number] MV A Jqagapyz66.9cm/sE/A Ratio0.6 TDI Lateral E' P. V13.13cm/sMedial E' P. V6.56cm/s E/Lateral E'4.5E/Medial E'9.1 Tricuspid Valve TR P. Ejnjufol141sw/sRAP WEASSAVG1mqJs TR Peak Gr.45zjZvKJQX95tjPx Pulmonary Vein S1 Selabgyn12.7cm/sS2 Uacezpuq03.94cm/s D2 Cyhevqdd58.9cm/s LEFT VENTRICLE The left ventricle is normal size. There is normal left ventricular wall thickness. Left ventricle sy stolic function is low normal. The Ejection Fraction is estimated at 50%. Septal motion consistent wi th conduction abnormality. Transmitral Doppler flow pattern is Grade I-abnormal relaxation pattern. RIGHT VENTRICLE The right ventricle is normal size. The right ventricular systolic function is normal. ATRIA The left atrium size is normal. The right atrium size is normal. The interatrial septum is intact wit h no evidence for an atrial septal defect or patent foramen ovale as noted on 2-D or Doppler imaging. AORTIC VALVE The aortic valve is calcified but opens well. Doppler and Color Flow revealed no significant aortic r egurgitation. There is no significant aortic valvular stenosis. MITRAL VALVE The mitral valve is normal in structure and function. There is no evidence of mitral valve prolapse. There is no mitral valve stenosis. Doppler and Color-flow revealed trace mitral regurgitation. TRICUSPID VALVE The tricuspid valve is normal in structure and function. Doppler and Color Flow revealed trace tricus pid regurgitation. The PA pressure was estimated at 37 mmHg. There is no tricuspid valve stenosis. PULMONIC VALVE The pulmonic valve is not well visualized. Doppler and Color Flow revealed no pulmonic valvular regur gitation. There is no pulmonic valvular stenosis. GREAT VESSELS The aortic root is normal in size. The ascending aorta is not well seen. The IVC was not visualized. PERICARDIAL EFFUSION There is no evidence of significant pericardial effusion. Critical Notification Critical Value: No <Conclusion> The left ventricle is normal size. Left ventricle systolic function is low normal. The Ejection Fraction is estimated at 50%. Doppler and Color Flow revealed no significant aortic regurgitation. There is no significant aortic valvular stenosis. Doppler and Color-flow revealed trace mitral regurgitation. Doppler and Color Flow revealed trace tricuspid regurgitation. The PA pressure was estimated at 37 mmHg. Signed by : Rosendo Son MD Electronically Approved : 04/27/2020 16:13:24
[2020-04-27 16:59] VITALS: BP 146/59
[2020-04-27] MEDS ORDERED: AMOX1TAB61 PO (17:06)
[2020-04-27 19:00] VITALS: BP 151/69
[2020-04-27] MEDS: SIMVASTATIN 20 MG TABLET PO SCH (21:34)
[2020-04-27] MEDS: DOXYCYCLINE HYCLATE 100 MG TABLET PO SCH (21:35)
[2020-04-27] MEDS: FAMOTIDINE 20 MG/2 ML VIAL IVP SCH (21:35)
[2020-04-27 23:00] VITALS: BP 158/77
[2020-04-28] MEDS: PIPERACILLIN/TAZOBACTAM 3.375 GM in IV NORMAL SALINE 50ML 50 ML IV SCH ×2 (00:03→06:16)
[2020-04-28 03:00] VITALS: BP 128/71
[2020-04-28] MEDS: AMINO AC 3%/ELECTROLYTE/GLYCER 1,000 ML IV SCH (03:12)
[2020-04-28 04:50] LABS: PROTHROMBIN TIME PATIENT 20.5 SEC (11.7-14.0)
[2020-04-28 05:08] LABS: ALBUMIN 2.6 g/dL (3.4-5.0); CALCIUM 8.4 mg/dL (8.5-10.1); GFR 70.7; MAGNESIUM 1.8 mg/dL (1.8-2.4); PHOSPHORUS 2.7 mg/dL (2.6-4.7); POTASSIUM 3.8 mmol/L (3.5-5.1)
[2020-04-28 07:46] VITALS: BP 153/84
[2020-04-28] MEDS ORDERED: IPRATRPIUM/ALBUTEROL 0.5/2.5MG 3 ML NEBU. NEB SCH (08:00)
[2020-04-28] MEDS: ACETYLCYSTEINE 20% for RESP TX 600 MG/3 ML. NEB SCH (08:14)
--- NOTE | 2020-04-28 08:56 | PDOC ---
Infectious Disease Note Subjective: Subjective Feeling better today Cough and shortness of breath are improved Fever resolved Denies nausea, vomiting, diarrhea Vital Signs: Vital Signs Vital Signs Date Time Temp Pulse Resp B/P (MAP) Pulse Ox O2 Delivery O2 Flow Rate FiO2 04/28/20 08:16 99 Nasal Cannula 2.0 04/28/20 07:46 97.6 101 20 153/84 (107) 97.6 Physical Exam: PHYSICAL EXAM GENERAL: Patient lying in bed comfortably acute distress alert HEENT: Oral cavity dry, no thrush NECK: Supple LUNGS: Improved aeration, nonlabored. HEART: S1, S2 regular. ABDOMEN: Nondistended, bowel sounds present, soft, nontender. : Nieto in place EXTREMITIES: No edema, cyanosis. SKIN: warm to touch. NEUROLOGIC: Generalized weakness, but more alert and verbal, answering questions appropriately. RIJ and art-line is out. PIV looks ok Medications: Inpatient Meds: Current Medications Medications (Trade) Dose Ordered Sig/Vin Start Time Stop Time Status Last Admin Dose Admin Acetaminophen (Tylenol Supp) 650 mg 1X ONCE 04/23/20 05:30 04/23/20 05:31 DC 04/23/20 05:00 650 MG Acetylcysteine (Mucomyst 20% Resp Treatment) 600 mg BID 04/25/20 10:00 04/28/20 08:14 600 MG Albuterol/ Ipratropium (Duoneb) 3 ml RTQID 04/28/20 08:00 04/28/20 08:00 3 ML Amino Acids/ Glycerin/ Electrolytes 1,000 ml @ 80 mls/hr [id number] 04/25/20 09:45 04/28/20 03:12 80 MLS/HR Amlodipine Besylate (Norvasc) 5 mg 1X ONCE 04/27/20 15:45 04/27/20 15:46 DC 04/27/20 15:48 5 MG Digoxin (Lanoxin) 250 mcg 1X ONCE 04/25/20 01:30 04/25/20 01:31 DC 04/25/20 01:20 250 MCG Doxycycline Hyclate (Vibra-Tab) 100 mg BID 04/27/20 21:00 04/27/20 21:35 100 MG Enoxaparin Sodium (Lovenox 40mg Syringe) 40 mg BID 04/23/20 10:30 04/23/20 18:23 DC 04/23/20 10:46 40 MG Enoxaparin Sodium (Lovenox Per Pharmacy Prophylaxis Dosing) 1 each PRN DAILY PRN 04/23/20 10:00 04/23/20 18:23 DC Etomidate (Amidate) 20 mg STK-MED ONCE 04/23/20 04:26 04/23/20 04:26 DC Famotidine (Pepcid Vial) 20 mg QHS 04/23/20 21:00 04/27/20 21:35 20 MG Flecainide Acetate (Tambocor) 25 mg BID 04/23/20 21:00 04/27/20 21:34 25 MG Furosemide (Lasix) 60 mg 1X ONCE 04/23/20 05:00 04/23/20 05:01 DC 04/23/20 04:42 60 MG Hydralazine HCl (Apresoline Inj) 10 mg PRN Q4HRS PRN 04/27/20 15:45 04/27/20 15:49 10 MG Info (Icu Electrolyte Protocol) 1 ea CONT PRN PRN 04/24/20 08:45 Linezolid/Dextrose 300 ml @ 300 mls/hr Q12HR 04/23/20 21:00 04/27/20 09:05 DC 04/26/20 21:38 300 MLS/HR Magnesium Sulfate 50 ml @ 25 mls/hr 1X ONCE 04/25/20 11:30 04/25/20 13:29 UNV Magnesium Sulfate/ Dextrose 100 ml @ 100 mls/hr 1X ONCE 04/27/20 12:00 04/27/20 12:59 DC 04/27/20 12:53 100 MLS/HR Metoprolol Tartrate (Lopressor Vial) 5 mg 1X ONCE 04/23/20 06:00 04/23/20 06:01 DC Metoprolol Tartrate (Lopressor) 12.5 mg BID 04/24/20 17:15 04/27/20 21:34 12.5 MG Midazolam HCl 100 ml @ 0 mls/hr CONT PRN 04/23/20 07:45 04/25/20 04:37 DC 04/24/20 01:35 5 MLS/HR Midazolam HCl (Versed) 5 mg 1X ONCE 04/23/20 06:15 04/23/20 06:16 DC 04/23/20 06:09 5 MG Midazolam HCl 50 mg/Sodium Chloride 50 ml @ 1 mls/hr CONT PRN 04/23/20 07:45 Cancel Norepinephrine Bitartrate 8 mg/ Dextrose 258 ml @ 14.513 mls/ hr CONT PRN 04/23/20 08:15 04/25/20 09:09 DC 04/23/20 14:32 21.769 MLS/HR Ondansetron HCl (Zofran) 4 mg PRN Q8HRS PRN 04/23/20 05:15 04/24/20 05:14 DC Phytonadione (Vitamin K Ampule) 5 mg 1X ONCE 04/24/20 11:45 04/24/20 11:46 DC 04/24/20 12:02 5 MG Piperacillin Sod/ Tazobactam Sod (Zosyn Per Pharmacy) 1 each PRN DAILY PRN 04/23/20 10:00 Piperacillin Sod/ Tazobactam Sod 3.375 gm/Sodium Chloride 50 ml @ 100 mls/hr Q6HRS 04/23/20 11:00 04/28/20 06:16 100 MLS/HR Potassium Chloride/Water 100 ml @ 100 mls/hr Q1H 04/24/20 08:45 04/24/20 10:44 DC 04/24/20 10:18 100 MLS/HR Potassium Phosphate 10 mmol/ Sodium Chloride 103.3333 ml @ 51.667 m... Q2H 04/26/20 13:00 04/26/20 16:59 DC 04/26/20 16:36 51.667 MLS/HR Potassium Phosphate 13.6 mmol/Sodium Chloride 254.5333 ml @ 127.... Q2H 04/25/20 11:30 04/25/20 15:29 UNV Propofol 50 ml @ 1.125 mls/ hr 1X ONCE 04/23/20 05:15 04/23/20 05:16 DC Pyridostigmine Eola (Mestinon) 60 mg BID 04/24/20 17:15 04/27/20 21:35 60 MG Simvastatin (Zocor) 20 mg HS 04/23/20 21:00 04/27/20 21:34 20 MG Sodium Chloride 1,000 ml @ 100 mls/hr Q10H 04/24/20 12:15 6/6/20 18:50 DC 04/24/20 21:50 100 MLS/HR Vancomycin HCl (Vanco Per Pharmacy) 1 each PRN DAILY PRN 04/23/20 10:00 04/23/20 11:51 DC Vancomycin HCl 500 mg/Sodium Chloride 100 ml @ 100 mls/hr 1X ONCE 04/23/20 10:30 04/23/20 11:29 DC 04/23/20 10:46 100 MLS/HR Vasopressin 20 unit/Dextrose 101 ml @ 12 mls/hr CONT PRN 04/23/20 08:00 04/25/20 09:39 DC 04/23/20 14:32 12 MLS/HR Vecuronium Eola (Norcuron Bolus) 10 mg STK-MED ONCE 04/23/20 04:26 04/23/20 04:26 DC Warfarin Sodium (Coumadin - No Dose Today) 1 each 1X WARF ONCE 04/25/20 16:00 04/25/20 16:01 DC Warfarin Sodium (Coumadin Per Pharmacy) 1 each PRN DAILY PRN 04/24/20 11:30 04/24/20 11:31 DC Warfarin Sodium (Coumadin) 3 mg 1X WARF ONCE 04/27/20 16:00 04/27/20 16:01 DC 04/27/20 15:48 3 MG Labs: Lab Laboratory Tests Test 04/28/20 03:00 Prothrombin Time 20.5 SEC (11.7-14.0) Prothromb Time International Ratio 1.8 (0.8-1.1) Sodium Level 142 mmol/L (136-145) Potassium Level 3.8 mmol/L (3.5-5.1) Chloride Level 105 mmol/L (98-107) Carbon Dioxide Level 28 mmol/L (21-32) Anion Gap 9 (6-14) Blood Urea Nitrogen 18 mg/dL (8-26) Creatinine 1.0 mg/dL (0.7-1.3) Estimated GFR (Cockcroft-Gault) 70.7 Glucose Level 130 mg/dL (70-99) Calcium Level 8.4 mg/dL (8.5-10.1) Phosphorus Level 2.7 mg/dL (2.6-4.7) Magnesium Level 1.8 mg/dL (1.8-2.4) Albumin 2.6 g/dL (3.4-5.0) Micro Blood cultures negative so far Objective: Assessment: Community-acquired pneumonia. COVID neg Fever improving Leukocytosis - better Respiratory failure. Hypotension. Acute kidney injury/CKD History of atrial fibrillation, on flecainide/warfarin Diabetes. Myasthenia gravis. anemia Thrombocytopenia Dysphagia, now on modified diet Plan: Plan of Care DC Zosyn Start Augmentin for 5 days Continue Doxy for 5 days Plans are for discharge to rehab facility dated today per staff discussed with nursing staff JANETH MENDOZA MD Apr 28, 2020 08:56
[2020-04-28] MEDS ORDERED: amLODIPine BESYLATE 5 MG TABLET PO SCH (09:00)
[2020-04-28 09:02] VITALS: BP 153/84
[2020-04-28] MEDS: PYRIDOSTIGMINE BROMIDE 60 MG TABLET PO SCH (09:02)
[2020-04-28] MEDS: FLECAINIDE ACETATE 50 MG TABLET. PO SCH (09:02)
[2020-04-28] MEDS: METOPROLOL TART IMMED RELEASE 25 MG TABLET. PO SCH (09:02)
[2020-04-28] MEDS: DOXYCYCLINE HYCLATE 100 MG TABLET PO SCH (09:02)
--- NOTE | 2020-04-28 09:52 | NUR ---
AYAZ following for discharge planning. AYAZ reviewed chart. Pt to discharge via [facility] transport with 2l 02 to [facility]. Confirmed discharge with Patricia from [facility]. AYAZ phoned and faxed final discharge orders, , (fax). AYAZ met with pt to complete outside of hospital DNR. Pt communicated understanding and acceptance of discharge plan. Family notified of discharge per RN. Coordinated discharge with RN and Dr. Barron. SW confirmed pt's diet on discharge with Dr. Barron and had completed out-of-the hospital DNR signed. No additional SW needs at this time. Addendum: 04/28/20 at 1031 by JAN JACOME Confirmed transport time of 11am with RN and Patricia and [facility]
--- NOTE | 2020-04-28 11:16 | PDOC3 ---
Discharge Summary Visit Information Date of Admission: Apr 23, 2020 Date of Discharge: Apr 28, 2020 Admitting Diagnosis Comment: Multifactorial respiratory failure with severe hypotension, pneumonia, sepsis, chronic obstructive pulmonary disease, acute kidney injury, elevated troponin and abnormal chest x-ray. Final Diagnosis Problems Medical Problems: (1) Acute respiratory failure with hypoxemia Status: Acute (2) Person under investigation for COVID-19 Status: Acute (3) Pneumonia Status: Acute Multifactorial respiratory failure with severe hypotension secondary to community-acquired pneumonia Sepsis present on admission now improved Leukocytosis improving Acute kidney injury with history of chronic kidney disease stage III improved History of atrial fibrillation Elevated troponin secondary to demand ischemia most likely secondary to sepsis currently asymptomatic Diabetes mellitus type 2 insulin requiring History of myasthenia gravis Normocytic anemia of chronic disease Thrombocytopenia Dysphagia secondary to myasthenia now on a modified diet, Brief Hospital Course Allergies Allergies Coded Allergies Type Severity Reaction Last Updated Verified I S O L A T I O N *CONTACT* Allergy Unknown 04/03/18 Yes No Known Medication Allergies Allergy Unknown 04/03/18 Yes Vital Signs Vital Signs Date Time Temp Pulse Resp B/P (MAP) Pulse Ox O2 Delivery O2 Flow Rate FiO2 04/28/20 09:02 101 153/84 04/28/20 08:16 99 Nasal Cannula 2.0 04/28/20 07:46 97.6 20 97.6 Lab Results Laboratory Tests Test 04/27/20 05:30 04/28/20 03:00 White Blood Count 5.0 x10^3/uL (4.0-11.0) Red Blood Count 3.50 x10^6/uL (4.30-5.70) Hemoglobin 8.3 g/dL (13.0-17.5) Hematocrit 25.7 % (39.0-53.0) Mean Corpuscular Volume 73 fL (79-100) Mean Corpuscular Hemoglobin 24 pg (25-35) Mean Corpuscular Hemoglobin Concent 33 g/dL (31-37) Red Cell Distribution Width 17.4 % (11.5-14.5) Platelet Count 127 x10^3/uL (140-400) Neutrophils (%) (Auto) 71 % (31-73) Lymphocytes (%) (Auto) 15 % (24-48) Monocytes (%) (Auto) 9 % (0-9) Eosinophils (%) (Auto) 4 % (0-3) Basophils (%) (Auto) 1 % (0-3) Neutrophils # (Auto) 3.5 x10^3/uL (1.8-7.7) Lymphocytes # (Auto) 0.7 x10^3/uL (1.0-4.8) Monocytes # (Auto) 0.4 x10^3/uL (0.0-1.1) Eosinophils # (Auto) 0.2 x10^3/uL (0.0-0.7) Basophils # (Auto) 0.0 x10^3/uL (0.0-0.2) Prothrombin Time 23.7 SEC (11.7-14.0) 20.5 SEC (11.7-14.0) Prothromb Time International Ratio 2.1 (0.8-1.1) 1.8 (0.8-1.1) Sodium Level 142 mmol/L (136-145) 142 mmol/L (136-145) Potassium Level 3.7 mmol/L (3.5-5.1) 3.8 mmol/L (3.5-5.1) Chloride Level 108 mmol/L (98-107) 105 mmol/L (98-107) Carbon Dioxide Level 27 mmol/L (21-32) 28 mmol/L (21-32) Anion Gap 7 (6-14) 9 (6-14) Blood Urea Nitrogen 17 mg/dL (8-26) 18 mg/dL (8-26) Creatinine 1.1 mg/dL (0.7-1.3) 1.0 mg/dL (0.7-1.3) Estimated GFR (Cockcroft-Gault) 63.3 70.7 BUN/Creatinine Ratio 15 (6-20) Glucose Level 88 mg/dL (70-99) 130 mg/dL (70-99) Calcium Level 8.0 mg/dL (8.5-10.1) 8.4 mg/dL (8.5-10.1) Phosphorus Level 2.8 mg/dL (2.6-4.7) 2.7 mg/dL (2.6-4.7) Magnesium Level 1.7 mg/dL (1.8-2.4) 1.8 mg/dL (1.8-2.4) Total Bilirubin 0.5 mg/dL (0.2-1.0) Aspartate Amino Transf (AST/SGOT) 18 U/L (15-37) Alanine Aminotransferase (ALT/SGPT) 18 U/L (16-63) Alkaline Phosphatase 33 U/L (46-116) Total Protein 5.4 g/dL (6.4-8.2) Albumin 2.1 g/dL (3.4-5.0) 2.6 g/dL (3.4-5.0) Albumin/Globulin Ratio 0.6 (1.0-1.7) Laboratory Tests Test 04/28/20 03:00 Prothrombin Time 20.5 SEC (11.7-14.0) Prothromb Time International Ratio 1.8 (0.8-1.1) Sodium Level 142 mmol/L (136-145) Potassium Level 3.8 mmol/L (3.5-5.1) Chloride Level 105 mmol/L (98-107) Carbon Dioxide Level 28 mmol/L (21-32) Anion Gap 9 (6-14) Blood Urea Nitrogen 18 mg/dL (8-26) Creatinine 1.0 mg/dL (0.7-1.3) Estimated GFR (Cockcroft-Gault) 70.7 Glucose Level 130 mg/dL (70-99) Calcium Level 8.4 mg/dL (8.5-10.1) Phosphorus Level 2.7 mg/dL (2.6-4.7) Magnesium Level 1.8 mg/dL (1.8-2.4) Albumin 2.6 g/dL (3.4-5.0) Brief Hospital Course [facility] [address] [facility] [place], [place] [id number] HISTORY AND PHYSICAL PATIENT: STEPHANIE CLEMENS ACCOUNT: [id number] : 1930 LOC: [facility] AGE: 89 SEX: M STATUS: ADM IN LOCATION: [address] [place] [address] ADMIT DATE: 04/23/2020 CHIEF COMPLAINT: Respiratory failure. HISTORY OF PRESENT ILLNESS: The patient is a pleasant 89-year-old male who has myasthenia gravis and other comorbidities. Please see below. Basically presented to the ER last night with respiratory failure. He was intubated. He has now been sent to the ICU where he is being examined in room 116. He is currently on the vent. He is on Versed IV, vasopressin and Levophed, appears critically ill. 04/24/2020 Patient seen and examined in the ICU Chart reviewed Discussed with RN His INR is high today at 5.1 (he is on Coumadin) I am going to order low-dose vitamin K 5 mg 04/25/2020 Patient examined chart reviewed seen earlier today in the intensive care unit he was admitted yesterday with acute hypoxic respiratory failure needed to be intubated for several hours. Patient has ruled out for COVID-19. Bacterial blood cultures are negative to date and sputum cultures are pending. He may have had a myasthenic crisis as well complicating his course. He successfully extubated and used as needed short-term BiPAP overnight. He is breathing comfortably with supplemental oxygen this morning though is tachypneic. He is without complaint today. Patient tells me he lives independently in his own home with his . He does have myasthenia gravis but that has been stable. He is not sure about his baseline kidney function though his creatinine is up today. He also had a troponin bump to .74 which may be secondary to the elevated creatinine or his hypoxic respiratory failure. We will continue to follow closely in the intensive care unit. He has a right middle and lower lobe pneumonia for which he is on broad-spectrum antibiotics. I appreciate pulmonary critical care support. Total time today is 30 minutes with greater than 50% in counseling and coordination of care most of which in discussion with patient and nursing. 04/26/2020 Patient examined chart reviewed discussed with nursing. He is getting stronger and improving nicely clinically. He is resting in his recliner chair this afternoon has no new complaints. Nurse tells me that he passed his bedside swallow test and the plan is to get him restarted on a dysphagia 1 diet. We will continue the PPN until we can establish that his caloric intake is appropriate. Hemoglobin is lower today at 8.0 may be hemodilution with all of the extra intravenous fluids he has had in the last 48 hours. We will OB his stools and reassess in the morning. He will transfuse hemoglobin to keep level over 7. Appreciate subspecialty support. I agree that he could transfer him to telemetry. Continue current management otherwise. 04/27 2020 No acute events reported overnight, case discussed with nursing staff patient in no acute distress no complaints during my visit 04/28/2020 No acute reports from fever or other respects during the night. Patient will be discharged with Augmentin going forward. I have provided reassurance and encouragement to the patient prior to dismissal and hoping then he transitions back home soon. Greater than 35 minutes were spent in the discharge process the patient in counseling coordination of care and arrangement for safe discharge Discharge Information Condition at Discharge: Improved Follow Up: Weeks Disposition/Orders: D/C to Another Facility Scheduled Amlodipine Besylate (Amlodipine Besylate) 5 Mg Tablet, 5 MG PO DAILY for htn for 30 Days, #30 Prescribed by: DENYS BLANKENSHIP MD on 04/27/20 1308 Amoxicillin/Potassium Clav (Augmentin 875-125 Tablet) 1 Each Tablet, 1 TAB PO BID for CAP for 7 Days, #10 Ref 0 Prescribed by: DENYS BLANKENSHIP MD on 04/27/20 1706 Carvedilol (Carvedilol ) 6.25 Mg Tablet, 6.25 MG PO BIDWMEALS for CARDIAC, (Reported) Entered as Reported by: JUNIOR SMITH on 04/23/201633 Last Action: New Order on 04/23/201633 by JUNIOR SMITH Cholecalciferol (Vitamin D3) (Vitamin D) 2,000 Unit Tablet, 1,000 UNIT PO DAILY, (Reported) Entered as Reported by: Colt Locke on 07/17/16613 Last Action: Reviewed on 04/23/201633 by JUNIOR SMITH Esomeprazole Magnesium (Nexium Capsule) 40 Mg Capsule.dr, 1 CAP PO DAILY, #30 Ref 5 (Reported) Entered as Reported by: Colt Locke on 07/17/16613 Last Action: Reviewed on 04/23/201633 by JUNIOR SMITH Fish Oil/Dha/Epa (Fish Oil 1,200 Mg Fish Oil) 1 Each Capsule, 1 EACH PO DAILY, (Reported) Entered as Reported by: Colt Locke on 07/17/16613 Last Action: Reviewed on 04/23/201633 by JUNIOR SMITH Flecainide Acetate (Flecainide Acetate) 50 Mg Tablet, 25 MG PO BID, (Reported) Entered as Reported by: Colt Locke on 07/17/16613 Last Action: Continued on 04/23/201653 by NISA BOWMAN APRN Hydrochlorothiazide (Hydrochlorothiazide Tablet) 12.5 Mg Tablet, 12.5 MG PO DAILY for DIURETIC, Ref 0 (Reported) Entered as Reported by: Colt Locke on 07/17/16613 Last Action: Reviewed on 04/23/201633 by JUNIOR SMITH Insulin Glargine,Hum.rec.anlog (Lantus Solostar) 100 Unit/1 Ml Insuln.pen, 20 UNIT SQ QHS, #15 Ref 5 (Reported) Entered as Reported by: Colt Locke on 07/17/16613 Last Action: Reviewed on 04/23/201633 by JUNIOR SMTIH Lisinopril (Lisinopril) 20 Mg Tablet, 1 TAB PO BID for HTN, #30 Ref 5 (Reported) Entered as Reported by: Colt Locke on 07/17/16613 Last Action: Edited on 04/23/201633 by JUNIOR SMITH Pyridostigmine [place] (Pyridostigmine [place]) 60 Mg Tablet, 60 MG PO BID for Myasthenia Gravis, (Reported) Entered as Reported by: Colt Locke on 07/17/16613 Last Action: Continued on 04/24/20 0950 by ROSALBA GRANADOS Simvastatin (Simvastatin) 20 Mg Tablet, 20 MG PO HS for HLD, #30 Ref 0 (Reported) Entered as Reported by: Colt Locke on 07/17/16613 Last Action: Continued on 04/23/201653 by NISA BOWMAN APRN Warfarin Sodium (Warfarin Sodium) 5 Mg Tablet, 2 TAB PO DAILY, #90 Ref 1 (Reported) Entered as Reported by: Colt Locke on 07/17/16613 Last Action: Reviewed on 04/23/201633 by JUNIOR SMITH Justicifation of Admission Dx: Justifications for Admission: Justification of Admission Dx: Yes Respiratory Failure: Severe Vent Deficit DENYS BLANKENSHIP MD Apr 28, 2020 11:16
--- NOTE | 2020-04-28 11:19 | NUR ---
Discharge Note: STEPHANIE CLEMENS [address] [place] [address] Discharge instructions and discharge home medications reviewed with MELANY Cintron at [facility] and a copy given. All questions have been answered and understanding verbalized. Discontinued lines and drains: Peripheral IV intact. Patient discharged to [facility] with [facility] transport via Wheelchair. This RN left message with patient sonPradip at [phone] and notified him of the discharge this morning.
[2020-04-28] MEDS ORDERED: AMOXICILLIN/K CLAV 875/125MG TABLET. PO SCH (21:00)
== END 2020-04-28 11:15 | DRG 871 ==
LOC: ER 04:04 → 1 WEST ICU 06:01 → 6 SOUTH 04-26 17:40
PROVIDERS: ADMIT Internal Medicine; ATTEND Internal Medicine
PROC: 5A1945Z Respiratory Ventilation, 24-96 Consecutive Hours (ICD-10-PCS; principal; 2020-04-23)
PROC: 0BH17EZ Insertion of Endotracheal Airway into Trachea, Via Natural or Artificial Opening (ICD-10-PCS; 2020-04-23)
PROC: 02HV33Z Insertion of Infusion Device into Superior Vena Cava, Percutaneous Approach (ICD-10-PCS; 2020-04-23)
DX: A41.9 Sepsis, unspecified organism (principal); J96.01 Acute respiratory failure with hypoxia; J18.9 Pneumonia, unspecified organism; I21.4 Non-ST elevation (NSTEMI) myocardial infarction; J96.02 Acute respiratory failure with hypercapnia; R65.21 Severe sepsis with septic shock; D68.9 Coagulation defect, unspecified; J44.0 Chronic obstructive pulmonary disease with (acute) lower respiratory infection; J44.1 Chronic obstructive pulmonary disease with (acute) exacerbation; N17.9 Acute kidney failure, unspecified; Z20.828 Contact with and (suspected) exposure to other viral communicable diseases; D63.8 Anemia in other chronic diseases classified elsewhere; D69.6 Thrombocytopenia, unspecified; E11.22 Type 2 diabetes mellitus with diabetic chronic kidney disease; E78.5 Hyperlipidemia, unspecified; E83.42 Hypomagnesemia; K21.9 Gastro-esophageal reflux disease without esophagitis; G70.00 Myasthenia gravis without (acute) exacerbation; I12.9 Hypertensive chronic kidney disease with stage 1 through stage 4 chronic kidney disease, or unspecified chronic kidney disease; I25.10 Atherosclerotic heart disease of native coronary artery without angina pectoris; I48.0 Paroxysmal atrial fibrillation; N18.3 Chronic kidney disease, stage 3 (moderate); R13.10 Dysphagia, unspecified; Z79.01 Long term (current) use of anticoagulants; Z79.4 Long term (current) use of insulin; Z83.3 Family history of diabetes mellitus; Z87.891 Personal history of nicotine dependence; Z90.49 Acquired absence of other specified parts of digestive tract
CPT/HCPCS: 36415; 36600; 51702; 51798; 71045; 74018; 80048; 80053; 80061; 80069; 80076; 81001; 82805; 83605; 83735; 83880; 84100; 84443; 84484; 85007; 85025; 85027; 85610; 87040; 93005; 93306; 94002; 94003; 94640; 94660; 94760; 96365; 96367; 96368; 96375; J0360; J1160; J1650; J1940; J2020; J2250; J2543; J2704; J3370; J3430; J3475; J3480; J3490; J7030; J7060; 92526-GN; 92610-GN; 97535-GO; 99285-25; G0378; U0003-CS

== ENCOUNTER → 2020-05-11 | Outpatient (CLI) | payer MEDICARE, OTHER ==
[2020-04-28 09:02] VITALS: BP 153/84
[~2020-05-11] MED LIST changes: +AMLO5TAB10 PO; +AMOX1TAB61 PO; +CARV6.2511 PO
[2020-05-11 11:00] LABS: PROTHROMBIN TIME PATIENT 15.4 SEC (11.7-14.0)
== END | disposition home or self-care (01) ==
LOC: SPEC 10:12 → EDSTATUS 12:28
PROVIDERS: ATTEND Internal Medicine
DX: I48.91 Unspecified atrial fibrillation (principal); I10 Essential (primary) hypertension
CPT/HCPCS: 36415; 85610

== ENCOUNTER 2022-01-02 12:49 | Inpatient (IN) | payer MEDICARE, OTHER ==
[~2022-01-02] VITALS: Ht 167.6 cm; Wt 79.3 kg
[~2022-01-02 12:49] MED LIST changes: +AMLO-186 PO; -AMLO5TAB10 PO; +AMOX1TAB10 PO; +AMOX1TAB58 PO; +APIX2.5T PO; -LISI-334 PO; +LISI20TA18 PO; +OSEL30CA PO
[2022-01-02 13:24] LABS: BASO # 0.1 x10^3/uL (0.0-0.2); BASO % 1 % (0-3); EOS # 0.2 x10^3/uL (0.0-0.7); EOS % 4 % (0-3); HEMATOCRIT 30.5 % (39.0-53.0); HEMOGLOBIN 9.1 g/dL (13.0-17.5); LYMPH # 1.4 x10^3/uL (1.0-4.8); LYMPH % 22 % (24-48); MEAN CORPUSCULAR HEMOGLOBIN 20 pg (25-35); MEAN CORPUSCULAR HGB CONC 30 g/dL (31-37); MEAN CORPUSCULAR VOLUME 67 fL (79-100); MONO # 0.6 x10^3/uL (0.0-1.1); MONO % 10 % (0-9); NEUT # 3.9 x10^3/uL (1.8-7.7); NEUT % 63 % (31-73); PLATELET COUNT 213 x10^3/uL (140-400); RED BLOOD COUNT 4.59 x10^6/uL (4.30-5.70); RED CELL DISTRIBUTION WIDTH 19.9 % (11.5-14.5); WHITE BLOOD COUNT 6.2 x10^3/uL (4.0-11.0)
[2022-01-02 13:31] LABS: CALCIUM 8.5 mg/dL (8.5-10.1); CREATININE 1.2 mg/dL (0.7-1.3)
[2022-01-02 13:33] LABS: PROTHROMBIN TIME PATIENT 16.1 SEC (11.7-14.0)
[2022-01-02 13:36] LABS: ALBUMIN 2.9 g/dL (3.4-5.0); ALBUMIN/GLOBULIN RATIO 0.7 (1.0-1.7); MAGNESIUM 1.9 mg/dL (1.8-2.4); TOTAL BILIRUBIN 0.5 mg/dL (0.2-1.0)
--- NOTE | 2022-01-02 13:38 | PHYS DOC ---
Past Medical History Past Medical History: A-Fib, Diabetes-Type II, Heart Disease, Other Additional Past Medical Histor: MYASTHENIA GRAVIS Past Surgical History: Cholecystectomy, Hip Replacement, Other Additional Past Surgical Histo: PROSTATE, CATARACTS Smoking Status: Never Smoker Alcohol Use: None Drug Use: None General Adult EDM: Chief Complaint: LOWER EXT PAIN HPI: HPI: Patient is a 89 year old male who presents with lower extremity pain. Patient states the pain is worse in his left leg than his right, and that this has been going on for quite some time. Patient states that his legs only hurt when ambulating. Patient reports swelling to the left lower extremity. Patient typically ambulates with a walker, but has been unable to ambulate secondary to his pain today. Patient denies trauma/injury, weakness, chest pain, palpitations, shortness of breath, cough, orthopnea. Review of Systems: Review of Systems: Constitutional: Denies fever, chills or generalized weakness Eyes: Denies change in visual acuity, visual field deficits or discharge HENT: Denies ear pain, nasal congestion or sore throat Respiratory: See HPI Cardiovascular: See HPI GI: Denies abdominal pain, nausea, vomiting, bloody stools or diarrhea : Denies dysuria or hematuria Musculoskeletal: Denies back pain or joint pain Integument: Denies rash or other skin lesion Neurologic: Denies headache, focal weakness or sensory changes Heart Score: C/O Chest Pain: No Allergies: Allergies: Allergies Coded Allergies Type Severity Reaction Last Updated Verified I S O L A T I O N *CONTACT* Allergy Unknown 04/03/18 Yes No Known Medication Allergies Allergy Unknown 04/03/18 Yes Physical Exam: PE: Constitutional: Well developed, well nourished, no acute distress, non-toxic appearance. HENT: Normocephalic, atraumatic, bilateral external ears normal, oropharynx moist, no oral exudates, nose normal. Eyes: EOMI, conjunctiva normal, no discharge. Neck: Normal range of motion, no stridor. Cardiovascular: Heart regular rate and rhythm. Lungs & Thorax: Bilateral breath sounds diminished. Skin: Warm, dry, no erythema, no rash, no weeping or discharge. Back: No step-off, no tenderness. Extremities: Left lower extremity with 2+ pitting edema significantly greater than right lower extremity, diminished peripheral pulses in left lower extremity compared to right, no tenderness, no cyanosis, no clubbing, ROM intact. Neurologic: Alert and oriented x4, no focal deficits noted. Current Patient Data: Labs: Laboratory Tests Test 01/02/22 13:05 White Blood Count 6.2 x10^3/uL (4.0-11.0) Red Blood Count 4.59 x10^6/uL (4.30-5.70) Hemoglobin 9.1 g/dL (13.0-17.5) Hematocrit 30.5 % (39.0-53.0) Mean Corpuscular Volume 67 fL (79-100) Mean Corpuscular Hemoglobin 20 pg (25-35) Mean Corpuscular Hemoglobin Concent 30 g/dL (31-37) Red Cell Distribution Width 19.9 % (11.5-14.5) Platelet Count 213 x10^3/uL (140-400) Neutrophils (%) (Auto) 63 % (31-73) Lymphocytes (%) (Auto) 22 % (24-48) Monocytes (%) (Auto) 10 % (0-9) Eosinophils (%) (Auto) 4 % (0-3) Basophils (%) (Auto) 1 % (0-3) Neutrophils # (Auto) 3.9 x10^3/uL (1.8-7.7) Lymphocytes # (Auto) 1.4 x10^3/uL (1.0-4.8) Monocytes # (Auto) 0.6 x10^3/uL (0.0-1.1) Eosinophils # (Auto) 0.2 x10^3/uL (0.0-0.7) Basophils # (Auto) 0.1 x10^3/uL (0.0-0.2) Platelet Estimate Adequate (ADEQUATE) Polychromasia Slight Hypochromasia Slight Microcytosis Mod Macrocytosis Slight Ovalocytes Occ Prothrombin Time 16.1 SEC (11.7-14.0) Prothromb Time International Ratio 1.3 (0.8-1.1) Activated Partial Thromboplast Time 37 SEC (24-38) Sodium Level 141 mmol/L (136-145) Potassium Level 4.0 mmol/L (3.5-5.1) Chloride Level 105 mmol/L (98-107) Carbon Dioxide Level 26 mmol/L (21-32) Anion Gap 10 (6-14) Blood Urea Nitrogen 19 mg/dL (8-26) Creatinine 1.2 mg/dL (0.7-1.3) Estimated GFR (Cockcroft-Gault) 57.0 BUN/Creatinine Ratio 16 (6-20) Glucose Level 107 mg/dL (70-99) Calcium Level 8.5 mg/dL (8.5-10.1) Magnesium Level 1.9 mg/dL (1.8-2.4) Total Bilirubin 0.5 mg/dL (0.2-1.0) Aspartate Amino Transf (AST/SGOT) 15 U/L (15-37) Alanine Aminotransferase (ALT/SGPT) 19 U/L (16-63) Alkaline Phosphatase 62 U/L (46-116) Troponin I High Sensitivity 7 ng/L (4-75) Total Protein 7.0 g/dL (6.4-8.2) Albumin 2.9 g/dL (3.4-5.0) Albumin/Globulin Ratio 0.7 (1.0-1.7) Vital Signs: Vital Signs Date Time Temp Pulse Resp B/P (MAP) Pulse Ox O2 Delivery O2 Flow Rate FiO2 01/02/22 12:50 98.4 89 12 113/61 (78) 97 Room Air 98.4 EKG: EKG: EKG Interpreted by Dr. June at 1258: Regular rate and rhythm 79 bpm with no ectopic beats. Right axis deviation. QT 388 ms/QTc 451 ms. No STEMI. Radiology/Procedures: Radiology/Procedures: PROCEDURE: VENOUS LOWER EXTREMITY LEFT LEFT LEG VENOUS DOPPLER STUDY: Clinical indications: Left leg swelling and pain. Findings: Duplex sonography (including keita scale evaluation and color flow and waveform spectral analysis) of the proximal aspect of the greater saphenous vein and the proximal aspect of the profunda femoral vein and the entire length of the common femoral and superficial femoral and popliteal veins and the tibioperoneal trunk and the proximal aspect of the posterior tibial and peroneal veins of the left leg was performed. There is occlusive thrombosis of the left lower extremity from the left common femoral vein all the way down to the calf veins. Sonography of the right common femoral vein was performed and this vein is patent. Impression: Extensive occlusive thrombosis of the left lower extremity. Electronically signed by: Vipin Figueroa MD (01/02/2022 3:18 PM) [id number] PROCEDURE: DUPLEX LOWER EXT ARTERIAL LEFT DUPLEX SONOGRAPHY OF THE PERIPHERAL ARTERIAL SYSTEM OF LEFT LOWER EXTREMITY Clinical indications: Left leg pain and swelling. Findings: Duplex sonography of the peripheral arterial system of the left lower extremity including keita scale and color flow and spectral waveform analysis was performed.Triphasic and biphasic waveforms are seen within the femoral popliteal segment. Monophasic waveform is seen within the left posterior tibial artery. This may be due to more distal disease specifically the occlusive thrombosis of the veins of the left leg seen on the venous Doppler study. Otherwise, no arterial occlusive disease is evident. No significant stenosis is seen elsewhere. The measurements were performed using the NASCET criteria. Peak systolic flow velocities are as follows: Left leg: common femoral artery- 116 cm/sec, profunda femoral artery -135 cm/sec, proximal superficial femoral artery- 107cm/sec, mid superficial femoral artery- 69 cm/sec, distal superficial femoral artery- 140 cm/sec, popliteal artery -71 cm/sec, proximal posterior tibial artery -33 cm/sec, distal posterior tibial artery- 48 cm/sec, peroneal artery -62 cm/sec, anterior tibial artery -146 cm/sec, dorsalis pedis artery- 91 cm/sec. IMPRESSION: No arterial occlusive disease or significant stenosis is evident. Electronically signed by: Vipin Figueroa MD (01/02/2022 3:27 PM) [id number] Course & Med Decision Making: Course & Med Decision Making Pertinent Labs and Imaging studies reviewed. (See chart for details) Patient is an 89-year-old male with daily blood thinner use that presents with left lower extremity pain and swelling. There is a mixed picture of both venous and arterial concern, so ultrasound to evaluate both. Ultrasound shows extensive occlusive DVT of the left lower extremity extending from left common femoral to distal calf veins. Patient was informed of findings and is agreeable to inpatient management. Spoke with Dr. Garner (IR) and made him aware of patient case. Explained to Dr. Garner the patient has a DVT from the left common femoral vein extending down into the calf veins with associated pain and pallor. He recommended overnight heparinization with reevaluation via ultrasound in the morning, secondary to patient age and hemodynamic stability. Patient gladly accepted for inpatient management by Dr. Delaney (hospitalist). Charles Disclaimer: Dragon Disclaimer: This electronic medical record was generated, in whole or in part, using a voice recognition dictation system. Departure Departure Impression: Primary Impression: Left femoral vein DVT Qualified Codes: I82.412 - Acute embolism and thrombosis of left femoral vein Additional Impressions: Deep vein thrombosis of left lower extremity Qualified Codes: I82.402 - Acute embolism and thrombosis of unspecified deep veins of left lower extremity Hx of fci use of blood thinners Claudication of both lower extremities Myasthenia gravis Disposition: ADMITTED INPATIENT Admitting Physician: KG Brennan) Condition: GUARDED Referrals: POPEYE BARRETT MD (PCP) MALIK AGUILAR Jan 02, 2022 13:38
[2022-01-02] MEDS ORDERED: HEPARIN for IV BOLUS 10,000 UNIT/10 ML VIAL. IV PRN (15:15)
[2022-01-02] MEDS ORDERED: HEPARIN for IV BOLUS 10,000 UNIT/10 ML VIAL. IV ONE (15:15)
--- NOTE | 2022-01-02 15:20 | RAD ---
LEFT LEG VENOUS DOPPLER STUDY: Clinical indications: Left leg swelling and pain. Findings: Duplex sonography (including keita scale evaluation and color flow and waveform spectral mau lysis) of the proximal aspect of the greater saphenous vein and the proximal aspect of the profunda f emoral vein and the entire length of the common femoral and superficial femoral and popliteal veins a nd the tibioperoneal trunk and the proximal aspect of the posterior tibial and peroneal veins of the left leg was performed. There is occlusive thrombosis of the left lower extremity from the left commo n femoral vein all the way down to the calf veins. Sonography of the right common femoral vein was pe rformed and this vein is patent. Impression: Extensive occlusive thrombosis of the left lower extremity. Electronically signed by: Vipin Figueroa MD (01/02/2022 3:18 PM) [id number]
--- NOTE | 2022-01-02 15:24 | PDOC1 ---
History and Physical Date of Service: DOS: DATE: 01/02/22 TIME: 15:19 Chief Complaint: Chief Complain: Lower extremity pain History of Present Illness: HPI: 89 year old male who presents with lower extremity pain that started this morning at 1:00 in the morning. The pain woke him up from sleep and he was barely able to walk. Of note, patient had a left hip surgery that was done [address] [facility]. Patient did go to rehab afterwards but states that he has been mainly immobile since going home. Patient denies falls, trauma/injury, weakness, chest pain, palpitations, shortness of breath, cough, orthopnea. Past Medical/Surgical History: PMH/PSH: Past Medical History: A-Fib, Diabetes-Type II, Heart Disease, MYASTHENIA GRAVIS Past Surgical History: Cholecystectomy, Hip Replacement, PROSTATE, CATARACTS Allergies: Allergies: Coded Allergies: I S O L A T I O N *CONTACT* (Verified Allergy, Unknown, 04/03/18) mrsa No Known Medication Allergies (Verified Allergy, Unknown, 04/03/18) Family History: Family History: Reviewed with no relative findings in the chart Social History: Social History: Smoking Status: Never Smoker Alcohol Use: None Drug Use: None Current Medications: Current Medications Active Scripts Active Tamiflu (Oseltamivir Phosphate) 30 Mg Capsule 30 Mg PO BID 3 Days Amox Tr-K Clv 500-125 Mg Tab (Amoxicillin/Potassium Clav) 1 Each Tablet 1 Tab PO BID 5 Days Lantus Solostar (Insulin Glargine,Hum.rec.anlog) 100 Unit/1 Ml Insuln.pen 12 Unit SQ QHS 30 Days Reported Hydrochlorothiazide Tablet (Hydrochlorothiazide) 12.5 Mg Tablet 1 Tab PO DAILY Eliquis (Apixaban) 2.5 Mg Tablet 1 Tab PO BID Carvedilol (Carvedilol) 6.25 Mg Tablet 6.25 Mg PO BIDWMEALS Fish Oil 1,200 Mg Fish Oil (Fish Oil/Dha/Epa) 1 Each Capsule 1 Each PO DAILY Pyridostigmine Mentone 60 Mg Tablet 60 Mg PO BID Flecainide Acetate 50 Mg Tablet 25 Mg PO BID Simvastatin 20 Mg Tablet 20 Mg PO HS Nexium Capsule (Esomeprazole Magnesium) 40 Mg Capsule.dr 1 Cap PO DAILY Vitamin D (Cholecalciferol (Vitamin D3)) 2,000 Unit Tablet 1,000 Unit PO DAILY ROS: Review of Systems Review of System REVIEW OF SYSTEMS: GENERAL: Denies weakness SKIN: No bruising, hair changes or rashes. EYES: No blurred, double or loss of vision. NOSE AND THROAT: No history of nosebleeds, hoarseness or sore throat. HEART: No history of palpitations, chest pain or shortness of breath on exertion. LUNGS: Denies cough, hemoptysis, wheezing or shortness of breath. GASTROINTESTINAL: Denies changes in appetite, nausea, vomiting, diarrhea or constipation. GENITOURINARY: No history of frequency, urgency, hesitancy or nocturia. NEUROLOGIC: Denies history of numbness, tingling, or tremor. PSYCHIATRIC: No history of panic, anxiety or depression. ENDOCRINE: No history of heat or cold intolerance, polyuria or polydipsia. EXTREMITIES: Denies joint pain, pain on walking or stiffness. Physical Exam: Vital Signs: Vital Signs Date Time Temp Pulse Resp B/P (MAP) Pulse Ox O2 Delivery O2 Flow Rate FiO2 01/02/22 12:50 98.4 89 12 113/61 (78) 97 Room Air 98.4 Physcial Exam: General: Well developed, well nourished, no acute distress, well appearing HEENT: Pupils equally round and reactive to light, EOMI, no discharge, normal conjunctiva Neck: Supple, no nuchal rigidity, no JVD, trachea midline, no tenderness Cardiac: RRR, no murmurs, no gallops, no rubs Chest/Lungs: CTAB, no wheeze, no rhonchi, no crackles Abdomen: soft, non-distended, no guarding, no peritoneal signs, non-tender Back: No tenderness Extremities: Motor strength 4 out of 5 on the left lower extremity. No edema, pulses intact, non-tender,capillary refill <3 sec bilateral upper and lower extremities, Neuro: Alert and oriented x 4, no focal deficits, normal speech Labs: Labs: Laboratory Tests Test 01/02/22 13:05 White Blood Count 6.2 x10^3/uL (4.0-11.0) Red Blood Count 4.59 x10^6/uL (4.30-5.70) Hemoglobin 9.1 g/dL (13.0-17.5) Hematocrit 30.5 % (39.0-53.0) Mean Corpuscular Volume 67 fL (79-100) Mean Corpuscular Hemoglobin 20 pg (25-35) Mean Corpuscular Hemoglobin Concent 30 g/dL (31-37) Red Cell Distribution Width 19.9 % (11.5-14.5) Platelet Count 213 x10^3/uL (140-400) Neutrophils (%) (Auto) 63 % (31-73) Lymphocytes (%) (Auto) 22 % (24-48) Monocytes (%) (Auto) 10 % (0-9) Eosinophils (%) (Auto) 4 % (0-3) Basophils (%) (Auto) 1 % (0-3) Neutrophils # (Auto) 3.9 x10^3/uL (1.8-7.7) Lymphocytes # (Auto) 1.4 x10^3/uL (1.0-4.8) Monocytes # (Auto) 0.6 x10^3/uL (0.0-1.1) Eosinophils # (Auto) 0.2 x10^3/uL (0.0-0.7) Basophils # (Auto) 0.1 x10^3/uL (0.0-0.2) Prothrombin Time 16.1 SEC (11.7-14.0) Prothromb Time International Ratio 1.3 (0.8-1.1) Activated Partial Thromboplast Time 37 SEC (24-38) Sodium Level 141 mmol/L (136-145) Potassium Level 4.0 mmol/L (3.5-5.1) Chloride Level 105 mmol/L (98-107) Carbon Dioxide Level 26 mmol/L (21-32) Anion Gap 10 (6-14) Blood Urea Nitrogen 19 mg/dL (8-26) Creatinine 1.2 mg/dL (0.7-1.3) Estimated GFR (Cockcroft-Gault) 57.0 BUN/Creatinine Ratio 16 (6-20) Glucose Level 107 mg/dL (70-99) Calcium Level 8.5 mg/dL (8.5-10.1) Magnesium Level 1.9 mg/dL (1.8-2.4) Total Bilirubin 0.5 mg/dL (0.2-1.0) Aspartate Amino Transf (AST/SGOT) 15 U/L (15-37) Alanine Aminotransferase (ALT/SGPT) 19 U/L (16-63) Alkaline Phosphatase 62 U/L (46-116) Troponin I High Sensitivity 7 ng/L (4-75) Total Protein 7.0 g/dL (6.4-8.2) Albumin 2.9 g/dL (3.4-5.0) Albumin/Globulin Ratio 0.7 (1.0-1.7) Laboratory Tests Test 01/02/22 13:05 White Blood Count 6.2 x10^3/uL (4.0-11.0) Red Blood Count 4.59 x10^6/uL (4.30-5.70) Hemoglobin 9.1 g/dL (13.0-17.5) Hematocrit 30.5 % (39.0-53.0) Mean Corpuscular Volume 67 fL (79-100) Mean Corpuscular Hemoglobin 20 pg (25-35) Mean Corpuscular Hemoglobin Concent 30 g/dL (31-37) Red Cell Distribution Width 19.9 % (11.5-14.5) Platelet Count 213 x10^3/uL (140-400) Neutrophils (%) (Auto) 63 % (31-73) Lymphocytes (%) (Auto) 22 % (24-48) Monocytes (%) (Auto) 10 % (0-9) Eosinophils (%) (Auto) 4 % (0-3) Basophils (%) (Auto) 1 % (0-3) Neutrophils # (Auto) 3.9 x10^3/uL (1.8-7.7) Lymphocytes # (Auto) 1.4 x10^3/uL (1.0-4.8) Monocytes # (Auto) 0.6 x10^3/uL (0.0-1.1) Eosinophils # (Auto) 0.2 x10^3/uL (0.0-0.7) Basophils # (Auto) 0.1 x10^3/uL (0.0-0.2) Prothrombin Time 16.1 SEC (11.7-14.0) Prothromb Time International Ratio 1.3 (0.8-1.1) Activated Partial Thromboplast Time 37 SEC (24-38) Sodium Level 141 mmol/L (136-145) Potassium Level 4.0 mmol/L (3.5-5.1) Chloride Level 105 mmol/L (98-107) Carbon Dioxide Level 26 mmol/L (21-32) Anion Gap 10 (6-14) Blood Urea Nitrogen 19 mg/dL (8-26) Creatinine 1.2 mg/dL (0.7-1.3) Estimated GFR (Cockcroft-Gault) 57.0 BUN/Creatinine Ratio 16 (6-20) Glucose Level 107 mg/dL (70-99) Calcium Level 8.5 mg/dL (8.5-10.1) Magnesium Level 1.9 mg/dL (1.8-2.4) Total Bilirubin 0.5 mg/dL (0.2-1.0) Aspartate Amino Transf (AST/SGOT) 15 U/L (15-37) Alanine Aminotransferase (ALT/SGPT) 19 U/L (16-63) Alkaline Phosphatase 62 U/L (46-116) Troponin I High Sensitivity 7 ng/L (4-75) Total Protein 7.0 g/dL (6.4-8.2) Albumin 2.9 g/dL (3.4-5.0) Albumin/Globulin Ratio 0.7 (1.0-1.7) Images: Images Pending final results of lower extremity ultrasound and duplex ultrasound Assessment/Plan Assessment/Plan Acute left lower extremity DVT, likely provoked despite being on Eliquis Microcytic anemia, likely RAGINI. Recent left hip arthroplasty History of diabetes mellitus type 2 History of atrial fibrillation History of myasthenia gravis History of CAD Admit to hospitalist service for further management Continue heparin drip Hematology consult to determine if patient necessitates a thrombophilia work-up Heparin drip for DVT prophylaxis ADA diet CODE STATUS full Discussed with RN and SW Disposition pending IR evaluation DPOA: [place] Mckeon Justifications for Admission Other Justification PRANAV JOSEPH MD Jan 02, 2022 15:24
--- NOTE | 2022-01-02 15:29 | RAD ---
DUPLEX SONOGRAPHY OF THE PERIPHERAL ARTERIAL SYSTEM OF LEFT LOWER EXTREMITY Clinical indications: Left leg pain and swelling. Findings: Duplex sonography of the peripheral arterial system of the left lower extremity including g ray scale and color flow and spectral waveform analysis was performed.Triphasic and biphasic waveform s are seen within the femoral popliteal segment. Monophasic waveform is seen within the left posterio r tibial artery. This may be due to more distal disease specifically the occlusive thrombosis of the veins of the left leg seen on the venous Doppler study. Otherwise, no arterial occlusive disease is e vident. No significant stenosis is seen elsewhere. The measurements were performed using the NASCET criteria. Peak systolic flow velocities are as follows: Left leg: common femoral artery- 116 cm/sec, profunda femoral artery -135 cm/sec, proximal superficia l femoral artery- 107cm/sec, mid superficial femoral artery- 69 cm/sec, distal superficial femoral ar anthony- 140 cm/sec, popliteal artery -71 cm/sec, proximal posterior tibial artery -33 cm/sec, distal p osterior tibial artery- 48 cm/sec, peroneal artery -62 cm/sec, anterior tibial artery -146 cm/sec, do rsalis pedis artery- 91 cm/sec. IMPRESSION: No arterial occlusive disease or significant stenosis is evident. Electronically signed by: Vipin Figueroa MD (01/02/2022 3:27 PM) [id number]
[2022-01-02] MEDS ORDERED: DEXTROSE 50% 25 GM / 50ML DISP.SYRIN. IV PRN (15:30)
[2022-01-02] MEDS ORDERED: SENNOSIDES 8.6 MG TABLET PO PRN (15:30)
[2022-01-02] MEDS ORDERED: ZOLPIDEM 5 MG TABLET. PO PRN (15:30)
[2022-01-02] MEDS ORDERED: DOCUSATE SODIUM 100 MG CAPSULE. PO PRN (15:30)
[2022-01-02] MEDS ORDERED: diphenhydrAMINE 50 MG/ML VIAL IVP PRN (15:30)
[2022-01-02] MEDS ORDERED: ACETAMINOPHEN 325 MG TABLET. PO PRN (15:30)
[2022-01-02] MEDS ORDERED: oxyCODONE/APAP 5/325 1 TAB TABLET PO PRN (15:30)
[2022-01-02] MEDS ORDERED: LORazepam 0.5 MG TABLET PO PRN (15:30)
[2022-01-02] MEDS ORDERED: ONDANSETRON PF 4 MG/2 ML VIAL. IVP PRN (15:30)
[2022-01-02] MEDS ORDERED: diphenhydrAMINE HCL 25 MG CAPSULE PO PRN ×2 (15:30)
[2022-01-02] MEDS ORDERED: PROCHLORPERAZINE 10 MG/2 ML VIAL. IV PRN (15:30)
[2022-01-02 15:39] LABS: HYPOCHROMIA SLIGHT; MICROCYTOSIS MOD; OVALOCYTES OCC; PLT ESTIMATE ADEQUATE (ADEQUATE); POLYCHROMASIA SLIGHT
--- NOTE | 2022-01-02 15:57 | EKG ---
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
[2022-01-02] MEDS: HEPARIN 25,000UTS/250ML PREMIX 250 ML IV PRN (16:01)
[2022-01-02] MEDS: INSULIN LISPRO 300 UNITS/3 ML VIAL. SQ SCH (17:00)
[2022-01-02] MEDS: CARVEDILOL 6.25 MG TABLET. PO SCH (18:57)
[2022-01-02 19:00] VITALS: BP 116/41
[2022-01-02] MEDS: FLECAINIDE ACETATE 50 MG TABLET. PO SCH (21:38)
[2022-01-02] MEDS: SIMVASTATIN 20 MG TABLET PO SCH (21:38)
[2022-01-02] MEDS: INSULIN GLARGINE SYRINGE. SQ SCH (21:42)
[2022-01-02] MEDS: PANTOPRAZOLE 40 MG TABLET.DR. PO SCH (22:14)
[2022-01-02] MEDS: PYRIDOSTIGMINE BROMIDE 60 MG TABLET PO SCH (22:15)
[2022-01-02 23:00] VITALS: BP 113/57
[2022-01-02] MEDS: HEPARIN for IV BOLUS 10,000 UNIT/10 ML VIAL. IV PRN (23:20)
[2022-01-03] VITALS (7 sets, daily range): BP systolic 90–117; BP diastolic 42–58
[2022-01-03 06:04] LABS: BASO % 1 % (0-3); EOS # 0.3 x10^3/uL (0.0-0.7); EOS % 4 % (0-3); HEMATOCRIT 26.8 % (39.0-53.0); HEMOGLOBIN 8.1 g/dL (13.0-17.5); LYMPH % 34 % (24-48); MEAN CORPUSCULAR HEMOGLOBIN 20 pg (25-35); MEAN CORPUSCULAR HGB CONC 30 g/dL (31-37); MEAN CORPUSCULAR VOLUME 67 fL (79-100); MONO # 0.6 x10^3/uL (0.0-1.1); MONO % 10 % (0-9); NEUT # 3.1 x10^3/uL (1.8-7.7); NEUT % 51 % (31-73); PLATELET COUNT 188 x10^3/uL (140-400); RED BLOOD COUNT 4.01 x10^6/uL (4.30-5.70); RED CELL DISTRIBUTION WIDTH 19.8 % (11.5-14.5)
[2022-01-03 06:27] LABS: CALCIUM 7.8 mg/dL (8.5-10.1); CREATININE 1.2 mg/dL (0.7-1.3); PHOSPHORUS 3.1 mg/dL (2.6-4.7); POTASSIUM 4.3 mmol/L (3.5-5.1)
[2022-01-03] MEDS: INSULIN LISPRO 300 UNITS/3 ML VIAL. SQ SCH ×3 (08:00→17:00)
[2022-01-03] MEDS: HEPARIN for IV BOLUS 10,000 UNIT/10 ML VIAL. IV PRN (08:02)
--- NOTE | 2022-01-03 08:53 | PDOC2 ---
INTERV RADIOLOGY CONSULT INPT Date of Consult 01.03.22 Reason for Consult LLE DVT Referring Physician Rhett Identification/Chief Complaint LLE DVT and PAIN History of Present Illness Reason for Visit 89 year old male with LLE pain, found to have extensive occlusive LLE DVT from posterior tibials through the Common femoral vein. GSV also thrombosed. Was on eliquis at time of DVT. Has been immobile secondary to pain. Has now been on heparin drip. Says edema and pain somewhat improved. Has not been ambualting however. We discussed thrombectomy vs anticoagulation. Past Medical History Cardiovascular: CAD GI: No pertinent hx Heme/Onc: No pertinent hx, Other (failed eliquis?) Hepatobiliary: No pertinent hx Psych: No pertinent hx Musculoskeletal: Osteoarthritis Rheumatologic: No pertinent hx Infectious disease: No pertinent hx ENT: No pertinent hx Renal/: No pertinent hx Endocrine: No pertinent hx Dermatology: No pertinent hx Past Surgical History Total hip replacement Current Medications Current Medications Heparin Sodium (Porcine) (Heparin Sodium) 6,150 unit 1X ONCE IV Last administered on 01/02/22at 16:00; Start 01/02/22 at 15:15; Stop 01/02/22 at 15:42; Status DC Heparin Sodium/ Dextrose 250 ml @ 12.32 mls/ hr CONT PRN IV PER PROTOCOL Last administered on 01/02/22at 16:01; Start 01/02/22 at 15:15 Heparin Sodium (Porcine) (Heparin Sodium) 2,300 unit PRN Q6HRS PRN IV FOR UFH LEVEL LESS THAN 0.2; Start 01/02/22 at 15:15 Heparin Sodium (Porcine) (Heparin Sodium) 1,150 unit PRN Q6HRS PRN IV FOR UFH LEVEL 0.2 - 0.29 Last administered on 01/03/22at 08:02; Start 01/02/22 at 15:15 Sennosides (Senna) 17.2 mg PRN BID PRN PO CONSTIPATION; Start 01/02/22 at 15:30 Docusate Sodium (Colace) 100 mg PRN DAILY PRN PO HARD STOOLS; Start 01/02/22 at 15:30 Ondansetron HCl (Zofran) 4 mg PRN Q6HRS PRN IVP NAUSEA/VOMITING, 1st CHOICE; Start 01/02/22 at 15:30 Insulin Human Lispro (HumaLOG) 0-7 UNITS TIDWMEALS SQ ; Start 01/02/22 at 17:00 Dextrose (Dextrose 50%-Water Syringe) 12.5 gm PRN Q15MIN PRN IV SEE COMMENTS; Start 01/02/22 at 15:30 Acetaminophen (Tylenol) 650 mg PRN Q4HRS PRN PO TEMP OVER 100.4F OR MILD PAIN; Start 01/02/22 at 15:30 Lorazepam (Ativan) 0.5 mg PRN Q6HRS PRN PO ANXIETY / AGITATION; Start 01/02/22 at 15:30 Lorazepam (Ativan Inj) 0.25 mg PRN Q4HRS PRN IV ANXIETY / AGITATION; Start 01/02/22 at 15:30 Oxycodone/ Acetaminophen (Percocet 5/325) 1 tab PRN Q4HRS PRN PO MILD PAIN, 1ST CHOICE; Start 01/02/22 at 15:30 Prochlorperazine Edisylate (Compazine) 10 mg PRN Q6HRS PRN IV NAUSEA/VOMITING, 2nd CHOICE; Start 01/02/22 at 15:30 Diphenhydramine HCl (Benadryl) 25 mg PRN Q6HRS PRN IVP ITCHING; Start 01/02/22 at 15:30 Diphenhydramine HCl (Benadryl) 25 mg PRN Q6HRS PRN PO ITCHING; Start 01/02/22 at 15:30 Diphenhydramine HCl (Benadryl) 25 mg PRN QHS PRN PO INSOMNIA, 1st CHOICE; Start 01/02/22 at 15:30 Zolpidem Tartrate (Ambien) 2.5 mg PRN QHS PRN PO INSOMNIA, 2nd CHOICE; Start 01/02/22 at 15:30 Carvedilol (Coreg) 6.25 mg BIDWMEALS PO Last administered on 01/02/22at 18:57; Start 01/02/22 at 17:00 Flecainide Acetate (Tambocor) 25 mg BID PO Last administered on 01/02/22at 21:38; Start 01/02/22 at 21:00 Pyridostigmine [place] (Mestinon) 60 mg BID PO Last administered on 01/02/22at 22:15; Start 01/02/22 at 21:00 Simvastatin (Zocor) 20 mg HS PO Last administered on 01/02/22at 21:38; Start 01/02/22 at 21:00 Vitamin D (Vitamin D3) 1,000 unit DAILY PO ; Start 01/03/22 at 09:00 Pantoprazole Sodium (Protonix) 40 mg QHS PO Last administered on 01/02/22at 22:14; Start 01/02/22 at 22:00 Fish Oil (Fish Oil) 1,000 mg DAILY PO ; Start 01/03/22 at 09:00 Insulin Glargine (Lantus Syringe) 12 unit QHS SQ Last administered on 01/02/22at 21:42; Start 01/02/22 at 21:00 Active Scripts Active Tamiflu (Oseltamivir Phosphate) 30 Mg Capsule 30 Mg PO BID 3 Days Amox Tr-K Clv 500-125 Mg Tab (Amoxicillin/Potassium Clav) 1 Each Tablet 1 Tab PO BID 5 Days Lantus Solostar (Insulin Glargine,Hum.rec.anlog) 100 Unit/1 Ml Insuln.pen 12 Unit SQ QHS 30 Days Reported Hydrochlorothiazide Tablet (Hydrochlorothiazide) 12.5 Mg Tablet 1 Tab PO DAILY Eliquis (Apixaban) 2.5 Mg Tablet 1 Tab PO BID Carvedilol (Carvedilol) 6.25 Mg Tablet 6.25 Mg PO BIDWMEALS Fish Oil 1,200 Mg Fish Oil (Fish Oil/Dha/Epa) 1 Each Capsule 1 Each PO DAILY Pyridostigmine [place] 60 Mg Tablet 60 Mg PO BID Flecainide Acetate 50 Mg Tablet 25 Mg PO BID Simvastatin 20 Mg Tablet 20 Mg PO HS Nexium Capsule (Esomeprazole Magnesium) 40 Mg Capsule.dr 1 Cap PO QHS Vitamin D (Cholecalciferol (Vitamin D3)) 2,000 Unit Tablet 1,000 Unit PO DAILY Allergies Coded Allergies: I S O L A T I O N *CONTACT* (Verified Allergy, Unknown, 04/03/18) mrsa No Known Medication Allergies (Verified Allergy, Unknown, 04/03/18) Physical Exam Cardiovascular rrr Chest cta Mental Status wnl Vascular warm BLE. 2+ edema on left but not tense. No significant pallor or rubor. No phlegmasia. No open wounds. No sig pain to palpation Vitals Vital Signs Date Time Temp Pulse Resp B/P (MAP) Pulse Ox O2 Delivery O2 Flow Rate FiO2 01/03/22 07:00 98.7 58 18 106/49 (68) 94 Room Air 98.7 Labs Laboratory Tests Test 01/02/22 13:05 01/02/22 18:29 01/02/22 20:58 01/02/22 21:50 White Blood Count 6.2 x10^3/uL (4.0-11.0) Red Blood Count 4.59 x10^6/uL (4.30-5.70) Hemoglobin 9.1 g/dL (13.0-17.5) Hematocrit 30.5 % (39.0-53.0) Mean Corpuscular Volume 67 fL (79-100) Mean Corpuscular Hemoglobin 20 pg (25-35) Mean Corpuscular Hemoglobin Concent 30 g/dL (31-37) Red Cell Distribution Width 19.9 % (11.5-14.5) Platelet Count 213 x10^3/uL (140-400) Neutrophils (%) (Auto) 63 % (31-73) Lymphocytes (%) (Auto) 22 % (24-48) Monocytes (%) (Auto) 10 % (0-9) Eosinophils (%) (Auto) 4 % (0-3) Basophils (%) (Auto) 1 % (0-3) Neutrophils # (Auto) 3.9 x10^3/uL (1.8-7.7) Lymphocytes # (Auto) 1.4 x10^3/uL (1.0-4.8) Monocytes # (Auto) 0.6 x10^3/uL (0.0-1.1) Eosinophils # (Auto) 0.2 x10^3/uL (0.0-0.7) Basophils # (Auto) 0.1 x10^3/uL (0.0-0.2) Platelet Estimate Adequate (ADEQUATE) Polychromasia Slight Hypochromasia Slight Microcytosis Mod Macrocytosis Slight Ovalocytes Occ Prothrombin Time 16.1 SEC (11.7-14.0) Prothromb Time International Ratio 1.3 (0.8-1.1) Activated Partial Thromboplast Time 37 SEC (24-38) Sodium Level 141 mmol/L (136-145) Potassium Level 4.0 mmol/L (3.5-5.1) Chloride Level 105 mmol/L (98-107) Carbon Dioxide Level 26 mmol/L (21-32) Anion Gap 10 (6-14) Blood Urea Nitrogen 19 mg/dL (8-26) Creatinine 1.2 mg/dL (0.7-1.3) Estimated GFR (Cockcroft-Gault) 57.0 BUN/Creatinine Ratio 16 (6-20) Glucose Level 107 mg/dL (70-99) Calcium Level 8.5 mg/dL (8.5-10.1) Magnesium Level 1.9 mg/dL (1.8-2.4) Iron Level 14 ug/dL (65-175) Total Iron Binding Capacity 309 ug/dL (250-450) Iron Saturation 5 % (15-34) Ferritin 26 ng/mL (26-388) Total Bilirubin 0.5 mg/dL (0.2-1.0) Aspartate Amino Transf (AST/SGOT) 15 U/L (15-37) Alanine Aminotransferase (ALT/SGPT) 19 U/L (16-63) Alkaline Phosphatase 62 U/L (46-116) Troponin I High Sensitivity 7 ng/L (4-75) Total Protein 7.0 g/dL (6.4-8.2) Albumin 2.9 g/dL (3.4-5.0) Albumin/Globulin Ratio 0.7 (1.0-1.7) Glucose (Fingerstick) 139 mg/dL (70-99) 134 mg/dL (70-99) Heparin Anti-Xa Act, Unfractionated 0.22 IU/mL (0.30-0.70) Test 01/03/22 05:20 01/03/22 07:48 White Blood Count 6.0 x10^3/uL (4.0-11.0) Red Blood Count 4.01 x10^6/uL (4.30-5.70) Hemoglobin 8.1 g/dL (13.0-17.5) Hematocrit 26.8 % (39.0-53.0) Mean Corpuscular Volume 67 fL (79-100) Mean Corpuscular Hemoglobin 20 pg (25-35) Mean Corpuscular Hemoglobin Concent 30 g/dL (31-37) Red Cell Distribution Width 19.8 % (11.5-14.5) Platelet Count 188 x10^3/uL (140-400) Neutrophils (%) (Auto) 51 % (31-73) Lymphocytes (%) (Auto) 34 % (24-48) Monocytes (%) (Auto) 10 % (0-9) Eosinophils (%) (Auto) 4 % (0-3) Basophils (%) (Auto) 1 % (0-3) Neutrophils # (Auto) 3.1 x10^3/uL (1.8-7.7) Lymphocytes # (Auto) 2.0 x10^3/uL (1.0-4.8) Monocytes # (Auto) 0.6 x10^3/uL (0.0-1.1) Eosinophils # (Auto) 0.3 x10^3/uL (0.0-0.7) Basophils # (Auto) 0.0 x10^3/uL (0.0-0.2) Heparin Anti-Xa Act, Unfractionated 0.28 IU/mL (0.30-0.70) Sodium Level 140 mmol/L (136-145) Potassium Level 4.3 mmol/L (3.5-5.1) Chloride Level 105 mmol/L (98-107) Carbon Dioxide Level 26 mmol/L (21-32) Anion Gap 9 (6-14) Blood Urea Nitrogen 20 mg/dL (8-26) Creatinine 1.2 mg/dL (0.7-1.3) Estimated GFR (Cockcroft-Gault) 57.0 Glucose Level 102 mg/dL (70-99) Calcium Level 7.8 mg/dL (8.5-10.1) Phosphorus Level 3.1 mg/dL (2.6-4.7) Magnesium Level 2.0 mg/dL (1.8-2.4) Glucose (Fingerstick) 129 mg/dL (70-99) Laboratory Tests Test 01/02/22 13:05 01/02/22 18:29 01/02/22 20:58 01/02/22 21:50 White Blood Count 6.2 x10^3/uL (4.0-11.0) Red Blood Count 4.59 x10^6/uL (4.30-5.70) Hemoglobin 9.1 g/dL (13.0-17.5) Hematocrit 30.5 % (39.0-53.0) Mean Corpuscular Volume 67 fL (79-100) Mean Corpuscular Hemoglobin 20 pg (25-35) Mean Corpuscular Hemoglobin Concent 30 g/dL (31-37) Red Cell Distribution Width 19.9 % (11.5-14.5) Platelet Count 213 x10^3/uL (140-400) Neutrophils (%) (Auto) 63 % (31-73) Lymphocytes (%) (Auto) 22 % (24-48) Monocytes (%) (Auto) 10 % (0-9) Eosinophils (%) (Auto) 4 % (0-3) Basophils (%) (Auto) 1 % (0-3) Neutrophils # (Auto) 3.9 x10^3/uL (1.8-7.7) Lymphocytes # (Auto) 1.4 x10^3/uL (1.0-4.8) Monocytes # (Auto) 0.6 x10^3/uL (0.0-1.1) Eosinophils # (Auto) 0.2 x10^3/uL (0.0-0.7) Basophils # (Auto) 0.1 x10^3/uL (0.0-0.2) Platelet Estimate Adequate (ADEQUATE) Polychromasia Slight Hypochromasia Slight Microcytosis Mod Macrocytosis Slight Ovalocytes Occ Prothrombin Time 16.1 SEC (11.7-14.0) Prothromb Time International Ratio 1.3 (0.8-1.1) Activated Partial Thromboplast Time 37 SEC (24-38) Sodium Level 141 mmol/L (136-145) Potassium Level 4.0 mmol/L (3.5-5.1) Chloride Level 105 mmol/L (98-107) Carbon Dioxide Level 26 mmol/L (21-32) Anion Gap 10 (6-14) Blood Urea Nitrogen 19 mg/dL (8-26) Creatinine 1.2 mg/dL (0.7-1.3) Estimated GFR (Cockcroft-Gault) 57.0 BUN/Creatinine Ratio 16 (6-20) Glucose Level 107 mg/dL (70-99) Calcium Level 8.5 mg/dL (8.5-10.1) Magnesium Level 1.9 mg/dL (1.8-2.4) Iron Level 14 ug/dL (65-175) Total Iron Binding Capacity 309 ug/dL (250-450) Iron Saturation 5 % (15-34) Ferritin 26 ng/mL (26-388) Total Bilirubin 0.5 mg/dL (0.2-1.0) Aspartate Amino Transf (AST/SGOT) 15 U/L (15-37) Alanine Aminotransferase (ALT/SGPT) 19 U/L (16-63) Alkaline Phosphatase 62 U/L (46-116) Troponin I High Sensitivity 7 ng/L (4-75) Total Protein 7.0 g/dL (6.4-8.2) Albumin 2.9 g/dL (3.4-5.0) Albumin/Globulin Ratio 0.7 (1.0-1.7) Glucose (Fingerstick) 139 mg/dL (70-99) 134 mg/dL (70-99) Heparin Anti-Xa Act, Unfractionated 0.22 IU/mL (0.30-0.70) Test 01/03/22 05:20 01/03/22 07:48 White Blood Count 6.0 x10^3/uL (4.0-11.0) Red Blood Count 4.01 x10^6/uL (4.30-5.70) Hemoglobin 8.1 g/dL (13.0-17.5) Hematocrit 26.8 % (39.0-53.0) Mean Corpuscular Volume 67 fL (79-100) Mean Corpuscular Hemoglobin 20 pg (25-35) Mean Corpuscular Hemoglobin Concent 30 g/dL (31-37) Red Cell Distribution Width 19.8 % (11.5-14.5) Platelet Count 188 x10^3/uL (140-400) Neutrophils (%) (Auto) 51 % (31-73) Lymphocytes (%) (Auto) 34 % (24-48) Monocytes (%) (Auto) 10 % (0-9) Eosinophils (%) (Auto) 4 % (0-3) Basophils (%) (Auto) 1 % (0-3) Neutrophils # (Auto) 3.1 x10^3/uL (1.8-7.7) Lymphocytes # (Auto) 2.0 x10^3/uL (1.0-4.8) Monocytes # (Auto) 0.6 x10^3/uL (0.0-1.1) Eosinophils # (Auto) 0.3 x10^3/uL (0.0-0.7) Basophils # (Auto) 0.0 x10^3/uL (0.0-0.2) Heparin Anti-Xa Act, Unfractionated 0.28 IU/mL (0.30-0.70) Sodium Level 140 mmol/L (136-145) Potassium Level 4.3 mmol/L (3.5-5.1) Chloride Level 105 mmol/L (98-107) Carbon Dioxide Level 26 mmol/L (21-32) Anion Gap 9 (6-14) Blood Urea Nitrogen 20 mg/dL (8-26) Creatinine 1.2 mg/dL (0.7-1.3) Estimated GFR (Cockcroft-Gault) 57.0 Glucose Level 102 mg/dL (70-99) Calcium Level 7.8 mg/dL (8.5-10.1) Phosphorus Level 3.1 mg/dL (2.6-4.7) Magnesium Level 2.0 mg/dL (1.8-2.4) Glucose (Fingerstick) 129 mg/dL (70-99) Diagnostic Data/Imaging Laboratory Tests Test 01/02/22 13:05 01/02/22 18:29 01/02/22 20:58 01/02/22 21:50 White Blood Count 6.2 x10^3/uL Red Blood Count 4.59 x10^6/uL Hemoglobin 9.1 g/dL Hematocrit 30.5 % Mean Corpuscular Volume 67 fL Mean Corpuscular Hemoglobin 20 pg Mean Corpuscular Hemoglobin Concent 30 g/dL Red Cell Distribution Width 19.9 % Platelet Count 213 x10^3/uL Neutrophils (%) (Auto) 63 % Lymphocytes (%) (Auto) 22 % Monocytes (%) (Auto) 10 % Eosinophils (%) (Auto) 4 % Basophils (%) (Auto) 1 % Neutrophils # (Auto) 3.9 x10^3/uL Lymphocytes # (Auto) 1.4 x10^3/uL Monocytes # (Auto) 0.6 x10^3/uL Eosinophils # (Auto) 0.2 x10^3/uL Basophils # (Auto) 0.1 x10^3/uL Platelet Estimate Adequate Polychromasia Slight Hypochromasia Slight Microcytosis Mod Macrocytosis Slight Ovalocytes Occ Prothrombin Time 16.1 SEC Prothromb Time International Ratio 1.3 Activated Partial Thromboplast Time 37 SEC Sodium Level 141 mmol/L Potassium Level 4.0 mmol/L Chloride Level 105 mmol/L Carbon Dioxide Level 26 mmol/L Anion Gap 10 Blood Urea Nitrogen 19 mg/dL Creatinine 1.2 mg/dL Estimated GFR (Cockcroft-Gault) 57.0 BUN/Creatinine Ratio 16 Glucose Level 107 mg/dL Calcium Level 8.5 mg/dL Magnesium Level 1.9 mg/dL Iron Level 14 ug/dL Total Iron Binding Capacity 309 ug/dL Iron Saturation 5 % Ferritin 26 ng/mL Total Bilirubin 0.5 mg/dL Aspartate Amino Transf (AST/SGOT) 15 U/L Alanine Aminotransferase (ALT/SGPT) 19 U/L Alkaline Phosphatase 62 U/L Troponin I High Sensitivity 7 ng/L Total Protein 7.0 g/dL Albumin 2.9 g/dL Albumin/Globulin Ratio 0.7 Glucose (Fingerstick) 139 mg/dL 134 mg/dL Heparin Anti-Xa Act, Unfractionated 0.22 IU/mL Test 01/03/22 05:20 01/03/22 07:48 White Blood Count 6.0 x10^3/uL Red Blood Count 4.01 x10^6/uL Hemoglobin 8.1 g/dL Hematocrit 26.8 % Mean Corpuscular Volume 67 fL Mean Corpuscular Hemoglobin 20 pg Mean Corpuscular Hemoglobin Concent 30 g/dL Red Cell Distribution Width 19.8 % Platelet Count 188 x10^3/uL Neutrophils (%) (Auto) 51 % Lymphocytes (%) (Auto) 34 % Monocytes (%) (Auto) 10 % Eosinophils (%) (Auto) 4 % Basophils (%) (Auto) 1 % Neutrophils # (Auto) 3.1 x10^3/uL Lymphocytes # (Auto) 2.0 x10^3/uL Monocytes # (Auto) 0.6 x10^3/uL Eosinophils # (Auto) 0.3 x10^3/uL Basophils # (Auto) 0.0 x10^3/uL Heparin Anti-Xa Act, Unfractionated 0.28 IU/mL Sodium Level 140 mmol/L Potassium Level 4.3 mmol/L Chloride Level 105 mmol/L Carbon Dioxide Level 26 mmol/L Anion Gap 9 Blood Urea Nitrogen 20 mg/dL Creatinine 1.2 mg/dL Estimated GFR (Cockcroft-Gault) 57.0 Glucose Level 102 mg/dL Calcium Level 7.8 mg/dL Phosphorus Level 3.1 mg/dL Magnesium Level 2.0 mg/dL Glucose (Fingerstick) 129 mg/dL Current Medications Medications (Trade) Dose Ordered Sig/Vin Route PRN Reason Start Time Stop Time Status Last Admin Dose Admin Heparin Sodium (Porcine) (Heparin Sodium) 6,150 unit 1X ONCE IV 01/02/22 15:15 01/02/22 15:42 DC 01/02/22 16:00 Heparin Sodium/ Dextrose 250 ml @ 12.32 mls/ hr CONT PRN IV PER PROTOCOL 01/02/22 15:15 01/02/22 16:01 Heparin Sodium (Porcine) (Heparin Sodium) 2,300 unit PRN Q6HRS PRN IV FOR UFH LEVEL LESS THAN 0.2 01/02/22 15:15 Heparin Sodium (Porcine) (Heparin Sodium) 1,150 unit PRN Q6HRS PRN IV FOR UFH LEVEL 0.2 - 0.29 01/02/22 15:15 01/03/22 08:02 Sennosides (Senna) 17.2 mg PRN BID PRN PO CONSTIPATION 01/02/22 15:30 Docusate Sodium (Colace) 100 mg PRN DAILY PRN PO HARD STOOLS 01/02/22 15:30 Ondansetron HCl (Zofran) 4 mg PRN Q6HRS PRN IVP NAUSEA/VOMITING, 1st CHOICE 01/02/22 15:30 Insulin Human Lispro (HumaLOG) 0-7 UNITS TIDWMEALS SQ 01/02/22 17:00 Dextrose (Dextrose 50%-Water Syringe) 12.5 gm PRN Q15MIN PRN IV SEE COMMENTS 01/02/22 15:30 Acetaminophen (Tylenol) 650 mg PRN Q4HRS PRN PO TEMP OVER 100.4F OR MILD PAIN 01/02/22 15:30 Lorazepam (Ativan) 0.5 mg PRN Q6HRS PRN PO ANXIETY / AGITATION 01/02/22 15:30 Lorazepam (Ativan Inj) 0.25 mg PRN Q4HRS PRN IV ANXIETY / AGITATION 01/02/22 15:30 Oxycodone/ Acetaminophen (Percocet 5/325) 1 tab PRN Q4HRS PRN PO MILD PAIN, 1ST CHOICE 01/02/22 15:30 Prochlorperazine Edisylate (Compazine) 10 mg PRN Q6HRS PRN IV NAUSEA/VOMITING, 2nd CHOICE 01/02/22 15:30 Diphenhydramine HCl (Benadryl) 25 mg PRN Q6HRS PRN IVP ITCHING 01/02/22 15:30 Diphenhydramine HCl (Benadryl) 25 mg PRN Q6HRS PRN PO ITCHING 01/02/22 15:30 Diphenhydramine HCl (Benadryl) 25 mg PRN QHS PRN PO INSOMNIA, 1st CHOICE 01/02/22 15:30 Zolpidem Tartrate (Ambien) 2.5 mg PRN QHS PRN PO INSOMNIA, 2nd CHOICE 01/02/22 15:30 Carvedilol (Coreg) 6.25 mg BIDWMEALS PO 01/02/22 17:00 01/02/22 18:57 Flecainide Acetate (Tambocor) 25 mg BID PO 01/02/22 21:00 01/02/22 21:38 Pyridostigmine [place] (Mestinon) 60 mg BID PO 01/02/22 21:00 01/02/22 22:15 Simvastatin (Zocor) 20 mg HS PO 01/02/22 21:00 01/02/22 21:38 Vitamin D (Vitamin D3) 1,000 unit DAILY PO 01/03/22 09:00 Pantoprazole Sodium (Protonix) 40 mg QHS PO 01/02/22 22:00 01/02/22 22:14 Fish Oil (Fish Oil) 1,000 mg DAILY PO 01/03/22 09:00 Insulin Glargine (Lantus Syringe) 12 unit QHS SQ 01/02/22 21:00 01/02/22 21:42 Assessment/Plan LLE Edema and pain secondary to fairly extensive LLE dvt. Some improvement on heparin, but still swollen. Patient with try to ambulate more today. If pain manageable and swelling manageable, will treat with anticoagulation. If patient cannot ambulate at his baseline level, will revisit idea of thrombectomy for tomorrow in an attempt to get him moving. Spoke with hospitalist. Will need to figure out if he really failed eliquis and if so, change his anticoagulation strategy. Could add compression stockings, now that patient is anticoagulated, to help with edema. SAL HUFF MD Jan 03, 2022 08:53
[2022-01-03] MEDS: CARVEDILOL 6.25 MG TABLET. PO SCH ×2 (09:04→16:49)
[2022-01-03] MEDS: CHOLECALCIFEROL (VITAMIN D3) 1,000 UNIT TABLET PO SCH (09:05)
[2022-01-03] MEDS: OMEGA-3 FATTY ACIDS/FISH OIL 1,000 MG CAPSULE. PO SCH (09:05)
[2022-01-03] MEDS: PYRIDOSTIGMINE BROMIDE 60 MG TABLET PO SCH ×2 (09:05→20:58)
[2022-01-03] MEDS: FLECAINIDE ACETATE 50 MG TABLET. PO SCH ×2 (09:05→20:59)
[2022-01-03] MEDS: HEPARIN 25,000UTS/250ML PREMIX 250 ML IV PRN (09:46)
--- NOTE | 2022-01-03 10:56 | PDOC ---
[employer] PROGRESS NOTE Date of Service DOS: DATE: 01/03/22 TIME: 10:31 Chief Complaint Chief Complaint Acute left lower extremity DVT, likely provoked despite being on Eliquis Microcytic anemia, likely RAGINI. Recent left hip arthroplasty History of diabetes mellitus type 2 History of atrial fibrillation History of myasthenia gravis History of CAD History of Present Illness History of Present Illness Mr Mckeon is an 89 year old male with PMHx a-Fib, Diabetes-Type II, Heart Disease, MYASTHENIA GRAVIS who presents with lower extremity pain that started this morning at 1:00 in the morning. The pain woke him up from sleep and he was barely able to walk. Of note, patient had a left hip surgery that was done 1 month ago at [facility]. Patient did go to rehab afterwards but states that he has been mainly immobile since going home. Patient denies falls, trauma/injury, weakness, chest pain, palpitations, shortness of breath, cough, orthopnea. 01/03: Seen on heparin gtt. Notes he had been on Eliquis prior to his hospitalization. He is able to get up and ambulate with me with less pain today on 01/01/2022 he was unable to bear weight on his leg at all. Discussed with IR may be able to hold off on thrombectomy for now. Leg is still swollen. Need to discuss with hematology oncology change in anticoagulation regimen given Eliquis failure. Vitals/I&O Vitals/I&O: Vital Signs Date Time Temp Pulse Resp B/P (MAP) Pulse Ox O2 Delivery O2 Flow Rate FiO2 01/03/22 09:05 58 106/49 01/03/22 07:00 98.7 18 94 Room Air 98.7 I & O 01/02/22 01/02/22 01/03/22 15:00 23:00 07:00 Intake Total 200 ml 400 ml Balance 200 ml 400 ml Physical Exam General: Alert, Oriented X3, Cooperative, mild distress Heart: Other (irregularly irregular) Lungs: Clear Labs Labs: Laboratory Tests Test 01/02/22 13:05 01/02/22 18:29 01/02/22 20:58 01/02/22 21:50 White Blood Count 6.2 x10^3/uL (4.0-11.0) Red Blood Count 4.59 x10^6/uL (4.30-5.70) Hemoglobin 9.1 g/dL (13.0-17.5) Hematocrit 30.5 % (39.0-53.0) Mean Corpuscular Volume 67 fL (79-100) Mean Corpuscular Hemoglobin 20 pg (25-35) Mean Corpuscular Hemoglobin Concent 30 g/dL (31-37) Red Cell Distribution Width 19.9 % (11.5-14.5) Platelet Count 213 x10^3/uL (140-400) Neutrophils (%) (Auto) 63 % (31-73) Lymphocytes (%) (Auto) 22 % (24-48) Monocytes (%) (Auto) 10 % (0-9) Eosinophils (%) (Auto) 4 % (0-3) Basophils (%) (Auto) 1 % (0-3) Neutrophils # (Auto) 3.9 x10^3/uL (1.8-7.7) Lymphocytes # (Auto) 1.4 x10^3/uL (1.0-4.8) Monocytes # (Auto) 0.6 x10^3/uL (0.0-1.1) Eosinophils # (Auto) 0.2 x10^3/uL (0.0-0.7) Basophils # (Auto) 0.1 x10^3/uL (0.0-0.2) Platelet Estimate Adequate (ADEQUATE) Polychromasia Slight Hypochromasia Slight Microcytosis Mod Macrocytosis Slight Ovalocytes Occ Prothrombin Time 16.1 SEC (11.7-14.0) Prothromb Time International Ratio 1.3 (0.8-1.1) Activated Partial Thromboplast Time 37 SEC (24-38) Sodium Level 141 mmol/L (136-145) Potassium Level 4.0 mmol/L (3.5-5.1) Chloride Level 105 mmol/L (98-107) Carbon Dioxide Level 26 mmol/L (21-32) Anion Gap 10 (6-14) Blood Urea Nitrogen 19 mg/dL (8-26) Creatinine 1.2 mg/dL (0.7-1.3) Estimated GFR (Cockcroft-Gault) 57.0 BUN/Creatinine Ratio 16 (6-20) Glucose Level 107 mg/dL (70-99) Calcium Level 8.5 mg/dL (8.5-10.1) Magnesium Level 1.9 mg/dL (1.8-2.4) Iron Level 14 ug/dL (65-175) Total Iron Binding Capacity 309 ug/dL (250-450) Iron Saturation 5 % (15-34) Ferritin 26 ng/mL (26-388) Total Bilirubin 0.5 mg/dL (0.2-1.0) Aspartate Amino Transf (AST/SGOT) 15 U/L (15-37) Alanine Aminotransferase (ALT/SGPT) 19 U/L (16-63) Alkaline Phosphatase 62 U/L (46-116) Troponin I High Sensitivity 7 ng/L (4-75) Total Protein 7.0 g/dL (6.4-8.2) Albumin 2.9 g/dL (3.4-5.0) Albumin/Globulin Ratio 0.7 (1.0-1.7) Glucose (Fingerstick) 139 mg/dL (70-99) 134 mg/dL (70-99) Heparin Anti-Xa Act, Unfractionated 0.22 IU/mL (0.30-0.70) Test 01/03/22 05:20 01/03/22 07:48 White Blood Count 6.0 x10^3/uL (4.0-11.0) Red Blood Count 4.01 x10^6/uL (4.30-5.70) Hemoglobin 8.1 g/dL (13.0-17.5) Hematocrit 26.8 % (39.0-53.0) Mean Corpuscular Volume 67 fL (79-100) Mean Corpuscular Hemoglobin 20 pg (25-35) Mean Corpuscular Hemoglobin Concent 30 g/dL (31-37) Red Cell Distribution Width 19.8 % (11.5-14.5) Platelet Count 188 x10^3/uL (140-400) Neutrophils (%) (Auto) 51 % (31-73) Lymphocytes (%) (Auto) 34 % (24-48) Monocytes (%) (Auto) 10 % (0-9) Eosinophils (%) (Auto) 4 % (0-3) Basophils (%) (Auto) 1 % (0-3) Neutrophils # (Auto) 3.1 x10^3/uL (1.8-7.7) Lymphocytes # (Auto) 2.0 x10^3/uL (1.0-4.8) Monocytes # (Auto) 0.6 x10^3/uL (0.0-1.1) Eosinophils # (Auto) 0.3 x10^3/uL (0.0-0.7) Basophils # (Auto) 0.0 x10^3/uL (0.0-0.2) Heparin Anti-Xa Act, Unfractionated 0.28 IU/mL (0.30-0.70) Sodium Level 140 mmol/L (136-145) Potassium Level 4.3 mmol/L (3.5-5.1) Chloride Level 105 mmol/L (98-107) Carbon Dioxide Level 26 mmol/L (21-32) Anion Gap 9 (6-14) Blood Urea Nitrogen 20 mg/dL (8-26) Creatinine 1.2 mg/dL (0.7-1.3) Estimated GFR (Cockcroft-Gault) 57.0 Glucose Level 102 mg/dL (70-99) Calcium Level 7.8 mg/dL (8.5-10.1) Phosphorus Level 3.1 mg/dL (2.6-4.7) Magnesium Level 2.0 mg/dL (1.8-2.4) Glucose (Fingerstick) 129 mg/dL (70-99) Assessment and Plan Assessmemt and Plan Problems Medical Problems: (1) Claudication of both lower extremities Status: Acute (2) Deep vein thrombosis of left lower extremity Status: Acute (3) Hx of chcf use of 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 Medications: Current Medications Medications (Trade) Dose Ordered Sig/Vin Route PRN Reason Start Time Stop Time Status Last Admin Dose Admin Heparin Sodium (Porcine) (Heparin Sodium) 6,150 unit 1X ONCE IV 01/02/22 15:15 01/02/22 15:42 DC 01/02/22 16:00 Heparin Sodium/ Dextrose 250 ml @ 12.32 mls/ hr CONT PRN IV PER PROTOCOL 01/02/22 15:15 01/03/22 09:46 Heparin Sodium (Porcine) (Heparin Sodium) 1,150 unit PRN Q6HRS PRN IV FOR UFH LEVEL 0.2 - 0.29 01/02/22 15:15 01/03/22 08:02 Carvedilol (Coreg) 6.25 mg BIDWMEALS PO 01/02/22 17:00 01/03/22 09:04 Flecainide Acetate (Tambocor) 25 mg BID PO 01/02/22 21:00 01/03/22 09:05 Pyridostigmine [place] (Mestinon) 60 mg BID PO 01/02/22 21:00 01/03/22 09:05 Simvastatin (Zocor) 20 mg HS PO 01/02/22 21:00 01/02/22 21:38 Vitamin D (Vitamin D3) 1,000 unit DAILY PO 01/03/22 09:00 01/03/22 09:05 Pantoprazole Sodium (Protonix) 40 mg QHS PO 01/02/22 22:00 01/02/22 22:14 Fish Oil (Fish Oil) 1,000 mg DAILY PO 01/03/22 09:00 01/03/22 09:05 Insulin Glargine (Lantus Syringe) 12 unit QHS SQ 01/02/22 21:00 01/02/22 21:42 Justifications for Admission Other Justification DVT TERRENCE WOODARD MD Jan 03, 2022 10:56
[2022-01-03] MEDS ORDERED: HEPARIN for IV BOLUS 10,000 UNIT/10 ML VIAL. IV PRN ×4 (11:45)
--- NOTE | 2022-01-03 11:53 | PDOC2 ---
COLBYNISA CLAY FRANCISCA 01/03/22 1153: CARDIAC CONSULT DATE OF CONSULT Date of Consult DATE: 01/03/22 TIME: 11:44 REFERRING PHYSICIAN Referring Physician: Elizabeth Alvarado APRN SOURCE Source: Chart review, Patient HISTORY OF PRESENT ILLNESS HISTORY OF PRESENT ILLNESS This is an 89 yo male who presented secondary to lower extremity pain. Patient states the pain is worse in his left leg than his right, and that this has been going on for quite some time. Patient also reports swelling to the left lower extremity. LE US notable for LLE DVT. Arterial duplex did not show any significant disease. No complaints of chest pain, palpitations, dizziness, diaphoresis, or nausea/vomiting. PAST MEDICAL HISTORY Past Medical History Cardiovascular: AFIB, HTN Pulmonary: Pneumonia CENTRAL NERVOUS SYSTEM: Other (Myasthenia gravis) GI: GERD Heme/Onc: Anemia NOS Musculoskeletal: Osteoarthritis, Other (myasthenia gravis) Infectious disease: No pertinent hx Renal/: Acute renal failure Endocrine: Diabetes PAST SURGICAL HISTORY Past Surgical History Cholecystectomy, Other (TURP; left hip surgery) FAMILY HISTORY Family History: Other (no pertinent history ) SOCIAL HISTORY Social History Smoke: No ALCOHOL: none Drugs: None Lives: with Family CURRENT MEDICATIONS CURRENT MEDICATIONS Current Medications Medications (Trade) Dose Ordered Sig/Vin Route PRN Reason Start Time Stop Time Status Last Admin Dose Admin Heparin Sodium (Porcine) (Heparin Sodium) 6,150 unit 1X ONCE IV 01/02/22 15:15 01/02/22 15:42 DC 01/02/22 16:00 Heparin Sodium/ Dextrose 250 ml @ 12.32 mls/ hr CONT PRN IV PER PROTOCOL 01/02/22 15:15 01/03/22 11:35 DC 01/03/22 09:46 Heparin Sodium (Porcine) (Heparin Sodium) 1,150 unit PRN Q6HRS PRN IV FOR UFH LEVEL 0.2 - 0.29 01/02/22 15:15 01/03/22 11:36 DC 01/03/22 08:02 Carvedilol (Coreg) 6.25 mg BIDWMEALS PO 01/02/22 17:00 01/03/22 09:04 Flecainide Acetate (Tambocor) 25 mg BID PO 01/02/22 21:00 01/03/22 09:05 Pyridostigmine [place] (Mestinon) 60 mg BID PO 01/02/22 21:00 01/03/22 09:05 Simvastatin (Zocor) 20 mg HS PO 01/02/22 21:00 01/02/22 21:38 Vitamin D (Vitamin D3) 1,000 unit DAILY PO 01/03/22 09:00 01/03/22 09:05 Pantoprazole Sodium (Protonix) 40 mg QHS PO 01/02/22 22:00 01/02/22 22:14 Fish Oil (Fish Oil) 1,000 mg DAILY PO 01/03/22 09:00 01/03/22 09:05 Insulin Glargine (Lantus Syringe) 12 unit QHS SQ 01/02/22 21:00 01/02/22 21:42 ALLERGIES ALLERGIES: Coded Allergies: I S O L A T I O N *CONTACT* (Verified Allergy, Unknown, 04/03/18) mrsa No Known Medication Allergies (Verified Allergy, Unknown, 04/03/18) ROS Review of System 14 point ROS conducted with pertinent positives noted above in HPI PHYSICAL EXAM PHYSICAL EXAM General: Alert, Oriented X3, Cooperative, No acute distress HEENT: Atraumatic, Mucous membr. moist/pink Lungs: Other (diminished bases) Heart: SR Abdomen: Soft, No tenderness Extremities: No cyanosis, 1+ left lower extremity edema Neuro: Normal speech, Sensation intact Psych/Mental Status: Mental status NL, Mood NL MUSCULOSKELETAL: Osteoarthritic changes both hands VITALS/I&O VITALS/I&O: Vital Signs Date Time Temp Pulse Resp B/P (MAP) Pulse Ox O2 Delivery O2 Flow Rate FiO2 01/03/22 11:00 97.7 57 18 117/51 (73) 98 Room Air 97.7 I & O 01/02/22 01/02/22 01/03/22 15:00 23:00 07:00 Intake Total 200 ml 400 ml Balance 200 ml 400 ml LABS Lab: Laboratory Tests Test 01/02/22 13:05 01/02/22 18:29 01/02/22 20:58 01/02/22 21:50 White Blood Count 6.2 x10^3/uL (4.0-11.0) Red Blood Count 4.59 x10^6/uL (4.30-5.70) Hemoglobin 9.1 g/dL (13.0-17.5) L Hematocrit 30.5 % (39.0-53.0) L Mean Corpuscular Volume 67 fL (79-100) L Mean Corpuscular Hemoglobin 20 pg (25-35) L Mean Corpuscular Hemoglobin Concent 30 g/dL (31-37) L Red Cell Distribution Width 19.9 % (11.5-14.5) H Platelet Count 213 x10^3/uL (140-400) Neutrophils (%) (Auto) 63 % (31-73) Lymphocytes (%) (Auto) 22 % (24-48) L Monocytes (%) (Auto) 10 % (0-9) H Eosinophils (%) (Auto) 4 % (0-3) H Basophils (%) (Auto) 1 % (0-3) Neutrophils # (Auto) 3.9 x10^3/uL (1.8-7.7) Lymphocytes # (Auto) 1.4 x10^3/uL (1.0-4.8) Monocytes # (Auto) 0.6 x10^3/uL (0.0-1.1) Eosinophils # (Auto) 0.2 x10^3/uL (0.0-0.7) Basophils # (Auto) 0.1 x10^3/uL (0.0-0.2) Platelet Estimate Adequate (ADEQUATE) Polychromasia Slight Hypochromasia Slight Microcytosis Mod Macrocytosis Slight Ovalocytes Occ Prothrombin Time 16.1 SEC (11.7-14.0) H Prothrombin Time INR 1.3 (0.8-1.1) H Activated Partial Thromboplast Time 37 SEC (24-38) Sodium Level 141 mmol/L (136-145) Potassium Level 4.0 mmol/L (3.5-5.1) Chloride Level 105 mmol/L (98-107) Carbon Dioxide Level 26 mmol/L (21-32) Anion Gap 10 (6-14) Blood Urea Nitrogen 19 mg/dL (8-26) Creatinine 1.2 mg/dL (0.7-1.3) Estimated GFR (Cockcroft-Gault) 57.0 BUN/Creatinine Ratio 16 (6-20) Glucose Level 107 mg/dL (70-99) H Calcium Level 8.5 mg/dL (8.5-10.1) Magnesium Level 1.9 mg/dL (1.8-2.4) Iron Level 14 ug/dL (65-175) L Total Iron Binding Capacity 309 ug/dL (250-450) Iron Saturation 5 % (15-34) L Ferritin 26 ng/mL (26-388) Total Bilirubin 0.5 mg/dL (0.2-1.0) Aspartate Amino Transferase (AST) 15 U/L (15-37) Alanine Aminotransferase (ALT) 19 U/L (16-63) Alkaline Phosphatase 62 U/L (46-116) Troponin I High Sensitivity 7 ng/L (4-75) Total Protein 7.0 g/dL (6.4-8.2) Albumin 2.9 g/dL (3.4-5.0) L Albumin/Globulin Ratio 0.7 (1.0-1.7) L Glucose (Fingerstick) 139 mg/dL (70-99) H 134 mg/dL (70-99) H Heparin Anti-Xa Act, Unfractionated 0.22 IU/mL (0.30-0.70) L Test 01/03/22 05:20 01/03/22 07:48 01/03/22 11:28 White Blood Count 6.0 x10^3/uL (4.0-11.0) Red Blood Count 4.01 x10^6/uL (4.30-5.70) L Hemoglobin 8.1 g/dL (13.0-17.5) L Hematocrit 26.8 % (39.0-53.0) L Mean Corpuscular Volume 67 fL (79-100) L Mean Corpuscular Hemoglobin 20 pg (25-35) L Mean Corpuscular Hemoglobin Concent 30 g/dL (31-37) L Red Cell Distribution Width 19.8 % (11.5-14.5) H Platelet Count 188 x10^3/uL (140-400) Neutrophils (%) (Auto) 51 % (31-73) Lymphocytes (%) (Auto) 34 % (24-48) Monocytes (%) (Auto) 10 % (0-9) H Eosinophils (%) (Auto) 4 % (0-3) H Basophils (%) (Auto) 1 % (0-3) Neutrophils # (Auto) 3.1 x10^3/uL (1.8-7.7) Lymphocytes # (Auto) 2.0 x10^3/uL (1.0-4.8) Monocytes # (Auto) 0.6 x10^3/uL (0.0-1.1) Eosinophils # (Auto) 0.3 x10^3/uL (0.0-0.7) Basophils # (Auto) 0.0 x10^3/uL (0.0-0.2) Heparin Anti-Xa Act, Unfractionated 0.28 IU/mL (0.30-0.70) L Sodium Level 140 mmol/L (136-145) Potassium Level 4.3 mmol/L (3.5-5.1) Chloride Level 105 mmol/L (98-107) Carbon Dioxide Level 26 mmol/L (21-32) Anion Gap 9 (6-14) Blood Urea Nitrogen 20 mg/dL (8-26) Creatinine 1.2 mg/dL (0.7-1.3) Estimated GFR (Cockcroft-Gault) 57.0 Glucose Level 102 mg/dL (70-99) H Calcium Level 7.8 mg/dL (8.5-10.1) L Phosphorus Level 3.1 mg/dL (2.6-4.7) Magnesium Level 2.0 mg/dL (1.8-2.4) Glucose (Fingerstick) 129 mg/dL (70-99) H 136 mg/dL (70-99) H Laboratory Tests 01/02/22 13:05 01/03/22 05:20 Laboratory Tests 01/02/22 13:05 01/03/22 05:20 ECHOCARDIOGRAM ECHOCARDIOGRAM <Conclusion> The left ventricle is normal size. Left ventricle systolic function is low normal. The Ejection Fraction is estimated at 50%. Doppler and Color Flow revealed no significant aortic regurgitation. There is no significant aortic valvular stenosis. Doppler and Color-flow revealed trace mitral regurgitation. Doppler and Color Flow revealed trace tricuspid regurgitation. The PA pressure was estimated at 37 mmHg. DATE: 04/27/20 1544 STRESS TEST STRESS TEST Conclusion 1. No evidence of stress induced EKG changes. 2. Normal myocardial perfusion at stress/rest 3. Normal EF at > 70% 4. Low risk study DATE: 07/18/16 1401 ASSESSMENT/PLAN ASSESSMENT/PLAN 1. Extensive LLE DVT; on heparin gtt. vascular team following 2. Bilateral LE pain; arterial duplex without evidence of stenosis 3. Anemia, iron deficient 4. PAFIB; presently SR. On Eliquis for stroke prophylaxis at home 5. Hypertension; controlled 6. Diabetes, II 7. Recent left hip arthroplasty 8. Hx of myasthenia gravis Recommendations Secondary prevention Statin therapy Continue BB for rate control Anticoagulation therapy as per vascular Supportive care AHSAN IVAN MD 01/03/22 1711: CARDIAC CONSULT ASSESSMENT/PLAN ASSESSMENT/PLAN Patient seen and examined I agree with our nurse practitioners assessment and plan. Extensive LLE DVT; on heparin gtt. IR following. Bilateral LE pain; arterial duplex without evidence of stenosis Anemia, iron deficient PAFIB; presently SR. Had been on Eliquis for stroke prophylaxis at home Hypertension; controlled Diabetes, II Recent left hip arthroplasty NISA BOWMAN APRN Jan 03, 2022 11:53 AHSAN IVAN MD Jan 03, 2022 17:11
[2022-01-03] MEDS: DOCUSATE SODIUM 100 MG CAPSULE. PO SCH (15:15)
[2022-01-03] MEDS ORDERED: WARFARIN 3 MG TABLET. PO ONE (16:00)
[2022-01-03] MEDS: FERROUS SULFATE 325 MG TABLET. PO SCH (16:42)
[2022-01-03] MEDS: SIMVASTATIN 20 MG TABLET PO SCH (20:58)
[2022-01-03] MEDS: PANTOPRAZOLE 40 MG TABLET.DR. PO SCH (21:01)
[2022-01-03] MEDS: INSULIN GLARGINE SYRINGE. SQ SCH (21:36)
[2022-01-04 03:00] VITALS: BP 148/49
[2022-01-04] MEDS: HEPARIN 25,000UTS/250ML PREMIX 250 ML IV PRN ×2 (03:26→22:16)
[2022-01-04 03:42] LABS: BASO # 0.1 x10^3/uL (0.0-0.2); BASO % 1 % (0-3); EOS # 0.3 x10^3/uL (0.0-0.7); EOS % 5 % (0-3); HEMATOCRIT 25.1 % (39.0-53.0); HEMOGLOBIN 7.5 g/dL (13.0-17.5); LYMPH # 1.7 x10^3/uL (1.0-4.8); LYMPH % 31 % (24-48); MEAN CORPUSCULAR HEMOGLOBIN 20 pg (25-35); MEAN CORPUSCULAR HGB CONC 30 g/dL (31-37); MEAN CORPUSCULAR VOLUME 67 fL (79-100); MONO # 0.5 x10^3/uL (0.0-1.1); MONO % 10 % (0-9); NEUT # 2.9 x10^3/uL (1.8-7.7); NEUT % 53 % (31-73); PLATELET COUNT 199 x10^3/uL (140-400); RED BLOOD COUNT 3.76 x10^6/uL (4.30-5.70); RED CELL DISTRIBUTION WIDTH 19.8 % (11.5-14.5); WHITE BLOOD COUNT 5.4 x10^3/uL (4.0-11.0)
[2022-01-04 03:50] LABS: PROTHROMBIN TIME PATIENT 15.4 SEC (11.7-14.0)
[2022-01-04 03:54] LABS: CALCIUM 7.8 mg/dL (8.5-10.1); CREATININE 1.1 mg/dL (0.7-1.3); MAGNESIUM 1.9 mg/dL (1.8-2.4); POTASSIUM 4.3 mmol/L (3.5-5.1)
[2022-01-04 07:00] VITALS: BP 122/53
[2022-01-04] MEDS: INSULIN LISPRO 300 UNITS/3 ML VIAL. SQ SCH ×3 (08:00→17:00)
[2022-01-04] MEDS: CHOLECALCIFEROL (VITAMIN D3) 1,000 UNIT TABLET PO SCH (09:52)
[2022-01-04] MEDS: PYRIDOSTIGMINE BROMIDE 60 MG TABLET PO SCH ×2 (09:52→20:46)
[2022-01-04] MEDS: OMEGA-3 FATTY ACIDS/FISH OIL 1,000 MG CAPSULE. PO SCH (09:53)
[2022-01-04] MEDS: FLECAINIDE ACETATE 50 MG TABLET. PO SCH ×2 (09:53→20:46)
[2022-01-04] MEDS: FERROUS SULFATE 325 MG TABLET. PO SCH ×2 (09:54→18:27)
[2022-01-04] MEDS: DOCUSATE SODIUM 100 MG CAPSULE. PO SCH (09:54)
[2022-01-04] MEDS: CARVEDILOL 6.25 MG TABLET. PO SCH ×2 (09:54→17:00)
[2022-01-04 11:00] VITALS: BP 108/48
--- NOTE | 2022-01-04 11:24 | PDOC ---
CARD[facility] Progress Notes Date and Time Date of Service 01/04/22 Time of Evaluation 1120 Subjective Subjective: No Chest Pain, No shortness of breath, No Palpitations, Other (left leg pain with ambulation) Vitals Vitals Vital Signs Date Time Temp Pulse Resp B/P (MAP) Pulse Ox O2 Delivery O2 Flow Rate FiO2 01/04/22 09:54 60 122/53 01/04/22 07:00 98.4 17 97 Room Air 98.4 Weight Weight [ ] Input and Output Intake and Output Intake and Output 01/04/22 07:00 Intake Total 900 ml Balance 900 ml Intake Oral 900 ml # Voids 2 Laboratory Labs Laboratory Tests Test 01/03/22 11:28 01/03/22 14:06 01/03/22 16:51 01/03/22 19:36 Glucose (Fingerstick) 136 mg/dL (70-99) 121 mg/dL (70-99) 163 mg/dL (70-99) Activated Partial Thromboplast Time 114 SEC (24-38) Test 01/03/22 19:55 01/04/22 03:30 01/04/22 07:29 01/04/22 09:45 Activated Partial Thromboplast Time 146 SEC (24-38) 112 SEC (24-38) 97 SEC (24-38) White Blood Count 5.4 x10^3/uL (4.0-11.0) Red Blood Count 3.76 x10^6/uL (4.30-5.70) Hemoglobin 7.5 g/dL (13.0-17.5) Hematocrit 25.1 % (39.0-53.0) Mean Corpuscular Volume 67 fL (79-100) Mean Corpuscular Hemoglobin 20 pg (25-35) Mean Corpuscular Hemoglobin Concent 30 g/dL (31-37) Red Cell Distribution Width 19.8 % (11.5-14.5) Platelet Count 199 x10^3/uL (140-400) Neutrophils (%) (Auto) 53 % (31-73) Lymphocytes (%) (Auto) 31 % (24-48) Monocytes (%) (Auto) 10 % (0-9) Eosinophils (%) (Auto) 5 % (0-3) Basophils (%) (Auto) 1 % (0-3) Neutrophils # (Auto) 2.9 x10^3/uL (1.8-7.7) Lymphocytes # (Auto) 1.7 x10^3/uL (1.0-4.8) Monocytes # (Auto) 0.5 x10^3/uL (0.0-1.1) Eosinophils # (Auto) 0.3 x10^3/uL (0.0-0.7) Basophils # (Auto) 0.1 x10^3/uL (0.0-0.2) Prothrombin Time 15.4 SEC (11.7-14.0) Prothromb Time International Ratio 1.2 (0.8-1.1) Sodium Level 140 mmol/L (136-145) Potassium Level 4.3 mmol/L (3.5-5.1) Chloride Level 106 mmol/L (98-107) Carbon Dioxide Level 27 mmol/L (21-32) Anion Gap 7 (6-14) Blood Urea Nitrogen 20 mg/dL (8-26) Creatinine 1.1 mg/dL (0.7-1.3) Estimated GFR (Cockcroft-Gault) 63.0 Glucose Level 108 mg/dL (70-99) Calcium Level 7.8 mg/dL (8.5-10.1) Magnesium Level 1.9 mg/dL (1.8-2.4) Glucose (Fingerstick) 102 mg/dL (70-99) Physical Exam HEENT: Neck Supple W Full Motion Chest: Symmetric LUNGS: Clear to Auscultation Heart: RRR Abdomen: Soft N/T Extremities: Other (1+ bilateral left LE edema ) Neurology: alert, oriented, follow commands Assessment Assessment 1. Extensive LLE DVT; on heparin gtt. vascular team following 2. Bilateral LE pain; arterial duplex without evidence of stenosis 3. Anemia, iron deficient. hgb drift to 7.5. no obvious bleeding 4. PAFIB; presently SR. Was on Eliquis for stroke prophylaxis at home 5. Hypertension; controlled 6. Diabetes, II 7. Recent left hip arthroplasty 8. Hx of myasthenia gravis Recommendations Secondary prevention Statin therapy Continue BB for rate control Continue anticoagulation. Will need to be on warfarin going forward Consider for IVC filter; will d/w primary dater assembler Supportive care Justicifation of Admission Dx: Justifications for Admission: Justification of Admission Dx: Yes Respiratory Failure: Severe Vent Deficit NISA BOWMAN APRN Jan 04, 2022 11:24
--- NOTE | 2022-01-04 12:05 | NUR ---
Pharmacy Warfarin Dosing Note S:Pharmacy consulted to assist with anticoagulation therapy started with target INR: 2 -3 O:STEPHANIE CLEMENS is a 89 year old M with DVT/PE acute DVT, failed low-dose Eliquis LABS: Last INR: 1.2 Last HGB: 7.5 Last HCT: 25.1 Last PLT: 199 Last dose of 6 mg given on 01/03/22 at 1600 Previous Regimen: Vitamin K given: N Drug Interaction Changes: Ongoing Drug Interactions: A:INR of 1.2 is below desired range. Target range for this patient is: 2 -3 P: Warfarin dose: 6 mg Today at 1600. Bridge Therapy: Heparin Therapeutic Next INR due tomorrow. Pharmacy anticoagulation service will continue to follow. Chris Palencia [facility], 01/04/22 [id number]
--- NOTE | 2022-01-04 13:23 | PDOC ---
[employer] PROGRESS NOTE Date of Service DOS: DATE: 01/04/22 TIME: 13:22 Chief Complaint Chief Complaint Acute left lower extremity DVT, likely provoked despite being on Eliquis Microcytic anemia, likely RAGINI. Recent left hip arthroplasty History of diabetes mellitus type 2 History of atrial fibrillation History of myasthenia gravis History of CAD History of Present Illness History of Present Illness Mr Mckeon is an 89 year old male with PMHx a-Fib, Diabetes-Type II, Heart Disease, MYASTHENIA GRAVIS who presents with lower extremity pain that started this morning at 1:00 in the morning. The pain woke him up from sleep and he was barely able to walk. Of note, patient had a left hip surgery that was done 1 month ago at [facility]. Patient did go to rehab afterwards but states that he has been mainly immobile since going home. Patient denies falls, trauma/injury, weakness, chest pain, palpitations, shortness of breath, cough, orthopnea. 01/03: Seen on heparin gtt. Notes he had been on Eliquis prior to his hospitalization. He is able to get up and ambulate with me with less pain today on 01/01/2022 he was unable to bear weight on his leg at all. Discussed with IR may be able to hold off on thrombectomy for now. Leg is still swollen. Need to discuss with hematology oncology change in anticoagulation regimen given Eliquis failure. 01/04/2022 No acute events overnight. Patient seen examined bedside. Leg swelling has improved. Patient able to bear weight. Warfarin bridging started. INR today is 1.2. Patient's chart, labs, images were reviewed and discussed with RN Vitals/I&O Vitals/I&O: Vital Signs Date Time Temp Pulse Resp B/P (MAP) Pulse Ox O2 Delivery O2 Flow Rate FiO2 01/04/22 09:54 60 122/53 01/04/22 07:00 98.4 17 97 Room Air 98.4 I & O 01/03/22 01/03/22 01/04/22 15:00 23:00 07:00 Intake Total 540 ml 360 ml 0 ml Balance 540 ml 360 ml 0 ml Physical Exam General: Alert, Oriented X3, Cooperative, mild distress Heart: Other (irregularly irregular) Lungs: Clear Labs Labs: Laboratory Tests Test 01/03/22 14:06 01/03/22 16:51 01/03/22 19:36 01/03/22 19:55 Activated Partial Thromboplast Time 114 SEC (24-38) 146 SEC (24-38) Glucose (Fingerstick) 121 mg/dL (70-99) 163 mg/dL (70-99) Test 01/04/22 03:30 01/04/22 07:29 01/04/22 09:45 01/04/22 11:59 White Blood Count 5.4 x10^3/uL (4.0-11.0) Red Blood Count 3.76 x10^6/uL (4.30-5.70) Hemoglobin 7.5 g/dL (13.0-17.5) Hematocrit 25.1 % (39.0-53.0) Mean Corpuscular Volume 67 fL (79-100) Mean Corpuscular Hemoglobin 20 pg (25-35) Mean Corpuscular Hemoglobin Concent 30 g/dL (31-37) Red Cell Distribution Width 19.8 % (11.5-14.5) Platelet Count 199 x10^3/uL (140-400) Neutrophils (%) (Auto) 53 % (31-73) Lymphocytes (%) (Auto) 31 % (24-48) Monocytes (%) (Auto) 10 % (0-9) Eosinophils (%) (Auto) 5 % (0-3) Basophils (%) (Auto) 1 % (0-3) Neutrophils # (Auto) 2.9 x10^3/uL (1.8-7.7) Lymphocytes # (Auto) 1.7 x10^3/uL (1.0-4.8) Monocytes # (Auto) 0.5 x10^3/uL (0.0-1.1) Eosinophils # (Auto) 0.3 x10^3/uL (0.0-0.7) Basophils # (Auto) 0.1 x10^3/uL (0.0-0.2) Prothrombin Time 15.4 SEC (11.7-14.0) Prothromb Time International Ratio 1.2 (0.8-1.1) Activated Partial Thromboplast Time 112 SEC (24-38) 97 SEC (24-38) Sodium Level 140 mmol/L (136-145) Potassium Level 4.3 mmol/L (3.5-5.1) Chloride Level 106 mmol/L (98-107) Carbon Dioxide Level 27 mmol/L (21-32) Anion Gap 7 (6-14) Blood Urea Nitrogen 20 mg/dL (8-26) Creatinine 1.1 mg/dL (0.7-1.3) Estimated GFR (Cockcroft-Gault) 63.0 Glucose Level 108 mg/dL (70-99) Calcium Level 7.8 mg/dL (8.5-10.1) Magnesium Level 1.9 mg/dL (1.8-2.4) Glucose (Fingerstick) 102 mg/dL (70-99) 146 mg/dL (70-99) Assessment and Plan Assessmemt and Plan Problems Medical Problems: (1) Claudication of both lower extremities Status: Acute (2) Deep vein thrombosis of left lower extremity Status: Acute (3) Hx of alf use of 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 Medications: Current Medications Medications (Trade) Dose Ordered Sig/Vin Route PRN Reason Start Time Stop Time Status Last Admin Dose Admin Warfarin Sodium (Coumadin Per Pharmacy) 1 each PRN DAILY PRN MC SEE COMMENTS 01/03/22 15:15 01/04/22 11:50 Warfarin Sodium (Coumadin) 6 mg 1X WARF ONCE PO 01/03/22 16:00 01/03/22 16:01 DC 01/03/22 16:43 Ferrous Sulfate (Feosol) 325 mg BIDAC PO 01/03/22 16:30 01/04/22 09:54 Docusate Sodium (Colace) 100 mg DAILY PO 01/03/22 15:15 01/04/22 09:54 Justifications for Admission Other Justification DVT PRANAV JOSEPH MD Jan 04, 2022 13:23
[2022-01-04 15:00] VITALS: BP 134/60
[2022-01-04] MEDS ORDERED: WARFARIN 3 MG TABLET. PO ONE (16:00)
[2022-01-04 19:00] VITALS: BP 116/44
[2022-01-04] MEDS: PANTOPRAZOLE 40 MG TABLET.DR. PO SCH (20:46)
[2022-01-04] MEDS: SIMVASTATIN 20 MG TABLET PO SCH (20:46)
[2022-01-04] MEDS: INSULIN GLARGINE SYRINGE. SQ SCH (20:57)
[2022-01-04 23:00] VITALS: BP 125/50
[2022-01-05 02:45] VITALS: BP 116/52
[2022-01-05 05:34] LABS: BASO # 0.1 x10^3/uL (0.0-0.2); BASO % 1 % (0-3); EOS # 0.3 x10^3/uL (0.0-0.7); EOS % 4 % (0-3); HEMATOCRIT 25.2 % (39.0-53.0); HEMOGLOBIN 7.7 g/dL (13.0-17.5); LYMPH # 1.8 x10^3/uL (1.0-4.8); LYMPH % 29 % (24-48); MEAN CORPUSCULAR HEMOGLOBIN 20 pg (25-35); MEAN CORPUSCULAR HGB CONC 31 g/dL (31-37); MEAN CORPUSCULAR VOLUME 66 fL (79-100); MONO # 0.6 x10^3/uL (0.0-1.1); MONO % 10 % (0-9); NEUT # 3.3 x10^3/uL (1.8-7.7); NEUT % 55 % (31-73); PLATELET COUNT 215 x10^3/uL (140-400); RED CELL DISTRIBUTION WIDTH 19.7 % (11.5-14.5)
[2022-01-05 05:52] LABS: POTASSIUM 4.1 mmol/L (3.5-5.1)
[2022-01-05 06:01] LABS: CALCIUM 7.8 mg/dL (8.5-10.1); CREATININE 1.3 mg/dL (0.7-1.3); MAGNESIUM 1.9 mg/dL (1.8-2.4)
[2022-01-05 06:13] LABS: PROTHROMBIN TIME PATIENT 15.7 SEC (11.7-14.0)
[2022-01-05 07:30] VITALS: BP 108/47
[2022-01-05] MEDS: INSULIN LISPRO 300 UNITS/3 ML VIAL. SQ SCH ×3 (07:34→17:00)
[2022-01-05] MEDS: CARVEDILOL 6.25 MG TABLET. PO SCH ×2 (08:00→16:21)
[2022-01-05] MEDS: OMEGA-3 FATTY ACIDS/FISH OIL 1,000 MG CAPSULE. PO SCH (08:54)
[2022-01-05] MEDS: CHOLECALCIFEROL (VITAMIN D3) 1,000 UNIT TABLET PO SCH (08:54)
[2022-01-05] MEDS: PYRIDOSTIGMINE BROMIDE 60 MG TABLET PO SCH ×2 (08:54→20:31)
[2022-01-05] MEDS: FLECAINIDE ACETATE 50 MG TABLET. PO SCH ×2 (08:55→20:36)
[2022-01-05] MEDS: FERROUS SULFATE 325 MG TABLET. PO SCH ×2 (08:55→16:21)
[2022-01-05] MEDS: DOCUSATE SODIUM 100 MG CAPSULE. PO SCH (08:56)
[2022-01-05 11:06] VITALS: BP 113/53
--- NOTE | 2022-01-05 11:30 | PDOC ---
[employer] PROGRESS NOTE Date of Service DOS: DATE: 01/05/22 TIME: 11:29 Chief Complaint Chief Complaint Acute left lower extremity DVT, likely provoked despite being on Eliquis Microcytic anemia, likely RAGINI. Recent left hip arthroplasty History of diabetes mellitus type 2 History of atrial fibrillation History of myasthenia gravis History of CAD History of Present Illness History of Present Illness Mr Mckeon is an 89 year old male with PMHx a-Fib, Diabetes-Type II, Heart Disease, MYASTHENIA GRAVIS who presents with lower extremity pain that started this morning at 1:00 in the morning. The pain woke him up from sleep and he was barely able to walk. Of note, patient had a left hip surgery that was done 1 month ago at [facility]. Patient did go to rehab afterwards but states that he has been mainly immobile since going home. Patient denies falls, trauma/injury, weakness, chest pain, palpitations, shortness of breath, cough, orthopnea. 01/03: Seen on heparin gtt. Notes he had been on Eliquis prior to his hospitalization. He is able to get up and ambulate with me with less pain today on 01/01/2022 he was unable to bear weight on his leg at all. Discussed with IR may be able to hold off on thrombectomy for now. Leg is still swollen. Need to discuss with hematology oncology change in anticoagulation regimen given Eliquis failure. 01/04/2022 No acute events overnight. Patient seen examined bedside. Leg swelling has improved. Patient able to bear weight. Warfarin bridging started. INR today is 1.2. Patient's chart, labs, images were reviewed and discussed with RN 01/05/2022 No acute events overnight. Patient seen examined bedside. INR is 1.3 today. Continue with warfarin bridging. Pharmacy to dose. Anticipate discharge in the next 24 to 48 hours. Patient's chart, labs, images were reviewed and discussed with RN Vitals/I&O Vitals/I&O: Vital Signs Date Time Temp Pulse Resp B/P (MAP) Pulse Ox O2 Delivery O2 Flow Rate FiO2 01/05/22 11:06 97.8 63 18 113/53 (73) 96 Room Air 97.8 I & O 01/04/22 01/04/22 01/05/22 15:00 23:00 07:00 Intake Total 100 ml Balance 100 ml Physical Exam General: Alert, Oriented X3, Cooperative, mild distress Heart: Other (irregularly irregular) Lungs: Clear Labs Labs: Laboratory Tests Test 01/04/22 11:59 01/04/22 16:37 01/04/22 18:05 01/04/22 20:03 Glucose (Fingerstick) 146 mg/dL (70-99) 132 mg/dL (70-99) 139 mg/dL (70-99) Activated Partial Thromboplast Time 82 SEC (24-38) Test 01/05/22 05:15 01/05/22 07:20 White Blood Count 6.0 x10^3/uL (4.0-11.0) Red Blood Count 3.80 x10^6/uL (4.30-5.70) Hemoglobin 7.7 g/dL (13.0-17.5) Hematocrit 25.2 % (39.0-53.0) Mean Corpuscular Volume 66 fL (79-100) Mean Corpuscular Hemoglobin 20 pg (25-35) Mean Corpuscular Hemoglobin Concent 31 g/dL (31-37) Red Cell Distribution Width 19.7 % (11.5-14.5) Platelet Count 215 x10^3/uL (140-400) Neutrophils (%) (Auto) 55 % (31-73) Lymphocytes (%) (Auto) 29 % (24-48) Monocytes (%) (Auto) 10 % (0-9) Eosinophils (%) (Auto) 4 % (0-3) Basophils (%) (Auto) 1 % (0-3) Neutrophils # (Auto) 3.3 x10^3/uL (1.8-7.7) Lymphocytes # (Auto) 1.8 x10^3/uL (1.0-4.8) Monocytes # (Auto) 0.6 x10^3/uL (0.0-1.1) Eosinophils # (Auto) 0.3 x10^3/uL (0.0-0.7) Basophils # (Auto) 0.1 x10^3/uL (0.0-0.2) Prothrombin Time 15.7 SEC (11.7-14.0) Prothromb Time International Ratio 1.3 (0.8-1.1) Activated Partial Thromboplast Time 110 SEC (24-38) Sodium Level 141 mmol/L (136-145) Potassium Level 4.1 mmol/L (3.5-5.1) Chloride Level 106 mmol/L (98-107) Carbon Dioxide Level 26 mmol/L (21-32) Anion Gap 9 (6-14) Blood Urea Nitrogen 19 mg/dL (8-26) Creatinine 1.3 mg/dL (0.7-1.3) Estimated GFR (Cockcroft-Gault) 52.0 Glucose Level 101 mg/dL (70-99) Calcium Level 7.8 mg/dL (8.5-10.1) Magnesium Level 1.9 mg/dL (1.8-2.4) Glucose (Fingerstick) 116 mg/dL (70-99) Assessment and Plan Assessmemt and Plan Problems Medical Problems: (1) Claudication of both lower extremities Status: Acute (2) Deep vein thrombosis of left lower extremity Status: Acute (3) 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 Medications: Current Medications Medications (Trade) Dose Ordered Sig/Vin Route PRN Reason Start Time Stop Time Status Last Admin Dose Admin Warfarin Sodium (Coumadin) 6 mg 1X WARF ONCE PO 01/04/22 16:00 01/04/22 16:15 DC 01/04/22 18:21 Justifications for Admission Other Justification DVT PRANAV JOSEPH MD Jan 05, 2022 11:30
--- NOTE | 2022-01-05 11:34 | PDOC ---
NISA BOWMAN HVAC PROJECT MANAGER 01/05/22 1134: CARDIO Progress Notes Date and Time Date of Service 01/05/22 Time of Evaluation 1130 Subjective Subjective: No Chest Pain, No shortness of breath, No Palpitations, Other (left leg pain with ambulation) Vitals Vitals Vital Signs Date Time Temp Pulse Resp B/P (MAP) Pulse Ox O2 Delivery O2 Flow Rate FiO2 01/05/22 11:06 97.8 63 18 113/53 (73) 96 Room Air 97.8 Weight Weight [ ] Input and Output Intake and Output Intake and Output 01/05/22 07:00 Intake Total 100 ml Balance 100 ml Intake Oral 100 ml # Voids 7 Laboratory Labs Laboratory Tests Test 01/04/22 11:59 01/04/22 16:37 01/04/22 18:05 01/04/22 20:03 Glucose (Fingerstick) 146 mg/dL (70-99) 132 mg/dL (70-99) 139 mg/dL (70-99) Activated Partial Thromboplast Time 82 SEC (24-38) Test 01/05/22 05:15 01/05/22 07:20 White Blood Count 6.0 x10^3/uL (4.0-11.0) Red Blood Count 3.80 x10^6/uL (4.30-5.70) Hemoglobin 7.7 g/dL (13.0-17.5) Hematocrit 25.2 % (39.0-53.0) Mean Corpuscular Volume 66 fL (79-100) Mean Corpuscular Hemoglobin 20 pg (25-35) Mean Corpuscular Hemoglobin Concent 31 g/dL (31-37) Red Cell Distribution Width 19.7 % (11.5-14.5) Platelet Count 215 x10^3/uL (140-400) Neutrophils (%) (Auto) 55 % (31-73) Lymphocytes (%) (Auto) 29 % (24-48) Monocytes (%) (Auto) 10 % (0-9) Eosinophils (%) (Auto) 4 % (0-3) Basophils (%) (Auto) 1 % (0-3) Neutrophils # (Auto) 3.3 x10^3/uL (1.8-7.7) Lymphocytes # (Auto) 1.8 x10^3/uL (1.0-4.8) Monocytes # (Auto) 0.6 x10^3/uL (0.0-1.1) Eosinophils # (Auto) 0.3 x10^3/uL (0.0-0.7) Basophils # (Auto) 0.1 x10^3/uL (0.0-0.2) Prothrombin Time 15.7 SEC (11.7-14.0) Prothromb Time International Ratio 1.3 (0.8-1.1) Activated Partial Thromboplast Time 110 SEC (24-38) Sodium Level 141 mmol/L (136-145) Potassium Level 4.1 mmol/L (3.5-5.1) Chloride Level 106 mmol/L (98-107) Carbon Dioxide Level 26 mmol/L (21-32) Anion Gap 9 (6-14) Blood Urea Nitrogen 19 mg/dL (8-26) Creatinine 1.3 mg/dL (0.7-1.3) Estimated GFR (Cockcroft-Gault) 52.0 Glucose Level 101 mg/dL (70-99) Calcium Level 7.8 mg/dL (8.5-10.1) Magnesium Level 1.9 mg/dL (1.8-2.4) Glucose (Fingerstick) 116 mg/dL (70-99) Physical Exam HEENT: Neck Supple W Full Motion Chest: Symmetric LUNGS: Clear to Auscultation Heart: RRR Abdomen: Soft N/T Extremities: Other (1+ bilateral left LE edema ) Neurology: alert, oriented, follow commands Assessment Assessment 1. Extensive LLE DVT; on heparin gtt. vascular team following 2. Bilateral LE pain; arterial duplex without evidence of stenosis 3. Anemia, iron deficient. hgb at 7.7. no obvious bleeding 4. PAFIB; presently SR. Was on Eliquis for stroke prophylaxis at home 5. Hypertension; controlled 6. Diabetes, II 7. Recent left hip arthroplasty 8. Hx of myasthenia gravis Recommendations Secondary prevention Statin therapy Continue BB for rate control Warfarin therapy; bridging with heparin. INR 1.3 Supportive care Justicifation of Admission Dx: Justifications for Admission: Justification of Admission Dx: Yes Respiratory Failure: Severe Vent Deficit AHSAN IVAN MD 01/05/22 5703: CARDIO Progress Notes Assessment Assessment Patient seen and examined He looks and feels better today. I agree with our nurse practitioners assessment and plan. Extensive LLE DVT; on heparin gtt. and warfarin. Vascular team following Bilateral LE pain; arterial duplex without evidence of stenosis Anemia, iron deficient. hgb at 7.7. no obvious bleeding PAFIB; presently SR. Was on Eliquis for stroke prophylaxis at home Hypertension; controlled Diabetes, II Recent left hip arthroplasty Hx of myasthenia gravis NISA BOWMAN APRN Jan 05, 2022 11:34 AHSAN IVAN MD Jan 05, 2022 17:03
--- NOTE | 2022-01-05 13:57 | NUR ---
Pharmacy Warfarin Dosing Note S: Pharmacy consulted to assist with anticoagulation therapy O: SARATHSTEPHANIE Castaneda is a 89 year old M with DVT/PE acute DVT, failed low-dose Eliquis LABS: Last INR: 1.3 Last HGB: 7.7 Last HCT: 25.2 Last PLT: 215 Last dose of 6 mg given on 01/04/22 at 1821 Vitamin K given: N Ongoing Drug Interactions: A:INR of 1.3 is below desired range. Target range for this patient is: 2 -3 P: Warfarin dose: 7.5 mg Today at 1600 Bridge Therapy: Heparin Therapeutic Next INR due tomorrow Pharmacy anticoagulation service will continue to follow. Prema Dow [facility], 01/05/22 [id number]
[2022-01-05 14:52] VITALS: BP 108/51
--- NOTE | 2022-01-05 15:25 | PDOC2 ---
CONSULT Date of Consult Date of Consult DATE: 01/05/22 TIME: 14:47 Reason for Consult Reason for Consult: Left lower extremity DVT Referring Physician Referring Physician: Dr. Richardson Identification/Chief Complaint Chief Complaint Left leg pain and swelling Source Source: Chart review, Patient History of Present Illness Reason for Visit: Van Mckeon is an 89-year-old male with reported history of atrial fibrillation and recent left hip replacement who has been admitted to [place] due to left lower extremity pain and swelling. The patient reported that he underwent surgery 1 month ago. He reports decreased mobility since then. He was previously taking Eliquis for atrial fibrillation. Patient reports that he is taking Eliquis once daily. He is also unsure of this is accurate since his assists him with taking medications. He received further evaluation for left leg swelling with ultrasound Doppler and this did show a left lower extremity DVT. Eliquis was discontinued and he has been switched to warfarin. Hematology consultation has been requested for further recommendations for management. Past Medical History Cardiovascular: CAD Pulmonary: Pneumonia CENTRAL NERVOUS SYSTEM: Other GI: No pertinent hx Heme/Onc: No pertinent hx, Other (failed eliquis?) Hepatobiliary: No pertinent hx Psych: No pertinent hx Musculoskeletal: Osteoarthritis Rheumatologic: No pertinent hx Infectious disease: No pertinent hx ENT: No pertinent hx Renal/: No pertinent hx Endocrine: No pertinent hx Dermatology: No pertinent hx Past Surgical History Past Surgical History: Total hip replacement Family History Family History: Other (no pertinent history ) Social History ALCOHOL: none Drugs: None Lives: with Family Current Problem List Problem List Problems Medical Problems: (1) Claudication of both lower extremities Status: Acute (2) Deep vein thrombosis of left lower extremity Status: Acute (3) 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 Status: Acute (4) Left femoral vein DVT Status: Acute Current Medications Current Medications Current Medications Heparin Sodium (Porcine) (Heparin Sodium) 6,150 unit 1X ONCE IV Last administered on 01/02/22at 16:00; Start 01/02/22 at 15:15; Stop 01/02/22 at 15:42; Status DC Heparin Sodium/ Dextrose 250 ml @ 12.32 mls/ hr CONT PRN IV PER PROTOCOL Last administered on 01/03/22at 09:46; Start 01/02/22 at 15:15; Stop 01/03/22 at 11:35; Status DC Heparin Sodium (Porcine) (Heparin Sodium) 2,300 unit PRN Q6HRS PRN IV FOR UFH LEVEL LESS THAN 0.2; Start 01/02/22 at 15:15; Stop 01/03/22 at 11:35; Status DC Heparin Sodium (Porcine) (Heparin Sodium) 1,150 unit PRN Q6HRS PRN IV FOR UFH LEVEL 0.2 - 0.29 Last administered on 01/03/22at 08:02; Start 01/02/22 at 15:15; Stop 01/03/22 at 11:36; Status DC Sennosides (Senna) 17.2 mg PRN BID PRN PO CONSTIPATION; Start 01/02/22 at 15:30 Docusate Sodium (Colace) 100 mg PRN DAILY PRN PO HARD STOOLS; Start 01/02/22 at 15:30 Ondansetron HCl (Zofran) 4 mg PRN Q6HRS PRN IVP NAUSEA/VOMITING, 1st CHOICE; Start 01/02/22 at 15:30 Insulin Human Lispro (HumaLOG) 0-7 UNITS TIDWMEALS SQ ; Start 01/02/22 at 17:00 Dextrose (Dextrose 50%-Water Syringe) 12.5 gm PRN Q15MIN PRN IV SEE COMMENTS; Start 01/02/22 at 15:30 Acetaminophen (Tylenol) 650 mg PRN Q4HRS PRN PO TEMP OVER 100.4F OR MILD PAIN; Start 01/02/22 at 15:30 Lorazepam (Ativan) 0.5 mg PRN Q6HRS PRN PO ANXIETY / AGITATION; Start 01/02/22 at 15:30; Stop 01/03/22 at 15:16; Status DC Lorazepam (Ativan Inj) 0.25 mg PRN Q4HRS PRN IV ANXIETY / AGITATION; Start 01/02/22 at 15:30; Stop 01/03/22 at 15:16; Status DC Oxycodone/ Acetaminophen (Percocet 5/325) 1 tab PRN Q4HRS PRN PO MILD PAIN, 1ST CHOICE; Start 01/02/22 at 15:30 Prochlorperazine Edisylate (Compazine) 10 mg PRN Q6HRS PRN IV NAUSEA/VOMITING, 2nd CHOICE; Start 01/02/22 at 15:30 Diphenhydramine HCl (Benadryl) 25 mg PRN Q6HRS PRN IVP ITCHING; Start 01/02/22 at 15:30; Stop 01/03/22 at 15:16; Status DC Diphenhydramine HCl (Benadryl) 25 mg PRN Q6HRS PRN PO ITCHING; Start 01/02/22 at 15:30; Stop 01/03/22 at 15:16; Status DC Diphenhydramine HCl (Benadryl) 25 mg PRN QHS PRN PO INSOMNIA, 1st CHOICE; Start 01/02/22 at 15:30; Stop 01/03/22 at 15:16; Status DC Zolpidem Tartrate (Ambien) 2.5 mg PRN QHS PRN PO INSOMNIA, 2nd CHOICE; Start 01/02/22 at 15:30; Stop 01/03/22 at 15:16; Status DC Carvedilol (Coreg) 6.25 mg BIDWMEALS PO Last administered on 01/04/22at 09:54; Start 01/02/22 at 17:00 Flecainide Acetate (Tambocor) 25 mg BID PO Last administered on 01/05/22 08:55; Start 01/02/22 at 21:00 Pyridostigmine Waldron (Mestinon) 60 mg BID PO Last administered on 01/05/22 08:54; Start 01/02/22 at 21:00 Simvastatin (Zocor) 20 mg HS PO Last administered on 01/04/22at 20:46; Start 01/02/22 at 21:00 Vitamin D (Vitamin D3) 1,000 unit DAILY PO Last administered on 01/05/22at 08:54; Start 01/03/22 at 09:00 Pantoprazole Sodium (Protonix) 40 mg QHS PO Last administered on 01/04/22at 20:46; Start 01/02/22 at 22:00 Fish Oil (Fish Oil) 1,000 mg DAILY PO Last administered on 01/05/22at 08:54; Start 01/03/22 at 09:00 Insulin Glargine (Lantus Syringe) 12 unit QHS SQ Last administered on 01/04/22at 20:57; Start 01/02/22 at 21:00 Heparin Sodium/ Dextrose 250 ml @ 15.4 mls/hr CONT PRN IV PER PROTOCOL Last administered on 01/04/22at 22:16; Start 01/03/22 at 11:45 Heparin Sodium (Porcine) (Heparin Sodium) 30 UNITS / KG PRN Q6HRS PRN IV FOR PTT < 40; Start 01/03/22 at 11:45; Stop 01/03/22 at 11:36; Status DC Heparin Sodium (Porcine) (Heparin Sodium) 2,000 unit PRN Q6HRS PRN IV FOR PTT 40 - 58; Start 01/03/22 at 11:45 Heparin Sodium (Porcine) (Heparin Sodium) 1,000 unit PRN Q6HRS PRN IV FOR PTT 59 - 78; Start 01/03/22 at 11:45 Heparin Sodium (Porcine) (Heparin Sodium) 2,250 unit PRN Q6HRS PRN IV FOR PTT < 40; Start 01/03/22 at 11:45 Warfarin Sodium (Coumadin Per Pharmacy) 1 each PRN DAILY PRN MC SEE COMMENTS Last administered on 01/05/22at 13:48; Start 01/03/22 at 15:15 Warfarin Sodium (Coumadin) 6 mg 1X WARF ONCE PO Last administered on 01/03/22at 16:43; Start 01/03/22 at 16:00; Stop 01/03/22 at 16:01; Status DC Ferrous Sulfate (Feosol) 325 mg BIDAC PO Last administered on 01/05/22at 08:55; Start 01/03/22 at 16:30 Docusate Sodium (Colace) 100 mg DAILY PO Last administered on 01/05/22at 08:56; Start 01/03/22 at 15:15 Warfarin Sodium (Coumadin) 6 mg 1X WARF ONCE PO Last administered on 01/04/22at 18:21; Start 01/04/22 at 16:00; Stop 01/04/22 at 16:15; Status DC Warfarin Sodium (Coumadin Per Pharmacy) 1 each PRN DAILY PRN MC SEE COMMENTS; Start 01/04/22 at 16:15; Status UNV Warfarin Sodium (Coumadin) 7.5 mg 1X WARF ONCE PO ; Start 01/05/22 at 16:00; Stop 01/05/22 at 16:01 Active Scripts Active Tamiflu (Oseltamivir Phosphate) 30 Mg Capsule 30 Mg PO BID 3 Days Amox Tr-K Clv 500-125 Mg Tab (Amoxicillin/Potassium Clav) 1 Each Tablet 1 Tab PO BID 5 Days Lantus Solostar (Insulin Glargine,Hum.rec.anlog) 100 Unit/1 Ml Insuln.pen 12 Unit SQ QHS 30 Days Reported Hydrochlorothiazide Tablet (Hydrochlorothiazide) 12.5 Mg Tablet 1 Tab PO DAILY Eliquis (Apixaban) 2.5 Mg Tablet 1 Tab PO BID Carvedilol (Carvedilol) 6.25 Mg Tablet 6.25 Mg PO BIDWMEALS Fish Oil 1,200 Mg Fish Oil (Fish Oil/Dha/Epa) 1 Each Capsule 1 Each PO DAILY Pyridostigmine Waldron 60 Mg Tablet 60 Mg PO BID Flecainide Acetate 50 Mg Tablet 25 Mg PO BID Simvastatin 20 Mg Tablet 20 Mg PO HS Nexium Capsule (Esomeprazole Magnesium) 40 Mg Capsule.dr 1 Cap PO QHS Vitamin D (Cholecalciferol (Vitamin D3)) 2,000 Unit Tablet 1,000 Unit PO DAILY Allergies Allergies: Coded Allergies: I S O L A T I O N *CONTACT* (Verified Allergy, Unknown, 04/03/18) mrsa No Known Medication Allergies (Verified Allergy, Unknown, 04/03/18) ROS Review of System Negative unless stated otherwise in interval history Physical Exam General: Alert, Oriented X3 HEENT: Atraumatic Lungs: Clear to auscultation Heart: Normal S1, Normal S2 Abdomen: Soft Extremities: Other (Left lower extremity edema) Skin: No rashes Vitals VITALS Vital Signs Date Time Temp Pulse Resp B/P (MAP) Pulse Ox O2 Delivery O2 Flow Rate FiO2 01/05/22 11:06 97.8 63 18 113/53 (73) 96 Room Air 97.8 Labs Labs Laboratory Tests Test 01/03/22 16:51 01/03/22 19:36 01/03/22 19:55 01/04/22 03:30 Glucose (Fingerstick) 121 mg/dL (70-99) 163 mg/dL (70-99) Activated Partial Thromboplast Time 146 SEC (24-38) 112 SEC (24-38) White Blood Count 5.4 x10^3/uL (4.0-11.0) Red Blood Count 3.76 x10^6/uL (4.30-5.70) Hemoglobin 7.5 g/dL (13.0-17.5) Hematocrit 25.1 % (39.0-53.0) Mean Corpuscular Volume 67 fL (79-100) Mean Corpuscular Hemoglobin 20 pg (25-35) Mean Corpuscular Hemoglobin Concent 30 g/dL (31-37) Red Cell Distribution Width 19.8 % (11.5-14.5) Platelet Count 199 x10^3/uL (140-400) Neutrophils (%) (Auto) 53 % (31-73) Lymphocytes (%) (Auto) 31 % (24-48) Monocytes (%) (Auto) 10 % (0-9) Eosinophils (%) (Auto) 5 % (0-3) Basophils (%) (Auto) 1 % (0-3) Neutrophils # (Auto) 2.9 x10^3/uL (1.8-7.7) Lymphocytes # (Auto) 1.7 x10^3/uL (1.0-4.8) Monocytes # (Auto) 0.5 x10^3/uL (0.0-1.1) Eosinophils # (Auto) 0.3 x10^3/uL (0.0-0.7) Basophils # (Auto) 0.1 x10^3/uL (0.0-0.2) Prothrombin Time 15.4 SEC (11.7-14.0) Prothromb Time International Ratio 1.2 (0.8-1.1) Sodium Level 140 mmol/L (136-145) Potassium Level 4.3 mmol/L (3.5-5.1) Chloride Level 106 mmol/L (98-107) Carbon Dioxide Level 27 mmol/L (21-32) Anion Gap 7 (6-14) Blood Urea Nitrogen 20 mg/dL (8-26) Creatinine 1.1 mg/dL (0.7-1.3) Estimated GFR (Cockcroft-Gault) 63.0 Glucose Level 108 mg/dL (70-99) Calcium Level 7.8 mg/dL (8.5-10.1) Magnesium Level 1.9 mg/dL (1.8-2.4) Test 01/04/22 07:29 01/04/22 09:45 01/04/22 11:59 01/04/22 16:37 Glucose (Fingerstick) 102 mg/dL (70-99) 146 mg/dL (70-99) 132 mg/dL (70-99) Activated Partial Thromboplast Time 97 SEC (24-38) Test 01/04/22 18:05 01/04/22 20:03 01/05/22 05:15 01/05/22 07:20 Activated Partial Thromboplast Time 82 SEC (24-38) 110 SEC (24-38) Glucose (Fingerstick) 139 mg/dL (70-99) 116 mg/dL (70-99) White Blood Count 6.0 x10^3/uL (4.0-11.0) Red Blood Count 3.80 x10^6/uL (4.30-5.70) Hemoglobin 7.7 g/dL (13.0-17.5) Hematocrit 25.2 % (39.0-53.0) Mean Corpuscular Volume 66 fL (79-100) Mean Corpuscular Hemoglobin 20 pg (25-35) Mean Corpuscular Hemoglobin Concent 31 g/dL (31-37) Red Cell Distribution Width 19.7 % (11.5-14.5) Platelet Count 215 x10^3/uL (140-400) Neutrophils (%) (Auto) 55 % (31-73) Lymphocytes (%) (Auto) 29 % (24-48) Monocytes (%) (Auto) 10 % (0-9) Eosinophils (%) (Auto) 4 % (0-3) Basophils (%) (Auto) 1 % (0-3) Neutrophils # (Auto) 3.3 x10^3/uL (1.8-7.7) Lymphocytes # (Auto) 1.8 x10^3/uL (1.0-4.8) Monocytes # (Auto) 0.6 x10^3/uL (0.0-1.1) Eosinophils # (Auto) 0.3 x10^3/uL (0.0-0.7) Basophils # (Auto) 0.1 x10^3/uL (0.0-0.2) Prothrombin Time 15.7 SEC (11.7-14.0) Prothromb Time International Ratio 1.3 (0.8-1.1) Sodium Level 141 mmol/L (136-145) Potassium Level 4.1 mmol/L (3.5-5.1) Chloride Level 106 mmol/L (98-107) Carbon Dioxide Level 26 mmol/L (21-32) Anion Gap 9 (6-14) Blood Urea Nitrogen 19 mg/dL (8-26) Creatinine 1.3 mg/dL (0.7-1.3) Estimated GFR (Cockcroft-Gault) 52.0 Glucose Level 101 mg/dL (70-99) Calcium Level 7.8 mg/dL (8.5-10.1) Magnesium Level 1.9 mg/dL (1.8-2.4) Test 01/05/22 11:42 Glucose (Fingerstick) 100 mg/dL (70-99) Laboratory Tests Test 01/04/22 16:37 01/04/22 18:05 01/04/22 20:03 01/05/22 05:15 Glucose (Fingerstick) 132 mg/dL (70-99) 139 mg/dL (70-99) Activated Partial Thromboplast Time 82 SEC (24-38) 110 SEC (24-38) White Blood Count 6.0 x10^3/uL (4.0-11.0) Red Blood Count 3.80 x10^6/uL (4.30-5.70) Hemoglobin 7.7 g/dL (13.0-17.5) Hematocrit 25.2 % (39.0-53.0) Mean Corpuscular Volume 66 fL (79-100) Mean Corpuscular Hemoglobin 20 pg (25-35) Mean Corpuscular Hemoglobin Concent 31 g/dL (31-37) Red Cell Distribution Width 19.7 % (11.5-14.5) Platelet Count 215 x10^3/uL (140-400) Neutrophils (%) (Auto) 55 % (31-73) Lymphocytes (%) (Auto) 29 % (24-48) Monocytes (%) (Auto) 10 % (0-9) Eosinophils (%) (Auto) 4 % (0-3) Basophils (%) (Auto) 1 % (0-3) Neutrophils # (Auto) 3.3 x10^3/uL (1.8-7.7) Lymphocytes # (Auto) 1.8 x10^3/uL (1.0-4.8) Monocytes # (Auto) 0.6 x10^3/uL (0.0-1.1) Eosinophils # (Auto) 0.3 x10^3/uL (0.0-0.7) Basophils # (Auto) 0.1 x10^3/uL (0.0-0.2) Prothrombin Time 15.7 SEC (11.7-14.0) Prothromb Time International Ratio 1.3 (0.8-1.1) Sodium Level 141 mmol/L (136-145) Potassium Level 4.1 mmol/L (3.5-5.1) Chloride Level 106 mmol/L (98-107) Carbon Dioxide Level 26 mmol/L (21-32) Anion Gap 9 (6-14) Blood Urea Nitrogen 19 mg/dL (8-26) Creatinine 1.3 mg/dL (0.7-1.3) Estimated GFR (Cockcroft-Gault) 52.0 Glucose Level 101 mg/dL (70-99) Calcium Level 7.8 mg/dL (8.5-10.1) Magnesium Level 1.9 mg/dL (1.8-2.4) Test 01/05/22 07:20 01/05/22 11:42 Glucose (Fingerstick) 116 mg/dL (70-99) 100 mg/dL (70-99) Assessment/Plan Assessment/Plan Assessment: Left leg DVT Atrial fibrillation Left hip arthroplasty Microcytic anemia Recommendations: -Continue therapeutic anticoagulation with warfarin -Suspect DVT is provoked given recent left hip arthroplasty. Would not recommend any additional hypercoagulable work-up at this time -Recommend hospital discharge on warfarin and continue therapeutic anticoagulation with warfarin. -Unclear if patient was on therapeutic dose of Eliquis at the time of occurrence of DVT. Attempted to contact patient's spouse [place] and left voicemail requesting call back to verify patient's report of taking Eliquis once daily -Check iron studies, B12, EPO level, reticulocyte count for further evaluation of anemia -Plan outpatient hematology follow-up in 1 month -Rest per primary service [facility] MD Jan 05, 2022 15:25
[2022-01-05] MEDS ORDERED: WARFARIN 7.5 MG TABLET. PO ONE (16:00)
[2022-01-05] MEDS: HEPARIN 25,000UTS/250ML PREMIX 250 ML IV PRN (16:20)
[2022-01-05 19:00] VITALS: BP 101/46
[2022-01-05 19:02] LABS: LACTATE DEHYDROGENASE 183 U/L (85-227)
[2022-01-05] MEDS: SIMVASTATIN 20 MG TABLET PO SCH (20:31)
[2022-01-05] MEDS: PANTOPRAZOLE 40 MG TABLET.DR. PO SCH (20:31)
[2022-01-05] MEDS: INSULIN GLARGINE SYRINGE. SQ SCH (20:34)
[2022-01-05 23:08] VITALS: BP 97/52
[2022-01-06 03:03] VITALS: BP 113/86
[2022-01-06 06:12] LABS: HEMOGLOBIN 8.3 g/dL (13.0-17.5); RED BLOOD COUNT 4.2 x10^6/uL (4.30-5.70); RED CELL DISTRIBUTION WIDTH 19.9 % (11.5-14.5); WHITE BLOOD COUNT 5.3 x10^3/uL (4.0-11.0)
[2022-01-06 06:27] LABS: PROTHROMBIN TIME PATIENT 16.6 SEC (11.7-14.0)
[2022-01-06 07:00] VITALS: BP 110/52
[2022-01-06] MEDS: INSULIN LISPRO 300 UNITS/3 ML VIAL. SQ SCH ×3 (08:00→16:57)
[2022-01-06] MEDS: CHOLECALCIFEROL (VITAMIN D3) 1,000 UNIT TABLET PO SCH (08:38)
[2022-01-06] MEDS: PYRIDOSTIGMINE BROMIDE 60 MG TABLET PO SCH ×2 (08:40→20:55)
[2022-01-06] MEDS: CARVEDILOL 6.25 MG TABLET. PO SCH ×2 (08:40→16:05)
[2022-01-06] MEDS: FLECAINIDE ACETATE 50 MG TABLET. PO SCH ×2 (08:40→20:56)
[2022-01-06] MEDS: DOCUSATE SODIUM 100 MG CAPSULE. PO SCH (08:40)
[2022-01-06] MEDS: FERROUS SULFATE 325 MG TABLET. PO SCH ×2 (08:40→16:05)
[2022-01-06] MEDS: OMEGA-3 FATTY ACIDS/FISH OIL 1,000 MG CAPSULE. PO SCH (08:40)
[2022-01-06] MEDS: HEPARIN 25,000UTS/250ML PREMIX 250 ML IV PRN (08:45)
--- NOTE | 2022-01-06 09:14 | PDOC ---
CARDIO Progress Notes Date and Time Date of Service 01/06/22 Time of Evaluation 0915 Subjective Subjective: No Chest Pain, No shortness of breath, No Palpitations, Other (left leg still swollen ) Vitals Vitals Vital Signs Date Time Temp Pulse Resp B/P (MAP) Pulse Ox O2 Delivery O2 Flow Rate FiO2 01/06/22 08:40 58 110/52 01/06/22 08:00 Room Air 01/06/22 07:00 97.7 18 96 97.7 Weight Weight [ ] Input and Output Intake and Output Intake and Output 01/06/22 07:00 Intake Total 940 ml Balance 940 ml Intake Oral 940 ml # Voids 4 Laboratory Labs Laboratory Tests Test 01/05/22 11:42 01/05/22 17:07 01/05/22 18:15 01/05/22 19:30 Glucose (Fingerstick) 100 mg/dL (70-99) 144 mg/dL (70-99) 153 mg/dL (70-99) Red Blood Count 4.13 x10^6/uL (4.30-5.70) Absolute Reticulocyte Count 0.069 x10^6/uL (0.020-0.120) Percent Reticulocyte Count 1.7 % (0.5-2.3) Immature Reticulocyte Fraction 0.46 (0.20-0.60) Iron Level 21 ug/dL (65-175) Total Iron Binding Capacity 268 ug/dL (250-450) Iron Saturation 8 % (15-34) Ferritin 36 ng/mL (26-388) Lactate Dehydrogenase 183 U/L (85-227) Vitamin B12 Level 423 pg/mL (247-911) Test 01/06/22 05:10 01/06/22 07:47 White Blood Count 5.3 x10^3/uL (4.0-11.0) Red Blood Count 4.20 x10^6/uL (4.30-5.70) Hemoglobin 8.3 g/dL (13.0-17.5) Hematocrit 28.0 % (39.0-53.0) Mean Corpuscular Volume 67 fL (79-100) Mean Corpuscular Hemoglobin 20 pg (25-35) Mean Corpuscular Hemoglobin Concent 30 g/dL (31-37) Red Cell Distribution Width 19.9 % (11.5-14.5) Platelet Count 242 x10^3/uL (140-400) Prothrombin Time 16.6 SEC (11.7-14.0) Prothromb Time International Ratio 1.4 (0.8-1.1) Activated Partial Thromboplast Time 93 SEC (24-38) Glucose (Fingerstick) 102 mg/dL (70-99) Physical Exam HEENT: Neck Supple W Full Motion Chest: Symmetric LUNGS: Clear to Auscultation Heart: RRR (SR. SB noted overnight on tele) Abdomen: Soft N/T Extremities: Other (1+ left LE edema ) Neurology: alert, oriented, follow commands Assessment Assessment 1. Extensive LLE DVT; on heparin gtt. 2. Bilateral LE pain; arterial duplex without evidence of stenosis 3. Anemia, iron deficient. hgb improved at 8.3 4. PAFIB; presently SR. Was on Eliquis for stroke prophylaxis at home 5. Hypertension; controlled 6. Diabetes, II 7. Recent left hip arthroplasty 8. Hx of myasthenia gravis Recommendations Secondary prevention Statin therapy Continue BB for rate control Warfarin therapy; bridging with heparin. INR 1.4 Supportive care Justicifation of Admission Dx: Justifications for Admission: Justification of Admission Dx: Yes Respiratory Failure: Severe Vent Deficit NISA BOWMAN APRN Jan 06, 2022 09:14
--- NOTE | 2022-01-06 10:59 | PDOC ---
[employer] PROGRESS NOTE Date of Service DOS: DATE: 01/06/22 TIME: 10:52 Chief Complaint Chief Complaint Acute left lower extremity DVT, likely provoked despite being on Eliquis Microcytic anemia, likely RAGINI. Recent left hip arthroplasty History of diabetes mellitus type 2 History of atrial fibrillation History of myasthenia gravis History of CAD History of Present Illness History of Present Illness Mr Mckeon is an 89 year old male with PMHx a-Fib, Diabetes-Type II, Heart Disease, MYASTHENIA GRAVIS who presents with lower extremity pain that started this morning at 1:00 in the morning. The pain woke him up from sleep and he was barely able to walk. Of note, patient had a left hip surgery that was done 1 month ago at [facility]. Patient did go to rehab afterwards but states that he has been mainly immobile since going home. Patient denies falls, trauma/injury, weakness, chest pain, palpitations, shortness of breath, cough, orthopnea. 01/03: Seen on heparin gtt. Notes he had been on Eliquis prior to his hospitalization. He is able to get up and ambulate with me with less pain today on 01/01/2022 he was unable to bear weight on his leg at all. Discussed with IR may be able to hold off on thrombectomy for now. Leg is still swollen. Need to discuss with hematology oncology change in anticoagulation regimen given Eliquis failure. 01/04: No acute events overnight. Patient seen examined bedside. Leg swelling has improved. Patient able to bear weight. Warfarin bridging started. INR today is 1.2. Patient's chart, labs, images were reviewed and discussed with RN 01/05: No acute events overnight. Patient seen examined bedside. INR is 1.3 today. Continue with warfarin bridging. Pharmacy to dose. Anticipate discharge in the next 24 to 48 hours. Patient's chart, labs, images were reviewed and discussed with RN 01/06: INR1.4. Yesterday had 7.5 mg warfarin. Had 6 mg and 6 mg for 2 days prior. No chest pain or shortness of breath his left leg pain is little improved when he gets up to ambulate today. Still bridging on heparin gtt. for INR to get above 1.8 Vitals/I&O Vitals/I&O: Vital Signs Date Time Temp Pulse Resp B/P (MAP) Pulse Ox O2 Delivery O2 Flow Rate FiO2 01/06/22 08:40 58 110/52 01/06/22 08:00 Room Air 01/06/22 07:00 97.7 18 96 97.7 I & O 01/05/22 01/05/22 01/06/22 15:00 23:00 07:00 Intake Total 340 ml 360 ml 240 ml Balance 340 ml 360 ml 240 ml Physical Exam General: Alert, Oriented X3 Heart: Normal S1, Normal S2 Lungs: Clear Abdomen: Soft Extremities: Other (Left lower extremity edema) Skin: No rashes Labs Labs: Laboratory Tests Test 01/05/22 11:42 01/05/22 17:07 01/05/22 18:15 01/05/22 19:30 Glucose (Fingerstick) 100 mg/dL (70-99) 144 mg/dL (70-99) 153 mg/dL (70-99) Red Blood Count 4.13 x10^6/uL (4.30-5.70) Absolute Reticulocyte Count 0.069 x10^6/uL (0.020-0.120) Percent Reticulocyte Count 1.7 % (0.5-2.3) Immature Reticulocyte Fraction 0.46 (0.20-0.60) Iron Level 21 ug/dL (65-175) Total Iron Binding Capacity 268 ug/dL (250-450) Iron Saturation 8 % (15-34) Ferritin 36 ng/mL (26-388) Lactate Dehydrogenase 183 U/L (85-227) Vitamin B12 Level 423 pg/mL (247-911) Test 01/06/22 05:10 01/06/22 07:47 White Blood Count 5.3 x10^3/uL (4.0-11.0) Red Blood Count 4.20 x10^6/uL (4.30-5.70) Hemoglobin 8.3 g/dL (13.0-17.5) Hematocrit 28.0 % (39.0-53.0) Mean Corpuscular Volume 67 fL (79-100) Mean Corpuscular Hemoglobin 20 pg (25-35) Mean Corpuscular Hemoglobin Concent 30 g/dL (31-37) Red Cell Distribution Width 19.9 % (11.5-14.5) Platelet Count 242 x10^3/uL (140-400) Prothrombin Time 16.6 SEC (11.7-14.0) Prothromb Time International Ratio 1.4 (0.8-1.1) Activated Partial Thromboplast Time 93 SEC (24-38) Glucose (Fingerstick) 102 mg/dL (70-99) Assessment and Plan Assessmemt and Plan Problems Medical Problems: (1) Claudication of both lower extremities Status: Acute (2) Deep vein thrombosis of left lower extremity Status: Acute (3) Hx of 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 Medications: Current Medications Medications (Trade) Dose Ordered Sig/Vin Route PRN Reason Start Time Stop Time Status Last Admin Dose Admin Warfarin Sodium (Coumadin) 7.5 mg 1X WARF ONCE PO 01/05/22 16:00 01/05/22 16:01 DC 01/05/22 16:21 Justifications for Admission Other Justification DVT TERRENCE WOODARD MD Jan 06, 2022 10:59
[2022-01-06 11:00] VITALS: BP 142/55
--- NOTE | 2022-01-06 12:35 | NUR ---
SS following for discharge planning. SS reviewed pt chart and discussed with pt RN. Pt is from home with spouse and is currently on room air. Cardiology following. Heparin drip. Not ready. SS will continue to follow for discharge planning.
--- NOTE | 2022-01-06 13:15 | NUR ---
Pharmacy Warfarin Dosing Note S:Pharmacy consulted to assist with anticoagulation therapy started with target INR: 2 -3 O:STEPHANIE CLEMENS is a 89 year old M with DVT/PE acute DVT, failed low-dose Eliquis LABS: Last INR: 1.4 Last HGB: 8.3 Last HCT: 28.0 Last PLT: 242 Last dose of 7.5 mg given on 01/05/22 at 1621 Previous Regimen: Vitamin K given: N Drug Interaction Changes: Ongoing Drug Interactions: A:INR of 1.4 is below desired range. Target range for this patient is: 2 -3 P: Warfarin dose: 10 mg Today at 1600 Bridge Therapy: Heparin Therapeutic Next INR due IN AM Pharmacy anticoagulation service will continue to follow. LEO CISNEROS [facility], 01/06/22 [id number]
[2022-01-06 15:13] VITALS: BP 117/51
[2022-01-06] MEDS ORDERED: WARFARIN 5 MG TABLET. PO ONE (16:00)
[2022-01-06 19:00] VITALS: BP 109/49
[2022-01-06] MEDS: PANTOPRAZOLE 40 MG TABLET.DR. PO SCH (20:55)
[2022-01-06] MEDS: SIMVASTATIN 20 MG TABLET PO SCH (20:55)
[2022-01-06] MEDS: INSULIN GLARGINE SYRINGE. SQ SCH (21:02)
[2022-01-06 23:03] VITALS: BP 113/41
[2022-01-07] MEDS: HEPARIN 25,000UTS/250ML PREMIX 250 ML IV PRN (03:03)
[2022-01-07 03:11] VITALS: BP 113/54
[2022-01-07 04:39] LABS: PROTHROMBIN TIME PATIENT 19.8 SEC (11.7-14.0)
[2022-01-07 07:00] VITALS: BP 118/54
[2022-01-07] MEDS: INSULIN LISPRO 300 UNITS/3 ML VIAL. SQ SCH ×3 (08:00→16:43)
[2022-01-07] MEDS: CARVEDILOL 6.25 MG TABLET. PO SCH ×2 (08:00→16:29)
[2022-01-07] MEDS: CHOLECALCIFEROL (VITAMIN D3) 1,000 UNIT TABLET PO SCH (08:38)
[2022-01-07] MEDS: FERROUS SULFATE 325 MG TABLET. PO SCH ×2 (08:38→16:05)
[2022-01-07] MEDS: OMEGA-3 FATTY ACIDS/FISH OIL 1,000 MG CAPSULE. PO SCH (08:39)
[2022-01-07] MEDS: DOCUSATE SODIUM 100 MG CAPSULE. PO SCH (08:39)
[2022-01-07] MEDS: PYRIDOSTIGMINE BROMIDE 60 MG TABLET PO SCH ×2 (08:39→20:12)
[2022-01-07] MEDS: FLECAINIDE ACETATE 50 MG TABLET. PO SCH ×2 (09:24→20:12)
[2022-01-07 11:00] VITALS: BP 105/52
--- NOTE | 2022-01-07 11:18 | NUR ---
Pharmacy Warfarin Dosing Note S:Pharmacy consulted to assist with anticoagulation therapy started with target INR: 2 -3 O:STEPHANIE CLEMENS is a 89 year old M with acute DVT, failed low-dose Eliquis LABS: Last INR: 1.7 Last HGB: 8.3 Last HCT: 28.0 Last PLT: 242 Last dose of 10 mg given on 01/06/22 at 1605 Vitamin K given: N A:INR of 1.7 is below desired range. Target range for this patient is: 2 -3 P: Warfarin dose: 7.5 mg Today at 1600 Bridge Therapy: Heparin Therapeutic Next INR due 01/08/22 Pharmacy anticoagulation service will continue to follow. VIPIN [facility], 01/07/22 [id number]
--- NOTE | 2022-01-07 11:47 | PDOC ---
[employer] PROGRESS NOTE Date of Service DOS: DATE: 01/07/22 TIME: 11:46 Chief Complaint Chief Complaint Acute left lower extremity DVT, likely provoked despite being on Eliquis Microcytic anemia, likely RAGINI. Recent left hip arthroplasty History of diabetes mellitus type 2 History of atrial fibrillation History of myasthenia gravis History of CAD History of Present Illness History of Present Illness Mr Mckeon is an 89 year old male with PMHx a-Fib, Diabetes-Type II, Heart Disease, MYASTHENIA GRAVIS who presents with lower extremity pain that started this morning at 1:00 in the morning. The pain woke him up from sleep and he was barely able to walk. Of note, patient had a left hip surgery that was done 1 month ago at [facility]. Patient did go to rehab afterwards but states that he has been mainly immobile since going home. Patient denies falls, trauma/injury, weakness, chest pain, palpitations, shortness of breath, cough, orthopnea. 01/03: Seen on heparin gtt. Notes he had been on Eliquis prior to his hospitalization. He is able to get up and ambulate with me with less pain today on 01/01/2022 he was unable to bear weight on his leg at all. Discussed with IR may be able to hold off on thrombectomy for now. Leg is still swollen. Need to discuss with hematology oncology change in anticoagulation regimen given Eliquis failure. 01/04: No acute events overnight. Patient seen examined bedside. Leg swelling has improved. Patient able to bear weight. Warfarin bridging started. INR today is 1.2. Patient's chart, labs, images were reviewed and discussed with RN 01/05: No acute events overnight. Patient seen examined bedside. INR is 1.3 today. Continue with warfarin bridging. Pharmacy to dose. Anticipate discharge in the next 24 to 48 hours. Patient's chart, labs, images were reviewed and discussed with RN 01/06: INR1.4. Yesterday had 7.5 mg warfarin. Had 6 mg and 6 mg for 2 days prior. No chest pain or shortness of breath his left leg pain is little improved when he gets up to ambulate today. Still bridging on heparin gtt. for INR to get above 1.8 01/07: INR 1.7 today. No chest pain or shortness of breath leg pain is stable able to ambulate with walker. Still on heparin gtt. we will continue to hopefully be able to discharge in the next 24 to 48 hours on oral Coumadin. Vitals/I&O Vitals/I&O: Vital Signs Date Time Temp Pulse Resp B/P (MAP) Pulse Ox O2 Delivery O2 Flow Rate FiO2 01/07/22 09:24 57 118/54 01/07/22 08:30 Room Air 01/07/22 07:00 97.7 16 96 97.7 I & O 01/06/22 01/06/22 01/07/22 15:00 23:00 07:00 Intake Total 240 ml Output Total 1 ml Balance 240 ml -1 ml Physical Exam General: Alert, Oriented X3 Heart: Normal S1, Normal S2 Lungs: Clear Abdomen: Soft Extremities: Other (Left lower extremity edema) Skin: No rashes Labs Labs: Laboratory Tests Test 01/06/22 16:32 01/06/22 20:28 01/07/22 04:00 01/07/22 07:31 Glucose (Fingerstick) 113 mg/dL (70-99) 146 mg/dL (70-99) 93 mg/dL (70-99) Prothrombin Time 19.8 SEC (11.7-14.0) Prothromb Time International Ratio 1.7 (0.8-1.1) Activated Partial Thromboplast Time 134 SEC (24-38) Assessment and Plan Assessmemt and Plan Problems Medical Problems: (1) Claudication of both lower extremities Status: Acute (2) Deep vein thrombosis of left lower extremity Status: Acute (3) Hx of intermediate use of 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 Medications: Current Medications Medications (Trade) Dose Ordered Sig/Vin Route PRN Reason Start Time Stop Time Status Last Admin Dose Admin Warfarin Sodium (Coumadin) 10 mg 1X WARF ONCE PO 01/06/22 16:00 01/06/22 16:01 DC 01/06/22 16:05 Justifications for Admission Other Justification DVT TERRENCE WOODARD MD Jan 07, 2022 11:47
--- NOTE | 2022-01-07 13:09 | PDOC ---
PROGRESS NOTES Date of Service DATE: 01/07/22 TIME: 13:07 Subjective Subjective Patient seen and examined He continues to look and feel better. Objective Objective Vital Signs Date Time Temp Pulse Resp B/P (MAP) Pulse Ox O2 Delivery O2 Flow Rate FiO2 01/07/22 11:00 98.0 59 18 105/52 (69) 97 Room Air 98.0 Intake and Output 01/07/22 07:00 Intake Total 240 ml Output Total 1 ml Balance 239 ml Intake Oral 240 ml Output Urine Total 1 ml # Voids 3 # Bowel Movements 1 Physical Exam Abdomen: Normal bowel sounds Heart: Regular rate General: No acute distress Lungs: Other (Minimally decreased breath sounds) Assessment Assessment Problems Medical Problems: (1) Claudication of both lower extremities Status: Acute (2) Deep vein thrombosis of left lower extremity Status: Acute (3) 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 Morning INR of 1.7. Bilateral LE pain; arterial duplex without evidence of stenosis Anemia, iron deficient PAFIB; presently SR. Was on Eliquis for stroke prophylaxis at home Hypertension; controlled Diabetes, II Recent left hip arthroplasty Hx of myasthenia gravis Comment Review of Relevant I have reviewed the following items richard (where applicable) has been applied. Labs Laboratory Tests Test 01/05/22 17:07 01/05/22 18:15 01/05/22 19:30 01/06/22 05:10 Glucose (Fingerstick) 144 mg/dL (70-99) 153 mg/dL (70-99) Red Blood Count 4.13 x10^6/uL (4.30-5.70) 4.20 x10^6/uL (4.30-5.70) Absolute Reticulocyte Count 0.069 x10^6/uL (0.020-0.120) Percent Reticulocyte Count 1.7 % (0.5-2.3) Immature Reticulocyte Fraction 0.46 (0.20-0.60) Haptoglobin 210 mg/dL (38-329) Iron Level 21 ug/dL (65-175) Total Iron Binding Capacity 268 ug/dL (250-450) Iron Saturation 8 % (15-34) Erythropoietin 55.7 mIU/mL (2.6-18.5) Ferritin 36 ng/mL (26-388) Lactate Dehydrogenase 183 U/L (85-227) Vitamin B12 Level 423 pg/mL (247-911) White Blood Count 5.3 x10^3/uL (4.0-11.0) Hemoglobin 8.3 g/dL (13.0-17.5) Hematocrit 28.0 % (39.0-53.0) Mean Corpuscular Volume 67 fL (79-100) Mean Corpuscular Hemoglobin 20 pg (25-35) Mean Corpuscular Hemoglobin Concent 30 g/dL (31-37) Red Cell Distribution Width 19.9 % (11.5-14.5) Platelet Count 242 x10^3/uL (140-400) Prothrombin Time 16.6 SEC (11.7-14.0) Prothromb Time International Ratio 1.4 (0.8-1.1) Activated Partial Thromboplast Time 93 SEC (24-38) Test 01/06/22 07:47 01/06/22 11:26 01/06/22 16:32 01/06/22 20:28 Glucose (Fingerstick) 102 mg/dL (70-99) 141 mg/dL (70-99) 113 mg/dL (70-99) 146 mg/dL (70-99) Test 01/07/22 04:00 01/07/22 07:31 01/07/22 11:37 Prothrombin Time 19.8 SEC (11.7-14.0) Prothromb Time International Ratio 1.7 (0.8-1.1) Activated Partial Thromboplast Time 134 SEC (24-38) Glucose (Fingerstick) 93 mg/dL (70-99) 130 mg/dL (70-99) Laboratory Tests Test 01/06/22 16:32 01/06/22 20:28 01/07/22 04:00 01/07/22 07:31 Glucose (Fingerstick) 113 mg/dL (70-99) 146 mg/dL (70-99) 93 mg/dL (70-99) Prothrombin Time 19.8 SEC (11.7-14.0) Prothromb Time International Ratio 1.7 (0.8-1.1) Activated Partial Thromboplast Time 134 SEC (24-38) Test 01/07/22 11:37 Glucose (Fingerstick) 130 mg/dL (70-99) Medications Current Medications Heparin Sodium (Porcine) (Heparin Sodium) 6,150 unit 1X ONCE IV Last administered on 01/02/22at 16:00; Start 01/02/22 at 15:15; Stop 01/02/22 at 15:42; Status DC Heparin Sodium/ Dextrose 250 ml @ 12.32 mls/ hr CONT PRN IV PER PROTOCOL Last administered on 01/03/22at 09:46; Start 01/02/22 at 15:15; Stop 01/03/22 at 11:35; Status DC Heparin Sodium (Porcine) (Heparin Sodium) 2,300 unit PRN Q6HRS PRN IV FOR UFH LEVEL LESS THAN 0.2; Start 01/02/22 at 15:15; Stop 01/03/22 at 11:35; Status DC Heparin Sodium (Porcine) (Heparin Sodium) 1,150 unit PRN Q6HRS PRN IV FOR UFH LEVEL 0.2 - 0.29 Last administered on 01/03/22at 08:02; Start 01/02/22 at 15:15; Stop 01/03/22 at 11:36; Status DC Sennosides (Senna) 17.2 mg PRN BID PRN PO CONSTIPATION; Start 01/02/22 at 15:30 Docusate Sodium (Colace) 100 mg PRN DAILY PRN PO HARD STOOLS; Start 01/02/22 at 15:30 Ondansetron HCl (Zofran) 4 mg PRN Q6HRS PRN IVP NAUSEA/VOMITING, 1st CHOICE; Start 01/02/22 at 15:30 Insulin Human Lispro (HumaLOG) 0-7 UNITS TIDWMEALS SQ ; Start 01/02/22 at 17:00 Dextrose (Dextrose 50%-Water Syringe) 12.5 gm PRN Q15MIN PRN IV SEE COMMENTS; Start 01/02/22 at 15:30 Acetaminophen (Tylenol) 650 mg PRN Q4HRS PRN PO TEMP OVER 100.4F OR MILD PAIN; Start 01/02/22 at 15:30 Lorazepam (Ativan) 0.5 mg PRN Q6HRS PRN PO ANXIETY / AGITATION; Start 01/02/22 at 15:30; Stop 01/03/22 at 15:16; Status DC Lorazepam (Ativan Inj) 0.25 mg PRN Q4HRS PRN IV ANXIETY / AGITATION; Start 01/02/22 at 15:30; Stop 01/03/22 at 15:16; Status DC Oxycodone/ Acetaminophen (Percocet 5/325) 1 tab PRN Q4HRS PRN PO MODERATE- SEVERE PAIN; Start 01/02/22 at 15:30 Prochlorperazine Edisylate (Compazine) 10 mg PRN Q6HRS PRN IV NAUSEA/VOMITING, 2nd CHOICE; Start 01/02/22 at 15:30 Diphenhydramine HCl (Benadryl) 25 mg PRN Q6HRS PRN IVP ITCHING; Start 01/02/22 at 15:30; Stop 01/03/22 at 15:16; Status DC Diphenhydramine HCl (Benadryl) 25 mg PRN Q6HRS PRN PO ITCHING; Start 01/02/22 at 15:30; Stop 01/03/22 at 15:16; Status DC Diphenhydramine HCl (Benadryl) 25 mg PRN QHS PRN PO INSOMNIA, 1st CHOICE; Start 01/02/22 at 15:30; Stop 01/03/22 at 15:16; Status DC Zolpidem Tartrate (Ambien) 2.5 mg PRN QHS PRN PO INSOMNIA, 2nd CHOICE; Start 01/02/22 at 15:30; Stop 01/03/22 at 15:16; Status DC Carvedilol (Coreg) 6.25 mg BIDWMEALS PO Last administered on 01/06/22at 16:05; Start 01/02/22 at 17:00 Flecainide Acetate (Tambocor) 25 mg BID PO Last administered on 01/07/22at 09:24; Start 01/02/22 at 21:00 Pyridostigmine [place] (Mestinon) 60 mg BID PO Last administered on 01/07/22at 08:39; Start 01/02/22 at 21:00 Simvastatin (Zocor) 20 mg HS PO Last administered on 01/06/22at 20:55; Start 01/02/22 at 21:00 Vitamin D (Vitamin D3) 1,000 unit DAILY PO Last administered on 01/07/22at 08:38; Start 01/03/22 at 09:00 Pantoprazole Sodium (Protonix) 40 mg QHS PO Last administered on 01/06/22 20:55; Start 01/02/22 at 22:00 Fish Oil (Fish Oil) 1,000 mg DAILY PO Last administered on 01/07/22 08:39; Start 01/03/22 at 09:00 Insulin Glargine (Lantus Syringe) 12 unit QHS SQ Last administered on 01/06/22at 21:02; Start 01/02/22 at 21:00 Heparin Sodium/ Dextrose 250 ml @ 15.4 mls/hr CONT PRN IV PER PROTOCOL Last administered on 01/07/22 03:03; Start 01/03/22 at 11:45 Heparin Sodium (Porcine) (Heparin Sodium) 30 UNITS / KG PRN Q6HRS PRN IV FOR PTT < 40; Start 01/03/22 at 11:45; Stop 01/03/22 at 11:36; Status DC Heparin Sodium (Porcine) (Heparin Sodium) 2,000 unit PRN Q6HRS PRN IV FOR PTT 40 - 58; Start 01/03/22 at 11:45 Heparin Sodium (Porcine) (Heparin Sodium) 1,000 unit PRN Q6HRS PRN IV FOR PTT 59 - 78; Start 01/03/22 at 11:45 Heparin Sodium (Porcine) (Heparin Sodium) 2,250 unit PRN Q6HRS PRN IV FOR PTT < 40; Start 01/03/22 at 11:45 Warfarin Sodium (Coumadin Per Pharmacy) 1 each PRN DAILY PRN MC SEE COMMENTS Last administered on 01/07/22at 11:18; Start 01/03/22 at 15:15 Warfarin Sodium (Coumadin) 6 mg 1X WARF ONCE PO Last administered on 01/03/22at 16:43; Start 01/03/22 at 16:00; Stop 01/03/22 at 16:01; Status DC Ferrous Sulfate (Feosol) 325 mg BIDAC PO Last administered on 01/07/22 08:38; Start 01/03/22 at 16:30 Docusate Sodium (Colace) 100 mg DAILY PO Last administered on 01/07/22 08:39; Start 01/03/22 at 15:15 Warfarin Sodium (Coumadin) 6 mg 1X WARF ONCE PO Last administered on 2/15/22at 18:21; Start 01/04/22 at 16:00; Stop 01/04/22 at 16:15; Status DC Warfarin Sodium (Coumadin Per Pharmacy) 1 each PRN DAILY PRN MC SEE COMMENTS; Start 01/04/22 at 16:15; Status UNV Warfarin Sodium (Coumadin) 7.5 mg 1X WARF ONCE PO Last administered on 01/05/22at 16:21; Start 01/05/22 at 16:00; Stop 01/05/22 at 16:01; Status DC Warfarin Sodium (Coumadin) 10 mg 1X WARF ONCE PO Last administered on 01/06/22at 16:05; Start 01/06/22 at 16:00; Stop 01/06/22 at 16:01; Status DC Warfarin Sodium (Coumadin) 7.5 mg 1X WARF ONCE PO ; Start 01/07/22 at 16:00; Stop 01/07/22 at 16:01 Active Scripts Active Tamiflu (Oseltamivir Phosphate) 30 Mg Capsule 30 Mg PO BID 3 Days Amox Tr-K Clv 500-125 Mg Tab (Amoxicillin/Potassium Clav) 1 Each Tablet 1 Tab PO BID 5 Days Lantus Solostar (Insulin Glargine,Hum.rec.anlog) 100 Unit/1 Ml Insuln.pen 12 Unit SQ QHS 30 Days Reported Hydrochlorothiazide Tablet (Hydrochlorothiazide) 12.5 Mg Tablet 1 Tab PO DAILY Eliquis (Apixaban) 2.5 Mg Tablet 1 Tab PO BID Carvedilol (Carvedilol) 6.25 Mg Tablet 6.25 Mg PO BIDWMEALS Fish Oil 1,200 Mg Fish Oil (Fish Oil/Dha/Epa) 1 Each Capsule 1 Each PO DAILY Pyridostigmine [place] 60 Mg Tablet 60 Mg PO BID Flecainide Acetate 50 Mg Tablet 25 Mg PO BID Simvastatin 20 Mg Tablet 20 Mg PO HS Nexium Capsule (Esomeprazole Magnesium) 40 Mg Capsule.dr 1 Cap PO QHS Vitamin D (Cholecalciferol (Vitamin D3)) 2,000 Unit Tablet 1,000 Unit PO DAILY Vitals/I & O Vital Sign - Last 24 Hours 01/06/22 01/06/22 01/06/22 01/06/22 15:13 16:05 19:00 20:00 Temp 98.1 98.4 98.1 98.4 Pulse 58 58 56 Resp 18 20 B/P (MAP) 117/51 (73) 117/51 109/49 (69) Pulse Ox 95 95 O2 Delivery Room Air Room Air Room Air 01/06/22 01/06/22 01/07/22 01/07/22 20:56 23:03 03:11 07:00 Temp 97.8 98.2 97.7 97.8 98.2 97.7 Pulse 62 57 61 57 Resp 20 20 16 B/P (MAP) 98/47 113/41 (65) 113/54 (73) 118/54 (75) Pulse Ox 96 95 96 O2 Delivery Room Air Room Air Room Air 01/07/22 01/07/22 01/07/22 01/07/22 08:00 08:30 09:24 11:00 Temp 98.0 98.0 Pulse 57 57 59 Resp 18 B/P (MAP) 118/54 118/54 105/52 (69) Pulse Ox 97 O2 Delivery Room Air Room Air Intake and Output 01/06/22 01/06/22 01/07/22 15:00 23:00 07:00 Intake Total 240 ml Output Total 1 ml Balance 240 ml -1 ml Justifications for Admission Other Justification DVT AHSAN IVAN MD Jan 07, 2022 13:08
[2022-01-07 15:00] VITALS: BP 114/53
[2022-01-07] MEDS ORDERED: WARFARIN 7.5 MG TABLET. PO ONE (16:00)
[2022-01-07 19:00] VITALS: BP 114/52
[2022-01-07] MEDS: PANTOPRAZOLE 40 MG TABLET.DR. PO SCH (20:12)
[2022-01-07] MEDS: SIMVASTATIN 20 MG TABLET PO SCH (20:12)
[2022-01-07] MEDS: INSULIN GLARGINE SYRINGE. SQ SCH (20:47)
[2022-01-07 23:00] VITALS: BP 116/57
[2022-01-08] MEDS: HEPARIN 25,000UTS/250ML PREMIX 250 ML IV PRN (01:38)
[2022-01-08 03:00] VITALS: BP 115/50
[2022-01-08 05:12] LABS: HEMATOCRIT 27.7 % (39.0-53.0); HEMOGLOBIN 8.2 g/dL (13.0-17.5); RED BLOOD COUNT 4.12 x10^6/uL (4.30-5.70); RED CELL DISTRIBUTION WIDTH 20.2 % (11.5-14.5); WHITE BLOOD COUNT 5.8 x10^3/uL (4.0-11.0)
[2022-01-08 07:00] VITALS: BP 161/53
[2022-01-08] MEDS: INSULIN LISPRO 300 UNITS/3 ML VIAL. SQ SCH ×3 (08:00→17:00)
[2022-01-08] MEDS: CARVEDILOL 6.25 MG TABLET. PO SCH ×2 (09:39→17:00)
[2022-01-08] MEDS: PYRIDOSTIGMINE BROMIDE 60 MG TABLET PO SCH ×2 (09:39→20:54)
[2022-01-08] MEDS: OMEGA-3 FATTY ACIDS/FISH OIL 1,000 MG CAPSULE. PO SCH (09:40)
[2022-01-08] MEDS: FERROUS SULFATE 325 MG TABLET. PO SCH ×2 (09:40→17:18)
[2022-01-08] MEDS: DOCUSATE SODIUM 100 MG CAPSULE. PO SCH (09:41)
[2022-01-08] MEDS: FLECAINIDE ACETATE 50 MG TABLET. PO SCH ×2 (09:42→20:54)
[2022-01-08] MEDS: CHOLECALCIFEROL (VITAMIN D3) 1,000 UNIT TABLET PO SCH (09:43)
--- NOTE | 2022-01-08 10:16 | PDOC ---
[employer] PROGRESS NOTE Date of Service DOS: DATE: 01/08/22 TIME: 10:04 Chief Complaint Chief Complaint Acute left lower extremity DVT, likely provoked despite being on Eliquis Microcytic anemia, likely RAGINI. Recent left hip arthroplasty History of diabetes mellitus type 2 History of atrial fibrillation History of myasthenia gravis History of CAD History of Present Illness History of Present Illness Mr Mckeon is an 89 year old male with PMHx a-Fib, Diabetes-Type II, Heart Disease, MYASTHENIA GRAVIS who presents with lower extremity pain that started this morning at 1:00 in the morning. The pain woke him up from sleep and he was barely able to walk. Of note, patient had a left hip surgery that was done 1 month ago at [facility]. Patient did go to rehab afterwards but states that he has been mainly immobile since going home. Patient denies falls, trauma/injury, weakness, chest pain, palpitations, shortness of breath, cough, orthopnea. 01/03: Seen on heparin gtt. Notes he had been on Eliquis prior to his hospitalization. He is able to get up and ambulate with me with less pain today on 01/01/2022 he was unable to bear weight on his leg at all. Discussed with IR may be able to hold off on thrombectomy for now. Leg is still swollen. Need to discuss with hematology oncology change in anticoagulation regimen given Eliquis failure. 01/04: No acute events overnight. Patient seen examined bedside. Leg swelling has improved. Patient able to bear weight. Warfarin bridging started. INR today is 1.2. Patient's chart, labs, images were reviewed and discussed with RN 01/05: No acute events overnight. Patient seen examined bedside. INR is 1.3 today. Continue with warfarin bridging. Pharmacy to dose. Anticipate discharge in the next 24 to 48 hours. Patient's chart, labs, images were reviewed and discussed with RN 01/06: INR1.4. Yesterday had 7.5 mg warfarin. Had 6 mg and 6 mg for 2 days prior. No chest pain or shortness of breath his left leg pain is little improved when he gets up to ambulate today. Still bridging on heparin gtt. for INR to get above 1.8 01/07: INR 1.7 today. No chest pain or shortness of breath leg pain is stable able to ambulate with walker. Still on heparin gtt. we will continue to hopefully be able to discharge in the next 24 to 48 hours on oral Coumadin. 01/08: Hb 8.2. INR pending. He is feeling a little confused today. No chest pain or shortness of breath. He is a little anxious. Vitals/I&O Vitals/I&O: Vital Signs Date Time Temp Pulse Resp B/P (MAP) Pulse Ox O2 Delivery O2 Flow Rate FiO2 01/08/22 09:42 60 161/53 01/08/22 07:00 98.2 18 98 Room Air 98.2 I & O 01/07/22 01/07/22 01/08/22 15:00 23:00 07:00 Intake Total 840 ml 490 ml Balance 840 ml 490 ml Physical Exam General: Alert, Cooperative, No acute distress Heart: Regular rate Lungs: Clear Abdomen: Normal bowel sounds Extremities: Other (Left lower extremity edema) Skin: No rashes Labs Labs: Laboratory Tests Test 01/07/22 11:37 01/07/22 13:59 01/07/22 16:42 01/07/22 20:24 Glucose (Fingerstick) 130 mg/dL (70-99) 98 mg/dL (70-99) 144 mg/dL (70-99) Activated Partial Thromboplast Time 137 SEC (24-38) Test 01/07/22 22:22 01/08/22 04:20 01/08/22 07:30 Activated Partial Thromboplast Time 101 SEC (24-38) 86 SEC (24-38) White Blood Count 5.8 x10^3/uL (4.0-11.0) Red Blood Count 4.12 x10^6/uL (4.30-5.70) Hemoglobin 8.2 g/dL (13.0-17.5) Hematocrit 27.7 % (39.0-53.0) Mean Corpuscular Volume 67 fL (79-100) Mean Corpuscular Hemoglobin 20 pg (25-35) Mean Corpuscular Hemoglobin Concent 30 g/dL (31-37) Red Cell Distribution Width 20.2 % (11.5-14.5) Platelet Count 266 x10^3/uL (140-400) Glucose (Fingerstick) 90 mg/dL (70-99) Assessment and Plan Assessmemt and Plan Problems Medical Problems: (1) Claudication of both lower extremities Status: Acute (2) Deep vein thrombosis of left lower extremity Status: Acute (3) 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 Medications: Current Medications Medications (Trade) Dose Ordered Sig/Vin Route PRN Reason Start Time Stop Time Status Last Admin Dose Admin Warfarin Sodium (Coumadin) 7.5 mg 1X WARF ONCE PO 01/07/22 16:00 01/07/22 16:01 DC 01/07/22 16:05 Justifications for Admission Other Justification DVT TERRENCE WOODARD MD Jan 08, 2022 10:16
[2022-01-08 11:00] VITALS: BP 114/76
--- NOTE | 2022-01-08 14:56 | PDOC ---
PROGRESS NOTES Date of Service: DATE: 01/08/22 TIME: 14:55 Subjective Subjective No new complaints Objective Objective Vital Signs Date Time Temp Pulse Resp B/P (MAP) Pulse Ox O2 Delivery O2 Flow Rate FiO2 01/08/22 11:00 98.6 55 18 114/76 (89) 100 Room Air 98.6 Intake and Output 01/08/22 07:00 Intake Total 1330 ml Balance 1330 ml Intake Oral 1080 ml IV Total 250 ml # Voids 1 # Bowel Movements 1 Physical Exam Abdomen: Normal bowel sounds Heart: Regular rate Extremities: Other (Left lower extremity edema) General: Alert, Cooperative, No acute distress HEENT: Atraumatic Lungs: Other MUSCULOSKELETAL: Osteoarthritic changes both hands Skin: No rashes Assessment Assessment 1. Extensive LLE DVT; continue warfarin for long-term anticoagulation 2. Bilateral LE pain; arterial duplex without evidence of stenosis 3. Anemia, iron deficient. hgb improved at 8.3 4. PAFIB; presently SR. 5. Hypertension; controlled 6. Diabetes, II: Treat per IM 7. Recent left hip arthroplasty 8. 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 Labs Laboratory Tests Test 01/07/22 16:42 01/07/22 20:24 01/07/22 22:22 01/08/22 04:20 Glucose (Fingerstick) 98 mg/dL (70-99) 144 mg/dL (70-99) Activated Partial Thromboplast Time 101 SEC (24-38) 86 SEC (24-38) White Blood Count 5.8 x10^3/uL (4.0-11.0) Red Blood Count 4.12 x10^6/uL (4.30-5.70) Hemoglobin 8.2 g/dL (13.0-17.5) Hematocrit 27.7 % (39.0-53.0) Mean Corpuscular Volume 67 fL (79-100) Mean Corpuscular Hemoglobin 20 pg (25-35) Mean Corpuscular Hemoglobin Concent 30 g/dL (31-37) Red Cell Distribution Width 20.2 % (11.5-14.5) Platelet Count 266 x10^3/uL (140-400) Test 01/08/22 07:30 01/08/22 11:41 Glucose (Fingerstick) 90 mg/dL (70-99) 128 mg/dL (70-99) Medications Current Medications Warfarin Sodium (Coumadin) 7.5 mg 1X WARF ONCE PO Last administered on 01/07/22at 16:05; Start 01/07/22 at 16:00; Stop 01/07/22 at 16:01; Status DC Vitals/I & O Vital Sign - Last 24 Hours 01/07/22 01/07/22 01/07/22 01/07/22 15:00 16:29 19:00 20:00 Temp 97.5 98.3 97.5 98.3 Pulse 57 57 61 Resp 16 16 B/P (MAP) 114/53 (73) 114/53 114/52 (72) Pulse Ox 96 96 O2 Delivery Room Air Room Air Room Air 01/07/22 01/07/22 01/08/22 01/08/22 20:12 23:00 03:00 07:00 Temp 98.5 97.9 98.2 98.5 97.9 98.2 Pulse 61 55 58 60 Resp 18 20 18 B/P (MAP) 110/57 116/57 (76) 115/50 (71) 161/53 (89) Pulse Ox 96 98 98 O2 Delivery Room Air Room Air Room Air 01/08/22 01/08/22 01/08/22 01/08/22 08:19 09:39 09:42 11:00 Temp 98.6 98.6 Pulse 60 60 55 Resp 18 B/P (MAP) 161/53 161/53 114/76 (89) Pulse Ox 100 O2 Delivery Room Air Room Air Intake and Output 01/07/22 01/07/22 01/08/22 15:00 23:00 07:00 Intake Total 840 ml 490 ml Balance 840 ml 490 ml MAGDALENO SCHREIBER MD Jan 08, 2022 14:56
[2022-01-08 15:00] VITALS: BP 108/45
[2022-01-08 16:04] LABS: PROTHROMBIN TIME PATIENT 24.5 SEC (11.7-14.0)
[2022-01-08] MEDS ORDERED: WARFARIN 7.5 MG TABLET. PO ONE (16:30)
[2022-01-08] MEDS ORDERED: WARF7.5T45 PO (16:50)
[2022-01-08] MEDS ORDERED: WARF2.5T71 PO (16:50)
--- NOTE | 2022-01-08 16:56 | PDOC3 ---
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 Status: Acute (4) Left femoral vein DVT Status: Acute Brief Hospital Course Allergies Allergies Coded Allergies Type Severity Reaction Last Updated Verified I S O L A T I O N *CONTACT* Allergy Unknown 04/03/18 Yes No Known Medication Allergies Allergy Unknown 04/03/18 Yes Vital Signs Vital Signs Date Time Temp Pulse Resp B/P (MAP) Pulse Ox O2 Delivery O2 Flow Rate FiO2 01/08/22 15:00 97.9 60 18 108/45 (66) 98 Room Air 97.9 Lab Results Laboratory Tests Test 01/06/22 20:28 01/07/22 04:00 01/07/22 07:31 01/07/22 11:37 Glucose (Fingerstick) 146 mg/dL (70-99) 93 mg/dL (70-99) 130 mg/dL (70-99) Prothrombin Time 19.8 SEC (11.7-14.0) Prothromb Time International Ratio 1.7 (0.8-1.1) Activated Partial Thromboplast Time 134 SEC (24-38) Test 01/07/22 13:59 01/07/22 16:42 01/07/22 20:24 01/07/22 22:22 Activated Partial Thromboplast Time 137 SEC (24-38) 101 SEC (24-38) Glucose (Fingerstick) 98 mg/dL (70-99) 144 mg/dL (70-99) Test 01/08/22 04:20 01/08/22 07:30 01/08/22 11:41 01/08/22 15:30 White Blood Count 5.8 x10^3/uL (4.0-11.0) Red Blood Count 4.12 x10^6/uL (4.30-5.70) Hemoglobin 8.2 g/dL (13.0-17.5) Hematocrit 27.7 % (39.0-53.0) Mean Corpuscular Volume 67 fL (79-100) Mean Corpuscular Hemoglobin 20 pg (25-35) Mean Corpuscular Hemoglobin Concent 30 g/dL (31-37) Red Cell Distribution Width 20.2 % (11.5-14.5) Platelet Count 266 x10^3/uL (140-400) Activated Partial Thromboplast Time 86 SEC (24-38) Glucose (Fingerstick) 90 mg/dL (70-99) 128 mg/dL (70-99) Prothrombin Time 24.5 SEC (11.7-14.0) Prothromb Time International Ratio 2.2 (0.8-1.1) Test 01/08/22 16:33 Glucose (Fingerstick) 126 mg/dL (70-99) Laboratory Tests Test 01/07/22 20:24 01/07/22 22:22 01/08/22 04:20 01/08/22 07:30 Glucose (Fingerstick) 144 mg/dL (70-99) 90 mg/dL (70-99) Activated Partial Thromboplast Time 101 SEC (24-38) 86 SEC (24-38) White Blood Count 5.8 x10^3/uL (4.0-11.0) Red Blood Count 4.12 x10^6/uL (4.30-5.70) Hemoglobin 8.2 g/dL (13.0-17.5) Hematocrit 27.7 % (39.0-53.0) Mean Corpuscular Volume 67 fL (79-100) Mean Corpuscular Hemoglobin 20 pg (25-35) Mean Corpuscular Hemoglobin Concent 30 g/dL (31-37) Red Cell Distribution Width 20.2 % (11.5-14.5) Platelet Count 266 x10^3/uL (140-400) Test 01/08/22 11:41 01/08/22 15:30 01/08/22 16:33 Glucose (Fingerstick) 128 mg/dL (70-99) 126 mg/dL (70-99) Prothrombin Time 24.5 SEC (11.7-14.0) Prothromb Time International Ratio 2.2 (0.8-1.1) Brief Hospital Course Mr Mckeon is an 89 year old male with PMHx a-Fib, Diabetes-Type II, Heart Disea se, MYASTHENIA GRAVIS who presents with lower extremity pain that started this morning at 1:00 in the morning. The pain woke him up from sleep and he was barely able to walk. Of note, patient had a left hip surgery that was done 1 month ago at [facility]. Patient did go to rehab afterwards but states that he has been mainly immobile since going home. Patient denies falls, trauma/injury, weakness, chest pain, palpitations, shortness of breath, cough, orthopnea. 01/03: Seen on heparin gtt. Notes he had been on Eliquis prior to his hospitalization. He is able to get up and ambulate with me with less pain today on 01/01/2022 he was unable to bear weight on his leg at all. Discussed with IR may be able to hold off on thrombectomy for now. Leg is still swollen. Need to discuss with hematology oncology change in anticoagulation regimen given Eliquis failure. 01/04: No acute events overnight. Patient seen examined bedside. Leg swelling has improved. Patient able to bear weight. Warfarin bridging started. INR today is 1.2. Patient's chart, labs, images were reviewed and discussed with RN 01/05: No acute events overnight. Patient seen examined bedside. INR is 1.3 today. Continue with warfarin bridging. Pharmacy to dose. Anticipate discharge in the next 24 to 48 hours. Patient's chart, labs, images were reviewed and discussed with RN 01/06: INR1.4. Yesterday had 7.5 mg warfarin. Had 6 mg and 6 mg for 2 days prior. No chest pain or shortness of breath his left leg pain is little improved when he gets up to ambulate today. Still bridging on heparin gtt. for INR to get above 1.8 01/07: INR 1.7 today. No chest pain or shortness of breath leg pain is stable able to ambulate with walker. Still on heparin gtt. we will continue to hopefully be able to discharge in the next 24 to 48 hours on oral Coumadin. 01/08: Hb 8.2. INR 2.2. He is feeling a little confused today. No chest pain or s hortness of breath. He is a little anxious. Consults: Hematology/Oncology, Cardiology, and Interventional Radiology Problem list: Acute left lower extremity DVT, likely provoked despite being on Eliquis Microcytic anemia, likely RAGINI. Recent left hip arthroplasty History of diabetes mellitus type 2 History of atrial fibrillation History of myasthenia gravis History of CAD Greater than 30 minutes spent on d/c home. Will need weekly INR. Discharge Information Condition at Discharge: Improved Follow Up: Weeks (1) Disposition/Orders: D/C to Home Scheduled Carvedilol (Carvedilol ) 6.25 Mg Tablet, 6.25 MG PO BIDWMEALS for CARDIAC, (Reported) Entered as Reported by: JUNIOR SMITH on 04/23/20 1634 Last Action: Continued on 01/02/221524 by PRANAV JOSEPH MD Cholecalciferol (Vitamin D3) (Vitamin D) 2,000 Unit Tablet, 1,000 UNIT PO DAILY, (Reported) Entered as Reported by: Colt Locke on 07/17/16613 Last Action: Converted on 01/02/221524 by PRANAV JOSEPH MD Esomeprazole Magnesium (Nexium Capsule) 40 Mg Capsule.dr, 1 CAP PO QHS for acid, #30 Ref 5 (Reported) Entered as Reported by: Colt Locke on 07/17/16613 Last Action: Edited on 01/02/222135 by ALMA ROSA RODRIGUEZ Fish Oil/Dha/Epa (Fish Oil 1,200 Mg Fish Oil) 1 Each Capsule, 1 EACH PO DAILY, (Reported) Entered as Reported by: Colt Locke on 07/17/16613 Last Action: Converted on 01/02/221524 by PRANAV JOSEPH MD Flecainide Acetate (Flecainide Acetate) 50 Mg Tablet, 25 MG PO BID, (Reported) Entered as Reported by: Colt Locke on 07/17/16613 Last Action: Continued on 01/02/221524 by PRANAV JOSEPH MD Insulin Glargine,Hum.rec.anlog (Lantus Solostar) 100 Unit/1 Ml Insuln.pen, 12 UNIT SQ QHS for DM2 for 30 Days, #15 Ref 5 Prescribed by: TERRENCE WOODARD MD on 07/08/21 1105 Last Action: Converted on 01/02/221524 by PRANAV JOSEPH MD Pyridostigmine Jefferson (Pyridostigmine Jefferson) 60 Mg Tablet, 60 MG PO BID for Myasthenia Gravis, (Reported) Entered as Reported by: Colt Locke on 07/17/16613 Last Action: Continued on 01/02/221524 by PRANAV JOSEPH MD Simvastatin (Simvastatin) 20 Mg Tablet, 20 MG PO HS for HLD, #30 Ref 0 (Reported) Entered as Reported by: Colt Locke on 07/17/16613 Last Action: Continued on 01/02/221524 by PRANAV JOSEPH MD Warfarin Sodium (Warfarin Sodium) 2.5 Mg Tablet, 2.5 MG PO TWICE WEEKLY for DVT and Afib for 30 Days, #8 Ref 5 Prescribed by: TERRENCE WOODARD MD on 01/08/22 1650 Warfarin Sodium (Warfarin Sodium) 7.5 Mg Tablet, 7.5 MG PO DAILY for DVT and Afib for 30 Days, #30 Ref 5 Prescribed by: TERRENCE WOODARD MD on 01/08/22 1650 Discontinued Medications Amoxicillin/Potassium Clav (Amox Tr-K Clv 500-125 Mg Tab) 1 Each Tablet, 1 TAB PO BID for pneumonia for 5 Days, #10 Prescribed by: TERRENCE SANTA MD on 10/19/21 1028 Apixaban (Eliquis) 2.5 Mg Tablet, 1 TAB PO BID for AFIB, (Reported) Entered as Reported by: Prema Dow RPH on 10/14/21 1015 Hydrochlorothiazide (Hydrochlorothiazide Tablet) 12.5 Mg Tablet, 1 TAB PO DAILY for htn, (Reported) Entered as Reported by: ADY MAJANO, MELANY on 10/14/21 1247 Oseltamivir Phosphate (Tamiflu) 30 Mg Capsule, 30 MG PO BID for Flu for 3 Days, #6 Prescribed by: TERRENCE SANTA MD on 10/19/21 1028 Justicifation of Admission Dx: Justifications for Admission: Justification of Admission Dx: Yes Respiratory Failure: Severe Vent Deficit TERRENCE WOODARD MD Jan 08, 2022 16:56
[2022-01-08 19:00] VITALS: BP 112/59
[2022-01-08] MEDS: SIMVASTATIN 20 MG TABLET PO SCH (20:54)
[2022-01-08] MEDS: PANTOPRAZOLE 40 MG TABLET.DR. PO SCH (20:54)
[2022-01-08] MEDS: INSULIN GLARGINE SYRINGE. SQ SCH (21:00)
[2022-01-08 22:30] VITALS: BP 109/61
--- NOTE | 2022-01-08 23:24 | NUR ---
Discharge Note: STEPHANIE CLEMENS [address] Discharge instructions and discharge home medications reviewed with Patient and a copy given, done by dayshift nurse, Alfa Marin RN. All questions have been answered and understanding verbalized. The following instructions and handouts were given: Home instruction and medication list. Discontinued lines Alfa Marin RN discontinued SL, skin intact. Patient discharged to Home with self care, Left with via private vehicle, all belongs taken with him.
== END 2022-01-08 23:29 | disposition home or self-care (01) | DRG 301 ==
LOC: ER 12:49 → 5 SOUTH 15:18
PROVIDERS: ADMIT Internal Medicine; ATTEND Internal Medicine
DX: I82.412 Acute embolism and thrombosis of left femoral vein (principal); D50.9 Iron deficiency anemia, unspecified; E11.51 Type 2 diabetes mellitus with diabetic peripheral angiopathy without gangrene; G70.00 Myasthenia gravis without (acute) exacerbation; I10 Essential (primary) hypertension; I25.10 Atherosclerotic heart disease of native coronary artery without angina pectoris; I48.0 Paroxysmal atrial fibrillation; Z79.01 Long term (current) use of anticoagulants; Z96.642 Presence of left artificial hip joint; K21.9 Gastro-esophageal reflux disease without esophagitis; M19.90 Unspecified osteoarthritis, unspecified site; Z90.49 Acquired absence of other specified parts of digestive tract
CPT/HCPCS: 36415; 80048; 80053; 82525; 82607; 82668; 82728; 82962; 83010; 83540; 83550; 83615; 83735; 84100; 84484; 85025; 85027; 85045; 85520; 85610; 85730; 93005; 93926; 93971; 96365; 96376; J1644; J1815; 99285-25; G0378